=== PATIENT | female | born 1970 | race Caucasian/White ===

== ENCOUNTER 2021-08-09 15:03 | Outpatient (REF) | payer OTHER, SELFPAY ==
[2021-08-16 15:01] LABS: HPV mRNA E6/E7 rflx Not Detected (Not Detected)
== END 2021-08-09 15:04 | disposition home or self-care (01) ==
LOC: HO.LAB 15:03
PROVIDERS: Visit Provider Advanced Practice Midwife
DX: Z01.419 Encounter for gynecological examination (general) (routine) without abnormal findings (principal)
CPT/HCPCS: 87624; 88142

== ENCOUNTER 2021-08-12 10:32 | Outpatient (REF) | payer OTHER, SELFPAY ==
[2021-08-12 12:17] LABS: Hematocrit 31.1 % (37.0-47.0)
[2021-08-12 12:19] LABS: Hemoglobin 8.9 g/dl (12.0-16.0); Mean Corpuscular HGB Conc 28.6 g/dl (31.0-35.0); Mean Corpuscular Hemoglobin 20.3 pg (27.0-33.0); Platelet Count 364 X10*3/uL (160-400); Red Blood Count 4.38 X10*6/uL (4.20-5.50); Red Cell Distribution Width 19.2 % (11.0-16.0); White Blood Count 6.6 X10*3/uL (4.8-10.8)
[2021-08-12 13:01] LABS: Alanine Aminotransferase 25 U/L (0-31); Albumin Level 4.2 g/dL (3.5-5.0); Alkaline Phosphatase 82 U/L (39-117); Anion Gap 9 (12-20); Aspartate Amino Transferase 26 U/L (5-31); Bilirubin Total 0.6 mg/dL (0.0-1.0); Blood Urea Nitrogen 11 mg/dL (9-16); Calcium 9.5 mg/dL (8.4-10.2); Carbon Dioxide 29 mmol/L (22-29); Chloride 104 mmol/L (96-108); Estimated Glomerular Filt Rate > 60; Glucose Random 125 mg/dL (60-115); Potassium 4.3 mmol/L (3.3-5.1); Sodium 138 mmol/L (135-145); Total Protein 7.6 g/dL (6.5-8.0)
[2021-08-12 16:59] LABS: CT PCR NOT DETECTED (Not Detect.); NG PCR NOT DETECTED (Not Detect.)
== END 2021-08-12 10:33 | disposition home or self-care (01) ==
LOC: HO.LAB 10:32
PROVIDERS: Advanced Practice Midwife; PCP Internal Medicine Geriatric Medicine; Referring Provider Internal Medicine Geriatric Medicine; Visit Provider Nurse Practitioner Family
DX: Z01.419 Encounter for gynecological examination (general) (routine) without abnormal findings (principal); R13.10 Dysphagia, unspecified; K21.9 Gastro-esophageal reflux disease without esophagitis; K59.01 Slow transit constipation
CPT/HCPCS: 36415; 80053; 85027; 87491; 87591; 99202

== ENCOUNTER 2021-08-15 07:38 | Outpatient (REF) | payer OTHER, SELFPAY | END 2021-08-15 07:39 | disposition home or self-care (01) | LOC: HO.LNP 07:38 | PROVIDERS: Visit Provider Nurse Practitioner Family | DX: K21.9 Gastro-esophageal reflux disease without esophagitis (principal); Z11.0 Encounter for screening for intestinal infectious diseases | CPT/HCPCS: 87338 ==

== ENCOUNTER 2021-08-18 14:34 | Outpatient (REF) | payer OTHER, SELFPAY ==
--- NOTE | ~2021-08-18 | US_ITS ---
EXAMINATION: MM DIAGNOSTIC DIGITAL BREAST TOMOSYNTHESIS, BILATERAL US DIAGNOSTIC ULTRASOUND BREAST, RIGHT CLINICAL INFORMATION: 51-year-old with 6-month history lateral right breast mastodynia. No palpable mass or discharge. Prior outside mammography from [place] currently unavailable. No known family history breast cancer. The lifetime risk of breast cancer based on the Tyrer-Cuzick Model is 7%. COMPARISON: None. TECHNIQUE: Digital breast tomosynthesis is performed in both the craniocaudal and mediolateral oblique views along with computer-aided detection (CAD). Synthesized 2D images are generated from the tomosynthesis. Ultrasound right breast is targeted to the 7:00 through 11:00 position. Grayscale imaging and color Doppler are performed without and with harmonics. FINDINGS: There are scattered areas of fibroglandular density (ACR BI-RADS breast composition Category b). There is no mass or architectural abnormality. The axilla and skin contours are unremarkable. There is no skin thickening or coarsening of the Jim's ligaments. No abnormal calcifications. Ultrasound demonstrates no cystic or solid mass, architectural abnormality, or focal duct ectasia. No skin thickening or edema tracking in soft tissue planes. Results are discussed with the patient at time of visit, using an deli cook. US/US breast RT limited IMPRESSION: No mammographic evidence of malignancy or inflammatory changes. Unremarkable targeted right breast ultrasound. ASSESSMENT: BI-RADS 1: Negative RECOMMENDATION: 1. Patient's right breast pain should be managed based on the clinical impression. 2. Radiology department staff will attempt to retrieve prior [id number] mammography to allow for comparison in an addendum report. 3. Otherwise, routine annual screening mammography. This patient's information was entered into a reminder system with a target due date for their next mammogram.
--- NOTE | ~2021-08-18 | MM_ITS ---
EXAMINATION: MM DIAGNOSTIC DIGITAL BREAST TOMOSYNTHESIS, BILATERAL US DIAGNOSTIC ULTRASOUND BREAST, RIGHT CLINICAL INFORMATION: 51-year-old with 6-month history lateral right breast mastodynia. No palpable mass or discharge. Prior outside mammography from [place] currently unavailable. No known family history breast cancer. The lifetime risk of breast cancer based on the Tyrer-Cuzick Model is 7%. COMPARISON: None. TECHNIQUE: Digital breast tomosynthesis is performed in both the craniocaudal and mediolateral oblique views along with computer-aided detection (CAD). Synthesized 2D images are generated from the tomosynthesis. Ultrasound right breast is targeted to the 7:00 through 11:00 position. Grayscale imaging and color Doppler are performed without and with harmonics. FINDINGS: There are scattered areas of fibroglandular density (ACR BI-RADS breast composition Category b). There is no mass or architectural abnormality. The axilla and skin contours are unremarkable. There is no skin thickening or coarsening of the Jim's ligaments. No abnormal calcifications. Ultrasound demonstrates no cystic or solid mass, architectural abnormality, or focal duct ectasia. No skin thickening or edema tracking in soft tissue planes. Results are discussed with the patient at time of visit, using an hand packager. MM/MM tomosynthesis diagnostic BI IMPRESSION: No mammographic evidence of malignancy or inflammatory changes. Unremarkable targeted right breast ultrasound. ASSESSMENT: BI-RADS 1: Negative RECOMMENDATION: 1. Patient's right breast pain should be managed based on the clinical impression. 2. Radiology department staff will attempt to retrieve prior [id number] mammography to allow for comparison in an addendum report. 3. Otherwise, routine annual screening mammography. This patient's information was entered into a reminder system with a target due date for their next mammogram.
== END 2021-08-18 14:35 | disposition home or self-care (01) ==
LOC: HO.MAMMO 14:34
PROVIDERS: Visit Provider Advanced Practice Midwife
DX: N64.4 Mastodynia (principal)
CPT/HCPCS: 76642; 77062; 77066

== ENCOUNTER 2021-09-06 09:55 | Outpatient (REF) | payer OTHER, SELFPAY ==
[2021-09-06 13:41] LABS: MANUAL DIFF FLAG NO
[2021-09-06 13:51] LABS: Basophils Percent Auto 0.7 % (0-2); Eosinophils Absolute Auto 0.1 X10*3/uL (0.0-0.4); Eosinophils Percent Auto 1.6 % (0-4); Hematocrit 30.4 % (37.0-47.0); Hemoglobin 8.5 g/dl (12.0-16.0); Imm Gran Abs Auto 0.03 X10*3/uL (0.00-0.03); Imm Gran Pct Auto 0.5 % (0.0-0.4); Lymphocytes Absolute Auto 1.8 X10*3/uL (1.2-4.9); Lymphocytes Percent Auto 31.8 % (20-40); Mean Corpuscular Hemoglobin 19.9 pg (27.0-33.0); Mean Corpuscular Volume 71.2 fL (80.0-98.0); Mean Platelet Volume 11.9 fL (9.4-12.3); Monocytes Absolute Auto 0.6 X10*3/uL (0.1-1.2); Monocytes Percent Auto 11.3 % (2-11); Neutrophils Percent Auto 54.1 % (45-73); Platelet Count 302 X10*3/uL (160-400); Red Blood Count 4.27 X10*6/uL (4.20-5.50); Red Cell Distribution Width 17.9 % (11.0-16.0); White Blood Count 5.6 X10*3/uL (4.8-10.8)
[2021-09-06 14:22] LABS: Iron 17 mcg/dL (30-160); Percent Iron Saturation 4 % (15-50); Total Iron Binding Capacity 415 mcg/dL (228-428); Unsaturated Iron Binding 398 ug/dL
[2021-09-06 15:04] LABS: Folate 18.4 ng/mL (> or = 4.0); Vitamin B12 556 pg/mL (200-900)
[2021-09-06 15:37] LABS: Ferritin 5 ng/mL (10-250)
== END 2021-09-06 09:56 | disposition home or self-care (01) ==
LOC: HO.10HDL 09:55
PROVIDERS: Visit Provider Internal Medicine
DX: D50.9 Iron deficiency anemia, unspecified (principal)
CPT/HCPCS: 36415; 82607; 82728; 82746; 83540; 85025

== ENCOUNTER 2021-09-19 10:58 | Day surgery (SDC) | payer OTHER, SELFPAY ==
[2021-09-19 11:11] VITALS: BMI 35.2
[2021-09-19 11:34] VITALS: BP 140/89; PULSE 105; RESP 16; TEMP 36.7; O2SAT 96
[2021-09-19] MEDS: Lactated Ringers 1,000 ML 50 ML IVCONT (11:43)
--- NOTE | 2021-09-19 13:11 | P.CONAN_ITS ---
COUNT INCLUDES THE [facility] Active Problems Active Problems: All Active Problems (Updated 08/23/21 @ 15:08 by Caro fermin CNM) Pain of right breast (Acute) Well woman exam with routine gynecological exam (Acute) Cervical cancer screening (Acute) Past Medical History Functional capacity: independent ambulation Patient : No Family History Family history of problems with anesthesia: No Surgical History Surgical History Tubal ligation status History of Problems with Anesthesia: Yes Social History Social History Alcohol intake: never Patient Tobacco Use Status: Never used Tobacco Use of substances other than those prescribed or required for medical reasons: No Are you DNR?: No Advance Directives: No Advance Directives Information Provided: Yes Recently lost weight without trying: No Nutrition Risks: No Nutritional Risk Gender identity: Female Meds Allergies Allergy/AdvReac Type Severity Reaction Status Date / Time No Known Allergies Allergy Verified 08/12/21 10:49 Active Medications: Current Medications Sodium Biphosphate/Sodium Phosphate (Sodium Phosphate,Mingo-Dibasic 133 Ml Enema) 133 ml ID ONCE PRN PRN Reason: Poor Colonoscopy Prep Results Home Medications Medication Instructions Recorded Confirmed Last Taken Type acetaminophen 325 mg tablet 325 mg PO QID PRN 08/09/21 08/09/21 Unknown History (Tylenol) esomeprazole magnesium 20 mg 20 mg PO DAILY 08/12/21 Unknown History capsule,delayed release omeprazole 40 mg capsule,delayed 1 cap PO DAILY 09/19/21 09/19/21 09/19/21 History release Exam Exam Date and Time: September 19, 2021 1311 Height,Weight and Vital Signs: Height 5 ft 5 in Weight 96.162 kg Last Vital Signs Temp 98.1 F 09/19/21 11:34 Pulse 105 H 09/19/21 11:34 Resp 16 09/19/21 11:34 BP 140/89 H 09/19/21 11:34 Pulse Ox 96 09/19/21 11:34 Airway Mallampati Class: IV TM Dist: >3cm Neck ROM: Full Heart: RRR Lungs: CTA Assessment and Plan Final Anesthetic Review Family History of Problems with Anesthesia: No History of Problems with Anesthesia: Yes NPO: Yes ASA Class: III Final Preanesthetic Review: No Changes in Pt Med Stat, Meds/Allgs Chart Reviewed, Consent Obtained/Reviewed and Anes Risks/Benef Reviewed Patient Risk: Low Procedure Risk: Low Anesthetic Plan Anesthetic Plan: MAC: Disposition: Standard PACU
[2021-09-19 14:13] VITALS: BP 114/75; PULSE 92; RESP 16; TEMP 36.8; O2SAT 93
--- NOTE | 2021-09-19 14:21 | P.BOP_ITS ---
Brief Operative Note Date of Service: 09/19/21 Pre-op diagnosis: Microcytic anemia, Family history of colon cancer, Dysphagia, GERD Post-op diagnosis: other (Distal and nonobstructing Esophageal stricture, R/O celiac disease, Colon polyp) Procedure: EGD with biopsies and Balloon Dilation, Colonoscopy to the cecum with bx/removal of polyp Surgeon: Jose Avitia Anesthesia: MAC Was an Contract Coordinator used for this Procedure?: No Estimated blood loss (mL): 2.0 Pathology: other (A. Descending duodenum B. Cecal polyp) Condition: stable Disposition: PACU
[2021-09-19 14:28] VITALS: BP 128/89; PULSE 85; RESP 16; O2SAT 97
[2021-09-19 14:40] VITALS: BP 139/96; PULSE 90; RESP 16; TEMP 36.3; O2SAT 97
--- NOTE | 2021-09-19 20:36 | OP_ITS ---
SURGEON: Jose Avitia MD INDICATIONS: The patient presents for evaluation of iron deficiency anemia, gastroesophageal reflux, dysphagia, and family history of colon cancer. Full consent has been obtained from her for this, including risks of bleeding and perforation. PREOPERATIVE DIAGNOSIS: POSTOPERATIVE DIAGNOSIS: PROCEDURE PERFORMED: Esophagogastroduodenoscopy with biopsies, and balloon dilation of distal esophageal stricture, and colonoscopy to the cecum with biopsy and removal of polyp. ESTIMATED BLOOD LOSS: COMPLICATIONS: ANESTHESIA: Monitored anesthesia care. ASSISTANTS: SPECIMENS: PREOPERATIVE DIAGNOSES: Gastroesophageal reflux, dysphagia, iron deficiency anemia, family history of colon cancer. POSTOPERATIVE DIAGNOSES: Gastroesophageal reflux, dysphagia, iron deficiency anemia, family history of colon cancer, nonobstructing distal esophageal ring, hiatal hernia, rule out celiac disease, colon polyp, internal hemorrhoids. DESCRIPTION OF PROCEDURE: The patient was placed in the left lateral decubitus position. The Olympus video gastroscope was passed in the posterior oropharynx and upper esophagus under direct vision. The scope was passed slowly into the distal esophagus. The gastroesophageal junction appeared at 36 cm. At this level, was what appeared to be a fibrotic nonobstructing esophageal stricture right at the EG junction at 36 cm. The scope easily passed this and entered a hiatal hernia. The scope was advanced to pylorus and the duodenum was cannulated to the descending portion. The duodenum including the bulb appeared normal without mass or ulceration. Biopsies were obtained from the second and third portions of duodenum. The scope was withdrawn back into the stomach. The gastric antrum and body appeared normal with good peristalsis. Scope was retroflexed visualizing the proximal stomach carefully which appeared normal, without any sign of mass or ulceration. The scope was straightened out and withdrawn back into the esophagus. I did use a [employer] incremental balloon to dilate the gastroesophageal junction from 18 mm to 19 mm to 20 mm at the recommended pressure for between 30 and 60 seconds each. Post dilation, there did appear to be some disruption of the stricture and some heme noted. The scope was withdrawn through the remainder of the esophagus which appeared normal. The scope was withdrawn from the patient. She was turned around for colonoscopy. The digital rectal exam revealed no abnormalities. The Olympus video pediatric colonoscope was entered into the rectum and advanced easily to the cecum. Once in the cecum, I did identify cecal pouch with appendiceal orifice and a normal-appearing ileocecal valve. In the cecum, was a flat approximately 3 mm polyp, which was biopsied and completely removed with cold biopsy forceps. The remainder of the cecum and ileocecal valve appeared normal. There was transillumination of light deep in the right lower quadrant. The scope was slowly withdrawn assessing all mucosal surfaces carefully. Preparation was excellent. I did not visualize any other polyps, colitis, nor angiodysplasia. In the rectum, scope was retroflexed visualizing internal hemorrhoids, but no other pathology. The rectal mucosa appeared normal. The scope was straightened out and withdrawn from the patient. She tolerated the procedure well and was returned to recovery area in stable condition. IMPRESSION: 1. Nonobstructing distal esophageal stricture, status post balloon dilation. 2. Hiatal hernia. 3. Rule out celiac disease. 4. Colon polyp. 5. Internal hemorrhoids. PLAN: The results of biopsies will be checked. I would recommend a repeat colonoscopy in 5 years for further evaluation given her family history of colon cancer in her father in his 60s. She was advised not to use any aspirin nor NSAIDs for 1 week. She has been using omeprazole 40 mg daily and has found that to be working much better for her reflux symptoms and will continue that. 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 She apparently has been unable to tolerate oral iron and might need some IV iron infusions. She will follow up with her primary care physician in that regard. Her most recent lab work on September 06 showed a hemoglobin of 8.5, MCV 71, ferritin of 5, iron of 17, and iron saturation of 4%. She will follow up with her primary care physician in this regard as to whether or not she might need iron infusions. Of note, her B12 and folate levels were normal. MD REGIS Vazquez/LYRIC / [id number]
== END 2021-09-19 15:28 | disposition home or self-care (01) ==
PROVIDERS: PCP Internal Medicine Geriatric Medicine; Visit Provider Internal Medicine
PROC: (CPT 45380; principal; 2021-09-19 12:20)
PROC: 0DJD8ZZ Inspection of Lower Intestinal Tract, Via Natural or Artificial Opening Endoscopic (ICD-10-PCS; CPT 45378; 2021-09-19 12:20)
DX: D50.9 Iron deficiency anemia, unspecified (principal); Z80.0 Family history of malignant neoplasm of digestive organs; K63.5 Polyp of colon; K64.8 Other hemorrhoids; K22.2 Esophageal obstruction; R13.10 Dysphagia, unspecified; K21.9 Gastro-esophageal reflux disease without esophagitis; K44.9 Diaphragmatic hernia without obstruction or gangrene; Z79.899 Other long term (current) drug therapy
CPT/HCPCS: 45380; 43249; 43239; 88305; C1726

== ENCOUNTER → 2021-10-05 13:53 | Outpatient (BNV) | payer OTHER, SELFPAY | PROVIDERS: PCP Internal Medicine Geriatric Medicine; Visit Provider Internal Medicine | DX: D50.9 Iron deficiency anemia, unspecified (principal) | CPT/HCPCS: 99203; 99212; 99213; 99214 ==

== ENCOUNTER 2021-10-11 08:03 | Outpatient (REF) | payer OTHER, SELFPAY | END 2021-10-11 08:04 | disposition home or self-care (01) | LOC: HO.MDS 08:03 | PROVIDERS: PCP Internal Medicine Geriatric Medicine; Visit Provider Internal Medicine | DX: D50.9 Iron deficiency anemia, unspecified (principal) | CPT/HCPCS: 96365; 96366; J1200; J1750; Q0163 ==

== ENCOUNTER 2022-05-08 16:03 | Outpatient (REF) | payer OTHER, SELFPAY ==
--- NOTE | ~2022-05-08 | MR_ITS ---
EXAMINATION: MR SHOULDER WITHOUT CONTRAST, RIGHT CLINICAL INFORMATION: Pain, fall. Occupational risk for overuse/repetitive stress. COMPARISON: None TECHNIQUE: MRI of the shoulder without contrast was performed on a high-field scanner. FINDINGS: ROTATOR CUFF: Intact. No muscle atrophy or fatty infiltration. BICEPS: Normal. CORACOACROMIAL ARCH: The undersurface of the acromion is curved with no subacromial spur. The acromioclavicular joint is normal. LABRUM/CAPSULE: Normal. GLENOHUMERAL JOINT/MARROW: Normal. BURSA: Normal. MR/MR shoulder RT wo con IMPRESSION: Normal MRI of the right shoulder.
== END 2022-05-08 16:04 | disposition home or self-care (01) ==
LOC: HO.MRI 16:03
PROVIDERS: Visit Provider Emergency Medicine
DX: M25.511 Pain in right shoulder (principal)
CPT/HCPCS: 73221

== ENCOUNTER 2022-07-12 13:30 | Outpatient (REF) | payer OTHER, SELFPAY | END 2022-07-12 13:31 | disposition home or self-care (01) | LOC: HO.MDS 13:30 | PROVIDERS: Visit Provider Internal Medicine | DX: D50.9 Iron deficiency anemia, unspecified (principal) | CPT/HCPCS: 96365; J1756 ==

== ENCOUNTER 2022-07-13 11:46 | Outpatient (REF) | payer OTHER, SELFPAY ==
--- NOTE | 2022-07-13 08:45 | EMG_ITS ---
Right median and ulnar motor and sensory studies were performed. Right radial sensory study was performed and needle examination was performed. This study did not reveal any evidence of median or ulnar neuropathy or radiculopathy. MD CHNE David/LYRIC / [id number]
== END 2022-07-13 11:47 | disposition home or self-care (01) ==
LOC: HO.NEURO 11:46
PROVIDERS: Visit Provider Internal Medicine Geriatric Medicine
DX: M54.12 Radiculopathy, cervical region (principal); M79.601 Pain in right arm; R20.2 Paresthesia of skin
CPT/HCPCS: 95886; 95909

== ENCOUNTER 2022-07-19 14:20 | Outpatient (REF) | payer OTHER, SELFPAY | END 2022-07-19 14:21 | disposition home or self-care (01) | LOC: HO.MDS 14:20 | PROVIDERS: Visit Provider Internal Medicine | DX: D50.9 Iron deficiency anemia, unspecified (principal) | CPT/HCPCS: 96365; J1756 ==

== ENCOUNTER 2022-07-26 14:07 | Outpatient (REF) | payer OTHER, SELFPAY | END 2022-07-26 14:08 | disposition home or self-care (01) | LOC: HO.MDS 14:07 | PROVIDERS: Visit Provider Internal Medicine | DX: D50.9 Iron deficiency anemia, unspecified (principal) | CPT/HCPCS: 96365; J1756 ==

== ENCOUNTER 2022-08-02 13:50 | Outpatient (REF) | payer OTHER, SELFPAY | END 2022-08-02 13:51 | disposition home or self-care (01) | LOC: HO.MDS 13:50 | PROVIDERS: Visit Provider Internal Medicine | DX: D50.9 Iron deficiency anemia, unspecified (principal) | CPT/HCPCS: 96365; J1756 ==

== ENCOUNTER 2022-08-14 07:06 | Outpatient (REF) | payer OTHER, SELFPAY | END 2022-08-14 07:07 | disposition home or self-care (01) | LOC: HO.MDS 07:06 | PROVIDERS: Visit Provider Internal Medicine | DX: D50.9 Iron deficiency anemia, unspecified (principal) | CPT/HCPCS: 96365; J1756 ==

== ENCOUNTER 2022-08-17 10:54 | Outpatient (REF) | payer OTHER, SELFPAY ==
[2022-08-18 02:10] LABS: CT PCR NOT DETECTED (Not Detect.); NG PCR NOT DETECTED (Not Detect.)
[2022-08-18 10:08] LABS: BV Int Neg Control Negative (Negative); BV Int Pos Control Positive (Positive)
== END 2022-08-17 10:55 | disposition home or self-care (01) ==
LOC: HO.LNP 10:54
PROVIDERS: Visit Provider Advanced Practice Midwife
DX: I10 Essential (primary) hypertension (principal)
CPT/HCPCS: 87480; 87491; 87510; 87591; 87660

== ENCOUNTER 2022-09-20 15:31 | Outpatient (REF) | payer OTHER, SELFPAY | END 2022-09-20 15:32 | disposition home or self-care (01) | LOC: HO.US 15:31 | PROVIDERS: Visit Provider Advanced Practice Midwife | DX: N92.4 Excessive bleeding in the premenopausal period (principal); D50.9 Iron deficiency anemia, unspecified | CPT/HCPCS: 76830; 76856 ==

== ENCOUNTER → 2022-10-04 14:23 | Outpatient (BNVA) | payer OTHER, SELFPAY | PROVIDERS: PCP Internal Medicine Geriatric Medicine; Visit Provider Advanced Practice Midwife | DX: N92.4 Excessive bleeding in the premenopausal period (principal); D50.9 Iron deficiency anemia, unspecified | CPT/HCPCS: 99212 ==

== ENCOUNTER 2022-11-06 11:27 | Outpatient (REF) | payer OTHER, SELFPAY | END 2022-11-06 11:28 | disposition home or self-care (01) | LOC: HO.MDS 11:27 | PROVIDERS: Visit Provider Internal Medicine | DX: D50.9 Iron deficiency anemia, unspecified (principal) | CPT/HCPCS: J1756 ==

== ENCOUNTER 2022-11-06 12:42 | Outpatient (REF) | payer OTHER, SELFPAY ==
--- NOTE | ~2022-11-06 | US_ITS ---
EXAMINATION: US RETROPERITONEAL LIMITED (RENAL ONLY) CLINICAL INFORMATION: Rule out kidney stones. COMPARISON: None TECHNIQUE: Real-time imaging of the kidneys. FINDINGS: RIGHT KIDNEY: 12.3 x 4.9 x 6.2 cm (SAG x AP x TRV). The kidney is normal in size, contour, and echogenicity. Renal cortical thickness is normal. No calculi or focal parenchymal lesions. No hydronephrosis. LEFT KIDNEY: 11.0 x 5.3 x 5.4 cm (SAG x AP x TRV). The kidney is normal in size, contour, and echogenicity. Renal cortical thickness is normal. No calculi or focal parenchymal lesions. No hydronephrosis. US/US renal BI IMPRESSION: No renal calculi are seen.
== END 2022-11-06 12:43 | disposition home or self-care (01) ==
LOC: HO.US 12:42
PROVIDERS: Visit Provider Internal Medicine
DX: R10.9 Unspecified abdominal pain (principal); R31.29 Other microscopic hematuria; M54.41 Lumbago with sciatica, right side; M54.42 Lumbago with sciatica, left side
CPT/HCPCS: 76775; 96365

== ENCOUNTER 2022-11-13 14:27 | Outpatient (REF) | payer OTHER, SELFPAY | END 2022-11-13 14:28 | disposition home or self-care (01) | LOC: HO.MDS 14:27 | PROVIDERS: Visit Provider Internal Medicine | DX: D50.9 Iron deficiency anemia, unspecified (principal) | CPT/HCPCS: 96365; J1756 ==

== ENCOUNTER 2022-11-21 14:29 | Outpatient (REF) | payer OTHER, SELFPAY | END 2022-11-21 14:30 | disposition home or self-care (01) | LOC: HO.MDS 14:29 | PROVIDERS: Visit Provider Internal Medicine | DX: D50.9 Iron deficiency anemia, unspecified (principal) | CPT/HCPCS: 96365; J1756 ==

== ENCOUNTER 2022-11-27 15:00 | Outpatient (REF) | payer OTHER, SELFPAY | END 2022-11-27 15:01 | disposition home or self-care (01) | LOC: HO.MDS 15:00 | PROVIDERS: Visit Provider Internal Medicine | DX: D50.9 Iron deficiency anemia, unspecified (principal) | CPT/HCPCS: 96365 ==

== ENCOUNTER 2022-11-27 15:22 | Emergency (ER) | payer OTHER, SELFPAY ==
--- NOTE | ~2022-11-27 | XR_ITS ---
EXAMINATION: XR KNEE, RIGHT CLINICAL INFORMATION: Pain and swelling. COMPARISON: None TECHNIQUE: Four views of the right knee. FINDINGS: There is mild suprapatellar joint effusion. No visible fracture, dislocation or loose body seen. The joint spaces are maintained normal. XR/XR knee RT 4V IMPRESSION: Minimal suprapatellar joint effusion likely nonspecific. Otherwise rest of the right knee is unremarkable.
[2022-11-27 15:52] VITALS: BP 175/91; PULSE 83; RESP 18; TEMP 36.9; O2SAT 98; BMI 36.0
--- NOTE | 2022-11-27 15:54 | ED_ITS ---
HPI - Extremity Injury (Lower) General Chief Complaint: Extremity Problem <ALAN Mauro Last Filed: 11/27/22 15:55> Stated Complaint: right knee swollen,pain <ALAN Mauro - Last Filed: 11/27/22 15:55> Time Seen by Provider: 11/27/22 18:22 <ALAN Mauro - Last Filed: 11/27/22 15:55> Source: patient <ALAN Escobar - Last Filed: 11/27/22 18:38> Mode of arrival: ambulatory <ALAN Escobar Last Filed: 11/27/22 18:38> Limitations: no limitations <ALAN Escobar Last Filed: 11/27/22 18:38> History of Present Illness HPI Narrative: This is a 52-year-old female history of obesity, hypertension presents with right-sided knee pain x1 day, patient tells me this pain was atraumatic in nature, started randomly when she was standing. Reports her right knee appears swollen when compared to her left. No direct trauma to the area. This is never happened to her before. Patient denies fevers, chills, chest pain, shortness of breath, numbness, tingling, headache, vision changes, dizziness, changes in urination, changes in bowel habits, rash. <ALAN Escobar Last Filed: 11/27/22 18:38> Related Data Home Medications: Home Medications Medication Instructions Recorded Confirmed acetaminophen 325 mg tablet 325 mg PO QID PRN Pain 08/09/21 10/18/22 (Tylenol) omeprazole 40 mg capsule,delayed 1 cap PO DAILY 09/19/21 10/18/22 release blood pressure test kit-large 07/03/22 10/18/22 Previous Rx's Medication Instructions Recorded docusate sodium 100 mg capsule 100 mg PO BEDTIME #30 caps 08/12/21 sennosides 8.6 mg tablet (Natural 8.6 mg PO BEDTIME constipation #30 08/12/21 Senna Laxative) tabs ketorolac 10 mg tablet 10 mg PO TID PRN pain 5 days #15 11/27/22 tabs <ALAN Mauro Last Filed: 11/27/22 15:55> Allergies/Adverse Reactions: Allergies Allergy/AdvReac Type Severity Reaction Status Date / Time No Known Allergies Allergy Verified 10/04/22 14:30 <ALAN Mauro - Last Filed: 11/27/22 15:55> Review of Systems Review of Systems: Constitutional : No Weight loss, No Fever, No Chills, No Fatigue, No Malaise ENT/Mouth : No sore throat, No Rhinorrhea Eyes: No Eye Pain, No Swelling, No Redness Cardiovascular : No Chest Pain, No SOB, No Dyspnea on Exertion, No Orthopnea, No Edema, No Palpitations Respiratory : No Cough, No Sputum, No Wheezing Gastrointestinal : No Nausea, No Vomiting, No Diarrhea, No Constipation, No abdominal Pain, No Hematochezia, No Melena Genitourinary : No Dysuria, No Urinary Frequency, No Hematuria, Musculoskeletal : + joint pain, No Myalgias, + Joint Swelling Skin : No Skin Lesions, No rash Neuro : No Weakness, No Numbness, No Dizziness, No Headache Psych : No Anxiety/Panic, No Depression All other systems reviewed and are negative <ALAN Escobar - Last Filed: 11/27/22 18:38> Yes all other systems are reviewed and are negative <ALAN Escobar - Last Filed: 11/27/22 18:38> [facility] Past Medical History Attestation statement: The following information was validated with the patient. <ALAN Escobar - Last Filed: 11/27/22 18:38> Source: old records reviewed and nursing notes reviewed <ALAN Escobar - Last Filed: 11/27/22 18:38> Medical History: Medical History COVID-19 Hypertension <ALAN Mauro - Last Filed: 11/27/22 15:55> Surgical History: Surgical History Tubal ligation status <ALAN Mauro - Last Filed: 11/27/22 15:55> Family History Family History: Family History Father Mother Multiple myeloma Father Colon cancer <ALAN Mauro - Last Filed: 11/27/22 15:55> Social History Social History: Social History Household Members: Spouse Housing: House Alcohol intake: never Patient Tobacco Use Status: Never used Tobacco Advance Directives: No Advance Directives Information Provided: Yes Gender identity: Female <ALAN Mauro - Last Filed: 11/27/22 15:55> Physical Exam Vital Signs: Vital Signs: Last Vital Signs Temp 98.4 F 11/27/22 15:52 Pulse 83 11/27/22 15:52 Resp 18 11/27/22 15:52 BP 175/91 H 11/27/22 15:52 Pulse Ox 98 11/27/22 15:52 O2 Del Method 11/27/22 15:52 BMI result Body Mass Index 36.0 <ALAN Mauro - Last Filed: 11/27/22 15:55> Vital Signs: Last Vital Signs Temp 98.4 F 11/27/22 15:52 Pulse 83 11/27/22 15:52 Resp 18 11/27/22 15:52 BP 175/91 H 11/27/22 15:52 Pulse Ox 98 11/27/22 15:52 O2 Del Method 11/27/22 15:52 BMI result Body Mass Index 36.0 vss <ALAN Escobar - Last Filed: 11/27/22 18:38> Appearance: Alert.? Oriented X3.? No acute distress.? Head: Normocephalic, atraumatic, no step-offs or deformities Eyes: Pupils equal, round and reactive to light.? CVS: Normal heart rate and rhythm.? Pulses normal.? Respiratory: No respiratory distress.? Breath sounds normal.? Abdomen: Soft and nontender.? Skin: Skin warm and dry.? Normal skin color.? Normal skin turgor.? Extremities: No lower extremity edema.? No calf ttp. 5/5 strength to bilateral upper and lower extremities + slight swelling overlying the right knee, no overlying skin changes. Normal left knee. Bilateral knees with full range of motion pain-free. 2+ popliteal pulses, 2+ dorsalis pedis, anterior tibialis and posterior tibialis pulses equal bilateral. Ambulatory with steady gait normal coordination. Normal sensation to lower extremities. No distracting injuries. Neuro: Oriented X 3.? No motor deficit.? No sensory deficit. CN 2-12 intact <ALAN Escobar - Last Filed: 11/27/22 18:38> Course Course Course Narrative: RME - 52 yo [place]an speaking female with hx obesity, HTN presents to the ER for evaluation of acute onset of right knee pain that started today while standing. Reports new swelling. No specific injury. Ambulatory into triage. XRs pending. <ALAN Mauro - Last Filed: 11/27/22 15:55> Reevaluation(s) Reevaluation #1: X-ray with a minimal suprapatellar joint effusion likely nonspecific. I do not suspect septic joint or osteomyelitis. Will give patient an Amaury wrap. Will give her Toradol for pain and discharged home on same. Will also do a short course of steroids. Will have her follow-up with the orthopedic team. Educated patient on diagnosis and treatment plan, answered all question, patient verbalizes understanding. At this time patient will be discharged home, advised to return with new or worsening symptoms. Educated on worrisome signs and sym ptoms and when to return. At this time I feel comfortable discharge home. <ALAN Escobar - Last Filed: 11/27/22 18:38> Time: 18:27 <ALAN Escobar - Last Filed: 11/27/22 18:38> Medical Decision Making Medical Decision Making [facility] Narrative: 1826 52-year-old female presents with atraumatic right-sided knee pain, started today. Physical exam significant for slight swelling overlying the right knee, no overlying skin changes. Normal left knee. Bilateral knees with full range of motion pain-free. 2+ popliteal pulses, 2+ dorsalis pedis, anterior tibialis and posterior tibialis pulses equal bilateral. Ambulatory with steady gait normal coordination. Normal sensation to lower extremities. No distracting injuries. Concerns for possible small right knee effusion likely secondary to degenerative arthritis/inflammatory arthritis. Unlikely septic joint, threatened limb. No signs of neurovascular compromise. Plan at this time is x-ray, was ordered from triage. <ALAN Escobar - Last Filed: 11/27/22 18:38> Differential Diagnosis Differential Diagnoses: The differential diagnosis associated with the presentation includes <ALAN Escobar - Last Filed: 11/27/22 18:38> Concerns for possible small right knee effusion likely secondary to degenerative arthritis/inflammatory arthritis. Unlikely septic joint, threatened limb. No signs of neurovascular compromise. <ALAN Escobar - Last Filed: 11/27/22 18:38> Admission/Observation Consideration of admission/observation: Escalation of care including admission/observation considered <ALAN Escobar - Last Filed: 11/27/22 18:38> Lab Data MDM Lab Attestation statement: I reviewed the patient's lab results. <ALAN Escobar - Last Filed: 11/27/22 18:38> Independent Interpretation I performed an independent interpretation of an: Plain X-Ray (Minimal suprapatellar joint effusion likely nonspecific. Otherwise rest of the right knee is unremarkable. ) <ALAN Escobar - Last Filed: 11/27/22 18:38> Radiology Impression Discussion of test interpretation with radiology: I have reviewed the radiologist's reading. <ALAN Escobar - Last Filed: 11/27/22 18:38> Core Measures AMI core measures followed: Yes <ALAN Escobar - Last Filed: 11/27/22 18:38> Measure exclusions: not indicated <ALAN Escobar - Last Filed: 11/27/22 18:38> Critical Care Time Critical Care Time Critical Care Time: No <ALAN Escobar - Last Filed: 11/27/22 18:38> Discharge Plan Discharge Clinical Impression: Effusion of right knee <ALAN Mauro Last Filed: 11/27/22 15:55> Patient Disposition: Home, Self-Care <ALAN Mauro - Last Filed: 11/27/22 15:55> Instructions: Swollen Knee Joint (ED), Swollen Joint (ED) <ALAN Mauro Last Filed: 11/27/22 15:55> Additional Instructions: Take your medications as prescribed. If you were prescribed antibiotics today, it is important that you take your medication to their entirety, do not skip any doses, do not finish them early. Follow-up with your primary care provider this week. Return to the emergency department with new or worsening symptoms. Such as fevers, chills, chest pain, shortness of breath, nausea, vomiting, dizziness, headache, vision changes, lethargy In case of emergency call 911 Toradol has been sent to your pharmacy, you tolerated this well in the department. Please take this as prescribed do not take this with ibuprofen, or other NSAIDs, do not mix this with alcohol. Side effects of this medication including increased risk for bleeding and possible kidney injury. <ALAN Mauro - Last Filed: 11/27/22 15:55> Prescriptions: New ketorolac 10 mg tablet 10 mg PO TID PRN (Reason: pain) 5 Days Qty: 15 0RF Rx Instructions: Tolerated IM in the department No Action omeprazole 40 mg capsule,delayed release(DR/EC) 1 cap PO DAILY (DME) blood pressure test kit-large Kit MISCELLANEOUS DAILY docusate sodium 100 mg capsule 100 mg PO BEDTIME Qty: 30 3RF sennosides [Natural Senna Laxative] 8.6 mg tablet 8.6 mg PO BEDTIME Qty: 30 3RF acetaminophen [Tylenol] 325 mg tablet 325 mg PO QID PRN (Reason: Pain) <ALAN Mauro - Last Filed: 11/27/22 15:55> Referrals: [facility] [Provider Group] - 1 week Name,MD Rajesh [Primary Care Provider] - 2 days <ALAN Mauro - Last Filed: 11/27/22 15:55> Stand Alone Forms: Work/School Release <ALAN Mauro - Last Filed: 11/27/22 15:55>
[2022-11-27] MEDS: Ketorolac Tromethamine 15 MG/ML VIAL 30 MG IM (18:56)
== END 2022-11-27 19:01 | disposition home or self-care (01) ==
PROVIDERS: Emergency Provider Student in an Organized Health Care Education/Training Program; PCP Internal Medicine Geriatric Medicine
DX: M25.461 Effusion, right knee (principal); M25.561 Pain in right knee; I10 Essential (primary) hypertension; E66.9 Obesity, unspecified; Z68.36 Body mass index [BMI] 36.0-36.9, adult; Z79.899 Other long term (current) drug therapy
CPT/HCPCS: 73564; 96372; 99283; 99284; J1885

== ENCOUNTER 2022-12-04 13:34 | Outpatient (REF) | payer OTHER, SELFPAY | END 2022-12-04 13:35 | disposition home or self-care (01) | LOC: HO.MDS 13:34 | PROVIDERS: Visit Provider Internal Medicine | DX: D50.9 Iron deficiency anemia, unspecified (principal) | CPT/HCPCS: 96365; J1756 ==

== ENCOUNTER 2022-12-25 14:01 | Outpatient (REF) | payer OTHER, SELFPAY ==
--- NOTE | ~2022-12-25 | XR_ITS ---
EXAMINATION: XR KNEE, RIGHT CLINICAL INFORMATION: Pain. COMPARISON: Radiographs dated 11/27/2022. TECHNIQUE: AP and axial views of the right knee are submitted. FINDINGS: Bony alignment and mineralization are normal. The lateral, medial and patellofemoral joint space compartments are well-maintained. There is mild peripheral osteophyte formation of the medial and patellofemoral compartments. No fracture or dislocation is seen. There is no foreign body. XR/XR knee RT 1V IMPRESSION: 1. There is mild osteoarthritic change of the medial and patellofemoral compartments of the right knee. 2. No fracture or dislocation is seen.
--- NOTE | ~2022-12-25 | XR_ITS ---
EXAMINATION: XR KNEE, RIGHT CLINICAL INFORMATION: Pain. COMPARISON: Radiographs dated 11/27/2022. TECHNIQUE: AP and axial views of the right knee are submitted. FINDINGS: Bony alignment and mineralization are normal. The lateral, medial and patellofemoral joint space compartments are well-maintained. There is mild peripheral osteophyte formation of the medial and patellofemoral compartments. No fracture or dislocation is seen. There is no foreign body. XR/XR knee RT 1V IMPRESSION: 1. There is mild osteoarthritic change of the medial and patellofemoral compartments of the right knee. 2. No fracture or dislocation is seen.
== END 2022-12-25 14:02 | disposition home or self-care (01) ==
LOC: HO.HOSX 14:01
PROVIDERS: Visit Provider Physician Assistant
DX: M17.11 Unilateral primary osteoarthritis, right knee (principal); R60.9 Edema, unspecified
CPT/HCPCS: 73560; 99212

== ENCOUNTER 2023-01-22 09:14 | Outpatient (REF) | payer OTHER, SELFPAY ==
--- NOTE | ~2023-01-22 | XR_ITS ---
EXAMINATION: XR SHOULDER, RIGHT CLINICAL INFORMATION: Right shoulder pain COMPARISON: None available. TECHNIQUE: AP external rotation, Grashey, scapular Y, and axillary views of the right shoulder. FINDINGS: The bones and soft tissues are normal. No fracture. Glenohumeral and acromioclavicular alignment is anatomic with normal joint space. No abnormal soft tissue calcifications. XR/XR shoulder RT min 2V IMPRESSION: Normal right shoulder.
== END 2023-01-22 09:15 | disposition home or self-care (01) ==
LOC: HO.HOSX 09:14
PROVIDERS: Visit Provider Physician Assistant
DX: M75.101 Unspecified rotator cuff tear or rupture of right shoulder, not specified as traumatic (principal)
CPT/HCPCS: 20610; 73030; 99202; J1040

== ENCOUNTER 2023-02-06 07:30 | Emergency (ER) | payer OTHER, SELFPAY ==
--- NOTE | ~2023-02-06 | XR_ITS ---
Examination: Right shoulder and chest. CLINICAL INDICATION: Right shoulder pain. Reading to right chest. COMPARISON: Right shoulder 01/22/2023 TECHNIQUE: Right shoulder 3 views. Chest one view. FINDINGS: Right shoulder: There is minimal loss of right glenohumeral joint space. It is better visualized on today's exam. The AC joint space is preserved. No visible acute fracture, dislocation or subluxation seen. No bony erosive changes. The soft tissues are normal. CHEST: The lungs are well-expanded and clear. The heart size and progress clarities normal. No gross bony abnormality seen. XR/XR shoulder RT 1V IMPRESSION: Mild degenerative changes right humeral joint. Otherwise unremarkable right shoulder. Unremarkable chest exam...
--- NOTE | ~2023-02-06 | XR_ITS ---
Examination: Right shoulder and chest. CLINICAL INDICATION: Right shoulder pain. Reading to right chest. COMPARISON: Right shoulder 01/22/2023 TECHNIQUE: Right shoulder 3 views. Chest one view. FINDINGS: Right shoulder: There is minimal loss of right glenohumeral joint space. It is better visualized on today's exam. The AC joint space is preserved. No visible acute fracture, dislocation or subluxation seen. No bony erosive changes. The soft tissues are normal. CHEST: The lungs are well-expanded and clear. The heart size and progress clarities normal. No gross bony abnormality seen. XR/XR chest 1V IMPRESSION: Mild degenerative changes right humeral joint. Otherwise unremarkable right shoulder. Unremarkable chest exam...
--- NOTE | 2023-02-06 07:34 | ECG_ITS ---
Test Reason : pain radiating to L chest Blood Pressure : / mmHG Vent. Rate : 067 BPM Atrial Rate : 067 BPM P-R Int : 148 ms QRS Dur : 074 ms QT Int : 394 ms P-R-T Axes : 030 002 025 degrees QTc Int : 416 ms Normal sinus rhythm Normal ECG No previous ECGs available Referred By: Generic ED Physician Electronically Signed By:PHILL WU
[2023-02-06 07:46] VITALS: BP 179/99; PULSE 66; RESP 17; TEMP 36.1; O2SAT 98; BMI 35.9
--- NOTE | 2023-02-06 08:02 | ED_ITS ---
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 Patient states that over the last 24 she has had worsening right shoulder pain that radiates into her neck and down into her hands. Patient states that she has had issues with this shoulder before and has seen orthopedics but has not fixed it. 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 Patient denies any dizziness, light headedness, abdominal pain, nausea, vomiting, fever, chills, blurry vision, double vision, loss of vision, chest pain, difficulty breathing, shortness of breath, back pain, night sweats, pain with urination, increased urinary frequency, increased urinary urgency, blood in her urine or stool, syncope or a near syncopal episode, recent trauma or falls, bowel incontinence, bladder incontinence, bowel retention, bladder retention, or any other complaints at this time. Onset (ago): day(s) Location: right and upper extremity Severity: mild Severity scale (1-10): 2 Quality: aching Relieving factors: none Exacerbating factors: none Associated symptoms: denies other symptoms Treatments prior to arrival: none Related Data Home Medications Medication Instructions Recorded Confirmed blood pressure test kit-large 07/03/22 01/16/23 omeprazole 40 mg capsule,delayed 40 mg PO DAILY 01/22/23 release Previous Rx's Medication Instructions Recorded diclofenac sodium 75 mg 75 mg PO BID PRN pain 30 days #60 12/25/22 tablet,delayed release tabs cyclobenzaprine 5 mg tablet 5 mg PO TID PRN muscle spasm 7 02/06/23 days #21 tabs Allergies Allergy/AdvReac Type Severity Reaction Status Date / Time No Known Allergies Allergy Verified 01/22/23 10:16 Review of Systems Constitutional: Constitutional: Reports no additional constitutional compl aints, Denies chills, Denies fever(s) and Denies night sweats Eyes: Eyes: Reports no additional eye complaints, Denies blurry vision, Denies change in vision, Denies diplopia, Denies eye discharge, Denies loss of vision and Denies eye pain ENT: Denies dizziness Cardiovascular: Cardiovascular: Reports no additional cardiovascular complaints, Denies chest pain, Denies lightheadedness, Denies Loss of Consciousness and Denies dyspnea Respiratory: Respiratory: Reports no additional respiratory complaints and Denies dyspnea Gastrointestinal: Gastrointestinal: Reports no additional gastrointestinal complaints, Denies abdominal pain, Denies melena, Denies hematochezia, Denies change in bowel habits and Denies change in stool character Genitourinary: Genitourinary: Denies hematuria, Denies urinary frequency, Denies dysuria, Denies urinary incontinence, Denies urinary hesitancy and Denies urinary urgency Musculoskeletal: Musculoskeletal: Reports no additional musculoskeletal complaints, Denies numbness and Denies tingling Comments: right shoulder pain Neurologic: Denies dizziness, Denies loss of vision, Denies numbness and Denies tingling Psychiatric: Psychiatric: Reports no additional psychiatric complaints Endocrine: Endocrine: Reports no additional endocrine complaints Hematologic/Lymphatic: Hematologic/Lymphatic: Reports no additional hematologic/lymphatic complaints Allergic/Immunologic: Allergic/Immunologic: Reports no additional allergic/immunologic complaints PMFSH Past Medical History Attestation statement: The following information was validated with the patient. 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 Gender identity: Female Physical Exam ED Vital Signs: Vital Signs - 24 hr 02/06/23 07:46 Temperature 97.0 F Pulse Rate 66 Respiratory Rate 17 Blood Pressure 179/99 H Pulse Oximetry 98 Oxygen Delivery Method Room Air BMI result Body Mass Index 35.9 Const General: cooperative, no acute distress, alert and awake Nutritional Appearance: well nourished Orientation/consciousness: patient oriented x3 Limitations: no limitations HENMT Head: Yes normal to inspection and Yes atraumatic Ears: hearing grossly normal bilaterally and external ears normal General nose exam: Normal external nose present, no nasal discharge noted and no epistaxis Face and sinus: Yes normal facial exam, No abrasion and No laceration Mouth: Normal oral and palatal mucosa present, no drooling and no muffled voice Eyes General: appearance normal, both eyes and all related structures Periorbital: periorbital findings normal Eyelids: Yes eyelids normal Conjunctivae: conjunctivae normal Pupils: Equal, round and reactive pupils present EOM: EOMs intact bilaterally Neck Neck: Yes normal visual inspection, Yes full ROM and Yes no lymphadenopathy Chest Chest palpation & inspection: normal inspection of the chest Resp Effort & Inspection: normal respiratory effort and able to speak in complete sentences GI Inspection: Yes normal to inspection Neuro General: patient oriented x3 and moves all extremities Cranial nerves: Yes Equal, round and reactive pupils present Cognition (Neuro): normal cognition Motor exam (neuro): 5/5 motor strength present throughout Sensory Exam: Normal double simultaneous stimulation for sensation Coordination: [id number] test normal Extrem General: Yes normal to inspection, Yes full ROM and Yes capillary refill normal Psych Appearance: grossly normal Mental Status: mental status grossly normal Affect: normal affect Attitude: cooperative Thought process: Normal thought process present Thought content: Normal thought content present Insight: Good insight present (Psych) Medications Administered Discontinued Medications Generic Name Dose Route Start Last Admin Trade Name Darrianq PRN Reason Stop Dose Admin Cyclobenzaprine HCl 5 mg 02/06/23 08:07 02/06/23 08:36 Cyclobenzaprine Hcl 5 Mg Tablet PO 02/06/23 08:08 5 mg ONCE ONE Administration Ketorolac Tromethamine 15 mg 02/06/23 08:07 02/06/23 08:35 Ketorolac Tromethamine 15 Mg/Ml Vial IM 02/06/23 08:08 15 mg ONCE ONE Administration Methylprednisolone Sodium Succinate 60 mg 02/06/23 08:07 02/06/23 08:38 Methylprednisolone Sod Succ 125 Mg/2 Ml Vial IM 02/06/23 08:08 Not Given ONCE ONE Methylprednisolone Sodium Succinate 60 mg 02/06/23 08:15 02/06/23 08:35 Methylprednisolone Sod Succ 40 Mg/Ml Vial IVPUSH 60 mg ONCE JAVIER Administration Medical Decision Making Medical Decision Making [facility] Narrative: Patient is a 52 year old assigned female at with a history of HTN presenting to the emergency department today with right shoulder pain. Patient's physical exam was unremarkable. Patient's blood work was unremarkable. Patient's right shoulder and chest x-ray showed no acute process. I explained my physical exam findings as well as all test results to the patient. I answered all questions asked by the patient. Patient received IM Toradol, IM Solu-Medrol, and PO Flexeril which she stated helped her symptoms significantly. I stressed the importance of the patient taking her medication as prescribed. I stressed the importance of the patient following up with her primary care provider and an orthopedic provider. I stressed the importance of the patient returning to the emergency department immediately if her symptoms were to worsen or if she were to develop any dizziness, shortness of breath, difficulty breathing, chest pain, blurry vision, loss of vision, nausea, vomiting, abdominal pain, fever, chills, back pain, or any other complaints. Patient verbalized agreement and understanding with this treatment plan and discharge. Differential Diagnosis Differential Diagnoses: The differential diagnosis associated with the presentation includes right shoulder pain, rotator cuff injury Lab Data MDM Lab Attestation statement: I reviewed the patient's lab results. 02/06/23 08:17 02/06/23 08:17 Labs: Lab Results 02/06/23 02/06/23 02/06/23 Range/Units 08:17 08:17 08:17 WBC 5.9 (4.8-10.8) X10*3/uL RBC 5.46 (4.20-5.50) X10*6/uL Hgb 14.9 (12.0-16.0) g/dl Hct 46.9 (37.0-47.0) % MCV 85.9 (80.0-98.0) fL MCH 27.3 (27.0-33.0) pg MCHC 31.8 (31.0-35.0) g/dl RDW 17.3 H (11.0-16.0) % Plt Count 175 (160-400) X10*3/uL MPV 11.2 (9.4-12.3) fL Immature Gran % (Auto) 0.5 H (0.0-0.4) % Neut % (Auto) 50.3 (45-73) % Lymph % (Auto) 38.0 (20-40) % [place] % (Auto) 8.8 (2-11) % Eos % (Auto) 1.9 (0-4) % Baso % (Auto) 0.5 (0-2) % Lymph # (Auto) 2.3 (1.2-4.9) X10*3/uL [place] # (Auto) 0.5 (0.1-1.2) X10*3/uL Eos # (Auto) 0.1 (0.0-0.4) X10*3/uL Baso # (Auto) 0.0 (0.0-0.2) X10*3/uL Abs Immat Gran (auto) 0.03 (0.00-0.03) X10*3/uL Absolute Neuts (auto) 3.0 (2.0-8.3) x10*3/uL Absolute Nucleated RBC 0.000 (0.0-0.012) X10*3/uL Nucleated RBC % (auto) 0.0 (0.0-0.2) /100WBC Sodium 141 (135-145) mmol/L Potassium 4.3 (3.3-5.1) mmol/L Chloride 106 (96-108) mmol/L Carbon Dioxide 30 H (22-29) mmol/L Anion Gap 9 L (12-20) BUN 11 (9-16) mg/dL Creatinine 0.68 (0.5-1.4) mg/dL Estim Creat Clear Calc 113.3 Estimated GFR > 60 Random Glucose 103 (60-115) mg/dL Calcium 9.3 (8.4-10.2) mg/dL Troponin I High Sens < 2.7 (<3.5-17.0) ng/L Independent Interpretation I performed an independent interpretation of an: Plain X-Ray Interpretation: My interpretation is in agreement with the radiologist's impression of these imaging studies. Examination: Right shoulder and chest. CLINICAL INDICATION: Right shoulder pain. Reading to right chest. COMPARISON: Right shoulder 01/22/2023 TECHNIQUE: Right shoulder 3 views. Chest one view. FINDINGS: Right shoulder: There is minimal loss of right glenohumeral joint space. It is better visualized on today's exam. The AC joint space is preserved. No visible acute fracture, dislocation or subluxation seen. No bony erosive changes. The soft tissues are normal. CHEST: The lungs are well-expanded and clear. The heart size and progress clarities normal. No gross bony abnormality seen. XR/XR shoulder RT 1V IMPRESSION: Mild degenerative changes right humeral joint. Otherwise unremarkable right shoulder. ? Unremarkable chest exam... Dictated By: Eduard Martin MD Signed By: Electronically signed by Eduard Martin MD 02/06/23 0853 Discharge Plan Discharge Clinical Impression: Acute shoulder pain Patient Disposition: Home, Self-Care Instructions: Shoulder Pain (ED) Additional Instructions: Follow up with your primary care and an orthopedic provider. Return to the emergency department immediately if your symptoms worsen or if you develop any dizziness, shortness of breath, difficulty breathing, chest pain, blurry vision, loss of vision, nausea, vomiting, abdominal pain, fever, chills, back pain, or any other complaints. Sam un seguimiento con espinoza atenci?n primaria y un proveedor ortop?dico. Regrese al departamento de emergencias de inmediato si jaron s?ntomas empeoran o si presenta mareos, falta de aire, dificultad para respirar, dolor de pecho, visi?n borrosa, p?rdida de la visi?n, n?useas, v?mitos, dolor abdominal, fiebre, escalofr?os, dolor de espalda o cualquier otras quejas. Prescriptions: New cyclobenzaprine 5 mg tablet 5 mg PO TID PRN (Reason: muscle spasm) 7 Days Qty: 21 0RF No Action (DME) blood pressure test kit-large Kit MISCELLANEOUS DAILY diclofenac sodium 75 mg tablet,delayed release (DR/EC) 75 mg PO BID PRN (Reason: pain) 30 Days Qty: 60 0RF omeprazole 40 mg capsule,delayed release(DR/EC) 40 mg PO DAILY Referrals: [facility] – [place] [facility] [Provider Group] (Call to establish and follow up with an orthopedic provider. Llame para establecer y hacer un seguimiento con un proveedor ortop?dico.) Name,MD Rajesh [Primary Care Provider] - Stand Alone Forms: Work/School Release Interventions: ED Discharge Assessment Last Done: 02/06/23 10:45 Discharge Date/Time: 02/06/23 10:45 Print Language: Beninese
[2023-02-06 08:22] LABS: MANUAL DIFF FLAG NO
[2023-02-06 08:24] LABS: Basophils Percent Auto 0.5 % (0-2); Eosinophils Absolute Auto 0.1 X10*3/uL (0.0-0.4); Eosinophils Percent Auto 1.9 % (0-4); Hematocrit 46.9 % (37.0-47.0); Hemoglobin 14.9 g/dl (12.0-16.0); Imm Gran Abs Auto 0.03 X10*3/uL (0.00-0.03); Imm Gran Pct Auto 0.5 % (0.0-0.4); Lymphocytes Absolute Auto 2.3 X10*3/uL (1.2-4.9); Mean Corpuscular HGB Conc 31.8 g/dl (31.0-35.0); Mean Corpuscular Hemoglobin 27.3 pg (27.0-33.0); Mean Corpuscular Volume 85.9 fL (80.0-98.0); Mean Platelet Volume 11.2 fL (9.4-12.3); Monocytes Absolute Auto 0.5 X10*3/uL (0.1-1.2); Monocytes Percent Auto 8.8 % (2-11); Neutrophils Percent Auto 50.3 % (45-73); Platelet Count 175 X10*3/uL (160-400); Red Blood Count 5.46 X10*6/uL (4.20-5.50); Red Cell Distribution Width 17.3 % (11.0-16.0); White Blood Count 5.9 X10*3/uL (4.8-10.8)
[2023-02-06] MEDS: methylPREDNISolone Sod Succ 40 MG/ML VIAL 60 MG IVPUSH (08:35)
[2023-02-06] MEDS: Ketorolac Tromethamine 15 MG/ML VIAL IM (08:35)
[2023-02-06] MEDS: Cyclobenzaprine HCl 5 MG TABLET PO (08:36)
[2023-02-06 08:46] LABS: Troponin-I High Sensitivity < 2.7 ng/L (<3.5-17.0)
[2023-02-06 11:14] LABS: Anion Gap 9 (12-20); Blood Urea Nitrogen 11 mg/dL (9-16); Calcium 9.3 mg/dL (8.4-10.2); Carbon Dioxide 30 mmol/L (22-29); Chloride 106 mmol/L (96-108); Creatinine Clr Calc Pharmacy 113.3; Estimated Glomerular Filt Rate > 60; Glucose Random 103 mg/dL (60-115); Potassium 4.3 mmol/L (3.3-5.1); Sodium 141 mmol/L (135-145)
== END 2023-02-06 10:45 | disposition home or self-care (01) ==
PROVIDERS: Emergency Provider Emergency Medicine; PCP Internal Medicine Geriatric Medicine
DX: M25.511 Pain in right shoulder (principal); I10 Essential (primary) hypertension
CPT/HCPCS: 36415; 71045; 73020; 80048; 84484; 85025; 93005; 96372; 99283; 99284; J1885; J2920

== ENCOUNTER 2023-02-15 07:45 | Outpatient (REF) | payer OTHER, SELFPAY | END 2023-02-15 07:46 | disposition home or self-care (01) | LOC: HO.HOSX 07:45 | PROVIDERS: PCP Internal Medicine Geriatric Medicine; Visit Provider Physician Assistant | DX: M75.101 Unspecified rotator cuff tear or rupture of right shoulder, not specified as traumatic (principal) | CPT/HCPCS: 99212 ==

== ENCOUNTER 2023-03-06 14:56 | Outpatient (REF) | payer OTHER, SELFPAY ==
--- NOTE | ~2023-03-06 | XR_ITS ---
EXAMINATION: XR CERVICAL SPINE CLINICAL INFORMATION: Cervical spondylosis without myelopathy. COMPARISON: None. TECHNIQUE: Frontal, odontoid, bilateral oblique, lateral and swimmer's views are obtained. FINDINGS: Vertebral body heights and alignment are normal. The disc spaces are well-maintained. No acute fracture or spondylolisthesis is seen. There is mild anterior spondylosis at C6-C7. The posterior elements are intact. The bilateral neural foramina appear patent. There is no prevertebral soft tissue swelling. The dens and C7-T1 interface are normal. XR/XR cervical spine min 6V IMPRESSION: 1. No acute fracture or spondylolisthesis is seen. 2. The cervical disc spaces are well-maintained. 3. There is mild anterior spondylosis at C6-C7. 4. The bilateral neural foramina appear patent.
== END 2023-03-06 14:57 | disposition home or self-care (01) ==
LOC: HO.XRAY 14:56
PROVIDERS: PCP Internal Medicine Geriatric Medicine; Visit Provider Nurse Practitioner Family
DX: M47.812 Spondylosis without myelopathy or radiculopathy, cervical region (principal); M62.838 Other muscle spasm; M75.101 Unspecified rotator cuff tear or rupture of right shoulder, not specified as traumatic
CPT/HCPCS: 72052; 99202

== ENCOUNTER → 2023-03-07 09:07 | Outpatient (BNVA) | payer OTHER, SELFPAY | PROVIDERS: PCP Internal Medicine Geriatric Medicine; Visit Provider Advanced Practice Midwife | DX: N64.4 Mastodynia (principal); M62.838 Other muscle spasm; M75.101 Unspecified rotator cuff tear or rupture of right shoulder, not specified as traumatic | CPT/HCPCS: 99212 ==

== ENCOUNTER 2023-03-21 13:34 | Outpatient (REF) | payer OTHER, SELFPAY ==
--- NOTE | ~2023-03-21 | MM_ITS ---
EXAMINATION: MM DIAGNOSTIC DIGITAL BREAST TOMOSYNTHESIS, BILATERAL US DIAGNOSTIC ULTRASOUND BREAST, RIGHT CLINICAL INFORMATION: Right breast pain upper outer quadrant for approximately 2 weeks. The lifetime risk of breast cancer based on the Tyrer-Cuzick Model is 6%. COMPARISON: Mammography: 08/18/2021, outside mammography 10/18/2017 ([facility], [place], [place]). TECHNIQUE: Digital breast tomosynthesis is performed in both the craniocaudal and mediolateral oblique views along with computer-aided detection (CAD). Synthesized 2D images are generated from the tomosynthesis. Additional right MLO view is provided. Ultrasound right breast is targeted to the areas of clinical concern using grayscale imaging and color Doppler without and with harmonics. Patient is able to point to the area at time of imaging. FINDINGS: There are scattered areas of fibroglandular density (ACR BI-RADS breast composition Category b). There are no significant masses, abnormal calcifications, or other abnormalities. Parenchymal pattern is similar to prior studies. There is no developing density or architectural abnormality. No skin thickening or coarsening of the Jim's ligaments. The axilla and skin contours are unremarkable. No significant changes. Ultrasound right breast demonstrates no cystic or solid mass, architectural abnormality, or focal duct ectasia. Chest wall soft tissues are unremarkable. No skin thickening or edema tracking in soft tissue planes. Results are discussed with the patient at time of visit. MM/MM tomosynthesis diagnostic BI IMPRESSION: -No mammographic evidence of malignancy or inflammatory changes. -Unremarkable right breast ultrasound. ASSESSMENT: BI-RADS 1: Negative RECOMMENDATION: 1. Patient should be managed based on the clinical impression. 2. Otherwise, routine annual screening mammography. This patient's information was entered into a reminder system with a target due date for their next mammogram.
== END 2023-03-21 13:35 | disposition home or self-care (01) ==
LOC: HO.MAMMO 13:34
PROVIDERS: PCP Internal Medicine Geriatric Medicine; Visit Provider Advanced Practice Midwife
DX: M75.101 Unspecified rotator cuff tear or rupture of right shoulder, not specified as traumatic (principal); M62.838 Other muscle spasm; N64.4 Mastodynia
CPT/HCPCS: 76642; 77062; 77066

== ENCOUNTER 2023-07-20 07:06 | Outpatient (REF) | payer OTHER, SELFPAY ==
[2023-07-20 07:47] LABS: Estimated Average Glucose 111 mg/dL; Hemoglobin A1c % 5.5 % (<6.0)
[2023-07-20 08:12] LABS: Alanine Aminotransferase 21 U/L (0-31); Alkaline Phosphatase 94 U/L (39-117); Anion Gap 14 (12-20); Aspartate Amino Transferase 19 U/L (5-31); Bilirubin Direct 0.2 mg/dL (0.0-0.5); Bilirubin Total 0.6 mg/dL (0.0-1.0); Blood Urea Nitrogen 12 mg/dL (9-16); Calcium 9.7 mg/dL (8.4-10.2); Carbon Dioxide 26 mmol/L (22-29); Chloride 103 mmol/L (96-108); Estimated Glomerular Filt Rate > 60; Glucose Random 107 mg/dL (60-115); Potassium 4.2 mmol/L (3.3-5.1); Sodium 139 mmol/L (135-145); Total Protein 7.6 g/dL (6.5-8.0)
[2023-07-20 08:22] LABS: TSH reflex Free T4 1.48 uIU/mL (0.32-4.0)
== END 2023-07-20 07:07 | disposition home or self-care (01) ==
LOC: HO.LAB 07:06
PROVIDERS: PCP Internal Medicine Geriatric Medicine; Visit Provider Internal Medicine Geriatric Medicine
DX: I10 Essential (primary) hypertension (principal); R63.5 Abnormal weight gain
CPT/HCPCS: 36415; 80048; 80076; 83036; 84443

== ENCOUNTER 2023-09-10 12:45 | Outpatient (REF) | payer OTHER, SELFPAY ==
[2023-09-10 14:15] LABS: Anion Gap 13 (12-20); Blood Urea Nitrogen 14 mg/dL (9-16); Calcium 9.8 mg/dL (8.4-10.2); Carbon Dioxide 27 mmol/L (22-29); Chloride 102 mmol/L (96-108); Estimated Glomerular Filt Rate > 60; Glucose Random 100 mg/dL (60-115); Potassium 4.2 mmol/L (3.3-5.1); Sodium 138 mmol/L (135-145)
== END 2023-09-10 12:46 | disposition home or self-care (01) ==
LOC: HO.HHCL 12:45
PROVIDERS: Referring Provider Internal Medicine; Visit Provider Internal Medicine Geriatric Medicine
DX: I10 Essential (primary) hypertension (principal); K21.00 Gastro-esophageal reflux disease with esophagitis, without bleeding
CPT/HCPCS: 36415; 80048; 87338

== ENCOUNTER 2023-10-26 07:04 | Outpatient (REF) | payer OTHER, SELFPAY ==
[2023-10-26 07:14] LABS: MANUAL DIFF FLAG NO
[2023-10-26 07:24] LABS: Basophils Percent Auto 0.6 % (0-2); Eosinophils Absolute Auto 0.1 X10*3/uL (0.0-0.4); Eosinophils Percent Auto 1.7 % (0-4); Imm Gran Abs Auto 0.02 X10*3/uL (0.00-0.03); Imm Gran Pct Auto 0.3 % (0.0-0.4); Lymphocytes Absolute Auto 2.6 X10*3/uL (1.2-4.9); Lymphocytes Percent Auto 36.3 % (20-40); Mean Corpuscular HGB Conc 30.8 g/dl (31.0-35.0); Mean Corpuscular Volume 81.3 fL (80.0-98.0); Mean Platelet Volume 11.4 fL (9.4-12.3); Monocytes Absolute Auto 0.7 X10*3/uL (0.1-1.2); Monocytes Percent Auto 10.3 % (2-11); Neutrophils Absolute Auto 3.6 x10*3/uL (2.0-8.3); Neutrophils Percent Auto 50.8 % (45-73); Platelet Count 230 X10*3/uL (160-400); Red Cell Distribution Width 14.8 % (11.0-16.0)
[2023-10-26 07:47] LABS: Alanine Aminotransferase 25 U/L (0-31); Albumin Level 3.9 g/dL (3.5-5.0); Alkaline Phosphatase 88 U/L (39-117); Anion Gap 14 (12-20); Aspartate Amino Transferase 21 U/L (5-31); Bilirubin Total 0.4 mg/dL (0.0-1.0); Blood Urea Nitrogen 18 mg/dL (9-16); Calcium 9.5 mg/dL (8.4-10.2); Carbon Dioxide 29 mmol/L (22-29); Chloride 104 mmol/L (96-108); Estimated Glomerular Filt Rate > 60; Glucose Random 111 mg/dL (60-115); Potassium 4.2 mmol/L (3.3-5.1); Sodium 143 mmol/L (135-145); Total Protein 7.7 g/dL (6.5-8.0)
== END 2023-10-26 07:05 | disposition home or self-care (01) ==
LOC: HO.LAB 07:04
PROVIDERS: PCP Internal Medicine Geriatric Medicine; Visit Provider Internal Medicine Geriatric Medicine
DX: K21.9 Gastro-esophageal reflux disease without esophagitis (principal); R13.10 Dysphagia, unspecified
CPT/HCPCS: 36415; 80053; 85025

== ENCOUNTER 2023-12-25 14:34 | Outpatient (REF) | payer OTHER, SELFPAY ==
[2023-12-26 05:37] LABS: CT PCR NOT DETECTED (Not Detect.); NG PCR NOT DETECTED (Not Detect.)
[2023-12-26 10:19] LABS: BV Int Neg Control Negative (Negative); BV Int Pos Control Positive (Positive)
== END 2023-12-25 14:35 | disposition home or self-care (01) ==
LOC: HO.LNP 14:34
PROVIDERS: PCP Internal Medicine Geriatric Medicine; Visit Provider Advanced Practice Midwife
DX: Z01.419 Encounter for gynecological examination (general) (routine) without abnormal findings (principal); N89.8 Other specified noninflammatory disorders of vagina; I10 Essential (primary) hypertension; Z79.899 Other long term (current) drug therapy
CPT/HCPCS: 0353U; 87480; 87510; 87660; 99396

== ENCOUNTER 2023-12-25 14:34 | Outpatient (AMB) | payer OTHER, SELFPAY ==
[2023-12-25 14:35] VITALS: BP 120/80; BMI 36.9
--- NOTE | 2023-12-25 14:35 | MHC.OFFVIS ---
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 High School Social Studies Tutor Language: Yoruba Information Interpreted: non-clinical & clinical Air Brush Operator: Air Brush Operator Present (Sera) Allergies No Known Allergies Allergy (Verified 12/25/23 14:36) Medication List - Last Reconciled 12/25/23 by Caro Smith CNM blood pressure test kit-large diclofenac sodium 75 mg PO BID PRN 30 days hydrochlorothiazide 12.5 mg PO DAILY losartan 50 mg PO BID omeprazole 40 mg PO DAILY tizanidine 4 mg PO Q8H PRN Is last menstrual period known: Yes Last menstrual period: 12/04/23 Post menopausal: No HPI 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 The only thing that she can not do is lose weight she is trying to eat well. She knows that she has not getting enough exercise her job and a [employer] line is very sedentary even though she has to work fast to keep up with the rhythm the job and her coworkers on the [employer] line. She described her movements from the right side to the middle to the left either sitting or standing all day long. She is sexually active but her has some issues so it is not as much though she has having no issues. When she does get home from work she is very tired. She is up-to-date on her mammograms. 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 Gender identity: Female Female Reproductive History Menstrual Age of Menarche: 16 Duration of menses: 3-5 days Date of last menstrual period: 12/04/23 control method: other (tubal ligation) Total pregnancies: 5 Full term: 4 Number of Living Children: 4 Ab spontaneous: 1 Date of last pap smear: 08/11/21 (negative) History of abnormal pap smear: No Date of Mammogram: 03/21/23 Physical Exam Vital Signs: Last Vital Signs BP 120/80 12/25/23 14:35 BMI result Body Mass Index 36.9 Const General: healthy appearing, comfortable, no acute distress, well developed and alert Nutritional Appearance: average body habitus Orientation/consciousness: patient oriented x3 Limitations: no limitations HEENT Head: Yes normocephalic Neck Neck: Yes normal visual inspection Chest Chest palpation & inspection: normal inspection of the chest Breast/axilla inspection: normal inspection of the breasts and normal inspection of the axillae Breast/axilla palpation: normal palpation of the breasts and normal palpation of the axillae Resp Effort & Inspection: normal respiratory effort GI Inspection: Yes normal to inspection, No Abdominal wall edema and No distended Palpation (GI): Soft to palpation and nontender Other: Vagina pink and moist normal-appearing discharge. Testing done as patient had had some vaginal itching a week ago but we will await the results before offering a treatment as nothing appears evident. Cervix multiparous pink smooth very good tone with Kegel. General: Yes bladder normal to palpation External Female Exam: normal external appearance and normal appearance of the urethra Speculum Exam - Vagina: normal appearance of the vagina, normal palpation and normal vaginal discharge Speculum Exam - Cervix: normal appearance of the cervix, normal palpation and nontender Bimanual exam- vagina & uterus: normal bimanual exam, normal palpation, uterine size normal, bladder normal to palpation, consistency normal, normal palpation, uterine mobility normal, uterine shape normal, No Cervical tenderness present, non-tender and no cervical motion tenderness Bimanual Exam- Adnexa, other: normal adnexae, no masses, normal and No adnexal tenderness Neuro General: patient oriented x3 Assessment & Plan Assessment & Plan (1) Hypertension: Comment: pt says resolved.//// --08/17/22- apparently still an issue and being followed - mo'b..../12/25/2023 better controlled now on 2 meds Code(s): I10 - Essential (primary) hypertension (2) Well woman exam with routine gynecological exam: Code(s): Z01.419 - Encounter for gynecological examination (general) (routine) without abnormal findings (3) Cervical cancer screening: Comment: 08/09/21- pap neg, neg hpv. Code(s): Z12.4 - Encounter for screening for malignant neoplasm of cervix Plan -----Discussed in this visit the following: healthy balanced diet, regular and consistent exercise, getting recommended health screens, doing the best she can for her particular health concerns, kegel exercises, pap smear screening and followup recommendations, mammography screening and SBE, normal changes in cycles in her life stage--- . Free discussion about the challenges of working a somewhat sedentary but fast paced job and using the same few muscles over and over and over again. When she finishes she is just too tired for any other opportunity for exercise. Discussed the very realistic challenges of weight gain and how this contributes to decreased energy and the work life contributes as well suggested small ways to implement short walks that might be able to increase with time. She is up-to-date on her mammograms she has not due for Pap smear this year she had no particular worries about STDs but because of the vaginal itch we did cultures we will await the results because there was nothing evident for me to treat it did not appear like yeast or BV to the eye. She says all of her blood work done with her primary was completely normal and she does not have elevated blood sugars either. I asked her if the itching she had last week felt like yeast but she did not know if it was maybe a change in soap or something else we will await the testing there maybe nothing to treat. Orders: Orders Bacterial Vaginosis Panel Today N89.8 - Other specified noninflammatory disorders of vagina CT NG by PCR Today N89.8 - Other specified noninflammatory disorders of vagina Coding Level of Care Code Est Pt Prev Care 40-64y(68214) Diagnoses Hypertension I10 Well woman exam with routine gynecological exam Z01.419 Cervical cancer screening Z12.4
== END 2023-12-25 15:17 | disposition home or self-care (01) ==
PROVIDERS: PCP Internal Medicine Geriatric Medicine; Visit Provider Advanced Practice Midwife
DX: Z01.419 Encounter for gynecological examination (general) (routine) without abnormal findings (principal); I10 Essential (primary) hypertension
CPT/HCPCS: 99396

== ENCOUNTER 2024-01-29 15:32 | Outpatient (AMB) | payer OTHER, SELFPAY ==
--- NOTE | 2024-01-29 15:35 | A.OFFVIS_ITS ---
Vital Signs 01/29/24 15:40 Height 5 ft 5 in Weight 222 lb 10.67 oz BMI 37.0 BP 114/59 L Blood Pressure Location Lt brachial Position Sitting Pulse 81 Intake Visit Reasons: gerd, dysphagia, N/V Intake Note: Veronica presents in the office as a follow up for nausea and vomiting. CC: She states that she is here today because she is having some symptoms. Pains in the chest, acid reflux with lots of gas. 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 I will send her for barium swallow to close her re-evaluate. Patient can continue on her PPI daily. Patient was instructed to avoid dietary triggers and change her diet. Screen for colon cancer We will hold off on doing colorectal screening now. Patient will be sent for blood work and more testing. We will do barium swallow, and send her for upper endoscopy. Patient currently is also constipated and will need to move her bowels better. GERD (gastroesophageal reflux disease) Continue PPI. Patient was instructed to avoid dietary triggers. Patient reports that sometimes she will eat food that is greasy or spicy. Patient was also reporting that occasionally she will have late night snacking. Discussed with her that she need to avoid eating 2-3 hours before bedtime. Constipation Long time history of constipation. I will start her on docusate sodium and Senokot. Patient will call me in 2 weeks if this will not going to be effective. Will order CBC, CMP. She is agreeable to this plan I will see her in 6 weeks to re-evaluate after her barium swallow. Patient was instructed to call us sooner if her symptoms will get worse or if she experience any additional concerning symptoms. Plan Orders Orders Comprehensive Met. Panel 08/12/21 Z12.11 Complete Blood Count no Diff 08/12/21 Z12.11 H pylori Ag Stool 08/15/21 K21.9 FL barium swallow 08/12/21 R13.10 Medications New docusate sodium 100 mg PO BEDTIME 30 caps 3RF K59.00 sennosides (Natural Senna Laxative) 8.6 mg PO BEDTIME 30 tabs 3RF constipation K59.00 COLONOSCOPY 09/19/[address] AVITIA IMPRESSION: 1. Nonobstructing distal esophageal stricture, status post balloon dilation. 2. Hiatal hernia. 3. Rule out celiac disease. 4. Colon polyp. 5. Internal hemorrhoids. PLAN: The results of biopsies will be checked. I would recommend a repeat colonoscopy in 5 years for further evaluation given her family history of colon cancer in her father in his 60s. She was advised not to use any aspirin nor NSAIDs for 1 week. She has been using omeprazole 40 mg daily and has found that to be working much better for her reflux symptoms and will continue that. 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 She apparently has been unable to tolerate oral iron and might need some IV iron infusions. She will follow up with her primary care physician in that regard. Her most recent lab work on September 06 showed a hemoglobin of 8.5, MCV 71, ferritin of 5, iron of 17, and iron saturation of 4%. She will follow up with her primary care physician in this regard as to whether or not she might need iron infusions. Of note, her B12 and folate levels were normal. PATHOLOGY RESULTS: Diagnosis A. Duodenum, descending, biopsy: Duodenal mucosa with mildly increased intraepithelial lymphocytes and preserved villous architecture. See comment. B. Cecum, polypectomy: Colonic mucosa with prominent lymphoid aggregate. COMMENT: The findings in the duodenum are non-specific. The differential diagnosis is broad and includes infection (e.g. viral or H. pylori), medication/ drugs (e.g. NSAIDs), gluten sensitivity/ celiac disease, bacterial overgrowth, tropical sprue, immunodeficiency syndromes (e.g. IgA deficiency, CVID), autoimmune enteropathy, Crohns and collagen vascular disease, among others. Please correlate with clinical and other laboratory findings. TODAY'S VISIT Patient is here today for new symptoms of postprandial abdominal pain, bloating, severe acid reflux, constipation. Patient originally seen in the office in 2020 by me and was sent for colonoscopy, however colonoscopy was book with Dr. Avitia. Patient was found to have benign polyp no source of bleeding was found, patient was referred to hematology and was given iron infusion. Source of bleeding was found to be from perimenopausal menstrual excessive blood loss. Currently patient is taking omeprazole, however she feels like it has not really helping. Patient reports severe reflux. Feeling burning up in her chest all the way to her throat. Patient reports nausea and vomiting. Patient reports that this is happening with anything that she eats. 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 Gender identity: Female Female Reproductive History Menstrual Age of Menarche: 16 Review of Systems Const Denies weight gain and Denies weight loss ENT Reports no additional complaints, Denies dysphagia and Denies odynophagia Card Reports no additional complaints Resp Reports no additional complaints GI Reports abdominal pain (Epigastric), Denies belching, Denies melena, Reports bloating, Reports constipation, Denies dysphagia, Denies excessive flatus, Reports dyspepsia, Reports heartburn, Denies diarrhea, Denies loose stools, Reports nausea, Denies odynophagia and Denies vomiting Reports no additional complaints Musc Reports no additional complaints Neuro Reports no additional complaints Psych Reports no additional complaints Endo Reports no additional complaints Physical Exam Vital Signs: Last Vital Signs Pulse 81 01/29/24 15:40 BP 114/59 L 01/29/24 15:40 BMI result Body Mass Index 37.0 Const General: healthy appearing and no acute distress Nutritional Appearance: obese Orientation/consciousness: patient oriented x3 Resp Effort & Inspection: normal respiratory effort, able to speak in complete sentences, no tracheal deviation and symmetric chest movement Auscultation: clear to auscultation bilaterally Cardio Rate: regular rate GI Inspection: Yes normal to inspection, No distended and Yes obesity Palpation (GI): Soft to palpation, not firm, nontender and No hepatosplenomegaly present Auscultation: normal bowel sounds General: Yes no CVA tenderness Back/Spine/Pelvis Back: no CVA tenderness Skin General skin exam: elasticity normal, turgor normal and dry skin Neuro General: patient oriented x3 Psych Appearance: grossly normal Mental Status: mental status grossly normal Assessment & Plan Assessment & Plan (1) GERD (gastroesophageal reflux disease): Code(s): K21.9 - Gastro-esophageal reflux disease without esophagitis Qualifiers: Esophagitis presence: esophagitis presence not specified Qualified Code (s): K21.9 - Gastro-esophageal reflux disease without esophagitis (2) Constipation: Code(s): K59.00 - Constipation, unspecified Qualifiers: Constipation type: chronic idiopathic constipation Qualified Code(s): K59.04 - Chronic idiopathic constipation (3) Postprandial abdominal bloating: Code(s): R14.0 - Abdominal distension (gaseous) (4) Epigastric pain: Code(s): R10.13 - Epigastric pain Plan Patient will start taking Colace. Increase fluid intake and activity to promote better bowel motility. Will start patient on famotidine at bedtime. Pantoprazole in the morning half an hour before breakfast. Discussed with patient the importance of avoiding dietary triggers and late night snacking. Staying upright for minimum 3 hours after meals discussed with patient. I will see patient in 5-6 weeks, sooner on as needed basis. Patient is agreeable to this plan and verbalizes understanding of instructions. She was given the opportunity to ask questions and all questions answered. Thank you for allowing me to participate in her care Medications: New bisacodyl (Dulcolax (bisacodyl)) 10 mg (2 x 5 mg) PO BEDTIME 60 tabs 4RF famotidine 20 mg PO BID 30 tabs 3RF bisacodyl (Dulcolax (bisacodyl)) 10 mg (2 x 5 mg) PO BEDTIME 60 tabs 4RF pantoprazole take one tablet half an hour before breakfast 40 mg PO DAILY 30 tabs 2RF K21.9 - Gastro-esophageal reflux disease without esophagitis pantoprazole take one tablet half an hour before breakfast 40 mg PO DAILY 30 tabs 2RF K21.9 - Gastro-esophageal reflux disease without esophagitis famotidine 20 mg PO DAILY 30 tabs 3RF Coding Level of Care Code Est Pt Level 4 (94569) Diagnoses Gastroesophageal reflux disease, unspecified whether esophagitis present K21.9 Esophagitis presence: esophagitis presence not specified Chronic idiopathic constipation K59.04 Constipation type: chronic idiopathic constipation Postprandial abdominal bloating R14.0 Epigastric pain R10.13 Time Spent (min) 40 Comment 25 minutes spent with patient and additional 15 minutes spent reviewing her records
[2024-01-29 15:40] VITALS: BP 114/59; PULSE 81; BMI 37.0
== END 2024-01-29 16:23 | disposition home or self-care (01) ==
PROVIDERS: PCP Internal Medicine Geriatric Medicine; Visit Provider Nurse Practitioner Family
DX: K21.9 Gastro-esophageal reflux disease without esophagitis (principal); K59.04 Chronic idiopathic constipation; R14.0 Abdominal distension (gaseous); R10.13 Epigastric pain
CPT/HCPCS: 99214

== ENCOUNTER → 2024-01-29 15:32 | Outpatient (BNVA) | payer OTHER, SELFPAY | PROVIDERS: PCP Internal Medicine Geriatric Medicine; Visit Provider Nurse Practitioner Family | DX: K21.9 Gastro-esophageal reflux disease without esophagitis (principal); K59.04 Chronic idiopathic constipation; R14.0 Abdominal distension (gaseous); R10.13 Epigastric pain | CPT/HCPCS: 99212 ==

== ENCOUNTER 2024-03-07 15:58 | Outpatient (AMB) | payer OTHER, SELFPAY ==
--- NOTE | 2024-03-07 15:59 | MHC.OFFVIS ---
Vital Signs 03/07/24 16:10 Height 5 ft 5 in Weight 212 lb 15.465 oz BMI 35.4 BP 166/86 H Blood Pressure Location Lt brachial Position Sitting Pulse 72 Pulse Source Pulse Oximeter Pulse Oximetry (%) 100 Oxygen Delivery Method Room Air Intake Visit Reasons: 5 weeks follow up Intake Note: Veronica presents in office today for a scheduled 5 week FUV. CC: Pt reports that she feels that her condition has improved since her last visit. Pt reports that she is currently taking a new regimen instead of Unicity (Juice Supplement). Pt has stopped taking the dulcolax and only takes the pantoprazole and famotidine as needed. Pt stopped the dulcolax as they had been having abdominal pain while taking them. Pt states that they are feeling much better and that they feel like a whole different person. Trust Vault Custodian Required: Yes Trust Vault Custodian Name: Luis [id number] Allergies No Known Allergies Allergy (Verified 03/07/24 16:14) HPI HPI 5 weeks follow up: Details: LAST VISIT: GERD (gastroesophageal reflux disease) Constipation Postprandial abdominal bloating Epigastric pain Plan Patient will start taking Colace. Increase fluid intake and activity to promote better bowel motility. Will start patient on famotidine at bedtime. Pantoprazole in the morning half an hour before breakfast. Discussed with patient the importance of avoiding dietary triggers and late night snacking. Staying upright for minimum 3 hours after meals discussed with patient. I will see patient in 5-6 weeks, sooner on as needed basis. Patient is agreeable to this plan and verbalizes understanding of instructions. She was given the opportunity to ask questions and all questions answered. ? Thank you for allowing me to participate in her care Medications New bisacodyl (Dulcolax (bisacodyl)) 10 mg (2 x 5 mg) PO BEDTIME 60 tabs 4RF famotidine 20 mg PO BID 30 tabs 3RF bisacodyl (Dulcolax (bisacodyl)) 10 mg (2 x 5 mg) PO BEDTIME 60 tabs 4RF pantoprazole take one tablet half an hour before breakfast 40 mg PO DAILY 30 tabs 2RF K21.9 pantoprazole take one tablet half an hour before breakfast 40 mg PO DAILY 30 tabs 2RF K21.9 famotidine 20 mg PO DAILY 30 tabs 3RF TODAY'S VISIT: Patient is here today for follow-up. Patient reports that she has been doing much better. Patient states that she started taking supplement that she drinks twice a day. Unicity that patient takes it in the morning that helps her fast till about 13:00. Patient reports that she is taking Unicity balance twice a day with lunch and dinner which helps her not to eat as much. Patient reports that after drinking that she feels very full and she only eats small portions. Patient reports to have more energy and is walking twice a day. Patient reports that her also started this. Patient states that she lost weight since she started, however she is more happy your that she is actually lost some inches in her weight. Patient is no longer bloated. She is able to move her bowels without any issues. She is not using anything to help her go to the bathroom. Patient is also not using pantoprazole or famotidine as her symptoms of acid reflux her suppressed. Patient does not have cravings and is eating healthier. 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 Gender identity: Female Female Reproductive History Menstrual Age of Menarche: 16 Review of Systems Const Denies weight gain and Denies weight loss ENT Reports no additional complaints, Denies dysphagia and Denies odynophagia Card Reports no additional complaints Resp Reports no additional complaints GI Denies abdominal pain, Denies belching, Denies melena, Denies bloating, Denies change in bowel habits, Denies dysphagia, Denies excessive flatus, Denies dyspepsia, Denies heartburn, Denies diarrhea, Denies loose stools, Denies nausea, Denies odynophagia and Denies vomiting Musc Reports no additional complaints Neuro Reports no additional complaints Psych Reports no additional complaints Endo Reports no additional complaints Physical Exam Vital Signs: Last Vital Signs Pulse 72 03/07/24 16:10 BP 166/86 H 03/07/24 16:10 Pulse Ox 100 03/07/24 16:10 Oxygen Delivery Method Room Air 03/07/24 16:10 BMI result Body Mass Index 35.4 Const General: healthy appearing and no acute distress Nutritional Appearance: obese Orientation/consciousness: patient oriented x3 Resp Effort & Inspection: normal respiratory effort, able to speak in complete sentences, no tracheal deviation and symmetric chest movement Auscultation: clear to auscultation bilaterally Cardio Rate: regular rate GI Inspection: Yes normal to inspection, No distended and Yes obesity Palpation (GI): Soft to palpation, not firm, nontender and No hepatosplenomegaly present Auscultation: normal bowel sounds General: Yes no CVA tenderness Back/Spine/Pelvis Back: no CVA tenderness Skin General skin exam: elasticity normal, turgor normal and dry skin Neuro General: patient oriented x3 Psych Appearance: grossly normal Mental Status: mental status grossly normal Assessment & Plan Assessment & Plan (1) GERD (gastroesophageal reflux disease): Code(s): K21.9 - Gastro-esophageal reflux disease without esophagitis Qualifiers: Esophagitis presence: esophagitis presence not specified Qualified Code(s): K21.9 - Gastro-esophageal reflux disease without esophagitis (2) Constipation: Code(s): K59.00 - Constipation, unspecified Qualifiers: Constipation type: slow transit constipation Qualified Code(s): K59.01 - Slow transit constipation (3) Postprandial abdominal bloating: Code(s): R14.0 - Abdominal distension (gaseous) (4) Epigastric pain: Code(s): R10.13 - Epigastric pain Plan Continue current regimen. However patient was encouraged to increase fluid intake. Discuss this with her PCP. Avoid dietary triggers and late night snacking. Continue exercise. I will see patient in 6 months, sooner on as needed basis. She is agreeable to this plan and verbalizes understanding of instructions. She was given the opportunity to ask questions and all questions answered. Thank you for allowing me to participate in her care Coding Level of Care Code Est Pt Level 3 (65185) Diagnoses Gastroesophageal reflux disease, unspecified whether esophagitis present K21.9 Esophagitis presence: esophagitis presence not specified Slow transit constipation K59.01 Constipation type: slow transit constipation Postprandial abdominal bloating R14.0 Epigastric pain R10.13 Time Spent (min) 25 Comment 15 minutes spent with patient and additional 10 minutes spent reviewing her records
[2024-03-07 16:10] VITALS: BP 166/86; PULSE 72; O2SAT 100; BMI 35.4
== END 2024-03-07 16:57 | disposition home or self-care (01) ==
PROVIDERS: PCP Internal Medicine Geriatric Medicine; Visit Provider Nurse Practitioner Family
DX: K21.9 Gastro-esophageal reflux disease without esophagitis (principal); K59.01 Slow transit constipation; R14.0 Abdominal distension (gaseous); R10.13 Epigastric pain
CPT/HCPCS: 99213

== ENCOUNTER → 2024-03-07 15:58 | Outpatient (BNVA) | payer OTHER, SELFPAY | PROVIDERS: PCP Internal Medicine Geriatric Medicine; Visit Provider Nurse Practitioner Family | DX: K21.9 Gastro-esophageal reflux disease without esophagitis (principal); K59.01 Slow transit constipation; R10.13 Epigastric pain; R14.0 Abdominal distension (gaseous) | CPT/HCPCS: 99212 ==

== ENCOUNTER 2024-03-11 06:57 | Outpatient (REF) | payer OTHER, SELFPAY ==
[2024-03-11 07:45] LABS: Estimated Average Glucose 117 mg/dL; Hemoglobin A1c % 5.7 % (<6.0)
[2024-03-11 07:56] LABS: Cholesterol 169 mg/dL (<200); HDL Cholesterol 60 mg/dL (>40); LDL Cholesterol Calculated 95 mg/dL (<100); Triglycerides 74 mg/dL (<150)
[2024-03-11 09:55] LABS: Microalbumin Urine < 5.0 mg/L
== END 2024-03-11 06:58 | disposition home or self-care (01) ==
LOC: HO.LAB 06:57
PROVIDERS: Absent Provider Internal Medicine Geriatric Medicine; PCP Internal Medicine Geriatric Medicine; Visit Provider Internal Medicine
DX: I10 Essential (primary) hypertension (principal)
CPT/HCPCS: 36415; 80061; 82043; 82570; 83036

== ENCOUNTER 2024-07-23 07:02 | Outpatient (REF) | payer OTHER, SELFPAY ==
[2024-07-23 08:16] LABS: Anion Gap 11 (12-20); Blood Urea Nitrogen 13 mg/dL (9-16); Calcium 9.4 mg/dL (8.4-10.2); Carbon Dioxide 28 mmol/L (22-29); Chloride 107 mmol/L (96-108); Estimated Glomerular Filt Rate > 60; Glucose Random 107 mg/dL (60-115); Sodium 142 mmol/L (135-145)
== END 2024-07-23 07:03 | disposition home or self-care (01) ==
LOC: HO.LAB 07:02
PROVIDERS: PCP Internal Medicine Geriatric Medicine; Visit Provider Internal Medicine Geriatric Medicine
DX: I10 Essential (primary) hypertension (principal); E66.9 Obesity, unspecified
CPT/HCPCS: 36415; 80048

== ENCOUNTER 2024-09-03 16:01 | Outpatient (AMB) | payer OTHER, SELFPAY ==
[2024-09-03 16:03] VITALS: BP 140/88; PULSE 82; O2SAT 99; BMI 34.0
--- NOTE | 2024-09-03 16:03 | MHC.OFFVIS ---
Vital Signs 09/03/24 16:03 Height 5 ft 5 in Weight 204 lb 9.423 oz BMI 34.0 BP 140/88 H Blood Pressure Location Rt brachial Position Sitting Pulse 82 Pulse Source Pulse Oximeter Pulse Oximetry (%) 99 Oxygen Delivery Method Room Air Intake Visit Reasons: 6 month follow up Intake Note: Veronica presents in office today for a scheduled 6 mos FUV. CC; Any changes or new sx since last visit? Pt has been experiencing more epigastric pain as well as acid reflux. Pt is no longer taking pantoprazole. Pt had stopped taking the medication because she had felt better. Pt has now begun to feel worse again. Any labs or diagnostics since last visit? ?None Teaching Young Required: Yes Teaching Young Services: Teaching Young Present Teaching Young Name: [id number] [place] Information Interpreted: non-clinical & clinical Accompanied by: Self / Same As Patient Allergies No Known Allergies Allergy (Verified 09/03/24 16:03) Medication List - Last Reconciled 09/03/24 by Lindsey Schwartz, [facility] blood pressure test kit-large pantoprazole 20 mg PO DAILY HPI HPI 6 month follow up: Details: LAST VISIT GERD (gastroesophageal reflux disease) Constipation Postprandial abdominal bloating Epigastric pain Plan Continue current regimen. However patient was encouraged to increase fluid intake. Discuss this with her PCP. Avoid dietary triggers and late night snacking. Continue exercise. I will see patient in 6 months, sooner on as needed basis. She is agreeable to this plan and verbalizes understanding of instructions. She was given the opportunity to ask questions and all questions answered. ? TODAY'S VISIT Patient is here today for follow-up. Patient reports that she was doing very well, except she stopped taking pantoprazole and was doing well for while, however lately she has been having increased epigastric pain and acid reflux. Patient continues with her diet and reports that she has been doing quite well. Patient denies any melena, hematochezia, unintentional weight loss or ribbon like stools. Patient denies any dyspepsia, dysphagia or odynophagia. She continues to have good bowel regimen. Takes magnesium at bedtime and reports that she is having no trouble moving her bowels. Patient reports to be feeling quite well denies any other GI concerning symptoms. 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 Gender identity: Female Female Reproductive History Menstrual Age of Menarche: 16 Review of Systems Const Denies weight gain and Denies weight loss ENT Reports no additional complaints, Denies dysphagia and Denies odynophagia Card Reports no additional complaints Resp Reports no additional complaints GI Denies abdominal pain, Denies belching, Denies melena, Denies bloating, Denies change in bowel habits, Denies dysphagia, Denies excessive flatus, Denies dyspepsia, Denies heartburn, Denies diarrhea, Denies loose stools, Denies nausea, Denies odynophagia and Denies vomiting Reports no additional complaints Musc Reports no additional complaints Neuro Reports no additional complaints Psych Reports no additional complaints Endo Reports no additional complaints Physical Exam Vital Signs: Last Vital Signs Pulse 82 09/03/24 16:03 BP 140/88 H 09/03/24 16:03 Pulse Ox 99 09/03/24 16:03 Oxygen Delivery Method Room Air 09/03/24 16:03 BMI result Body Mass Index 34.0 Const General: healthy appearing and no acute distress Nutritional Appearance: obese Orientation/consciousness: patient oriented x3 Resp Effort & Inspection: normal respiratory effort, able to speak in complete sentences, no tracheal deviation and symmetric chest movement Auscultation: clear to auscultation bilaterally Cardio Rate: regular rate GI Inspection: Yes normal to inspection, No distended and Yes obesity Palpation (GI): Soft to palpation, not firm, nontender and No hepatosplenomegaly present Auscultation: normal bowel sounds General: Yes no CVA tenderness Back/Spine/Pelvis Back: no CVA tenderness Skin General skin exam: elasticity normal, turgor normal and dry skin Neuro General: patient oriented x3 Psych Appearance: grossly normal Mental Status: mental status grossly normal Assessment & Plan Assessment & Plan (1) GERD (gastroesophageal reflux disease): Code(s): K21.9 - Gastro-esophageal reflux disease without esophagitis Qualifiers: Esophagitis presence: esophagitis presence not specified Qualified Code(s): K21.9 - Gastro-esophageal reflux disease without esophagitis (2) Constipation: Code(s): K59.00 - Constipation, unspecified Qualifiers: Constipation type: slow transit constipation Qualified Code(s): K59.01 - Slow transit constipation (3) Postprandial abdominal bloating: Code(s): R14.0 - Abdominal distension (gaseous) (4) Epigastric pain: Code(s): R10.13 - Epigastric pain Plan Continue avoiding dietary triggers. Continue taking pantoprazole 20 mg daily. Patient can take magnesium at bedtime to help her move her bowels better. Increase fluid intake and activity to promote better bowel motility. Patient will continue following low FODMAP diet. Follow-up in 6 months, sooner on as needed basis. Patient will be due to go for colonoscopy in August of 2026, sooner on as needed basis. Patient is agreeable to current plan of care and verbalizes understanding of instructions. She was given the opportunity to ask questions and all questions answered. Thank you for allowing me to participate in her care Medications: New pantoprazole 20 mg PO DAILY 30 tabs 3RF magnesium gluconate 27.5 mg PO BEDTIME 30 tabs 0RF Coding Level of Care Code Est Pt Level 3 (00901) Diagnoses Gastroesophageal reflux disease, unspecified whether esophagitis present K21.9 Esophagitis presence: esophagitis presence not specified Slow transit constipation K59.01 Constipation type: slow transit constipation Postprandial abdominal bloating R14.0 Epigastric pain R10.13 Time Spent (min) 25 Comment 15 minutes spent with patient additional 10 spent reviewing her records
== END 2024-09-03 17:00 | disposition home or self-care (01) ==
PROVIDERS: PCP Internal Medicine Geriatric Medicine; Visit Provider Nurse Practitioner Family
DX: K21.9 Gastro-esophageal reflux disease without esophagitis (principal); K59.01 Slow transit constipation; R14.0 Abdominal distension (gaseous); R10.13 Epigastric pain
CPT/HCPCS: 99213

== ENCOUNTER → 2024-09-03 16:01 | Outpatient (BNVA) | payer OTHER, SELFPAY | PROVIDERS: PCP Internal Medicine Geriatric Medicine; Visit Provider Nurse Practitioner Family | DX: K21.9 Gastro-esophageal reflux disease without esophagitis (principal); K59.01 Slow transit constipation; R14.0 Abdominal distension (gaseous); R10.13 Epigastric pain | CPT/HCPCS: 99212 ==

== ENCOUNTER 2024-10-21 11:57 | Outpatient (REF) | payer OTHER, SELFPAY ==
--- NOTE | ~2024-10-21 | XR_ITS ---
EXAMINATION: XR CHEST CLINICAL INFORMATION: Cough x4 days COMPARISON: Cough TECHNIQUE: 2 views of the chest were obtained. FINDINGS: No significant abnormality is noted involving the heart, lungs, mediastinum, bony thorax or soft tissues. XR/XR chest 2V IMPRESSION: Unremarkable chest examination. Electronically signed by: Eduard Martin MD 10/21/2024 01:03 PM [facility]
--- OUTSIDE RECORDS SUMMARY | 2024-10-21 13:41 | XMS_ITS | Encounter Summary ---
Author Organization [employer] Address [address] [place] [address] [address] [place] [address] Care Team Providers Care Writer Editor Name Role Phone Name, Rajesh WESTBROOK Primary Care Provider [phone] Puia Aida PharmD Unavailable [phone] Encounter Details Date Type Department Care Team (Late st Contact Info) Description 06/22/2023 Orders Only [facility] [address] [place] [address] Provider, MD Dinh Social History Tobacco Use Types Packs/Day Years Used Date Smoking Tobacco: Never Passive Smoke Exposure: Never Smokeless Tobacco: Never Alcohol Use Standard Drinks/Week Comments Never 0 (1 standard drink = 0.6 oz pur e alcohol) Depression Answer Date Recorded Patient Health Questionnaire-9 Score 0 02/19/2023 Depression Answer Date Recorded Patient Health Questionnaire-2 Score 0 02/19/2023 Comments Unknown Sex and Gender Information Value Date Recorded Sex Assigned at Female 07/31/2022 10:37 AM EDT Legal Sex Female 10:37 AM EDT Gender Identity Female 07/31/2022 10:37 AM EDT Sexual Orientation Straight 07/31/2022 10 :37 AM EDT documented as of this encounter Plan of Treatment Not on file documented as of this encounter Goals Goal Patient Goal Type Associated Problems Recent Progress Patient-Stated? Author Record your blood pressure periodically, 2-3x per week Blood Pressure No Puia, Aida, PharmD Blood Pressure < 140/90 Blood Pressure 168/96( 025 11:07 AM EST) No Puia, Aida, PharmD documented as of this encounter Procedures Procedure Name Priority Date/Time Associated Diagnosis Comments HM PAP/HPV Routine 08/09/2021 documented in this encounter Results * Hm Pap Smear (08/09/2021) us Historical Provider HEALTH MAINTENANCE Final Result documented in this encounter Visit Diagnoses Not on filedocumented in this encounter Additional Health Concerns Assessment Noted Time PHQ-9 Depression Total Score: 0 02/20/20 23 2:37 PM EDT documented as of this encounter Care Teams Writer Editor Relationship Specialty Start Date End Date Name, MD Rajesh [address] [place] [address] PCP - General Family Medicine 07/04/21 Aida Nguyen PharmD [address] [place] [address] Pharmacist Internal Medicine 05/24/23 documented as of this encounter
--- OUTSIDE RECORDS SUMMARY | 2024-10-21 13:41 | XMS_ITS | Clinical Summary ---
Author Organization [facility] it[facility] Address [address] [place] [address] Care Team Providers Care Cement Breaker Name Role Phone Unavailable Primary Care Provider Unavailabl e Social History Tobacco Use Types Packs/Day Years Used Date Smoking Tobacco: Never Assessed Sex and Gender Information Value Date Recorded Sex Assigned at Not on file Gender Identity Not on file Sexual Orientation Not on file Plan of Treatment Health Maintenance Due Date Last Done Comments Breast Cancer Screening 1971 DTaP,Tdap,and Td Vaccines (1 - Tdap) 1990 Hepatitis B Vaccines (1 of 3 - 19+ 3-dose series) 1990 Cervical Cancer Screening: P ap Smear 1992 Zoster Vaccines (1 of 2) 2021 Colorectal Cancer Screening: Colonoscopy 09/03/2022 Depression Screening 09/03/2022 HIV Screening 09/03/2022 Hepatitis C Screening 09/03/2022 Social Influencers of Health Screening 09/03/2022 COVID-19 Vaccine ( - 2023-2 5 season) 2024 Influenza Vaccine (#1) 2024 HIB Vaccines Aged Out No longer eligi ble based on patient's age to complete this topic HPV Vaccines Aged Out No longer eligi ble based on patient's age to complete this topic Hepatitis A Vaccines Aged Out No long er eligible based on patient's age to complete this topic IPV Vaccines Aged Out No longer eligi ble based on patient's age to complete this topic MMR Vaccines Aged Out No longer eligi ble based on patient's age to complete this topic Meningococcal ACWY Vaccine Aged Out N o longer eligible based on patient's age to complete this topic Pneumococcal Vaccine: Pediat rics (0 to 5 Years) and At-Risk Patients (6 to 64 Years) Aged Out No longer eligible b ased on patient's age to complete this topic RSV Immunization Patients Un alejandro 20 months Aged Out No longer eligible b ased on patient's age to complete this topic Varicella Vaccines Aged Out No longer eligible based on patient's age to complete this topic
--- OUTSIDE RECORDS SUMMARY | 2024-10-21 13:41 | XMS_ITS | Clinical Summary ---
Author Organization [employer] Address [address] [facility] [address] [place] [address] Care Team Providers Care Passenger Service Representative Name Role Phone Name, Rajesh WESTBROOK Primary Care Provider [phone] Aida Nguyen PharmD Unavailable Allergies No known active allergies Medications omeprazole (PriLOSEC) [address] capsule Take 1 capsule by mouth in the morning. Active omeprazole (PriLOSEC) [address] capsuleIndicatio ns:H. pylori infection TAKE 1 CAPS BY MOUTH BEFORE BREAKFAST AND BEFORE EVENING MEAL X14 DAYS. DO NOT CRUSH, CHEW, OR SPLIT 28 capsule 3 Active fluticasone (Flonase) 50 MCG/ACT nasal spray Administer 2 sprays into each nostril Once per day. Shake gently. Before first use, prime pump. After use, clean tip and replace cap. 16 g 2 4 01/21/20 25 Active cetirizine (ZyrTEC) 10 MG tablet Take 1 tablet (10 mg) by mouth Once per day. 30 tablet 11 4 01/21/20 25 Active hydroCHLOROthiaz daphney (HYDRODiuril) 12.5 MG tabletIndication s:Essential hypertension TAKE 1 TABLET BY MOUTH EVERY DAY IN THE MORNING 90 tablet 3 4 Active albuterol 108 (90 Base) MCG/ACT inhalerIndicatio ns:Viral upper respiratory infection Inhale 2 puffs every 6 (six) hours if needed for wheezing. 18 g 11 4 03/28/20 25 Active Spacer/Aero-Hold ing Chambers (AeroChamber MV) inhalerIndicatio ns:Viral upper respiratory infection Use as instructed 1 each 2 4 Active budesonide-formo terol (Symbicort) 160-4.5 MCG/ACT inhalerIndicatio ns:Cough in adult patient INHALE 2 PUFFS IN MORNING & BEDTIME, RINSE MOUTH W/ WATER AFTER TO REDUCE CANDIDASIS,DO NOT SWALLOW. 10.2 each 1 4 Active hydrocortisone (Anusol-HC) 2.5 % rectal cream Insert into the rectum 2 times daily. 28 g 2 4 Active lidocaine (Lidoderm) 5 % patch Apply 1 patch topically Once per day. Remove & discard patch within 12 hours or as directed by MD. 30 patch 2 4 Active azithromycin (Zithromax Z-Favio) 250 MG tablet Take 2 tablets once on day 1, then 1 tablet 1x/day for 4 days. 6 tablet 5 Active acetaminophen (Tylenol Extra Strength) 500 MG tablet Take 1 tablet (500 mg) by mouth every 8 (eight) hours if needed for moderate pain. 90 tablet 11 4 10/15/19 25 Active Problems Problem Noted Date Diagnosed Date Class 2 severe obesity due t o excess calories with serious comorbidity and body mass index (BMI) of 37.0 to 37.9 in adult 03/07/2024 Class 2 obesity 10/12/2023 10/12/2023 H. pylori infection 09/13/2023 Chest pain, atypical 09/10/2023 Assessment & Plan (09/10/2023 12:46 PM EST): Rule out Esophagitis, see as above Use tylenol PRN and f/u with PCP Esophageal stricture 07/17/2023 07/17/2023 Family history of colon cancer 07/17/2023 1 Well woman exam with routine gynecological exam 03/14/2023 Painful arc syndrome of right shoulder 3 Pain of right breast 03/14/2023 Osteoarthritis of right patellofemoral joint Menorrhagia, premenopausal 03/14/2023 Cervical cancer screening 03/14/2023 Acute shoulder pain 02/19/2023 Assessment & Plan (02/19/2023 7:47 PM EDT): chronic R shoulder pain possible secondary to repetitive lateral movement of upper arm with plastic bins-at work Had right shoulder XR 01/2023 w mild degenerative findings and CT shoulder In 2021 was normal. Patient already f orthopedic s/p right shoulder injection w no improvement . Here normal exam except for mild tenderness in anterior aspect of right shoulder pt has initial autoimmune workup done in 03/2022 by PCP w neg RF,neg KAY ,and wnl CRP and ESR and with no clinical symptoms consistent w autoimmune dx. -advised to take tylenol prn x mild pain and NSAIDS -has at home ibuprofen x mod pain prescribed today lidoderm patch -advised to continue care w her orthopedic and to start PT-apt made x 02/27/2023 History of COVID-19 02/16/2023 Gastroesophageal reflux disease 11/29/2022 Assessment & Plan (09/10/2023 12:41 PM EST): Vending Machine Attendant to restart omeprazole Vending Machine Attendant to reschedule appt with GI if symptoms continue Check H. Pylori test Essential hypertension 11/29/2022 Assessment & Plan (09/10/2023 12:43 PM EST): Uncontrolled hydrochlorothiazide recently started Vending Machine Attendant to take losartan 100 MG in the morning and hydrochlorothiazide in the the evening F/u with PCP Counseled re low salt diet/increase moderate physical activity. Check home BP BIW and prn CP/UGALDE/WAN Non smoking patient. Assessment & Plan (02/19/2023 7:51 PM EDT): Uncontrolled HTN -pt states not taking valsartan 40 mg x last 2 months-states that dose causes her dizziness that resolves when stop taking med -EKG today is normal w no concerning symptoms for CAD-she does reports sometimes pain in neck and shoulder can go to back and upper chest -discussed that given her risk factors about cardiology eval to r/o CAD but pt wants to hold x now -stop valsartan -will start losartan instead low dose at 25 mg daily and to monitor her BP at home if despite taking med in next 5 days her BP still is elevated to take 2 tab to make 50 mg daily -advised to bring daily BP readings at her next apt w PCP in 4 weeks to adjust meds as needed ( apt scheduled today) Iron deficiency anemia 11/29/2022 Encounters Date Type Department Care Team Description 10/21/2024 10:40 AM EST Office Visit [facility] [address] [place] [phone] Jose Goddard MD Cough, unspecified type (Primary Dx); Essential hypertension 10/02/2024 Telephone [facility] [address] [place] [phone] Sana Matson MA sera recalls 07/31/2024 3:30 PM EDT Office Visit [facility] [address] [place] [phone] Rajesh Rdz MD Essential hypertension (Primary Dx); NADIA (obstructive sleep apnea); Chronic idiopathic constipation; Hemorrhoids, unspecified hemorrhoid type; Vaccination refused by patient 07/28/2024 Travel from Last 3 Months Immunizations Name Administration Dates Next Due Hep B, adult 01/31/2024(Deferred: Patient Ref used) Pfizer Covid-19 Vaccine 12+ 01/31/2024(D eferred: Patient Refused),07/25/2021 Pfizer Covid-19 Vaccine 5-11 07/31/2021 Tdap 05/24/2023 Social History Tobacco Use Types Packs/Day Years Used Date Smoking Tobacco: Never Passive Smoke Exposure: Never Smokeless Tobacco: Never Tobacco Cessation:Counseling Given: Not Answered Alcohol Use Standard Drinks/Week Comments Never 0 (1 standard drink = 0.6 oz pur e alcohol) Alcohol Answer Date Recorded Frequency of Alcohol Consumption Not on file 05/19/2024 Average Number of Drinks Not on file 024 Frequency of Binge Drinking Not on file 05/01 Score 0 05/19/2024 Depression Answer Date Recorded Patient Health Questionnaire-9 Score 0 05/19/2024 Patient Health Questionnaire-9 Score 0 05/19/2024 Last PHQ-9: Questionnaire Data Not on file 0 05/19/2024 Housing Stability Answer Date Recorded What is your housing situation today? I have honye baum 05/19/[address] you li ve. Do you have problems with any of the following? None of the above 05/19/2024 Food Insecurity Answer Date Recorded Within the past 12 months, y ou worried that your food would run out before you got money to buy more: Never True 05/19/2024 Within the past 12 months,th e food you bought just didn't last and you didn't have enough money to get more: Never True Transportation Answer Date Recorded In the past 12 months, has l ack of transportation kept you from medical appts, meetings, work or from getting things needed for daily living? No 05/19/2024 Utilities Answer Date Recorded In the past 12 months, has t he electric, gas, oil or water company threatened to shut off services in your home? No 05/19/2024 Depression Answer Date Recorded Patient Health Questionnaire-2 Score 0 05/19/2024 Internet Access Answer Date Recorded Internet Access Q1 No 06/02/2024 Internet Access Q2 I do not want or need it 11/2023 Comments Unknown Sex and Gender Information Value Date Recorded Sex Assigned at Female 07/31/2022 10:37 AM EDT Legal Sex Female 10:37 AM EDT Gender Identity Female 07/31/2022 10:37 AM EDT Sexual Orientation Straight 07/31/2022 10 :37 AM EDT Last Filed Vital Signs Vital Sign Reading Time Taken Comments Blood Pressure 168/96 10/21/2024 11:07 AM EST Pulse 78 10/21/2024 11:07 AM EST Temperature 36.8 ??C (98.3 ??F) 10/21/2024 11:[address] Respiratory Rate 19 10/21/2024 11:07 AM EST Oxygen Saturation 97% 10/21/2024 11:07 AM EST Inhaled Oxygen Concentration - - Weight 90.7 kg (200 lb) 10/21/2024 11:07 AM EST Height 165.1 cm (5' 5 ) 10/21/2024 11:07 AM EST Body Mass Index 33.28 10/21/2024 11:07 AM EST Plan of Treatment Health Maintenance Due Date Last Done Comments CT Colonography 1971 FIT DNA/Cologuard 1971 FIT 1971 FOBT 1970 HIV Screening 1971 Sigmoidoscopy 1971 Hepatitis C Screening 1989 Hepatitis B Vaccines (1 of 3 - 19+ 3-dose series) 1990 Zoster Vaccines (1 of 2) 2021 Mammogram 03/21/2024 03/21/2023 COVID-19 Vaccine (3 - 2023- season) 2024 07/31/2021, 07/25/2021, 07/04/2021 Influenza Vaccine (#1) 2024 Diabetes: Hemoglobin A1C 03/11/2025 024, 07/20/2023, 05/05/2021 Alcohol/Substance Use Screening 05/19/2025 05/19/2024 Depression Screening 05/19/2025 05/19/2024, 05/19/20 SDOH Screening 05/19/2025 05/19/2024 Tobacco Screening 10/21/2025 10/21/2024 Cervical Cancer Screening 08/09/2026 HPV/Cotest 08/09/2026 08/09/2021, 11/0 06/2021, 08/09/2021, Additional history exists Pap Smear 08/09/2026 08/09/2021, 11/0 06/2021, 08/09/2021 Colonoscopy 09/20/2026 09/20/2021 Colorectal Cancer Screening 09/20/2026 Lipid Panel 03/11/2029 03/11/2024, 05/05/2021 DTaP/Tdap/Td Vaccines (2 - Td or Tdap) 05/24/2033 05/24/2023 RSV Patients and Patients Aged 60 years or older (1 - 1-dose 75+ series) 2046 HIB Vaccines Aged Out No longer eligi [...] patient's age to complete this topic Meningococcal Vaccine Aged Out No marcos koffi eligible based on patient's age to complete this topic Pneumococcal Vaccine: Pediatrics (0 to 5 Years) and At-Risk Patients (6 to 64 Years) Aged Out No longer eligible based on patient's age to complete this topic RSV under 20 months Aged Out No longe r eligible based on patient's age to complete this topic Rotavirus Vaccines Aged Out No longer eligible based on patient's age to complete this topic Goals Goal Patient Goal Type Associated Problems Recent Progress Patient-Stated? Author Record your blood pressure periodically, 2-3x per week Blood Pressure No Puia, Aida, PharmD Blood Pressure < 140/90 Blood Pressure 168/96( 025 11:07 AM EST) No Puia, Aida, PharmD Procedures Procedure Name Priority Date/Time Associated Diagnosis Comments XR CHEST 2 VIEWS Routine 10/21/2024 11:5 8 AM EST Cough, unspecified type POCT INFLUENZA B (ID NOW RAPID MOLECULAR) Routine 10/21/2024 11:27 AM EST Cough, unspecified type POCT INFLUENZA A (ID NOW RAPID MOLECULAR) Routine 10/21/2024 11:27 AM EST Cough, unspecified type POCT COVID-19 AG CUEVAS ID NOW Routine 10/21/2024 11:26 AM EST Cough, unspecified type BASIC METABOLIC PANEL Routine 07/23/2024 7:09 AM EDT Essential hypertension Obesity (BMI 30-39.9) HEMOGLOBIN A1C Routine 03/11/2024 7:08 AM EDT Class 2 severe obesity due to excess calories with serious comorbidity and body mass index (BMI) of 37.0 to 37.9 in adult ([facility]) LIPID PANEL, STANDARD Routine 03/11/2024 7:08 AM EDT HM MAMMOGRAPHY Routine 03/21/2023 HM COLONOSCOPY Routine 09/20/2021 3:35 PM EST HM PAP/HPV Routine 08/09/2021 HM PAP/HPV Routine 08/09/2021 from Last 3 Months or Most Recently Relevant to Health Maintenance Results * XR Chest 2 Views (10/21/2024 11:58 AM EST) Anatomical Region Laterality Modality Chest Radiographic Sandra ging 10/21/2024 11:5 8 AM EST Narrative 10/21/2024 1:06 PM EST ?[facility] ?[address] ?[place], [place] [address] ?XRay Report ? Signed ? Patient: Veronica Wong ?MR#: ?? [id number] ? : 1970 ?Acct:[id number] ? Age/Sex: 54 / F ?ADM Date: 10/21/24 ? Loc: HO.HHCX ? Attending Dr: Jose Goddard MD ? Ordering Physician: JOSE GODDARD MD ?? Date of Service: 10/21/24 ?? Procedure(s): XR chest 2V ?? Accession Number(s): [id number] ? cc: JOSE GODDARD MD ? EXAMINATION: ?? XR CHEST ? CLINICAL INFORMATION: ?? Cough x4 days ? COMPARISON: ?? Cough ? TECHNIQUE: ?? 2 views of the chest were obtained. ? FINDINGS: ?? No significant abnormality is noted involving the heart, lungs, ?? mediastinum, bony thorax or soft tissues. ? XR/XR chest 2V ?? IMPRESSION: ?? Unremarkable chest examination. ? Electronically signed by: ??Eduard Martin MD ??10/21/2024 01:03 PM EST RP ? Dictated By: ?Eduard Martin MD ? Signed By: ?<Electronically signed by Eduard Martin MD in OV> ?10/21/24 1303 ? DD/ 1158 ? TD/TT: 10/21/24 1230 ? Back Padder: MSM ? Procedure Note Yovana, Image - 10/21/2024 [facility] [address] [place] [address] XRay Report Signed Patient: Veronica WongMR#: [id number] : 1970Acct:[id number] Age/Sex: 54 / FADM Date: 10/21/24 Loc: HO.HHCX Attending Dr: Jose Goddard MD Ordering Physician: JOSE GODDARD MD Date of Service: 10/21/24 Procedure(s): XR chest 2V Accession Number(s): [id number] cc: JOSE GODDARD MD EXAMINATION: XR CHEST CLINICAL INFORMATION: Cough x4 days COMPARISON: Cough TECHNIQUE: 2 views of the chest were obtained. FINDINGS: No significant abnormality is noted involving the heart, lungs, mediastinum, bony thorax or soft tissues. XR/XR chest 2V IMPRESSION: Unremarkable chest examination. Electronically signed by: Eduard Martin MD 10/21/2024 01:03 PM EST RP Dictated By: Eduard Martin MD Signed By: <Electronically signed by Eduard Martin MD in OV> 10/21/24 1303 DD/ 1158 TD/TT: 10/21/24 1230 Back Padder: DARIANA Jose Goddard MD IMG XR PROCEDURES Edited Result - Final * POCT Rapid Influenza B CUEVAS ID NOW (10/21/2024 11:27 AM EST) Influenza B Negative Negative, Indeterminate [facility] QC Media Lot # [id number] [facility] Lot# Expiration Date [facility] Swab 10/21/2024 11:2 7 AM EST Jose Goddard MD POINT OF CARE TEST ENTER/EDIT OR DERABLES Final Result Performing Organization Address City/State/[facility] Co de Phone Number [facility] [address] [place] [phone] * POCT Rapid Influenza A CUEVAS ID NOW (10/21/2024 11:27 AM EST) Influenza A Negative Negative, Indeterminate [facility] QC Media Lot # [id number] [facility] Lot# Expiration Date [facility] Swab 10/21/2024 11:2 7 AM EST us Jose Goddard MD POINT OF CARE TEST ENTER/EDIT OR DERABLES Final Result [facility] [address] [place] [phone] * POCT Rapid Covid-19 CUEVAS ID NOW (10/21/2024 11:26 AM EST) Pathologist [facility] Coronavirus Antigen PCR Negative Negative, Indeterminate, None Detected, Invalid, Specimen unsatisfactory for evaluation, Weakly Positive QC Media Lot # [id number] Lot# Expiration Date [id number] Swab 10/21/2024 11:2 6 AM EST Jose Goddard MD POINT OF CARE TEST ENTER/EDIT OR DERABLES Final Result * (ABNORMAL) Basic Metabolic Panel (07/23/2024 7:09 AM EDT) [facility] Sodium 142 135 - 145 mmol/L [facility] Potassium 4.0 3.3 - 5.1 mmol/L [facility] Chloride 107 96 - 108 mmol/L [facility] Carbon Dioxide 28 22 - 29 mmol/L [facility] Anion Gap 11(L) 12 - 20 [facility] Urea Nitrogen (BUN) 13 9 - 16 mg/dL [facility] Creatinine, Serum 0.63 0.5 - 1.4 mg/dL [facility] Estimated Glomerular Filt Rate >60 [facility] Comment:NOTE: For -Am erican individuals, multiply the result by 1.210.Chronic Kidney Disease: Estimated GFR < 60 mL/min/1.04x7Mzapwo Kidney Disease: Estimated GFR < 15 mL/min/1.73m2 Glucose 107 60 - 115 mg/dL [facility] Calcium 9.4 8.4 - 10.2 mg/dL [facility] Blood Venous blood specimen / Unknown 07/23/2024 7:09 AM EDT 07/23/2024 7:11 AM EDT us Rajesh Rdz MD LAB BLOOD ORDERABLES Final Resul t [facility] [address] [place] [phone] * Hemoglobin A1c (03/11/2024 7:08 AM EDT) Hemoglobin A1c 5.7 <6.0 % [facility] Comment:Hemoglobin A1C Refer ence Range Adults: 4.8 - 6.0 % Non diabetic: < 6.0 % Goal: < 7.0 %Additional Action Suggested: > 8.0 %Note: Hemoglobin A1c results are invalid for patients with abnormal amounts of HbF. Blood transfusions may impact the HbA1c concentration in the patient sample. Estimated Average Glucose 117 mg/dL [facility] Comment:eAG = Estimated ave rage glucose which is %A1C expressed asaverage glucose, using the formula of the D5E-[id number] Glucose study (ADAG), Diabetes Care, Vol.31,#8,May. 2007 Blood Venous blood specimen / Unknown 03/11/2024 7:08 AM EDT 03/11/2024 7:08 AM EDT us Gissel Kelly MD LAB BLOOD ORDERABLES Final Result Performing Organization Address [facility] Co de Phone Number [facility] [address] [place] [phone] * Lipid Panel, Standard (03/11/2024 7:08 AM EDT) Triglycerides 74 <150 mg/dL [facility] Comment:Desirable Triglyceri de: less than 150 mg/dLBorderline High Triglyceride 150-199 mg/dLHigh Triglyceride: 200-499 mg/dLVery High Triglyceride: greater than or equal to 5OO mg/dL Cholesterol 169 <200 mg/dL [facility] Comment:Desirable Cholestero l: less than 200 mg/dLBorderline High Cholesterol: 200-239 mg/dLHigh Cholesterol: greater than 239 mg/dL LDL Cholesterol Calculated 95 <100 mg/dL [facility] Comment:Desirable LDL: less than 100 mg/dLNear Optimal/Above Optimal LDL: 110- 129 mg/dLBorderline High LDL: 130-159 mg/dLHigh LDL: 160-189 mg/dLVery High LDL: greater than or equal to 190 mg/dL HDL Cholesterol 60 >40 mg/dL [facility] Comment:Desirable HDL: great er than 40 mg/dL Note: This HDL assay may give artificially low results in patients with liver disease. 03/11/2024 7:08 AM EDT 03/11/2024 7:08 AM EDT Rajesh Rdz MD LAB BLOOD ORDERABLES Final Resul t [facility] [address] [place] [address] [phone] * Mammography (03/21/2023) Mammogram BI-Rads 1 Anatomical Region Laterality Modality Other [facility] [place] HEALTH MAINTENANCE Final Result * Colonoscopy (09/20/2021 3:35 PM EST) Colonoscopy Normal Normal Narrative Laura Goodwin - 09/20/2021 3:35 PM EST Recommended 5 year follow up Historical Provider HEALTH MAINTENANCE Final Result * Pap Smear (08/09/2021) Only the most recent of2 resultswithin the time period is included. Pap Negative for intraephithelial lesion or malignancy Negative for intraephithelial lesion or malignancy, Other HPV Undetected [facility] [place] HEALTH MAINTENANCE Final Result from Last 3 Months or Most Recently Relevant to Health Maintenance Insurance [facility] [employer] Care Teams Passenger Service Representative Relationship Specialty Start Date End Date Name, MD Rajesh [address] [place] [address] PCP - General Family Medicine 07/04/21 Aida Nguyen, JimenezD [address] [place] [address] Pharmacist Internal Medicine 05/24/23
--- OUTSIDE RECORDS SUMMARY | 2024-10-21 13:41 | XMS_ITS | Encounter Summary ---
Author Organization [employer] Address [address] [place] [address] [address] [place] [address] Care Team Providers Care Sr. Payroll Manager Name Role Phone Name, Rajesh WESTBROOK Primary Care Provider [phone] Aida Nguyen PharmD Unavailable [phone] Encounter Details Date Type Department Care Team (Late st Contact Info) Description 03/12/2023 Abstract [facility] [address] [place], [place] [phone] Name, MD Rajesh [address] [place] [address] Social History Tobacco Use Types Packs/Day Years [...] Orientation Straight 07/31/2022 10 :37 AM EDT COVID-19 Exposure Response Date Recorded In the last 10 days, have yo u been in contact with someone who was confirmed or suspected to have Coronavirus/COVID-19? No / Unsure 03/14/2023 2:00 PM EDT documented as of this encounter Plan of Treatment Not on file documented as of this encounter Procedures Procedure Name Priority Date/Time Associated Diagnosis Comments HM COLONOSCOPY Routine 09/20/2021 3:35 PM EST documented in this encounter Results * Hm Colonoscopy (09/20/2021 3:35 PM EST) Colonoscopy Normal Normal Narrative Laura Goodwin - 09/20/2021 3:35 PM EST Recommended 5 year follow up us Historical Provider MD HEALTH MAINTENANCE Final Result documented in this encounter Visit Diagnoses Not on filedocumented in this encounter Additional Health Concerns Assessment Noted Time PHQ-9 Depression Total Score: 0 02/20/20 23 2:37 PM EDT documented as of this encounter Care Teams Sr. Payroll Manager Relationship Specialty Start Date End Date Name, MD Rajseh [address] [place] [address] PCP - General Family Medicine 07/04/21 Aida Nguyen PharmD [address] [place] [address] Pharmacist Internal Medicine 05/24/23 documented as of this encounter
--- OUTSIDE RECORDS SUMMARY | 2024-10-21 13:41 | XMS_ITS | Encounter Summary ---
Author Organization [employer] Address [address] [facility] 7[address] [place] [address] Care Team Providers Care Business Law Instructor Name Role Phone Name, Rajesh WESTBROOK Primary Care Provider Aida Nguyen PharmD Unavailable [phone] Reason for Visit * Reason Onset Date Comments Nurse Triage 08/30/2023 Encounter Details Date Type Department Care Team ([facility] st Contact Info) Description 08/30/2023 Telephone [facility] MEDICINE [address] [place], [place] [phone] Name, MD Rajesh [address] [place] [address] Nurse Triage Social History Tobacco Use Types Packs/Day Years Used Date Smoking Tobacco: Never Passive Smoke Exposure: Never Smokeless Tobacco: Never Alcohol Use Standard Drinks/Week Comments Never 0 (1 standard drink = 0.6 oz pur e alcohol) Depression Answer Date Recorded Patient Health Questionnaire-9 Score 0 02/19/2023 Housing Stability Answer Date Recorded What is your housing situation today? I have honey baum 07/16/[address] you li ve. Do you have problems with any of the following? None of the above 07/16/2023 Food Insecurity Answer Date Recorded Within the past 12 months, y ou worried that your food would run out before you got money to buy more: Never True 07/16/2023 Within the past 12 months,th e food you bought just didn't last and you didn't have enough money to get more: Never True Transportation Answer Date Recorded In the past 12 months, has l ack of transportation kept you from medical appts, meetings, work or from getting things needed for daily living? No 07/16/2023 Utilities Answer Date Recorded In the past 12 months, has t he electric, gas, oil or water company threatened to shut off services in your home? No 07/16/2023 Depression Answer Date Recorded Patient Health Questionnaire-2 Score 0 02/19/2023 Comments Unknown Sex and Gender Information Value Date Recorded Sex Assigned at Female 07/31/2022 10:37 AM EDT Legal Sex Female 10:37 AM EDT Gender Identity Female 07/31/2022 10:37 AM EDT Sexual Orientation Straight 07/31/2022 10 :37 AM EDT documented as of this encounter Miscellaneous Notes * Telephone Encounter - Topher Acosta RN - 09/03/2023 4:41 PM EST T/C to pt. Through [employer] id - [id number] for below message, Pt. States she is doing O.K but little bit check tightness and her BP readings was high. Her last reading was 161/106. Pt. Advised to come to walk in clinic, walk in clinic hours are reviewed. Pt. Also advised to go to nearest ED in case of any new or worsening symptoms including of any CP, SOB or breathing problem. Pt. Schedule for ED follow up on 09/10/2023. Pt. Verbally agreed and understood. MAURO grupo is in pt.'s chart. * Telephone Encounter - Yue Damon RN - 08/30/2023 12:29 PM EST Call to Veronica Lee, reports having chest pain and pressure since this morning. Per ptconstant. Per pt yesterday had UGALDE, dizziness, diaphoresis. Per pt BP at 10am was 165/107. Per pt does not have BP kit. Per pt had already taken BP meds. Per pt did have some facial numbness yesterday. None at this time. Pt advised of disposition, agrees to [facility] ED now for exam to rule out cardiac involvement. Sent to team for ER status check PRN. Protocol Used: Chest Pain (Adult) Protocol-Based Disposition: Call EMS 911 Now Positive Triage Question: * Chest pain lasting longer than 5 minutes, over 30 years old, and at least one cardiac risk factor(e.g., diabetes mellitus, high blood pressure, high cholesterol, smoker, or strong family history of heart disease) * All higher-acuity triage questions were negative Care Advice Discussed: * Reasons To Call Back - Chest pain increases in frequency, duration or severity - Difficulty breathing or unusual sweating occurs - You become worse * Telephone Encounter - Carina Poon - 08/30/2023 12:19 PM EST Symptom: High Blood Pressure - Caller Reports Outcome: Transfer to a nurse or provider NOW! Reason: Chest pain The caller accepted this outcome Ivorian Speaker documented in this encounter Plan of Treatment Not on file documented as of this encounter Goals Goal Patient Goal Type Associated Problems Recent Progress Patient-Stated? Author Record your blood pressure periodically, 2-3x per week Blood Pressure No Aida Nguyen, PharmD Blood Pressure < 140/90 Blood Pressure 168/96( 025 11:07 AM EST) No Aida Nguyen, PharmD documented as of this encounter Visit Diagnoses Not on filedocumented in this encounter Additional Health Concerns Assessment Noted Time PHQ-9 Depression Total Score: 0 02/20/20 23 2:37 PM EDT documented as of this encounter Care Teams Business Law Instructor Relationship Specialty Start Date End Date Name, MD Rajesh [address] [place] [address] PCP - General Family Medicine 07/04/21 Aida Nguyen PharmD [address] [place] [address] Pharmacist Internal Medicine 05/24/23 documented as of this encounter
--- OUTSIDE RECORDS SUMMARY | 2024-10-21 13:41 | XMS_ITS | Encounter Summary ---
Author Organization [employer] Address [address] [facility] 7[address] [place] [address] Care Team Providers Care Basket Maker Name Role Phone Name, Rajesh WESTBROOK Primary Care Provider [phone] Aida Nguyen PharmD Unavailable Reason for Visit * Reason Onset Date Comments sera recalls 10/02/2024 Encounter Details Date Type Department Care Team ([facility] st Contact Info) Description 10/02/2024 Telephone [facility] MEDICINE [address] [place] [address] Taty Matson [place] srea recalls Social History Tobacco Use Types Packs/Day Years [...] housing situation today? I have honey baum 05/19/[address] you [...] encounter Miscellaneous Notes * Telephone Encounter - Sana Matson [place] - 10/02/2024 4:19 PM EST T/C -SAMUEL unable to reach pt,or lvm for pt to call back so we could schedule _follow up appt. Phone is an non-working number, if pt calls back you could transfer call to [facility] , letter sent . documented in this encounter Plan of Treatment Not on file documented as of this encounter Goals Goal Patient Goal Type Associated Problems Recent Progress Patient-Stated? Author Record your blood pressure periodically, 2-3x per week Blood Pressure No Puia, Aida, PharmD Blood Pressure < 140/90 Blood Pressure 168/96( 025 11:07 AM EST) No Puia, Aida, PharmD documented as of this encounter Visit Diagnoses Not on filedocumented in this encounter Additional Health Concerns Assessment Noted Time PHQ-9 Depression Total Score: 0 05/19/20 24 3:43 PM EDT documented as of this encounter Care Teams Basket Maker Relationship Specialty Start Date End Date Name, MD Rajesh [address] [place] [address] PCP - General Family Medicine 07/04/21 Aida Nguyen PharmD [address] [place] [address] Pharmacist Internal Medicine 05/24/23 documented as of this encounter
--- OUTSIDE RECORDS SUMMARY | 2024-10-21 13:41 | XMS_ITS | Encounter Summary ---
Author Organization [employer] Address [address] [facility] 7[address] [place] [address] Care Team Providers Care Research Home Economist Name Role Phone Name, Rajesh WESTBROOK Primary Care Provider [phone] Aida Nguyen PharmD Unavailable [phone] Encounter Details Date Type Department Care Team (Late st Contact Info) Description 10/21/2024 10:40 AM EST Office Visit [facility] [address] [place] [phone] Jose Goddard MD [address] [place], [place] [phone] Cough, unspecified type (Primary Dx); Essential hypertension Social History Tobacco Use Types Packs/Day Years [...] AM EDT documented as of this encounter Last Filed Vital Signs Vital Sign Reading [...] Mass Index 33.28 10/21/2024 11:07 AM EST documented in this encounter Progress Notes * Jose Goddard MD - 10/21/2024 10:40 AM EST Subjective Patient ID: Veronica Lester is a 54 y.o. female. Benefits Consulting Analyst: Damir. HPI Veronica has 5 day h/o body aches, dry cough, wheezing, SOB. No fever, n/v/d, chest pain. Used albuterol HFA last night only because it makes the cough worse , not using Symbicort. Lives with . LMP=2 weeks ago. 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 Co-workers have been coughing. Never smoked. Patient Active Problem List Diagnosis Gastroesophageal reflux disease Essential hypertension Iron deficiency anemia History of COVID-19 Acute shoulder pain Well woman exam with routine gynecological exam Painful arc syndrome of right shoulder Pain of right breast Osteoarthritis of right patellofemoral joint Menorrhagia, premenopausal Cervical cancer screening Esophageal stricture Family history of colon cancer Chest pain, atypical H. pylori infection Class 2 obesity Class 2 severe obesity due to excess calories with serious comorbidity and body mass index (BMI) of37.0 to 37.9 in adult ([facility]) The following portions of the chart were reviewed this encounter and updated as appropriate: Tobacco Allergies Meds Problems Med Hx Surg Hx Fam Hx Review of Systems Constitutional: Negative for fever. Respiratory: Positive for cough, shortness of breath and wheezing. Cardiovascular: Negative for chest pain. Gastrointestinal: Negative for abdominal pain. Musculoskeletal: Positive for myalgias. Skin: Negative for rash. Neurological: Negative for headaches. Objective Physical Exam Constitutional: Appearance: Normal appearance. HENT: Right Ear: Tympanic membrane, ear canal and external ear normal. Left Ear: Tympanic membrane, ear canal and external ear normal. Nose: Nose normal. Mouth/Throat: Mouth: Mucous membranes are moist. Pharynx: Oropharynx is clear. Eyes: Conjunctiva/sclera: Conjunctivae normal. Pupils: Pupils are equal, round, and reactive to light. Cardiovascular: Rate and Rhythm: Normal rate and regular rhythm. Heart sounds: No murmur heard. Pulmonary: Effort: Pulmonary effort is normal. Breath sounds: Normal breath sounds. Musculoskeletal: General: Normal range of motion. Cervical back: No tenderness. Skin: Findings: No rash. Neurological: Mental Status: She is alert. Gait: Gait is intact. Psychiatric: Mood and Affect: Mood normal. Behavior: Behavior normal. Procedures Assessment/Plan Diagnoses and all orders for this visit: Cough, unspecified type Negative rapid Covid and Influenza tests. Covid PCR and Flu tests pending. Veronica declines using albuterol and declines prednisone due to previous experience of weight gain when using it. Advised to use Symbicort bid. CXR done in [facility] reviewed by me: ? RLL infiltrate. Prescribed Zithromax for possible pneumonia. rtc if not improving. - POCT Rapid Covid-19 CUEVAS ID NOW - POCT Rapid Influenza A CUEVAS ID NOW - POCT Rapid Influenza B CUEVAS ID NOW Essential hypertension States that home BP readings are in normal range. documented in this encounter Plan of Treatment Not on file documented as of this encounter Goals Goal Patient Goal Type Associated Problems Recent Progress Patient-Stated? Author Record your blood pressure periodically, 2-3x per week Blood Pressure No Aida Nguyen, Rubens Blood Pressure < 140/90 Blood Pressure 168/96( 025 11:07 AM EST) No Aida Nguyen PharmD documented as of this encounter Procedures [...] 10/21/2024 11:26 AM EST Cough, unspecified type documented in this encounter Results * XR Chest 2 Views (10/21/2024 11:58 AM EST) Anatomical Region Laterality Modality Chest Radiographic Sandra ging 10/21/2024 11:5 8 AM EST Narrative 10/21/2024 1:06 PM EST ?[facility] ?[address] ?[place] [address] ?XRay Report ? Signed ? Patient: Ori Lester,Veronica ?MR#: ?? [id number] ? : 1970 ?Acct:[id number] ? Age/Sex: 54 / F ?ADM Date: /21/25 ? Loc: HO.HHCX ? Attending Dr: Jose Goddard MD ? Ordering Physician: JOSE GODDARD MD ?? Date of Service: 10/21/24 ?? Procedure(s): XR chest 2V ?? Accession Number(s): [id number] ? cc: JOSE GODDARD MD ? EXAMINATION: [...] DD/ 1158 ? TD/TT: 10/21/24 1230 ? Net Application Support Specialist: MSM ? Procedure Note Zacariasmanuelito, Image - 10/21/[address] [address] XRay Report Signed Patient: Veronica WongMR#: [id number] : 1970Acct:[id number] Age/Sex: 54 / FADM Date: 10/21/24 Loc: HO.HHCX Attending Dr: Jose Goddard MD Ordering Physician: JOSE GODDARD MD Date of Service: 10/21/24 Procedure(s): XR chest 2V Accession Number(s): [id number] cc: JOSE GODDARD MD EXAMINATION: XR CHEST CLINICAL INFORMATION: Cough x4 days COMPARISON: Cough TECHNIQUE: 2 views of the chest were obtained. FINDINGS: No significant abnormality is noted involving the heart, lungs, mediastinum, bony thorax or soft tissues. XR/XR chest 2V IMPRESSION: Unremarkable chest examination. Electronically signed by: Eduard Martin MD 10/21/2024 01:03 PM [facility] Dictated By: Eduard Martin MD Signed By: <Electronically signed by Eduard Martin MD in OV> 10/21/24 1303 DD/ 1158 TD/TT: 10/21/24 1230 Net Application Support Specialist: DARIANA Jose Goddard MD IMG XR PROCEDURES Edited Result - Final * POCT Rapid Influenza B CUEVAS ID NOW (10/21/2024 11:27 AM EST) Influenza B Negative Negative, Indeterminate [facility] QC Media Lot # [id number] [facility] Lot# Expiration Date [facility] Swab 10/21/2024 11:2 7 AM EST Jose Goddard MD POINT OF CARE TEST ENTER/EDIT OR DERABLES Final Result Performing Organization Address [facility] Co de Phone Number [facility] [address] [place] [phone] * POCT Rapid Influenza A CUEVAS ID NOW (10/21/2024 11:27 AM EST) Influenza A Negative Negative, Indeterminate [facility] QC Media Lot # [id number] [facility] Lot# Expiration Date [facility] Swab 10/21/2024 11:2 7 AM EST Jose Goddard MD POINT OF CARE TEST ENTER/EDIT OR DERABLES Final Result Performing Organization Address [facility] [employer] de Phone Number [facility] [address] [place] [phone] * POCT Rapid Covid-19 CUEVAS ID NOW (10/21/2024 11:26 AM EST) Coronavirus Antigen PCR Negative Negative, Indeterminate, None Detected, Invalid, Specimen unsatisfactory for evaluation, Weakly Positive QC Media Lot # [id number] Lot# Expiration Date Swab 10/21/2024 11:2 6 AM EST Jose Goddard MD POINT OF CARE TEST ENTER/EDIT OR DERABLES Final Result documented in this encounter Visit Diagnoses Diagnosis Cough, unspecified type- Primary Essential hypertension Unspecified essential hypertension documented in this encounter Additional Health Concerns Assessment Noted Time PHQ-9 Depression Total Score: 0 05/19/20 24 3:43 PM EDT documented as of this encounter Care Teams Research Home Economist Relationship Specialty Start Date End Date Name, MD Rajesh [address] [place] [address] PCP - General Family Medicine 07/04/21 Aida Nguyen PharmD [address] [place] [address] Pharmacist Internal Medicine 05/24/23 documented as of this encounter
--- OUTSIDE RECORDS SUMMARY | 2024-10-21 13:41 | XMS_ITS | Patient Health Record ---
Author Organization [facility] Address [address] [place] [phone] Care Team Providers Care Grinder Chipper Name Role Phone Name Rajesh WESTBROOK Primary Care Provider Jose Diaz Unavailable [phone] REASON FOR REFERRAL No Information MEDICATIONS Medication SIG (Take, Route, Frequency, Duration) Notes Start Date End Date Status Omeprazole 40 MG TAKE 1 CAPSULE BY [facility] EVERY MORNING for 90 Active Esomeprazole Magnesium Active MiraLax (colon prep) 17 GM/SCOOP 1 238 Gm bottle mixed with Gatorade or Crystal Light Orally begin at 5:00 p.m. the day before the procedure for 1 day 09/08/2021 Active Dulcolax (colon prep) 5 MG take at 3:00 p.m and 7:00p.m. Orally two tablets twice a day for one day for 1 day 09/08/2021 Active IMMUNIZATIONS Vaccine Route Administration Date Status Comme nts Influenza Unknown 09/06/2021 Refused SOCIAL HISTORY Tobacco Use: Social History Observation Description Date Details (start date - stop date) Never Smoker NA - NA Sex Assigned At : Social History Observation Description Sex Assigned At Unknown Tobacco Use/Smoking Question Answer Notes Patient is a nonsmoker Alcohol Screen Question Answer Notes Did you have a drink containing alcohol in the p ast year? No Points 0 Interpretation Negative PROBLEMS Problem Type ICD Code Onset Dates Problem Status W/U Status Risk SNOMED Code Notes Problem Gastroesophageal reflux disease, unspecified whether esophagitis present (K21.9) Active confirmed 235071465 Problem Microcytic anemia (D50.9) Active confirmed 259365306 Problem Family history of colon cancer (Z80.0) Active confirmed 649109334 Problem Iron deficiency anemia (D50.9) Active confirmed Iron deficien cy anemia (25188397) Problem Esophageal stricture (K22.2) Active confirmed Esophageal stricture (02918132) Problem Gastroesophageal reflux disease (K21.9) Active confirmed Gastroesophagea l reflux disease (584561426) PLAN OF TREATMENT Pending Test Test Name Order Date IRON + IBC (FE) 09/06/2021 VITAMIN B12 AND FOLATE 09/06/2021 CBC w DIFF 09/06/2021 Future Test Test Name Order Date UPPER GI ENDOSCOPY [place] DILATION OF ESOPH 09/06/2021 COLONOSCOPY 09/06/2021 Insurance Providers Payer Name Payer Address Payer Phone Subscriber Number Group Number Insured Name Patient Relationship to Insured Coverage Start Date Coverage End Date [facility] [address] [address] [place], [place] [id number] THOMAS LE Self - patient is the insured MEDICAL (GENERAL) HISTORY Medical History History ICD Code Hypertension-being observed-not on meds as of the 09/06/21 OV Sleep apnea--no CPAP Anemia Denies HI,DM,CVA,Lung disease,renal dise ase Surgical History Surgery Date(Month/Year) BTL
--- OUTSIDE RECORDS SUMMARY | 2024-10-21 13:41 | XMS_ITS | Encounter Summary ---
Author Organization [employer] Address [address] [facility] 7t [place] [address] Care Team Providers Care Logistics Intern Name Role Phone Name, Rajesh WESTBROOK Primary Care Provider [phone] Aida Nguyen PharmD Unavailable [phone] Reason for Visit * Reason Onset Date Comments stating 10/12/2022 Encounter Details Date Type Department Care Team ([facility] st Contact Info) Description 10/12/2022 Telephone [facility] MEDICINE [address] [place], [place] [phone] Name, MD Rajesh [address] [place] [address] stating Social History Tobacco Use Types Packs/Day Years Used Date Smoking Tobacco: Never Smokeless Tobacco: Never Comments Unknown Sex and Gender Information Value [...] suspected to have Coronavirus/COVID-19? No / Unsure 10/10/2022 4:03 PM EST documented as of this encounter Miscellaneous Notes * Telephone Encounter - Carlo Trevino - 10/12/2022 9:28 AM EST Tc from [place] with [facility] stating they do not take pt health insurance and cant be seen at practice. documented in this encounter Plan of Treatment Not on file documented as of this encounter Visit Diagnoses Not on filedocumented in this encounter Care Teams Logistics Intern Relationship Specialty Start Date End Date Name, MD Rajesh [address] [place] [address] PCP - General Family Medicine 07/04/21 Aida Nguyen PharmD [address] [place] [address] Pharmacist Internal Medicine 05/24/23 documented as of this encounter
== END 2024-10-21 11:58 | disposition home or self-care (01) ==
LOC: HO.HHCX 11:57
PROVIDERS: Visit Provider Emergency Medicine
DX: R05.9 Cough, unspecified (principal)
CPT/HCPCS: 71046

== ENCOUNTER → 2024-10-21 11:58 | Outpatient (BNV) | payer OTHER, SELFPAY | PROVIDERS: Visit Provider Radiology Diagnostic Radiology | DX: R05.9 Cough, unspecified (principal) | CPT/HCPCS: 71046 ==

== ENCOUNTER 2025-01-02 15:06 | Outpatient (REF) | payer OTHER, SELFPAY ==
--- NOTE | ~2025-01-02 | XR_ITS ---
EXAMINATION: XR ANKLE, RIGHT CLINICAL INFORMATION: swelling medial malleolus COMPARISON: None available. TECHNIQUE: AP, lateral, and mortise views of the right ankle. FINDINGS: No acute cortical disruption or malalignment. No lytic or blastic lesion. No gross joint effusion. No subcutaneous emphysema. XR/XR ankle RT min 3V IMPRESSION: No acute fracture or dislocation. Electronically signed by: Stuart Calvillo MD 01/02/2025 03:43 PM EDT
--- OUTSIDE RECORDS SUMMARY | 2025-01-02 16:29 | XMS_ITS | Encounter Summary ---
Author Organization [employer] Address [address] [facility] 7t [place] [address] Care Team Providers Care Lang Interpreter Name Role Phone Name, Rajesh WESTBROOK Primary Care Provider [phone] Aida Nguyen PharmD Unavailable [phone] Reason for Visit * Reason Onset Date Comments Nurse Triage 08/30/2023 Encounter Details Date Type Department Care Team ([facility] st Contact Info) Description 08/30/2023 Telephone [facility] MEDICINE [address] [place], [place] [phone] Name, MD Rajesh [address] [place] [address] Nurse Triage Social History Tobacco Use Types [...] 4:41 PM EST T/C to pt. Through [employer] id - [id number] for below message, Pt. States she is [...] 08/30/2023 12:29 PM EST Call to Veronica Lester, reports having chest pain and pressure since this morning. Per ptconstant. Per pt yesterday had UGALDE, dizziness, diaphoresis. Per pt BP at 10am was 165/107. Per pt does not have BP kit. Per pt had already taken BP meds. Per pt did have some facial numbness yesterday. None at this time. Pt advised of disposition, agrees to [facility] ED now for exam to rule out [...] Chest pain The caller accepted this outcome Amharic Speaker documented in this encounter Plan of Treatment Upcoming Encounters Date Type Department Care Team (Late st Contact Info) Description 01/29/2025 9:00 AM EDT Office Visit [facility] MED[facility] [address] [place] [address] Name, MD Rajesh [address] [place] [address] documented as of this encounter Goals Goal Patient Goal Type Associated Problems Recent Progress Patient-Stated? Author Record your blood pressure periodically, 2-3x per week Blood Pressure No Puia, Aida, PharmD Blood Pressure < 140/90 Blood Pressure 160/90( 025 2:02 PM EDT) No Puia, Aida, PharmD documented as of this encounter Visit Diagnoses Not on filedocumented in this encounter Additional Health Concerns Assessment Noted Time PHQ-9 Depression Total Score: 0 02/20/20 23 2:37 PM EDT documented as of this encounter Care Teams Lang Interpreter Relationship Specialty Start Date End Date NameRajesh MD [address] [place] [address] PCP - General Family Medicine 07/04/21 Puia, Aida, PharmD [address] [place] [address] Pharmacist Internal Medicine 05/24/23 documented as of this encounter
--- OUTSIDE RECORDS SUMMARY | 2025-01-02 16:29 | XMS_ITS | Encounter Summary ---
Author Organization [employer] Address [address] [facility] [address] [place] [address] Care Team Providers Care Fish And Wildlife Scientific Aid Name Role Phone Name, Rajesh WESTBROOK Primary Care Provider [phone] Aida Nguyen PharmD Unavailable [phone] Reason for Visit * Reason Comments Numbness Leg Pain Encounter Details Date Type Department Care Team (Late st Contact Info) Description 01/02/2025 2:40 PM EDT Office Visit [facility] [address] [place] [address] Acute right ankle pain (Primary Dx); Muscle spasm Social History Tobacco Use Types Packs/Day Years [...] Sign Reading Time Taken Comments Blood Pressure 160/90 01/02/2025 2:02 PM EDT Done manually Pulse 80 01/02/2025 1:56 PM EDT Temperature 36.6 ??C (97.9 ??F) 01/02/2025 1 :56 PM EDT Respiratory Rate 17 01/02/2025 1:56 PM EDT Oxygen Saturation - - Inhaled Oxygen Concentration - - Weight 95 kg (209 lb 6.4 oz) 01/02/2025 1:56 PM EDT Height 165.1 cm (5' 5 ) 01/02/2025 1:56 PM EDT Body Mass Index 34.85 01/02/2025 1:56 PM EDT documented in this encounter Plan of Treatment Upcoming Encounters Date Type Department Care Team (Late st Contact Info) Description 01/29/2025 9:00 AM EDT Office Visit [facility] [address] [place] [address] Name, MD Rajesh [address] [place] [address] Scheduled Orders Name Type Priority Associated Diagnoses Orde r Schedule Comprehensive Metabolic Panel Lab Routine Muscle spasm Expected: 01/02/2025 (Approximate), Expires: 01/02/2026 Creatine Kinase Isoenzymes (CK Isoenzymes) w/ Total CK Lab Routine Muscle spasm Expected: 01/02/2025 (Approximate), Expires: 01/02/2026 Vitamin B12/Folate, Serum Panel Lab Routine Muscle spasm Expected: 01/02/2025, Expires: 01/02/2026 Magnesium Lab Routine Muscle spasm Expected: 01/02/2025, Expires: 01/02/2026 documented as of this encounter Goals Goal Patient Goal Type Associated Problems Recent Progress Patient-Stated? Author Record your blood pressure periodically, 2-3x per week Blood Pressure No PuiaGmAida, PharmD Blood Pressure < 140/90 Blood Pressure 160/90( 025 2:02 PM EDT) No Puia Aida, PharmD documented as of this encounter Procedures Procedure Name Priority Date/Time Associated Diagnosis Comments CBC WITH AUTO DIFFERENTIAL Routine 01/02/2025 3:29 PM EDT Muscle spasm XR ANKLE 3+ VIEWS RIGHT Routine 01/02/2025 3:08 PM EDT Acute right ankle pain documented in this encounter Results * (ABNORMAL) CBC auto differential (01/02/2025 3:29 PM EDT) White Blood Count 7.4 4.8 - 10.8 X10*3/uL [facility] Red Blood Count 4.93 4.20 - 5.50 X10*6/uL [facility] Hemoglobin 10.7(L) 12.0 - 16.0 g/dl [facility] Hematocrit 36.1(L) 37.0 - 47.0 % [facility] Mean Corpuscular Volume 73.2(L) 80.0 - 98.0 fL [facility] Mean Corpuscular Hemoglobin 21.7(L) 27.0 - 33.0 pg [facility] Mean Corpuscular HGB Conc 29.6(L) 31.0 - 35.0 g/dl [facility] Red Cell Distribution Width 19.0(H) 11.0 - 16.0 % [facility] Platelet Count 239 160 - 400 X10*3/uL [facility] Mean Platelet Volume 11.3 9.4 - 12.3 fL [facility] Neutrophils Percent Auto 44.4(L) 45 - 73 % [facility] Imm Gran Pct Auto 0.4 0.0 - 0.4 % [facility] Lymphocytes Percent Auto 40.0 20 - 40 % [facility] Monocytes Percent Auto 11.1(H) 2 - 11 % [facility] Eosinophils Percent Auto 3.3 0 - 4 % [facility] Basophils Percent Auto 0.8 0 - 2 % [facility] NRBC Pct Auto 0.0 0.0 - 0.2 /100WBC [facility] Neutrophils Absolute Auto 3.3 2.0 - 8.3 x10*3/uL [facility] Imm Gran Abs Auto 0.03 0.00 - 0.03 X10*3/uL [facility] Lymphocytes Absolute Auto 3.0 1.2 - 4.9 X10*3/uL [facility] Monocytes Absolute Auto 0.8 0.1 - 1.2 X10*3/uL [facility] Eosinophils Absolute Auto 0.2 0.0 - 0.4 X10*3/uL [facility] Basophils Absolute Auto 0.1 0.0 - 0.2 X10*3/uL [facility] NRBC Abs Auto 0.000 0.0 - 0.012 X10*3/uL [facility] Blood Venous blood specimen / Unknown 01/02/2025 3:29 PM EDT 01/02/2025 4:08 PM EDT us Brittany Pearson MD LAB BLOOD ORDERABLES Final Res ult [facility] [address] [place] [address] [phone] * XR Ankle 3+ Views Right (01/02/2025 3:08 PM EDT) Anatomical Region Laterality Modality Lower Extremities, Ankle Right Radiogr aphic Imaging 01/02/2025 3:08 PM EDT Narrative 01/02/2025 3:46 PM EDT ?[facility] ?[address] ?[place] [address] ?XRay Report ? Signed ? Patient: Ori Lester,Veronica ?MR#: ?? [id number] ? : 1970 ?Acct:[id number] ? Age/Sex: 54 / F ?ADM Date: 01/02/25 ? Loc: HO.HHCX ? Attending Dr: Brittany Pearson MD ? Ordering Physician: Brittany Pearson ?? Date of Service: 01/02/25 ?? Procedure(s): XR ankle RT min 3V ?? Accession Number(s): [id number] ? cc: Brittany Pearson ? EXAMINATION: ?? XR ANKLE, RIGHT ? CLINICAL INFORMATION: ?? swelling medial malleolus ? COMPARISON: ?? None available. ? TECHNIQUE: ?? AP, lateral, and mortise views of the right ankle. ? FINDINGS: ?? No acute cortical disruption or malalignment. No lytic or blastic ?? lesion. No gross joint effusion. No subcutaneous emphysema. ? XR/XR ankle RT min 3V ?? IMPRESSION: ?? No acute fracture or dislocation. ? Electronically signed by: ??Stuart Calvillo MD ??01/02/2025 03:43 PM ?? EDT RP ? Dictated By: ?Stuart Romero MD ? Signed By: ?<Electronically signed by Stuart Gonsalez MD in OV> ? 01/02/25 1543 ? DD/ 1508 ? TD/TT: 01/02/25 1530 ? Computer Forensic Specialist: ? Procedure Note Chery Yen - 01/02/[address] [address] XRay Report Signed Patient: Veronica WongMR#: [id number] : 1970Acct:[id number] Age/Sex: 54 / FADM Date: 01/02/25 Loc: HO.HHCX Attending Dr: Brittany Pearson MD Ordering Physician: Brittany Pearson Date of Service: 01/02/25 Procedure(s): XR ankle RT min 3V Accession Number(s): [id number] cc: Brittany Pearson EXAMINATION: XR ANKLE, RIGHT CLINICAL INFORMATION: swelling medial malleolus COMPARISON: None available. TECHNIQUE: AP, lateral, and mortise views of the right ankle. FINDINGS: No acute cortical disruption or malalignment. No lytic or blastic lesion. No gross joint effusion. No subcutaneous emphysema. XR/XR ankle RT min 3V IMPRESSION: No acute fracture or dislocation. Electronically signed by: Stuart Calvillo MD 01/02/2025 03:43 PM EDT RP Dictated By: Stuart Romero MD Signed By: <Electronically signed by Staurt Gonsalez MDin OV> 01/02/25 1543 DD/ 1508 TD/TT: 01/02/25 1530 Computer Forensic Specialist: Brittany Pearson MD IMG XR PROCEDURES Final Result documented in this encounter Visit Diagnoses Diagnosis Acute right ankle pain- Primary Muscle spasm Spasm of muscle documented in this encounter Additional Health Concerns Assessment Noted Time PHQ-9 Depression Total Score: 0 05/19/20 24 3:43 PM EDT documented as of this encounter Care Teams Fish And Wildlife Scientific Aid Relationship Specialty Start Date End Date Name, MD Rajesh [address] [place] [address] PCP - General Family Medicine 07/04/21 Aida Nguyen PharmD [address] [place] [address] Pharmacist Internal Medicine 05/24/23 documented as of this encounter
--- OUTSIDE RECORDS SUMMARY | 2025-01-02 16:29 | XMS_ITS | Patient Health Record ---
Author Organization [facility] Address [address] [place] [id number] Care Team Providers Care Automotive Design Layout Drafter Name Role Phone Name Rajesh WESTBROOK Primary Care Provider Jose Diaz Unavailable [phone] Reason For Referral No Information Medications Medication SIG (Take, Route, Frequency, Duration) Notes Start Date End Date Status Omeprazole 40 MG TAKE 1 CAPSULE BY [facility] EVERY MORNING for 90 Active Esomeprazole Magnesium Active MiraLax (colon prep) 17 GM/SCOOP 1 238 Gm bottle mixed with Gatorade or Crystal Light Orally begin at 5:00 p.m. the day before the procedure for 1 day 09/08/2021 Active Dulcolax (colon prep) 5 MG take at 3:00 p.m and 7:00p.m. Orally two tablets twice a day for one day for 1 day 09/08/2021 Active Immunizations Vaccine Route Administration Date Status Comme nts Influenza Unknown 09/06/2021 Refused Social History Tobacco Use: Social History Observation Description Date Details (start date - stop date) Never Smoker NA - NA Tobacco Use/Smoking Question Answer Notes Patient is a nonsmoker Alcohol Screen Question Answer Notes Did you have a drink containing alcohol in the p ast year? No Points 0 Interpretation Negative Section Notes: Nonsmoker; no alcohol Problems Problem Type SNOMED Code ICD Code Onset Dates Problem Status W/U Status Risk Notes Problem Gastroesophageal reflux disease (357342745) Gastroesophageal reflux disease (K21.9) Active confirmed Problem Iron deficiency anemia (30670724) Iron deficiency anemia (D50.9) Active confirmed Problem 501294133 Family history o f colon cancer (Z80.0) Active confirmed Problem Esophageal stricture (59732577) Esophageal stricture (K22.2) Active confirmed Problem 084997012 Microcytic anemi a (D50.9) Active confirmed Problem 497249613 Gastroesophageal reflux disease, unspecified whether esophagitis present (K21.9) Active confirmed Plan Of Treatment Pending Test Test Name Order Date IRON + IBC (FE) 09/06/2021 VITAMIN B12 AND FOLATE 09/06/2021 CBC w DIFF 09/06/2021 Future Test Test Name Order Date UPPER GI ENDOSCOPY BALLOOON DILATION OF ESOPH 09/06/2021 COLONOSCOPY 09/06/2021 Insurance Providers Payer Name Payer Address Payer Phone Subscriber Number Group Number Insured Name Patient Relationship to Insured Coverage Start Date Coverage End Date [facility] [address] [address] [place], [place] [id number] THOMAS LE Self - patient is the insured Medical (General) History Medical History History ICD Code Hypertension-being observed-not on meds as of the 09/06/21 OV Sleep apnea--no CPAP Anemia Denies SD,DM,CVA,Lung disease,renal dise ase Surgical History Surgery Date(Month/Year) BTL
--- OUTSIDE RECORDS SUMMARY | 2025-01-02 16:29 | XMS_ITS | Encounter Summary ---
Author Organization [employer] Address [address] [facility] 7t [place] [address] Care Team Providers Care Division Leader Name Role Phone Name, Rajesh WESTBROOK Primary Care Provider [phone] Aida Nguyen PharmD Unavailable [phone] Reason for Visit * Reason Onset Date Comments stating 10/12/2022 Encounter Details Date Type Department Care Team ([facility] st Contact Info) Description 10/12/2022 Telephone [facility] [address] [place], [place] [phone] Name, MD Rajesh [address] [place] [address] stating Social History Tobacco Use Types Packs/Day [...] - 10/12/2022 9:28 AM EST Tc from [place] with [facility] stating they do not take pt health insurance and cant be seen at practice. documented in this encounter Plan of Treatment Upcoming Encounters Date Type Department Care Team (Late st Contact Info) Description 01/29/2025 9:00 AM EDT Office Visit [facility] [address] [place] [address] Name, MD Rajesh [address] [place] [phone] documented as of this encounter Visit Diagnoses Not on filedocumented in this encounter Care Teams Division Leader Relationship Specialty Start Date End Date Name, MD Rajesh [address] [place] [phone] PCP - General Family Medicine 07/04/21 Aida Nguyen PharmD [address] [place] [phone] Pharmacist Internal Medicine 05/24/23 documented as of this encounter
--- OUTSIDE RECORDS SUMMARY | 2025-01-02 16:29 | XMS_ITS | Clinical Summary ---
Author Organization [facility] it Address [address] [place] [address] Care Team Providers Care Park Attendant Name Role Phone Unavailable Primary Care Provider Unavailabl e Social History Tobacco Use Types Packs/Day Years Used Date Smoking Tobacco: Never Assessed Comments Unknown Sex and Gender Information Value Date Recorded Sex Assigned at Not on file Legal Sex Female 11:34 PM EST Gender Identity Not on file Sexual Orientation Not on file Plan of Treatment Health Maintenance Due Date Last Done Comments Breast Cancer Screening 1970 DTaP,Tdap,and Td Vaccines (1 - Tdap) 1990 Hepatitis B Vaccines (1 of 3 - 19+ 3-dose series) 1990 Cervical Cancer Screening: P ap Smear 1992 Pneumococcal Vaccine: 50+ Ye ars (1 of 1 - PCV) 2021 Zoster Vaccines (1 of 2) 2021 Colorectal Cancer Screening: Colonoscopy 09/03/2022 Depression Screening 09/03/2022 HIV Screening 09/03/2022 Hepatitis C Screening 09/03/2022 Social Influencers of Health Screening 09/03/2022 COVID-19 Vaccine ( - 2023-2 5 season) 2024 Influenza Vaccine (Season Ended) 2025 HIB Vaccines Aged Out No longer eligi [...] patient's age to complete this topic Meningococcal B Vacine Aged Out No lo nger eligible based on patient's age to complete [...]
--- OUTSIDE RECORDS SUMMARY | 2025-01-02 16:29 | XMS_ITS | Encounter Summary ---
Author Organization [employer] [facility] Address [address] [place] [address] 7t [place] [address] Care Team Providers Care Home Staging Specialist Name Role Phone Name, Rajesh WESTBROOK Primary Care Provider [phone] Aida Nguyen PharmD Unavailable [phone] Encounter Details Date Type Department Care Team ([facility] Contact Info) Description 06/22/2023 Orders Only [facility] [address] [place] [address] [phone] Provider, MD Dinh Social History Tobacco Use [...] as of this encounter Plan of Treatment Upcoming Encounters Date Type Department Care Team ([facility] Contact Info) Description 01/29/2025 9:00 AM EDT Office Visit [facility] [address] [place] [address] [phone] Name, MD Rajesh [address] [place] [phone] documented as of this encounter Goals Goal Patient Goal Type Associated Problems Recent Progress Patient-Stated? Author Record your blood pressure periodically, 2-3x per week Blood Pressure No Aida Nguyen, PharmD Blood Pressure < 140/90 Blood Pressure 160/90( 025 2:02 PM EDT) No Aida Nguyen PharmD documented as of this encounter Procedures Procedure Name Priority Date/Time Associated Diagnosis Comments HM PAP/HPV Routine 08/09/2021 documented in this encounter Results * Hm Pap Smear (08/09/2021) Historical Provider HEALTH MAINTENANCE Final Result documented in this encounter Visit Diagnoses Not on filedocumented in this encounter Additional Health Concerns Assessment Noted Time PHQ-9 Depression Total Score: 0 02/20/20 23 2:37 PM EDT documented as of this encounter Care Teams Home Staging Specialist Relationship Specialty Start Date End Date Name, MD Rajesh [address] [place] [address] PCP - General Family Medicine 07/04/21 Aida Nguyen PharmD [address] [place] [address] Pharmacist Internal Medicine 05/24/23 documented as of this encounter
--- OUTSIDE RECORDS SUMMARY | 2025-01-02 16:29 | XMS_ITS | Encounter Summary ---
Author Organization [employer] Address [address] [place] [address] [address]t [place] [address] Care Team Providers Care Track Superintendent Name Role Phone Name, Rajesh WESTBROOK Primary Care Provider [phone] Aida Nguyen PharmD Unavailable [phone] Encounter Details Date Type Department Care Team ([facility] Contact Info) Description 03/12/2023 Abstract [facility] [address] [place], [place] [phone] Name, MD Rajesh [address] [place] [address] Social History Tobacco Use Types Packs/Day Years [...] Upcoming Encounters Date Type Department Care Team ([facility] Contact Info) Description 01/29/2025 9:00 AM EDT Office Visit [facility] [address] [facility] [place] [address] Name, MD Rajesh [facility] [place] [address] documented as of this encounter Procedures Procedure Name Priority Date/Time Associated Diagnosis Comments COLONOSCOPY Routine 09/20/2021 3:35 PM EST documented in this encounter Results * Hm Colonoscopy (09/20/2021 3:35 PM EST) Colonoscopy Normal Normal Narrative Laura Goodwin - 09/20/2021 3:35 PM EST Recommended 5 year follow up us Historical Provider HEALTH MAINTENANCE Final Result documented in this encounter Visit Diagnoses Not on filedocumented in this encounter Additional Health Concerns Assessment Noted Time PHQ-9 Depression Total Score: 0 02/20/20 23 2:37 PM EDT documented as of this encounter Care Teams Track Superintendent Relationship Specialty Start Date End Date Name, MD Rajesh [facility] [place] [address] PCP - General Family Medicine 07/04/21 Aida Nguyen PharmD [address] [place] [phone] Pharmacist Internal Medicine 05/24/23 documented as of this encounter
--- OUTSIDE RECORDS SUMMARY | 2025-01-02 16:29 | XMS_ITS | Clinical Summary ---
Author Organization [employer] Address [address] [facility] [address] [place] [address] Care Team Providers Care Vp Product Name Role Phone Name, Rajesh WESTBROOK Primary Care Provider [phone] Aida Nguyen PharmD Unavailable [phone] Allergies No known active allergies Medications omeprazole (PriLOSEC) [address] capsule Take 1 capsule by mouth in the morning. Active omeprazole (PriLOSEC) [address] capsuleIndication s:H. pylori infection TAKE 1 CAPS BY MOUTH [...] 30 tablet 11 4 01/21/20 25 Active hydroCHLOROthiazi de (HYDRODiuril) 12.5 MG tabletIndications :Essential hypertension TAKE 1 TABLET BY MOUTH EVERY DAY IN THE MORNING 90 tablet 3 4 Active albuterol 108 (90 Base) MCG/ACT inhalerIndication s:Viral upper respiratory infection Inhale 2 puffs every 6 (six) hours if needed for wheezing. 18 g 11 4 03/28/20 25 Active Spacer/Aero-Holdi ng Chambers (AeroChamber MV) inhalerIndication s:Viral upper respiratory infection Use as instructed 1 each 2 4 Active budesonide-formot shaggy (Symbicort) 160-4.5 MCG/ACT inhalerIndication s:Cough in adult patient INHALE 2 PUFFS IN [...] for 4 days. 6 tablet 5 Active Bisacodyl EC 5 MG EC tablet take 2 tablets by mouth every day at bedtime 4 Active famotidine (Pepcid) 20 MG tablet Take 1 tablet by mouth Once per day. 4 Active pantoprazole (ProtoNix) 40 MG EC tablet TAKE 1 TABLET BY MOUTH EVERY DAY 1/2 HOUR BEFORE BREAKFAST 4 Active Diclofenac Sodium 1 % gel Apply thin layer by topical route (quantity as directed on package insert) to affected area of pain 3 times daily as needed. 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 Pylori test Essential hypertension 11/29/2022 Assessment & Plan (09/10/2023 12:43 PM EST): Uncontrolled hydrochlorothiazide recently started Heavy Equipment Operating Engineer to take losartan 100 MG in the [...] Encounters Date Type Department Care Team Description 01/02/2025 2:40 PM EDT Office Visit [facility] [address] [place] [id number] Acute right ankle pain (Primary Dx); Muscle spasm 10/21/2024 10:40 AM EST Office Visit [facility] [address] [place], [place] [phone] Jose Hernandez MD Cough, unspecified type (Primary Dx); Essential hypertension from Last 3 Months Immunizations Name Administration Dates Next Due Hep B, adult 01/31/2024(Deferred: Patient Ref used) Pfizer Covid-19 Vaccine 12+ 01/31/2024(D eferred: Patient Refused),07/25/2021,07/04/2021 Pfizer Covid-19 Vaccine 5-11 07/31/2021 Tdap 05/24/2023 [...] 17 01/02/2025 1:56 PM EDT Oxygen Saturation 97% 10/21/2024 11: 07 AM EST Inhaled Oxygen Concentration - - Weight 95 kg (209 lb 6.4 oz) 01/02/2025 1:56 PM EDT Height 165.1 cm (5' 5 ) 01/02/2025 1:56 PM EDT Body Mass Index 34.85 01/02/2025 1:56 PM EDT Plan of Treatment Upcoming Encounters Date Type Department Care Team (Late st Contact Info) Description 01/29/2025 9:00 AM EDT Office Visit [facility] [address] [place] [address] Name, MD [facility] [place] [address] Health Maintenance Due Date Last Done Comments CT Colonography 1971 FIT DNA/Cologuard 1971 FIT 1971 FOBT 1971 HIV Screening 1971 Sigmoidoscopy 1971 Hepatitis C Screening 1989 Hepatitis B Vaccines (1 of 3 - 19+ 3-dose series) 1990 Pneumococcal Vaccine: 50+ Years (1 of 1 - PCV) 2021 Zoster Vaccines (1 of 2) 2021 Mammogram 03/21/2024 03/21/2023 COVID-19 Vaccine (3 - 2023- season) 2024 07/31/2021, 07/25/2021, 07/04/2021 Influenza Vaccine (#1) 2024 Diabetes: Hemoglobin A1C 03/11/2025 024, 07/20/2023, 05/05/2021 Alcohol/Substance Use Screening 05/19/2025 05/19/2024 Depression Screening 05/19/2025 05/19/2024, 05/19/20 24 SDOH Screening 05/19/2025 05/19/2024 Tobacco Screening 01/02/2026 01/02/2025 Cervical Cancer Screening 08/09/2026 HPV/Cotest 08/09/2026 08/09/2021, [...] 2:02 PM EDT) No Puia, Aida, PharmD Procedures Procedure Name Priority Date/Time Associated Diagnosis Comments CBC WITH AUTO DIFFERENTIAL Routine 01/02/2025 3:29 PM EDT Muscle spasm XR ANKLE 3+ VIEWS RIGHT Routine 01/02/2025 3:08 PM EDT Acute right ankle pain XR CHEST 2 VIEWS Routine 10/21/2024 11:5 8 AM EST Cough, unspecified type POCT INFLUENZA B (ID NOW RAPID MOLECULAR) Routine 10/21/2024 11:27 AM EST Cough, unspecified type POCT INFLUENZA A (ID NOW RAPID MOLECULAR) Routine 10/21/2024 11:27 AM EST Cough, unspecified type POCT COVID-19 AG CUEVAS ID NOW Routine 10/21/2024 11:26 AM EST Cough, unspecified type HEMOGLOBIN A1C Routine 03/11/2024 7:08 AM EDT Class 2 severe obesity due to excess calories with serious comorbidity and body mass index (BMI) of 37.0 to 37.9 in adult (CMS/HCC) LIPID PANEL, STANDARD Routine 03/11/2024 7:08 AM EDT MAMMOGRAPHY Routine 03/21/2023 COLONOSCOPY Routine 09/20/2021 3:35 PM EST PAP/HPV Routine 08/09/2021 PAP/HPV Routine 08/09/2021 from Last 3 Months or Most Recently Relevant to Health Maintenance Results * (ABNORMAL) CBC auto differential (01/02/2025 3:29 PM EDT) White Blood Count 7.4 4.8 - 10.8 X10*3/uL [facility] Red Blood Count 4.93 4.20 - 5.50 X10*6/uL [facility] Hemoglobin 10.7(L) 12.0 - 16.0 g/dl [facility] Hematocrit 36.1(L) 37.0 - 47.0 % [facility] Mean Corpuscular Volume 73.2(L) 80.0 - 98.0 fL [facility] Mean Corpuscular Hemoglobin 21.7(L) 27.0 - 33.0 pg [facility] Mean Corpuscular HGB Conc 29.6(L) 31.0 - 35.0 g/dl [facility] Red Cell Distribution Width 19.0(H) 11.0 - 16.0 % [facility] Platelet Count 239 160 - 400 X10*3/uL [facility] Mean Platelet Volume 11.3 9.4 - 12.3 fL [facility] Neutrophils Percent Auto 44.4(L) 45 - 73 % [facility] Imm Gran Pct Auto 0.4 0.0 - 0.4 % [facility] Lymphocytes Percent Auto 40.0 20 - 40 % [facility] Monocytes Percent Auto 11.1(H) 2 - 11 % [facility] Eosinophils Percent Auto 3.3 0 - 4 % [facility] Basophils Percent Auto 0.8 0 - 2 % [facility] NRBC Pct Auto 0.0 0.0 - 0.2 /100WBC [facility] Neutrophils Absolute Auto 3.3 2.0 - 8.3 x10*3/uL [facility] Imm Gran Abs Auto 0.03 0.00 - 0.03 X10*3/uL [facility] Lymphocytes Absolute Auto 3.0 1.2 - 4.9 X10*3/uL [facility] Monocytes Absolute Auto 0.8 0.1 - 1.2 X10*3/uL [facility] Eosinophils Absolute Auto 0.2 0.0 - 0.4 X10*3/uL [facility] Basophils Absolute Auto 0.1 0.0 - 0.2 X10*3/uL [facility] NRBC Abs Auto 0.000 0.0 - 0.012 X10*3/uL [facility] Blood Venous blood specimen / Unknown 01/02/2025 3:29 PM EDT 01/02/2025 4:08 PM EDT us Brittany Pearson MD LAB BLOOD ORDERABLES Final Res ult [facility] [address] [place] [phone] * XR Ankle 3+ Views Right (01/02/2025 3:08 PM EDT) Anatomical Region Laterality Modality Lower Extremities, Ankle Right Radiogr aphic Imaging 01/02/2025 3:08 PM EDT Narrative 01/02/2025 3:46 PM EDT ?[facility] ?[address] ?[place] [address] ?XRay Report ? Signed ? Patient: Ori Lester,Veronica ?MR#: ?? [id number] ? : 1970 ?Acct:[id number] ? Age/Sex: 54 / F ?ADM Date: 04/04/25 ? Loc: HO.HHCX ? Attending Dr: Brittany Pearson MD ? Ordering Physician: Brittany Pearson ?? Date of Service: 01/02/25 ?? Procedure(s): XR ankle RT min 3V ?? Accession Number(s): [id number] ? cc: Brittany Pearson ? EXAMINATION: ?? [...] DD/ 1508 ? TD/TT: 01/02/25 1530 ? Sap Hana Developer: ? Procedure Note Yovana, Image - 01/02/[address] [address] XRay Report Signed Patient: Veronica WongMR#: [id number] : 1970Acct:[id number] Age/Sex: 54 / FADM Date: 01/02/25 Loc: HO.HHCX Attending Dr: Brittany Pearson MD Ordering Physician: Brittany Pearson Date of Service: 01/02/25 Procedure(s): XR ankle RT min 3V Accession Number(s): [id number] cc: Brittany Pearson EXAMINATION: XR ANKLE, RIGHT [...] Stuart Calvillo MD 01/02/2025 03:43 PM EDT Dictated By: Stuart Romero MD Signed By: <Electronically signed by Stuart Gonsalez MDin OV> 01/02/25 1543 DD/ 1508 TD/TT: 01/02/25 1530 Sap Hana Developer: us Brittany Pearson MD IMG XR PROCEDURES Final Result * XR Chest 2 Views (10/21/2024 11:58 AM EST) Anatomical Region Laterality Modality Chest Radiographic Sandra ging 10/21/2024 11:5 8 AM EST Narrative 10/21/2024 1:06 PM EST ?[facility] ?[address] ?[place] [address] ?XRay Report ? Signed ? Patient: Veronica Wong ?MR#: ?? [id number] ? : 1970 ?Acct:[id number] ? Age/Sex: 54 / F ?ADM Date: 10/21/24 ? Loc: HO.HHCX ? Attending Dr: Jose Hernandez MD ? Ordering Physician: JOSE HERNANDEZ MD ?? Date of Service: 10/21/24 ?? Procedure(s): XR chest 2V ?? Accession Number(s): [id number] ? cc: JOSE HERNANDEZ MD ? EXAMINATION: ?? XR CHEST ? [...] 01:03 PM EST RP ? Dictated By: ?Veronica,Eduard S MD ? Signed By: ?<Electronically signed by Eduard S MD Veronica in OV> ?10/21/24 1303 ? DD/ 1158 ? TD/TT: 10/21/24 1230 ? Sap Hana Developer: MSM ? Procedure Note Yovana, Image - 10/21/[address] [place] [address] XRay Report Signed Patient: Veronica WongMR#: [id number] : 1970Acct:[id number] Age/Sex: 54 / FADM Date: 10/21/24 Loc: HO.HHCX Attending Dr: Jose Hernanedz MD Ordering Physician: JOSE HERNANDEZ MD Date of Service: 10/21/24 Procedure(s): XR chest 2V Accession Number(s): [id number] cc: JOSE HERNANDEZ MD EXAMINATION: XR CHEST CLINICAL INFORMATION: Cough x4 days COMPARISON: Cough TECHNIQUE: 2 views of the chest were obtained. FINDINGS: No significant abnormality is noted involving the heart, lungs, mediastinum, bony thorax or soft tissues. XR/XR chest 2V IMPRESSION: Unremarkable chest examination. Electronically signed by: Eduard Martin MD 10/21/2024 01:03 PM EST Dictated By: Eduard Martin MD Signed By: <Electronically signed by Eduard Martin MD in OV> 10/21/24 1303 DD/ 1158 TD/TT: 10/21/24 1230 Sap Hana Developer: MSM Jose Hernandez MD IMG XR PROCEDURES Edited Result - Final * POCT Rapid Influenza B CUEVAS ID NOW (10/21/2024 11:27 AM EST) Influenza B Negative Negative, Indeterminate [facility] QC Media Lot # [id number] [facility] Lot# Expiration Date , [facility] Swab 10/21/2024 11:2 7 AM EST Jose Hernandez MD POINT OF CARE TEST ENTER/EDIT OR DERABLES Final Result [facility] [address] [place] [phone] * POCT Rapid Influenza A CUEVAS ID NOW (10/21/2024 11:27 AM EST) Influenza A Negative Negative, Indeterminate [facility] QC Media Lot # [id number] [facility] Lot# Expiration Date [facility] Swab 10/21/2024 11:2 7 AM EST us Jose Hernandez MD POINT OF CARE TEST ENTER/EDIT OR DERABLES Final Result [facility] [address] [place] [phone] * POCT Rapid Covid-19 CUEVAS ID NOW (10/21/2024 11:26 AM EST) [facility] Coronavirus Antigen PCR Negative Negative, Indeterminate, None Detected, Invalid, Specimen unsatisfactory for evaluation, Weakly Positive QC Media Lot # [id number] Lot# Expiration Date Swab 10/21/2024 11:2 6 AM EST us Jose Hernandez MD POINT OF CARE TEST ENTER/EDIT OR DERABLES Final Result * Hemoglobin A1c (03/11/2024 7:08 AM EDT) [facility] Hemoglobin A1c 5.7 <6.0 % [facility] Comment:Hemoglobin A1C Refer ence Range Adults: 4.8 - 6.0 % Non diabetic: < 6.0 % Goal: < 7.0 %Additional Action Suggested: > 8.0 %Note: Hemoglobin A1c results are invalid for patients with abnormal amounts of HbF. Blood transfusions may impact the HbA1c concentration in the patient sample. Estimated Average Glucose 117 mg/dL [facility] Comment:eAG = Estimated ave rage glucose which is %A1C expressed asaverage glucose, using the formula of the [id number] Glucose study (ADAG), Diabetes Care, Vol.31,#8,May. 2007 Blood Venous blood specimen / Unknown 03/11/2024 7:08 AM EDT 03/11/2024 7:08 AM EDT us Gissel Kelly MD LAB BLOOD ORDERABLES Final Result [facility] [address] [place] [phone] * Lipid Panel, Standard (03/11/2024 7:08 AM EDT) Triglycerides 74 <150 mg/dL [facility] Comment:Desirable Triglyceri de: less than 150 mg/dLBorderline High Triglyceride 150-199 mg/dLHigh Triglyceride: 200-499 mg/dLVery High Triglyceride: greater than or equal to 5OO mg/dL Cholesterol 169 <200 mg/dL [facility] Comment:Desirable Cholestero l: less than 200 mg/dLBorderline High Cholesterol: 200-239 mg/dLHigh Cholesterol: greater than 239 mg/dL LDL Cholesterol Calculated 95 <100 mg/dL [facility] Comment:Desirable LDL: less than 100 mg/dLNear Optimal/Above Optimal LDL: 110- 129 mg/dLBorderline High LDL: 130-159 mg/dLHigh LDL: 160-189 mg/dLVery High LDL: greater than or equal to 190 mg/dL HDL Cholesterol 60 >40 mg/dL [facility] Comment:Desirable HDL: great er than 40 mg/dL Note: This HDL assay may give artificially low results in patients with liver disease. 03/11/2024 7:08 AM EDT 03/11/2024 7:08 AM EDT Rajesh Rdz MD LAB BLOOD ORDERABLES Final Resul t [facility] [address] [place] [phone] * Mammography (03/21/2023) Mammogram BI-Rads 1 Anatomical Region Laterality Modality Other [facility] HEALTH MAINTENANCE Final Result * Colonoscopy (09/20/2021 3:35 PM EST) Colonoscopy Normal Normal Narrative Laura Goodwin - 09/20/2021 3:35 PM EST Recommended 5 year follow up Historical Provider HEALTH MAINTENANCE Final Result * Pap Smear (08/09/2021) Only the most recent of2 resultswithin the time period is included. Pap Negative for intraephithelial lesion or malignancy Negative for intraephithelial lesion or malignancy, Other HPV Undetected [facility] HEALTH MAINTENANCE Final Result from Last 3 Months or Most Recently Relevant to Health Maintenance [place] [facility] Address: [facility] [id number] [place] [id number] Care Teams Vp Product Relationship Specialty Start Date End Date Name, MD Rajesh [address] [place] [address] PCP - General Family Medicine 07/04/21 Aida Nguyen, JimenezD [address] [place], [place] [phone] Pharmacist Internal Medicine 05/24/23
== END 2025-01-02 15:07 | disposition home or self-care (01) ==
LOC: HO.HHCX 15:06
PROVIDERS: Visit Provider General Practice
DX: M25.571 Pain in right ankle and joints of right foot (principal)
CPT/HCPCS: 73610

== ENCOUNTER → 2025-01-02 15:08 | Outpatient (BNV) | payer OTHER, SELFPAY | PROVIDERS: Visit Provider Radiology Diagnostic Radiology | DX: M25.471 Effusion, right ankle (principal) | CPT/HCPCS: 73610 ==

== ENCOUNTER 2025-01-02 15:22 | Outpatient (REF) | payer OTHER, SELFPAY ==
[2025-01-02 16:13] LABS: MANUAL DIFF FLAG NO
[2025-01-02 16:23] LABS: Basophils Absolute Auto 0.1 X10*3/uL (0.0-0.2); Basophils Percent Auto 0.8 % (0-2); Eosinophils Absolute Auto 0.2 X10*3/uL (0.0-0.4); Eosinophils Percent Auto 3.3 % (0-4); Hematocrit 36.1 % (37.0-47.0); Hemoglobin 10.7 g/dl (12.0-16.0); Imm Gran Abs Auto 0.03 X10*3/uL (0.00-0.03); Imm Gran Pct Auto 0.4 % (0.0-0.4); Mean Corpuscular HGB Conc 29.6 g/dl (31.0-35.0); Mean Corpuscular Hemoglobin 21.7 pg (27.0-33.0); Mean Corpuscular Volume 73.2 fL (80.0-98.0); Mean Platelet Volume 11.3 fL (9.4-12.3); Monocytes Absolute Auto 0.8 X10*3/uL (0.1-1.2); Monocytes Percent Auto 11.1 % (2-11); Neutrophils Absolute Auto 3.3 x10*3/uL (2.0-8.3); Neutrophils Percent Auto 44.4 % (45-73); Platelet Count 239 X10*3/uL (160-400); Red Blood Count 4.93 X10*6/uL (4.20-5.50); White Blood Count 7.4 X10*3/uL (4.8-10.8)
[2025-01-02 16:48] LABS: Alanine Aminotransferase 18 U/L (0-31); Albumin Level 4.1 g/dL (3.5-5.0); Alkaline Phosphatase 80 U/L (39-117); Anion Gap 8 (12-20); Aspartate Amino Transferase 21 U/L (5-31); Bilirubin Total 0.4 mg/dL (0.0-1.0); Blood Urea Nitrogen 21 mg/dL (9-16); Calcium 9.2 mg/dL (8.4-10.2); Carbon Dioxide 28 mmol/L (22-29); Chloride 108 mmol/L (96-108); Estimated Glomerular Filt Rate > 60; Glucose Random 80 mg/dL (60-115); Magnesium 2.1 mg/dL (1.6-2.6); Potassium 4.4 mmol/L (3.3-5.1); Sodium 140 mmol/L (135-145); Total Protein 7.5 g/dL (6.5-8.0)
[2025-01-02 17:19] LABS: Folate 11.3 ng/mL (> or = 4.0); Vitamin B12 1153 pg/mL (200-900)
[2025-01-06 23:48] LABS: CK-BB None Detected (None Detected); CK-MB 0 % (<5); CK-MM 100 % (95-100); Creatine Kinase,Total,Serum 82 U/L (21-240)
== END 2025-01-02 15:23 | disposition home or self-care (01) ==
LOC: HO.HHCL 15:22
PROVIDERS: Visit Provider General Practice
DX: M62.838 Other muscle spasm (principal)
CPT/HCPCS: 36415; 80053; 82552; 82607; 82746; 83735; 85025

== ENCOUNTER 2025-04-14 14:30 | Outpatient (RCR) | payer OTHER, SELFPAY ==
[2025-03-02 13:03] VITALS: BP 142/84; PULSE 75; RESP 16; TEMP 36.7; O2SAT 98
[2025-03-09 14:26] VITALS: BP 171/94; PULSE 83; RESP 16; TEMP 36.7; O2SAT 97
[2025-03-16 14:29] VITALS: BP 134/81; PULSE 83; RESP 16; TEMP 36.6; O2SAT 98
[2025-03-23 14:43] VITALS: BP 137/80; PULSE 88; RESP 16; TEMP 36.6; O2SAT 96
[2025-03-30 14:26] VITALS: BP 146/80; PULSE 72; RESP 16; TEMP 36.6; O2SAT 96
[2025-04-14 14:29] VITALS: BP 157/90; PULSE 79; RESP 16; TEMP 36.6; O2SAT 98
== END 2025-04-14 14:53 | disposition home or self-care (01) ==
LOC: HO.INF 14:30
PROVIDERS: Visit Provider Internal Medicine
DX: D50.9 Iron deficiency anemia, unspecified (principal)
CPT/HCPCS: 96365; 96374; J1756

== ENCOUNTER 2025-04-16 09:05 | Outpatient (AMB) | payer OTHER, SELFPAY ==
--- NOTE | 2025-04-16 09:18 | A.OFFVIS_ITS ---
Vital Signs 04/16/25 09:20 Height 5 ft 5 in Weight 200 lb BMI 33.3 BP 132/112 H Intake Visit Reasons: PMB Public Relations Associate Required: Yes Public Relations Associate Language: Linen Worker Services: Public Relations Associate Present (in person) Public Relations Associate Name: Mitzi NERI Information Interpreted: non-clinical & clinical Entry Level Marketing Assistant: Entry Level Marketing Assistant Present (Mitzi NERI) Accompanied by: Self / Same As Patient Allergies No Known Allergies Allergy (Verified 04/16/25 09:22) HPI Comments Details: Presenting complaining of few years' history of irregular menstrual cycles associated with passage of blood clots and pelvic cramping Last co testing in 08/21 with negative Last mammogram was many years ago PFSH Medical History COVID-19 Hypertension Surgical History Hx of colonoscopy History of esophagogastroduodenoscopy (EGD) Tubal ligation status Family History Father Mother Multiple myeloma Father Colon cancer Social History Household Members: Spouse Housing: House Alcohol intake: never Patient Tobacco Use Status: Never used Tobacco Current occupational status: employed 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 Gender identity: Female Female Reproductive History Menstrual Age of Menarche: 16 Review of Systems Const All systems reviewed & are unremarkable except as noted in HPI and below Card Reports as per HPI Resp Reports as per HPI GI Reports as per HPI and Reports no additional complaints Reports as per HPI Physical Exam Vital Signs: Last Vital Signs BP 132/112 H 04/16/25 09:20 BMI result Body Mass Index 33.3 Const General: cooperative, healthy appearing and comfortable Chest Chest palpation & inspection: normal inspection of the chest and normal palpation of entire chest wall Breast/axilla inspection: normal inspection of the breasts and normal inspection of the axillae Breast/axilla palpation: normal palpation of the breasts, normal palpation of the axillae and no axillary lymphadenopathy Resp Effort & Inspection: normal respiratory effort Auscultation: clear to auscultation bilaterally Percussion: percussion normal Cardio Palpation: normal PMI Rate: regular rate Rhythm: regular rhythm Heart sounds: no murmurs and no rubs Peripheral pulses: Peripheral pulses 2+ throughout GI Inspection: Yes normal to inspection Palpation (GI): Soft to palpation, nontender, no guarding, not rigid and No hepatosplenomegaly present Percussion: Yes normal to percussion Auscultation: normal bowel sounds Rectal Exam - Female: deferred General: Yes bladder normal to palpation External Female Exam: No lesion Speculum Exam - Vagina: normal appearance of the vagina, normal palpation, normal vaginal discharge and not erythematous Speculum Exam - Cervix: normal appearance of the cervix and normal palpation Bimanual exam- vagina & uterus: normal bimanual exam, normal palpation, uterine size normal, bladder normal to palpation, consistency normal and normal palpation Bimanual Exam- Adnexa, other: normal adnexae, no masses and no tenderness Assessment & Plan Assessment & Plan (1) Well woman exam with routine gynecological exam: Code(s): Z01.419 - Encounter for gynecological examination (general) (routine) without abnormal findings Category: Medical Plan: Screening mammogram, GC and chlamydia taken CBC, TSH, HCG, FSH/LH and pelvic ultrasound ordered. Discussed with the patient the different causes of abnormal bleeding including thyroid disorders, uterine and ovarian pathology, endometrial hyperplasia, carcinoma and other potential causes. Discussed with the patient the work up including CBC (to r/o anemia), TSH, FSH/LH, pelvic Ultrasound, endometrial biopsy to r/o endometrial pathology. All questions answered and the patient verbalized understanding. Instructed the patient to schedule an appointment for an endometrial biopsy in 2 weeks. Orders: Orders HCG Quantitative Today N93.9 - Abnormal uterine and vaginal bleeding, unspecified Lutenizing Hormone Today N93.9 - Abnormal uterine and vaginal bleeding, unspecified Follicle Stimulating Hormone Today N93.9 - Abnormal uterine and vaginal ble eding, unspecified US pelvic and transvaginal Today N93.9 - Abnormal uterine and vaginal bleeding, unspecified MM screening mammo BI Today Z12.31 - Encounter for screening mammogram for malignant neoplasm of breast TSH reflex Free T4 Today N93.9 - Abnormal uterine and vaginal bleeding, unspecified CT NG by PCR Vag/Cerv Today N93.9 - Abnormal uterine and vaginal bleeding, unspecified Coding Level of Care Code Est Pt Level 3 (29430) Diagnoses Well woman exam with routine gynecological exam Z01.419
[2025-04-16 09:20] VITALS: BP 132/112; BMI 33.3
--- OUTSIDE RECORDS SUMMARY | 2025-04-16 09:27 | XMS_ITS | Clinical Summary ---
Author Organization [facility] it Address [address] [place] [address] Care Team Providers Care Instructor Of Spanish Name Role Phone Unavailable Primary Care Provider [...] 2) 2021 Colorectal Cancer Screening: Colonoscopy 09/03/2022 HIV Screening 09/03/2022 Hepatitis C Screening 09/03/2022 Social Influencers of Health Screening 09/03/2022 COVID-19 Vaccine (1 - 2023-2 5 season) 2024 Depression Screening 10/01/2024 Influenza Vaccine (#1) 2025 HIB Vaccines Aged Out No longer [...] age to complete this topic Meningococcal B Vaccine Aged Out No l onger eligible based on patient's age to complete this topic RSV Immunization Patients Un alejandro 20 months Aged Out No longer eligible b ased on patient's age to complete this topic Varicella Vaccines Aged Out No longer eligible based on patient's age to complete this topic
--- OUTSIDE RECORDS SUMMARY | 2025-04-16 09:27 | XMS_ITS | Encounter Summary ---
Author Organization [employer] Address [address] [place] [address] [address] [place] [address] Care Team Providers Care Mobile Home Park Manager Name Role Phone Name, Rajesh WESTBROOK Primary Care Provider [phone] Aida Nguyen PharmD Unavailable [phone] Encounter Details Date Type Department Care Team ([facility] Contact Info) Description 03/12/2023 Abstract [facility] [address] [place], [place] [phone] Name, MD Rajesh [address] [place] [address] Social History Tobacco Use Types Packs/Day Years [...] Upcoming Encounters Date Type Department Care Team ([facility] Contact Info) Description 04/30/2025 2:30 PM EDT Office Visit [facility] [address] [place] [address] Solo Rojo DDS [address] [place] [address] 05/25/2025 4:00 PM EDT Office Visit [facility] [address] [place] [address] Name, MD Rajesh [address] [place] [address] documented as of this encounter Procedures Procedure Name Priority Date/Time Associated Diagnosis Comments COLONOSCOPY Routine 09/20/2021 3:35 PM EST documented in this encounter Results * Hm Colonoscopy (09/20/2021 3:35 PM EST) Colonoscopy Normal Normal Narrative Laura Goodwin - 09/20/2021 3:35 PM EST Recommended 5 year follow up Historical Provider HEALTH MAINTENANCE Final Result documented in this encounter Visit Diagnoses Not on filedocumented in this encounter Additional Health Concerns Assessment Noted Time PHQ-9 Depression Total Score: 0 02/20/20 23 2:37 PM EDT documented as of this encounter Care Teams Mobile Home Park Manager Relationship Specialty Start Date End Date Name, MD Rajesh [address] [place] [phone] PCP - General Family Medicine 07/04/21 Aida Nguyen, Rubens [address] [place] [address] [phone] Pharmacist Internal Medicine 05/24/23 documented as of this encounter
--- OUTSIDE RECORDS SUMMARY | 2025-04-16 09:27 | XMS_ITS | Patient Health Record ---
Author Organization [facility] Address [address] [place] [address] Care Team Providers Care Beamer Hand Name Role Phone Name Rajesh WESTBROOK Primary Care Provider Jose Diaz Unavailable [phone] Reason For Referral No Information Medications Medication SIG (Take, Route, Frequency, Duration) Notes Start Date End Date Status Omeprazole 40 MG TAKE 1 CAPSULE BY [facility] EVERY MORNING for 90 Active Esomeprazole Magnesium [...] Status Risk Notes Problem Gastroesophageal reflux disease (597924692) Gastroesophageal reflux disease (K21.9) Active confirmed Problem Iron deficiency anemia (56764107) Iron deficiency anemia (D50.9) Active confirmed Problem [id number] Family history o f colon cancer (Z80.0) Active confirmed Problem Esophageal stricture (32632576) Esophageal stricture (K22.2) Active confirmed Problem [id number] Microcytic anemi a (D50.9) Active confirmed Problem 745446435 Gastroesophageal reflux disease, unspecified whether esophagitis present [...] Insured Coverage Start Date Coverage End Date [facility] [address] [address] [place], [place] [id number] THOMAS LE Self - patient is the insured Medical (General) History Medical History History ICD Code Hypertension-being observed-not on meds as of the 09/06/21 OV Sleep apnea--no CPAP Anemia Denies [place],DM,CVA,Lung disease,renal dise ase Surgical History Surgery Date(Month/Year) BTL
== END 2025-04-16 09:40 | disposition home or self-care (01) ==
PROVIDERS: Visit Provider Obstetrics & Gynecology
DX: N95.0 Postmenopausal bleeding (principal)
CPT/HCPCS: 99213

== ENCOUNTER 2025-04-16 09:05 | Outpatient (REF) | payer OTHER, SELFPAY ==
[2025-04-16 15:23] LABS: CT PCR NOT DETECTED (Not Detect.); NG PCR NOT DETECTED (Not Detect.)
[2025-04-17 07:18] LABS: Follicle Stimulating Hormone 39.3 mIU/mL
== END 2025-04-16 09:06 | disposition home or self-care (01) ==
LOC: HO.LAB 09:05
PROVIDERS: PCP Internal Medicine Geriatric Medicine; Visit Provider Obstetrics & Gynecology
DX: Z01.419 Encounter for gynecological examination (general) (routine) without abnormal findings (principal); N93.9 Abnormal uterine and vaginal bleeding, unspecified; Z98.51 Tubal ligation status
CPT/HCPCS: 36415; 83001; 83002; 84443; 84702; 87491; 87591; 99212

== ENCOUNTER 2025-05-22 14:18 | Outpatient (REF) | payer OTHER, SELFPAY ==
--- NOTE | ~2025-05-22 | US_ITS ---
EXAMINATION: US PELVIS CLINICAL INFORMATION: Abnormal uterine bleeding. COMPARISON: 09/20/2022. TECHNIQUE: Ultrasound of the pelvis is performed using both transabdominal and transvaginal transducers along with Doppler. Transvaginal imaging is performed due to inadequate visualization transabdominally. FINDINGS: Uterus: The uterus is anteverted and measures 8.7 x 5.8 x 5.7 cm. The cervix has a normal appearance. The double wall endometrial thickness is 16 mm. The uterus is smooth in contour and has normal myometrial echogenicity. No visible fibroid. Adnexa: The right ovary is visualized. There is normal color flow to the right adnexa. There is no ovarian torsion. There is a small amount of anechoic fluid in the cul-de-sac. There are no adnexal masses. Right ovary measures 2.7 x 1.5 x 1.3 cm. Volume = 2.8 mL. Normal sonographic appearance. Left ovary could not be visualized with certainty. No left adnexal masses. US/US pelvic and transvaginal IMPRESSION: 1. Mild endometrial thickening measuring 16 mm. Correlate with menstrual status. 2. Small amount of fluid in the cul-de-sac, likely physiologic. 3. Normal right ovary. 4. The left ovary cannot be visualized with certainty. Electronically signed by: Matthieu Berg MD 05/22/2025 03:21 PM EDT
--- OUTSIDE RECORDS SUMMARY | 2025-05-22 14:21 | XMS_ITS | Patient Health Record ---
Author Organization [facility] Address [address] [place] [address] Care Team Providers Care Compensation Analyst Name Role Phone Name Rajesh WESTBROOK Primary Care Provider Jose Diaz Unavailable [phone] Reason For Referral No Information Medications Medication SIG (Take, Route, Frequency, Duration) Notes Start Date End Date Status Omeprazole 40 MG TAKE 1 CAPSULE BY [facility] EVERY MORNING for 90 Active Esomeprazole Magnesium [...] Status Risk Notes Problem Gastroesophageal reflux disease (636473028) Gastroesophageal reflux disease (K21.9) Active confirmed Problem Iron deficiency anemia (79575161) Iron deficiency anemia (D50.9) Active confirmed Problem 008769414 Family history o f colon cancer (Z80.0) Active confirmed Problem Esophageal stricture (74076836) Esophageal stricture (K22.2) Active confirmed Problem 633435213 Microcytic anemi a (D50.9) Active confirmed Problem 500842673 Gastroesophageal reflux disease, unspecified whether esophagitis present [...] Insured Coverage Start Date Coverage End Date [facility] [address] [address] [place], [place] [id number] THOMAS LE Self - patient is the insured Medical (General) History Medical History History ICD Code Hypertension-being observed-not on meds as of the 09/06/21 OV Sleep apnea--no CPAP Anemia Denies [place],DM,CVA,Lung disease,renal dise ase Surgical History Surgery Date(Month/Year) BTL
--- OUTSIDE RECORDS SUMMARY | 2025-05-22 14:21 | XMS_ITS | Clinical Summary ---
Author Organization [facility] Address [address] [place] [address] Care Team Providers Care Pipe Fitter Welding Name Role Phone Sarai Sharp MD Primary Care Provider [phone] Allergies No known active allergies Medications cyclobenzaprine (FLEXERIL) 10 MG tablet Take 1 tablet (10 mg total) by mouth 3 (three) times a day. 12 tablet 0 06/15/2015 Active diazePAM (VALIUM) 5 MG tablet Take 1 tablet (5 mg total) by mouth 2 (two) times a day as needed (spasm). 10 tablet 10/09/2016 Active acetaminophen (TYLENOL) 325 mg tablet Take 2 tablets (650 mg total) by mouth every 8 (eight) hours as needed. 42 tablet 03/05/2017 Active lisinopril (PRINIVIL,ZESTR IL) 2.5 MG tablet Take 2.5 mg by mouth once daily. Active omeprazole (PRILOSEC) 10 MG capsule Take 10 mg by mouth daily at 6:30 am. Active Active Problems No known active problems Social History Tobacco Use Types Packs/Day Years Used Date Smoking Tobacco: Never Comments Unknown Sex and Gender Information Value Date Recorded Sex Assigned at Not on file Legal Sex Female 4:21 AM EST Gender Identity Not on file Sexual Orientation Not on file Last Filed Vital Signs Vital Sign Reading Time Taken Comments Blood Pressure 123/83 06/25/2018 2:08 PM EDT Pulse 82 06/25/2018 2:08 PM EDT Temperature 36.3 C (97.4 F) 06/25/2018 2:08 PM EDT Respiratory Rate 16 06/25/2018 2:08 PM EDT Oxygen Saturation 98% 06/25/2018 2:08 PM EDT Inhaled Oxygen Concentration - - Weight - - Height 165.1 cm (5' 5 ) 10/09/2016 11:16 AM EST Body Mass Index - - Plan of Treatment Not on file Care Teams Pipe Fitter Welding Relationship Specialty Start Date End Date Sarai Sharp MD PCP - General Internal Medicine 10/03/16
--- OUTSIDE RECORDS SUMMARY | 2025-05-22 14:21 | XMS_ITS | Encounter Summary ---
Author Organization [employer] Address [address] [facility] 7t [place] [address] Care Team Providers Care Flatware Maker Name Role Phone Name, Rajesh WESTBROOK Primary Care Provider [phone] Aida Nguyen PharmD Unavailable [phone] Encounter Details Date Type Department Care Team (Latest Contact Info) Description 05/18/2025 Travel Social History Tobacco Use Types Packs/Day Years [...] Access Answer Date Recorded Internet Access Q1 Yes 01/16/2025 Internet Access Q2 I do not want or need it 12/30 Comments Unknown Sex and Gender Information Value Date Recorded Sex Assigned at Female 07/31/2022 10:37 AM EDT Legal Sex Female 10:37 AM EDT Gender Identity Female 07/31/2022 10:37 AM EDT Sexual Orientation Straight 07/31/2022 10 :37 AM EDT documented as of this encounter Plan of Treatment Upcoming Encounters Date Type Department Care Team (Late st Contact Info) Description 05/25/2025 4:00 PM EDT Office Visit [facility] [address] [place] [phone] Name, MD Rajesh [address] [place] [address] documented as of this encounter Goals Goal Patient Goal Type Associated Problems Recent Progress Patient-Stated? Author Record your blood pressure periodically, 2-3x per week Blood Pressure No Puia, Aida, PharmD Blood Pressure < 140/90 Blood Pressure 120/88( 025 2:40 PM EDT) No Puia, Aida, PharmD documented as of this encounter Visit Diagnoses Not on filedocumented in this encounter Additional Health Concerns Assessment Noted Time PHQ-9 Depression Total Score: 0 05/19/20 24 3:43 PM EDT documented as of this encounter Care Teams Flatware Maker Relationship Specialty Start Date End Date NameRajesh MD [address] [place] [address] [phone] PCP - General Family Medicine 07/04/21 Puia, Aida, PharmD [address] [place] [address] [phone] Pharmacist Internal Medicine 05/24/23 documented as of this encounter
--- OUTSIDE RECORDS SUMMARY | 2025-05-22 14:21 | XMS_ITS | Clinical Summary ---
Author Organization [facility] it Address [address] [place] [address] Care Team Providers Care Retail Analytics Manager Name Role Phone Unavailable Primary Care Provider [...]
== END 2025-05-22 14:19 | disposition home or self-care (01) ==
LOC: HO.US 14:18
PROVIDERS: PCP Internal Medicine Geriatric Medicine; Visit Provider Obstetrics & Gynecology
DX: N93.9 Abnormal uterine and vaginal bleeding, unspecified (principal)
CPT/HCPCS: 76830; 76856

== ENCOUNTER → 2025-05-22 14:20 | Outpatient (BNV) | payer OTHER, SELFPAY | PROVIDERS: PCP Internal Medicine Geriatric Medicine; Visit Provider Radiology Diagnostic Radiology | DX: N93.9 Abnormal uterine and vaginal bleeding, unspecified (principal) | CPT/HCPCS: 76830; 76856 ==

== ENCOUNTER 2025-06-03 13:23 | Outpatient (REF) | payer OTHER, SELFPAY ==
--- OUTSIDE RECORDS SUMMARY | 2025-06-03 15:39 | XMS_ITS | Encounter Summary ---
Author Organization [employer] Address [address] [facility] 7 [place] [address] Care Team Providers Care Coiler Name Role Phone Name, Rajesh WESTBROOK Primary Care Provider [phone] Aida Nguyen PharmD Unavailable [phone] Reason for Visit * Reason Onset Date Comments Nurse Triage 08/30/2023 Encounter Details Date Type Department Care Team ([facility] st Contact Info) Description 08/30/2023 Telephone [facility] [address] [place], [place] [phone] Name, MD Rajesh [address] [place] [address] Nurse Triage Social History Tobacco Use Types [...] 4:41 PM EST T/C to pt. Through [employer] id - [id number] for below message, Pt. States she is [...] time. Pt advised of disposition, agrees to [facility] now for exam to rule out [...] Chest pain The caller accepted this outcome Burkinan Speaker documented in this encounter Plan of Treatment Upcoming Encounters Date Type Department Care Team (Late st Contact Info) Description 06/08/2025 3:00 PM EDT Telemedicine [facility] [address] [place] [phone] 08/18/2025 4:00 PM EST Office Visit [facility] [address] [place] [phone] NameRajesh MD [address] [place] [address] documented as of this encounter Goals Goal Patient Goal Type Associated Problems Recent Progress Patient-Stated? Author Record your blood pressure periodically, 2-3x per week Blood Pressure No Puia, Aida, PharmD Blood Pressure < 140/90 Blood Pressure 156/86( 025 3:57 PM EDT) No Puia, Aida, PharmD documented as of this encounter Visit Diagnoses Not on filedocumented in this encounter Additional Health Concerns Assessment Noted Time PHQ-9 Depression Total Score: 0 02/20/20 23 2:37 PM EDT documented as of this encounter Care Teams Coiler Relationship Specialty Start Date End Date NameRajesh MD [address] [place] [phone] PCP - General Family Medicine 07/04/21 Aida Nguyen, Rubens [address] [place] [phone] Pharmacist Internal Medicine 05/24/23 documented as of this encounter
--- OUTSIDE RECORDS SUMMARY | 2025-06-03 15:39 | XMS_ITS | Encounter Summary ---
Author Organization [employer] Address [address] [facility] 7t [place] [address] Care Team Providers Care Hydraulic Jack Operator Name Role Phone Name, Rajseh WESTBROOK Primary Care Provider [phone] Aida Nguyen PharmD Unavailable [phone] Encounter Details Date Type Department Care Team (Late st Contact Info) Description 01/06/2025 Orders Only [facility] [address] [place], [place] [phone] Brittany Pearson MD [address] [place], [place] [phone] Social History Tobacco Use Types Packs/Day Years [...] Info) Description 06/08/2025 3:00 PM EDT Telemedicine [facility] [address] [place] [phone] 08/18/2025 4:00 PM EST Office Visit [facility] [address] [place] [phone] Name, MD Rajesh [address] [place] [phone] documented as of this encounter Goals Goal Patient Goal Type Associated Problems Recent Progress Patient-Stated? Author Record your blood pressure periodically, 2-3x per week Blood Pressure No Puia, Aida, PharmD Blood Pressure < 140/90 Blood Pressure 156/86( 025 3:57 PM EDT) No Puia, Aida, PharmD documented as of this encounter Procedures Procedure Name Priority Date/Time Associated Diagnosis Comments TSH W/REFLEX TO FT4 Routine 04/16/2025 1 0:12 AM EDT HCG, TOTAL, QN Routine 04/16/2025 10:12 AM EDT LH Routine 04/16/2025 10:12 AM EDT FSH Routine 04/16/2025 10:12 AM EDT CHLAMYDIA/N. GONORRHOEAE RNA, TMA, UROGENITAL Routine 04/16/2025 9:05 AM EDT documented in this encounter Results * LH (04/16/2025 10:12 AM EDT) Lutenizing Hormone 23.0 mIU/mL [facility] Comment:Reference Range Foll icular Phase 1.9-12.5 Mid-Cycle Peak 8.7-76.3 Luteal Phase 0.5-16.9 Postmenopausal 10.0-54.7THIS TEST WAS PERFORMED AT:[employer] [address] [id number] JAVED MD 04/16/2025 10:1 2 AM EDT 04/16/2025 10:12 AM EDT us Generic External Data Provider LAB BLOOD ORDERAB LES Final Result [facility] [address] [place] [phone] * FSH (04/16/2025 10:12 AM EDT) Follicle Stimulating Hormone 39.3 mIU/mL [facility] Comment:Reference Range Foll icular Phase 2.5-10.2 Mid-cycle Peak 3.1-17.7 Luteal Phase 1.5- 9.1 Postmenopausal 23.0-116.3THIS TEST WAS PERFORMED AT:[employer] [address] [id number] JAVED MD 04/16/2025 10:1 2 AM EDT 04/16/2025 10:12 AM EDT us Generic External Data Provider LAB BLOOD ORDERAB LES Final Result Performing Organization Address [facility]/ZIP Co de Phone Number [facility] [address] [place] [phone] * hCG, Total, Quantitative (04/16/2025 10:12 AM EDT) HCG Quantitative <2 mIU/mL [facility] Comment:Weeks post LMP Appro ximate hCG(Last Menstrual Period) Range (mIU/ml)3 - 4 weeks 9 - 1304 - 5 weeks 75 - 2,6005 - 6 weeks 850 - 20,8006 - 7 weeks 4000 - 100,2007 - 12 weeks 11,500 - 289,67625 - 16 weeks 18,300 - 137,19826 - 29 weeks (2nd trimester) 1,400 - 53,36269 - 41 weeks (3rd trimester) 940 - 60,000The Real B- hCG assay is used for the early detection ofpregnancy; it cannot be used to diagnose any conditionunrelated to . If a B-hCG level is not supportedby the clinical evidence, results should be confirmed by analternative method (qualitative urine hCG, for example). 04/16/2025 10:1 2 AM EDT 04/16/2025 10:12 AM EDT us Generic External Data Provider LAB BLOOD ORDERAB LES Final Result Performing Organization Address [facility] Co de Phone Number [facility] [address] [place] [phone] * TSH with Reflex to Free T4 (04/16/2025 10:12 AM EDT) TSH reflex Free T4 0.84 0.32 - 4.0 uIU/mL [facility] 04/16/2025 10:1 2 AM EDT 04/16/2025 10:12 AM EDT us Generic External Data Provider LAB BLOOD ORDERAB LES Final Result Performing Organization Address City/[facility]/ZIP Co de Phone Number [facility] [address] [place] [phone] * Chlamydia/N. Gonorrhoeae RNA, TMA, Urogenitial (04/16/2025 9:05 AM EDT) CT PCR NOT DETECTED Not Detect. [facility] Comment:A not detected test result does not exclude the possibilityof infection because test results can be affected byimproper specimen collection, concurrent antibiotic therapy,or the number of organisms in the specimen which may bebelow the sensitivity of the test. As with many diagnostictests, results from the Xpert CT/NG assay should beinterpreted in conjunction with other laboratory andclinical data available to the clinician.Xpert CT/NG performance has not been evaluated in patientsless than 14 years of age. The assay should not be used forthe evaluationof suspected sexual abuse or for other medico-legalindications. Additional testing is recommended in anycircumstance when false positive or false negative resultscould lead to adverse medical, social or psychologicalconsequences. NG PCR NOT DETECTED Not Detect. [facility] Comment:A not detected test result does not exclude the possibilityof infection because test results can be affected byimproper specimen collection, concurrent antibiotic therapy,or the number of organisms in the specimen which may bebelow the sensitivity of the test. As with many diagnostictests, results from the Xpert CT/NG assay should beinterpreted in conjunction with other laboratory andclinical data available to the clinician.Xpert CT/NG performance has not been evaluated in patientsless than 14 years of age. The assay should not be used forthe evaluationof suspected sexual abuse or for other medico-legalindications. Additional testing is recommended in anycircumstance when false positive or false negative resultscould lead to adverse medical, social or psychologicalconsequences. 04/16/2025 9:05 AM EDT 04/16/2025 1:12 PM EDT us Generic External Data Provider LAB MICROBIOLOGY - GENERAL ORDERABLES Final Result [facility] [address] [place] [phone] documented in this encounter Visit Diagnoses Not on filedocumented in this encounter Additional Health Concerns Assessment Noted Time PHQ-9 Depression Total Score: 0 05/19/20 24 3:43 PM EDT documented as of this encounter Care Teams Hydraulic Jack Operator Relationship Specialty Start Date End Date Name, MD Rajesh [address] [place] [address] PCP - General Family Medicine 07/04/21 Aida Nguyen, JimenezD [address] [place] [address] Pharmacist Internal Medicine 05/24/23 documented as of this encounter
--- OUTSIDE RECORDS SUMMARY | 2025-06-03 15:39 | XMS_ITS | Encounter Summary ---
Author Organization [employer] Address [address] [facility] 7t [place] [address] Care Team Providers Care Copy Director Name Role Phone Name, Rajesh WESTBROOK Primary Care Provider [phone] Aida Nguyen PharmD Unavailable [phone] Encounter Details Date Type Department Care Team (Latest Contact Info) Description 06/01/2025 Travel Social History Tobacco Use Types Packs/Day [...] Date Recorded Patient Health Questionnaire-9 Score 0 05/25/2025 Patient Health Questionnaire-9 Score 0 05/25/2025 Last PHQ-9: Questionnaire Data Not on file 0 05/25/2025 Housing Stability Answer Date Recorded What is [...] Date Recorded Patient Health Questionnaire-2 Score 0 05/25/2025 Internet Access Answer Date Recorded Internet Access Q1 Yes 05/22/2025 Internet Access Q2 Not on file 05/22/2025 Comments Unknown Sex and Gender Information Value Date Recorded Sex Assigned at Female 07/31/2022 10:37 AM EDT Legal Sex Female 10:37 AM EDT Gender Identity Female 07/31/2022 10:37 AM EDT Sexual Orientation Straight 07/31/2022 10 :37 AM EDT documented as of this encounter Plan of Treatment Upcoming Encounters Date Type Department Care Team ([facility] st Contact Info) Description 06/08/2025 3:00 PM EDT Telemedicine [facility] [address] [place] [phone] 08/18/2025 4:00 PM EST Office Visit [facility] [address] [place] [phone] NameRajesh MD [address] [place] [phone] documented as of this encounter Goals Goal [...] Noted Time PHQ-9 Depression Total Score: 0 05/25/20 25 4:23 PM EDT documented as of this encounter Care Teams Copy Director Relationship Specialty Start Date End Date NameRajesh MD [address] [place] [phone] PCP - General Family Medicine 07/04/21 Puia, Aida, PharmD [address] [place] [phone] Pharmacist Internal Medicine 05/24/23 documented as of this encounter
--- OUTSIDE RECORDS SUMMARY | 2025-06-03 15:39 | XMS_ITS | Clinical Summary ---
Author Organization [employer] Address [address] [place] [address] 7[address] [place] [address] Care Team Providers Care Panel Machine Setter Name Role Phone Name, Rajesh WESTBROOK Primary Care Provider [phone] Aida Nguyen PharmD Unavailable [phone] Allergies No known active allergies Medications omeprazole (PriLOSEC) [address] capsuleIndicatio ns:H. pylori infection TAKE 1 CAPS BY MOUTH BEFORE BREAKFAST AND BEFORE EVENING MEAL X14 DAYS. DO NOT CRUSH, CHEW, OR SPLIT 28 capsule 3 Active cetirizine (ZyrTEC) 10 MG tablet Take 1 tablet (10 mg) by mouth Once per day. 30 tablet 11 4 Active albuterol 108 (90 Base) MCG/ACT inhalerIndicatio ns:Viral upper respiratory infection Inhale 2 puffs every 6 (six) hours if needed for wheezing. 18 g 11 4 Active Spacer/Aero-Hold ing Chambers (AeroChamber MV) inhalerIndicatio [...] times daily. 28 g 2 4 Active Bisacodyl EC 5 MG EC tablet [...] as needed. 50 g 3 5 Active ferrous gluconate (Fergon) 324 (38 Fe) MG tablet Take 1 pill every Sunday, Sunday, and Sunday. Take with a full glass of water or Vit C containing juice, and ideally 1 hour before a meal or 2 hours after a meal 36 tablet 3 5 Active fluticasone (Flonase) 50 MCG/ACT nasal spray INSTILL 2 SPRAYS IN EACH NOSTRIL ONCE DAILY 16 g 2 5 Active omeprazole (PriLOSEC) [address] capsule Take 1 capsule by mouth in the morning. 025 Discontin ued(Thera py completed ) hydroCHLOROthiaz daphney (HYDRODiuril) 12.5 MG tabletIndication s:Essential hypertension TAKE 1 TABLET BY MOUTH EVERY DAY IN THE MORNING 90 tablet 3 4 025 Discontin ued(Thera py completed ) lidocaine (Lidoderm) 5 % patch Apply 1 patch topically Once per day. Remove & discard patch within 12 hours or as directed by MD. 30 patch 2 5 025 Discontin ued(Thera py completed ) Active Problems Problem Noted Date Diagnosed Date Acute right ankle pain 01/04/2025 Muscle spasm 01/04/2025 Assessment & Plan (01/05/2025 4:25 PM EDT): Labs ordered Is iron deficient, start supplmentation Stop B12 supplementation as levels are supratherapeutic Plantar fasciitis of right foot 01/04/2025 Assessment & Plan (01/05/2025 4:25 PM EDT): Ice, stretch, massage Can trial heel cups Class 2 severe obesity due t o excess calories with serious comorbidity and body mass index (BMI) of 37.0 to 37.9 in adult 03/07/2024 Class 2 obesity 10/12/2023 10/12/2023 H. pylori infection 09/13/2023 Esophageal stricture 07/17/2023 07/17/2023 Family history of [...] Assessment & Plan (09/10/2023 12:41 PM EST): Senior Recruitment Consultant to restart omeprazole Senior Recruitment Consultant to reschedule appt with GI if symptoms continue Check H. Pylori test Essential hypertension 11/29/2022 Assessment & Plan (01/05/2025 4:23 PM EDT): Not controled Off hydrochlorothiazide since 03/2024 Review with PCP at 01/29/25 appointment Assessment & Plan (09/10/2023 12:43 PM EST): Uncontrolled hydrochlorothiazide recently started Senior Recruitment Consultant to take losartan 100 MG in the [...] apt scheduled today) Iron deficiency anemia 11/29/2022 Resolved Problems Problem Noted Date Diagnosed Date Resolved Date Chest pain, atypical 09/10/2023 025 Assessment & Plan (09/10/2023 12:46 PM EST): Rule out Esophagitis, see as above Use tylenol PRN and f/u with PCP Encounters Date Type Department Care Team Description 06/01/2025 Travel 05/25/2025 4:00 PM EDT Office Visit [facility] MEDICINE [address] [place] [address] Name, MD Rajesh Essential hypertension (Primary Dx); Iron deficiency anemia, unspecified iron deficiency anemia type 05/25/2025 Travel 05/25/2025 Telephone [facility] MEDICINE [address], [place] [phone] NameRajesh MD CHART PREP 05/22/2025 Orders Only [facility] External Provider, [facility] 05/18/2025 Travel 05/06/2025 Telephone [facility] MEDICINE [address] [place] [address] Ella GarveyGABY 04/30/2025 2:30 PM EDT Office Visit [facility] ADULT DENTAL [address] [place] [address] Solo Rojo DDS 04/29/2025 Travel from Last 3 Months Immunizations Immunization Administration Dates Next Due Hep B, adult [...] Sign Reading Time Taken Comments Blood Pressure 156/86 05/25/2025 3:57 PM EDT Pulse 72 05/25/2025 3:57 PM EDT Temperature 36.3 C (97.4 F) 05/25/2025 3:57 PM EDT Respiratory Rate 14 05/25/2025 3:57 PM EDT Oxygen Saturation 99% 05/25/2025 3:57 PM EDT Inhaled Oxygen Concentration - - Weight 94.9 kg (209 lb 3.2 oz) 05/25/2025 3:57 P M EDT Height 165.1 cm (5' 5 ) 05/25/2025 3:57 PM EDT Body Mass Index 34.81 05/25/2025 3:57 PM EDT Plan of Treatment Upcoming Encounters Date Type Department Care Team (Late st Contact Info) Description 06/08/2025 3:00 PM EDT Telemedicine [facility] MEDICINE [address] [place] [phone] 08/18/2025 4:00 PM EST Office Visit [address] [address] Name, MD Rajesh [address] [place] [address] Health Maintenance Due Date Last Done Comments CT Colonography 1971 Dental Oral Exam 1971 Dental Prophylaxis 1971 Dental X-Ray: Full Mouth 1971 FIT DNA/Cologuard 1971 FIT 1971 FOBT 1971 HIV Screening 1971 Sigmoidoscopy 1971 Hepatitis C Screening 1989 Hepatitis B Vaccines (1 of 3 - 19+ 3-dose series) 1990 Pneumococcal Vaccine: 50+ Years (1 of 1 - PCV) 2021 Zoster Vaccines (1 of 2) 2021 Mammogram 03/21/2024 03/21/2023 COVID-19 Vaccine (3 - season) 2025 07/31/2021, 07/25/2021, 07/04/2021 Influenza Vaccine (#1) 2025 SDOH Screening 01/16/2026 01/16/2025 Dental X-Ray: Bitewings 02/19/2026 02/18/2025, 11/18 Disability Screening 05/18/2026 05/18/2025 Alcohol/Substance Use Screening 05/25/2026 05/25/2025 Depression Screening 05/25/2026 05/25/2025, 05/25/20 Tobacco Screening 05/25/2026 05/25/2025 Cervical Cancer Screening 08/09/2026 HPV/Cotest 08/09/2026 08/09/2021, [...] 3:57 PM EDT) No Puia, Aida, PharmD Procedures Procedure Name Priority Date/Time Associated Diagnosis Comments US PELVIS TRANSVAGINAL Routine 05/22/2025 3:01 PM EDT NO CHARGE VISIT Routine 04/30/2025 2:30 PM EDT LH Routine 04/16/2025 10:12 AM EDT FSH Routine 04/16/2025 10:12 AM EDT HCG, TOTAL, QN Routine 04/16/2025 10:12 AM EDT TSH W/REFLEX TO FT4 Routine 04/16/2025 1 0:12 AM EDT CHLAMYDIA/N. GONORRHOEAE RNA, TMA, UROGENITAL Routine 04/16/2025 9:05 AM EDT BITEWING - SINGLE RADIOGRAPHIC IMAGE Routine 02/18/2025 3:00 PM EDT LIPID PANEL, STANDARD Routine 03/11/2024 7:08 AM EDT HM MAMMOGRAPHY Routine 03/21/2023 HM COLONOSCOPY Routine 09/20/2021 3:35 PM EST HM PAP/HPV Routine 08/09/2021 HM PAP/HPV Routine 08/09/2021 from Last 3 Months or Most Recently Relevant to Health Maintenance Results * US Pelvis Transvaginal (05/22/2025 3:01 PM EDT) Anatomical Region Laterality Modality Pelvis Ultrasound 05/22/2025 3:01 PM EDT Narrative 05/22/2025 3:24 PM EDT [address] [address] Ultrasound Report Signed Patient: Veronica Wong MR#: [id number] : 1970 Acct:[id number] Age/Sex: 55 / F ADM Date: 05/22/25 Loc: HO.US Attending Dr: Wagner Malik MD Ordering Physician: Wagner Malik MD Date of Service: 05/22/25 Procedure(s): US pelvic and transvaginal Accession Number(s): [id number] cc: Kajal,Rajesh WESTBROOK; Wagner Malik MD EXAMINATION: US PELVIS CLINICAL INFORMATION: Abnormal uterine bleeding. COMPARISON: 09/20/2022. TECHNIQUE: Ultrasound of the pelvis is performed using both transabdominal and transvaginal transducers along with Doppler. Transvaginal imaging is performed due to inadequate visualization transabdominally. FINDINGS: Uterus: The uterus is anteverted and measures 8.7 x 5.8 x 5.7 cm. The cervix has a normal appearance. The double wall endometrial thickness is 16 mm. The uterus is smooth in contour and has normal myometrial echogenicity. No visible fibroid. Adnexa: The right ovary is visualized. There is normal color flow to the right adnexa. There is no ovarian torsion. There is a small amount of anechoic fluid in the cul-de-sac. There are no adnexal masses. Right ovary measures 2.7 x 1.5 x 1.3 cm. Volume = 2.8 mL. Normal sonographic appearance. Left ovary could not be visualized with certainty. No left adnexal masses. US/US pelvic and transvaginal IMPRESSION: 1. Mild endometrial thickening measuring 16 mm. Correlate with menstrual status. 2. Small amount of fluid in the cul-de-sac, likely physiologic. 3. Normal right ovary. 4. The left ovary cannot be visualized with certainty. Electronically signed by: Matthieu Berg MD 05/22/2025 03:21 PM EDT Dictated By: Matthieu Berg MD Signed By: <Electronically signed by Matthieu Berg MD in OV> 05/22/25 1521 DD/ 1501 TD/TT: 05/22/25 1508 Meter Repairer Helper: Procedure Note Donotuseinterpreter, Image - 05/22/2025 [place] [address] Ultrasound Report Signed Patient: Veronica WongMR#: [id number] : 1970Acct:[id number] Age/Sex: 55 / FADM Date: 05/22/25 Loc: HO.US Attending Dr: Wagner Malik MD Ordering Physician: Wagner Malik MD Date of Service: 05/22/25 Procedure(s): US pelvic and transvaginal Accession Number(s): [id number] cc: Name,Rajesh WESTBROOK; Wagner Malik MD EXAMINATION: US PELVIS CLINICAL INFORMATION: Abnormal uterine bleeding. COMPARISON: 09/20/2022. TECHNIQUE: Ultrasound of the pelvis is performed using both transabdominal and transvaginal transducers along with Doppler. Transvaginal imaging is performed due to inadequate visualization transabdominally. FINDINGS: Uterus: The uterus is anteverted and measures 8.7 x 5.8 x 5.7 cm. The cervix has a normal appearance. The double wall endometrial thickness is 16 mm. The uterus is smooth in contour and has normal myometrial echogenicity. No visible fibroid. Adnexa: The right ovary is visualized. There is normal color flow to the right adnexa. There is no ovarian torsion. There is a small amount of anechoic fluid in the cul-de-sac. There are no adnexal masses. Right ovary measures 2.7 x 1.5 x 1.3 cm. Volume = 2.8 mL. Normal sonographic appearance. Left ovary could not be visualized with certainty. No left adnexal masses. US/US pelvic and transvaginal IMPRESSION: 1. Mild endometrial thickening measuring 16 mm. Correlate with menstrual status. 2. Small amount of fluid in the cul-de-sac, likely physiologic. 3. Normal right ovary. 4. The left ovary cannot be visualized with certainty. Electronically signed by: Matthieu Berg MD 05/22/2025 03:21 PM EDT Dictated By: Matthieu Berg MD Signed By: <Electronically signed by Matthieu Berg MD in OV> 05/22/25 1521 DD/ 1501 TD/TT: 05/22/25 1508 Meter Repairer Helper: us [facility] External Provider IMG US PROCEDURES Final Result * TSH with Reflex to Free T4 (04/16/2025 10:12 AM EDT) TSH reflex Free T4 0.84 0.32 - 4.0 uIU/mL [facility] 04/16/2025 10:1 2 AM EDT 04/16/2025 10:12 AM EDT us Generic External Data Provider LAB BLOOD ORDERAB LES Final Result Performing Organization Address City/State/[facility] Co de Phone Number [facility] [address] [place] [phone] * hCG, Total, Quantitative (04/16/2025 10:12 AM EDT) HCG Quantitative <2 mIU/mL [facility] Comment:Weeks post LMP Appro ximate hCG(Last Menstrual Period) Range (mIU/ml)3 - 4 weeks 9 - 1304 - 5 weeks 75 - 2,6005 - 6 weeks 850 - 20,8006 - 7 weeks 4000 - 100,2007 - 12 weeks 11,500 - 289,87791 - 16 weeks 18,300 - 137,94369 - 29 weeks (2nd trimester) 1,400 - 53,63935 - 41 weeks (3rd trimester) 940 - [...] ORDERAB LES Final Result Performing Organization Address City/[facility]/ZIP Co de Phone Number [facility] [address] [place] [phone] * LH (04/16/2025 10:12 AM EDT) Lutenizing Hormone 23.0 mIU/mL [facility] Comment:Reference Range Foll icular Phase 1.9-12.5 Mid-Cycle Peak 8.7-76.3 Luteal Phase 0.5-16.9 Postmenopausal 10.0-54.7THIS TEST WAS PERFORMED AT:[facility] [place] [phone] JAVED MD 04/16/2025 10:1 2 AM EDT 04/16/2025 10:12 AM EDT us Generic External Data Provider LAB BLOOD ORDERAB LES Final Result Performing Organization Address [facility] Co de Phone Number [facility] [address] [place] [phone] * FSH (04/16/2025 10:12 AM EDT) Follicle Stimulating Hormone 39.3 mIU/mL [facility] Comment:Reference Range Foll icular Phase 2.5-10.2 Mid-cycle Peak 3.1-17.7 Luteal Phase 1.5- 9.1 Postmenopausal 23.0-116.3THIS TEST WAS PERFORMED AT:[facility] [place] [id number] JAVED MD 04/16/2025 10:1 2 AM EDT 04/16/2025 10:12 AM EDT us Generic External Data Provider LAB BLOOD ORDERAB LES Final Result Performing Organization Address City/[facility]/ZIP Co de Phone Number [facility] [address] [place] [phone] * Chlamydia/N. Gonorrhoeae RNA, TMA, Urogenitial (04/16/2025 9:05 AM EDT) CT PCR NOT DETECTED Not Detect. [facility] Comment:A not detected test result does [...] psychologicalconsequences. NG PCR NOT DETECTED Not Detect. [facility] Comment:A not detected test result does [...] LAB MICROBIOLOGY - GENERAL ORDERABLES Final Result [facility] [address] [place] [phone] * Lipid Panel, Standard (03/11/2024 7:08 AM EDT) Triglycerides 74 <150 mg/dL [facility] Comment:Desirable Triglyceri de: less than 150 mg/dLBorderline High Triglyceride 150-199 mg/dLHigh Triglyceride: 200-499 mg/dLVery High Triglyceride: greater than or equal to 5OO mg/dL Cholesterol 169 <200 mg/dL [facility] Comment:Desirable Cholestero l: less than 200 mg/dLBorderline High Cholesterol: 200-239 mg/dLHigh Cholesterol: greater than 239 mg/dL LDL Cholesterol Calculated 95 <100 mg/dL [facility] Comment:Desirable LDL: less than 100 mg/dLNear Optimal/Above Optimal LDL: 110- 129 mg/dLBorderline High LDL: 130-159 mg/dLHigh LDL: 160-189 mg/dLVery High LDL: greater than or equal to 190 mg/dL HDL Cholesterol 60 >40 mg/dL [facility] Comment:Desirable HDL: great er than 40 mg/dL Note: This HDL assay may give artificially low results in patients with liver disease. 03/11/2024 7:08 AM EDT 03/11/2024 7:08 AM EDT Rajesh Rdz MD LAB BLOOD ORDERABLES Final Resul t [facility] [address] [place] [phone] * Mammography (03/21/2023) Mammogram BI-Rads 1 Anatomical Region Laterality Modality Other Caro Weston HEALTH MAINTENANCE Final Result * Colonoscopy (09/20/2021 3:35 PM EST) Colonoscopy Normal Normal Narrative Laura Goodwin - 09/20/2021 3:35 PM EST Recommended 5 year follow up Historical Provider HEALTH MAINTENANCE Final Result * Pap Smear (08/09/2021) Only the most recent of2 resultswithin the time period is included. Pap Negative for intraephithelial lesion or malignancy Negative for intraephithelial lesion or malignancy, Other HPV Undetected [facility] Luis HEALTH MAINTENANCE Final Result from Last 3 Months or Most Recently Relevant to Health Maintenance Insurance [facility] HE[facility] DENTAL - HSN PARTIAL (MEDICAID) Care Teams Panel Machine Setter Relationship Specialty Start Date End Date Name, MD Rajesh [address] [place] [address] PCP - General Family Medicine 07/04/21 Aida Nguyen PharmD [address] [place] [address] Pharmacist Internal Medicine 05/24/23
--- OUTSIDE RECORDS SUMMARY | 2025-06-03 15:39 | XMS_ITS | Patient Health Record ---
Author Organization [facility] Address [address] [place] [phone] Care Team Providers Care Night Nurse Name Role Phone Name Rajesh WESTBROOK Primary Care Provider Jose Diaz Unavailable [phone] Reason For Referral No Information Medications Medication SIG (Take, Route, Frequency, Duration) Notes Start Date End Date Status Omeprazole 40 MG TAKE 1 CAPSULE BY [facility] EVERY MORNING for 90 Active Esomeprazole [...] Status Risk Notes Problem Gastroesophageal reflux disease (977143928) Gastroesophageal reflux disease (K21.9) Active confirmed Problem Iron deficiency anemia (25927494) Iron deficiency anemia (D50.9) Active confirmed Problem [id number] Family history o f colon cancer (Z80.0) Active confirmed Problem Esophageal stricture (70178600) Esophageal stricture (K22.2) Active confirmed Problem [id number] Microcytic anemi a (D50.9) Active confirmed Problem [id number] Gastroesophageal reflux disease, unspecified whether esophagitis present [...] Coverage End Date [facility] [address] [address] [place], [place] [id number] THOMAS LE Self - patient is the insured Medical (General) History Medical History History ICD Code Hypertension-being observed-not on meds as of the 09/06/21 OV Sleep apnea--no CPAP Anemia Denies LA,DM,CVA,Lung disease,renal dise ase Surgical History Surgery Date(Month/Year) BTL
--- OUTSIDE RECORDS SUMMARY | 2025-06-03 15:39 | XMS_ITS | Encounter Summary ---
Author Organization [employer] Address [address] [place] [address] 7 [place] [address] Care Team Providers Care Interactive Digital Media Specialist Name Role Phone Name, Rajesh WESTBROOK Primary Care Provider Aida Nguyen PharmD Unavailable [phone] Encounter Details Date Type Department Care Team (Late Contact Info) Description 06/22/2023 Orders Only [address] [address] Provider, MD Dinh Social History Tobacco Use [...] Info) Description 06/08/2025 3:00 PM EDT Telemedicine [address] [phone] 08/18/2025 4:00 PM EST Office Visit [address] [address] Name, MD Rajesh [address] [place] [address] documented as of this encounter Goals Goal Patient Goal Type Associated Problems Recent Progress Patient-Stated? Author Record your blood pressure periodically, 2-3x per week Blood Pressure No Aida Nguyen, PharmD Blood Pressure < 140/90 Blood Pressure 156/86( 025 3:57 PM EDT) No PuAida oliveira, PharmD documented as of this encounter Procedures [...] documented as of this encounter Care Teams Interactive Digital Media Specialist Relationship Specialty Start Date End Date Name, MD Rajesh [address] [place] [address] PCP - General Family Medicine 07/04/21 Aida Nguyen, PharmD [address] [place] [address] Pharmacist Internal Medicine 05/24/23 documented as of this encounter
--- OUTSIDE RECORDS SUMMARY | 2025-06-03 15:39 | XMS_ITS | Clinical Summary ---
Author Organization [facility] ity Address [address] [place] [address] Care Team Providers Care Mine Safety Director Name Role Phone Unavailable Primary Care Provider [...] 2021 Zoster Vaccines (1 of 2) 2021 Depression Screening 10/01/2024 COVID-19 Vaccine ( - 2023-2 5 season) 2025 Influenza Vaccine (#1) 2025 HIB Vaccines Aged [...]
--- OUTSIDE RECORDS SUMMARY | 2025-06-03 15:39 | XMS_ITS | Encounter Summary ---
Author Organization [employer] Address [address] [place] [address] [address] [place] [address] Care Team Providers Care Manager Investment Banking Name Role Phone Name, Rajesh WESTBROOK Primary Care Provider [phone] Aida Nguyen PharmD Unavailable Encounter Details Date Type Department Care Team ([facility] Contact Info) Description 03/12/2023 [facility] MEDICINE [address] [place], [place] [phone] Name, MD Rajesh [address] [place] [address] Social History Tobacco Use Types Packs/Day Years [...] Upcoming Encounters Date Type Department Care Team ([facility] Contact Info) Description 06/08/2025 3:00 PM EDT Telemedicine [facility] [place] [address] 08/18/2025 4:00 PM EST Office Visit [facility] [place] [address] Name, [place] [address] documented as of this encounter Procedures Procedure Name Priority Date/Time Associated Diagnosis Comments COLONOSCOPY Routine 09/20/2021 3:35 PM EST documented in this encounter Results * Colonoscopy (09/20/2021 3:35 PM EST) Colonoscopy Normal Normal Narrative Laura Goodwin - 09/20/2021 3:35 PM EST Recommended 5 year follow up Historical Provider HEALTH MAINTENANCE Final Result documented in this encounter Visit Diagnoses Not on filedocumented in this encounter Additional Health Concerns Assessment Noted Time PHQ-9 Depression Total Score: 0 02/20/20 23 2:37 PM EDT documented as of this encounter Care Teams Manager Investment Banking Relationship Specialty Start Date End Date Name, [place] [address] PCP - General Family Medicine 07/04/21 Aida Nguyen PharmD [facility] [place] [address] Pharmacist Internal Medicine 05/24/23 documented as of this encounter
--- OUTSIDE RECORDS SUMMARY | 2025-06-03 15:39 | XMS_ITS | Encounter Summary ---
Author Organization [employer] Address [address] [place] [address] [address] [place] [address] Care Team Providers Care Mechanical And Auto Body Car Checker Name Role Phone Name, Rajesh WESTBROOK Primary Care Provider [phone] Aida Nguyen PharmD Unavailable [phone] Reason for Visit * Reason Onset Date Comments stating 10/12/2022 Encounter Details Date Type Department Care Team ([facility] st Contact Info) Description 10/12/2022 Telephone [facility] MEDICINE [address] [place], [place] [phone] Name, MD Rajesh [address] [place] [address] stating Social History Tobacco Use Types Packs/Day [...] - 10/12/2022 9:28 AM EST Tc from [place] with [facility] stating they do not take pt health insurance and cant be seen at practice. documented in this encounter Plan of Treatment Upcoming Encounters Date Type Department Care Team (Late st Contact Info) Description 06/08/2025 3:00 PM EDT Telemedicine [address] [address] 08/18/2025 4:00 PM EST Office Visit [address] [address] Name, MD Rajehs [address] [place] [address] documented as of this encounter Visit Diagnoses Not on filedocumented in this encounter Care Teams Mechanical And Auto Body Car Checker Relationship Specialty Start Date End Date Name, MD Rajesh [address] [place] [address] PCP - General Family Medicine 07/04/21 Aida Nguyen, [place] [address] [place] [phone] Pharmacist Internal Medicine 05/24/23 documented as of this encounter
== END 2025-06-03 13:24 | disposition home or self-care (01) ==
LOC: HO.MAMMO 13:23
PROVIDERS: PCP General Practice; Visit Provider Obstetrics & Gynecology
DX: Z12.31 Encounter for screening mammogram for malignant neoplasm of breast (principal)
CPT/HCPCS: 77063; 77067

== ENCOUNTER → 2025-06-03 13:30 | Outpatient (BNV) | payer OTHER, SELFPAY | PROVIDERS: PCP General Practice; Visit Provider Internal Medicine | DX: Z12.31 Encounter for screening mammogram for malignant neoplasm of breast (principal) | CPT/HCPCS: 77063; 77067 ==

== ENCOUNTER 2025-06-09 07:25 | Outpatient (REF) | payer OTHER, SELFPAY | END 2025-06-09 07:26 | disposition home or self-care (01) | LOC: HO.LNP 07:25 | PROVIDERS: PCP General Practice; Visit Provider Obstetrics & Gynecology | DX: N93.9 Abnormal uterine and vaginal bleeding, unspecified (principal) | CPT/HCPCS: 58100; 88305 ==

== ENCOUNTER 2025-06-09 07:25 | Outpatient (AMB) | payer OTHER, SELFPAY ==
--- OUTSIDE RECORDS SUMMARY | 2025-06-08 15:00 | XMS_ITS | Encounter Summary ---
Author Organization [employer] Address [address] [place] [address] 7[address] [place] [address] Care Team Providers Care Mold Filler Name Role Phone Name, Rajesh WESTBROOK Primary Care Provider [phone] Aida Nguyen PharmD Unavailable [phone] Reason for Visit * Reason Comments Blood Pressure Check Encounter Details Date Type Department Care Team ([facility] st Contact Info) Description 06/08/2025 3:00 PM EDT Telemedicine [facility] MEDICINE [address] [place] [address] Ella Garvey, GABY Essential hypertension Social History Tobacco Use Types [...] AM EDT documented as of this encounter Progress Notes * Ella Garvey RN - 06/08/2025 3:00 PM EDT SUBJECTIVE: Tc to pt via S ID: [id number] to do BP check telephone visit. At last OV BP noted 156/86 and recommendations made on that day per PCP were Repeat blood pressure is not much better today. The patient assures me she has normal readings at home. She has a blood pressure monitor at home. I asked her to start documenting the blood pressure readings daily. Follow-up televisit with the nurses in 2 weeks for BP recheck. Further recommendation based on the results. . Pt denies any signs of chest pain, shortness of breath, headaches, dizziness, blurry vision, smoking and alcohol intake. Pt reports they have been checking their BP daily. Pt reports do not exercise daily but did go on a 30 minute walk last week. Pt reports they're more focused on trying to follow a healthy diet which consist of zero carb's and sugar. Pt sates their diet consist of boiled eggs, baked chicken, slice if bread, green juice, strawberries cherries and blueberries. Pt reports they cook their food with avocado oil and for dinner they'll have chicken or park fat ( occasionally) with rice. Current Medications[1] Patient Active Problem List Diagnosis Date Noted Acute right ankle pain 01/04/2025 Muscle spasm 01/04/2025 Plantar fasciitis of right foot 01/04/2025 Class 2 severe obesity due to excess calories with serious comorbidity and body mass index (BMI) of37.0 to 37.9 in adult ([facility]) 03/07/2024 Class 2 obesity 10/12/2023 H. pylori infection 09/13/2023 Esophageal stricture 07/17/2023 Family history of colon cancer 07/17/2023 Well woman exam with routine gynecological exam 03/14/2023 Painful arc syndrome of right shoulder 03/14/2023 Pain of right breast 03/14/2023 Osteoarthritis of right patellofemoral joint 03/14/2023 Menorrhagia, premenopausal 03/14/2023 Cervical cancer screening 03/14/2023 Acute shoulder pain 02/19/2023 History of COVID-19 02/16/2023 Gastroesophageal reflux disease 11/29/2022 Essential hypertension 11/29/2022 Iron deficiency anemia 11/29/2022 Tobacco Use History[2] Social History Substance and Sexual Activity Alcohol Use Never Social History Substance and Sexual Activity Drug Use Never BP Readings from Last 4 Encounters: 05/25/25 (!) 156/86 04/30/25 120/88 01/29/25 (!) 153/99 01/02/25 (!) 160/90 Pulse Readings from Last 4 Encounters: 05/25/25 72 01/29/25 77 01/02/25 80 10/21/24 78 OBJECTIVE: Pt rx BP monitor at home and reports compliance to current BP management regimen. Pt reports BP readings ranges between dates of 05/25-06/08. 139/92 HR: 75, 124/89 HR: 69, 126/92 HR: 71, 133/78 HR: 78, 127/89 HR: 68, 133/89 HR: 74, 127/86 HR: 66, 124/81 HR: 81, 115/79 HR: 88, 122/88 HR: 75, 126/96 HR:72, 133/82 HR:82, 130/88 HR: 75, 131/90 HR: 70, 124/93 HR: 77, 130/88 HR: 84, 125/90 HR: 78, 125/75HR: 75, 128/92 HR:73, 131/90 HR; 72, 132/90 HR: 71, 132/92 HR: 73, 135/98 HR: 78 ASSESSMENT: Achieve goal blood pressure of <140/90 or <130/80 PLAN: Pt advised to continue taking medications as directed and reinforcement of lifestyle modifications including low sodium diet and exercise were reviewed. Pt advised to continue to check their BP dailyand document their readings. Discussed signs/sx of htn, when to notify our office or go to the ED to be evaluated. Pt verbalized understanding and message sent to PCP for review Future Appointments Date Time Provider Department Center 08/18/2025 4:00 PM Rajesh Rdz MD MEDICINE [facility] [1] Current Outpatient Medications Medication Sig Dispense Refill albuterol 108 (90 Base) MCG/ACT inhaler Inhale 2 puffs every 6 (six) hours if needed for wheezing. 18 g 11 Bisacodyl EC 5 MG EC tablet take 2 tablets by mouth every day at bedtime budesonide-formoterol (Symbicort) 160-4.5 MCG/ACT inhaler INHALE 2 PUFFS IN MORNING & BEDTIME, RINSE MOUTH W/ WATER AFTER TO REDUCE CANDIDASIS,DO NOT SWALLOW. 10.2 each 1 cetirizine (ZyrTEC) 10 MG tablet Take 1 tablet (10 mg) by mouth Once per day. 30 tablet 11 Diclofenac Sodium 1 % gel Apply thin layer by topical route (quantity as directed on package insert) to affected area of pain 3 times daily as needed. 50 g 3 famotidine (Pepcid) 20 MG tablet Take 1 tablet by mouth Once per day. ferrous gluconate (Fergon) 324 (38 Fe) MG tablet Take 1 pill every Sunday, Sunday, and Sunday. Take with a full glass of water or Vit C containing juice, and ideally 1 hour before a mealor 2 hours after a meal 36 tablet 3 fluticasone (Flonase) 50 MCG/ACT nasal spray INSTILL 2 SPRAYS IN EACH NOSTRIL ONCE DAILY 16 g 2 hydrocortisone (Anusol-HC) 2.5 % rectal cream Insert into the rectum 2 times daily. 28 g 2 omeprazole (PriLOSEC) [address] capsule TAKE 1 CAPS BY MOUTH BEFORE BREAKFAST AND BEFORE EVENING MEAL X14 DAYS. DO NOT CRUSH, CHEW, OR SPLIT 28 capsule 0 pantoprazole (ProtoNix) 40 MG EC tablet TAKE 1 TABLET BY MOUTH EVERY DAY 1/2 HOUR BEFORE BREAKFAST Spacer/Aero-Holding Chambers (AeroChamber MV) inhaler Use as instructed 1 each 2 No current facility-administered medications for this visit. [2] Social History Tobacco Use Smoking Status Never Passive exposure: Never Smokeless Tobacco Never documented in this encounter Plan of Treatment Upcoming Encounters Date Type Department Care Team (Late st Contact Info) Description 08/18/2025 4:00 PM EST Office Visit [facility] MEDICINE [address] [place] [address] Name, MD Rajesh [address] [place] [address] documented as of this encounter Goals Goal Patient Goal Type Associated Problems Recent Progress Patient-Stated? Author Record your blood pressure periodically, 2-3x per week Blood Pressure No Aida Nguyen, PharmD Blood Pressure < 140/90 Blood Pressure 156/86( 025 3:57 PM EDT) No Aida Nguyen, PharmD documented as of this encounter Visit Diagnoses Diagnosis Essential hypertension Unspecified essential hypertension documented in this encounter Additional Health Concerns Assessment Noted Time PHQ-9 Depression Total Score: 0 05/25/20 25 4:23 PM EDT documented as of this encounter Care Teams Mold Filler Relationship Specialty Start Date End Date NameRajesh MD [address] [place] [address] PCP - General Family Medicine 07/04/21 Aida Nguyen, PharmD [address] [place] [address] Pharmacist Internal Medicine 05/24/23 documented as of this encounter
--- OUTSIDE RECORDS SUMMARY | 2025-06-09 07:26 | XMS_ITS | Encounter Summary ---
Author Organization [employer] Address [address] [place] [address] 7[address] [place] [address] Care Team Providers Care Fish Drier Name Role Phone Name, Rajesh WESTBROOK Primary Care Provider [phone] Aida Nguyen PharmD Unavailable [phone] Encounter Details Date Type Department Care Team ([facility] Contact Info) Description 03/12/2023 Abstract [facility] MEDICINE [address] [place], [place] [phone] Name, MD Rajesh [address] [place] [address] Social History Tobacco Use Types Packs/Day Years [...] Upcoming Encounters Date Type Department Care Team ([facility] Contact Info) Description 08/18/2025 4:00 PM EST Office Visit [facility]INE [address] [facility] [place] [address] Name, [place] [address] documented as of this encounter Procedures Procedure [...] as of this encounter Care Teams Fish Drier Relationship Specialty Start Date End Date Name, MD Rajesh [facility]y [facility] [place] [address] PCP - General Family Medicine 07/04/21 Aida Nguyen PharmD [address] [place] [address] Pharmacist Internal Medicine 05/24/23 documented as of this encounter
--- OUTSIDE RECORDS SUMMARY | 2025-06-09 07:26 | XMS_ITS | Encounter Summary ---
Author Organization [employer] Address [address] [facility] 7t [place] [address] Care Team Providers Care Plater Supervisor Name Role Phone Name, Rajesh WESTBROOK Primary Care Provider [phone] Aida Nguyen PharmD Unavailable [phone] Encounter Details Date Type Department Care Team (Late st Contact Info) Description 01/06/2025 Orders Only [facility] MEDICINE [address] [place], [place] [phone] Brittany Pearson MD [address] [place], [place] [phone] Social History Tobacco Use Types Packs/Day Years [...] Description 08/18/2025 4:00 PM EST Office Visit [facility] MEDICINE [address] [place] [address] Name, MD Rajesh [address] [place] [address] documented as of this encounter Goals Goal [...] 10:12 AM EDT) Lutenizing Hormone 23.0 mIU/mL [facility] Comment:Reference Range Foll icular Phase 1.9-12.5 Mid-Cycle Peak 8.7-76.3 Luteal Phase 0.5-16.9 Postmenopausal 10.0-54.7THIS TEST WAS PERFORMED AT:[facility] [place] [id number] JAVED MD 04/16/2025 10:1 2 AM EDT 04/16/2025 10:12 AM EDT Generic External Data Provider LAB BLOOD ORDERAB LES Final Result Performing Organization Address [facility] Co de Phone Number [facility] [address] [place] [phone] * FSH (04/16/2025 10:12 AM EDT) Follicle Stimulating Hormone 39.3 mIU/mL [facility] Comment:Reference Range Foll icular Phase 2.5-10.2 Mid-cycle Peak 3.1-17.7 Luteal Phase 1.5- 9.1 Postmenopausal 23.0-116.3THIS TEST WAS PERFORMED AT:[employer] [address] [id number] JAVED MD 04/16/2025 10:1 2 AM EDT 04/16/2025 10:12 AM EDT us Generic External Data Provider LAB BLOOD ORDERAB LES Final Result Performing Organization Address City/[facility]/ZIP Co de Phone Number [facility] [address] [place] [address] [phone] * hCG, Total, Quantitative (04/16/2025 10:12 AM EDT) HCG Quantitative <2 mIU/mL [facility] Comment:Weeks post LMP Appro ximate hCG(Last Menstrual Period) Range (mIU/ml)3 - 4 weeks 9 - 1304 - 5 weeks 75 - 2,6005 - 6 weeks 850 - 20,8006 - 7 weeks 4000 - 100,2007 - 12 weeks 11,500 - 289,87114 - 16 weeks 18,300 - 137,30272 - 29 weeks (2nd trimester) 1,400 - 53,90962 - 41 weeks (3rd trimester) 940 - [...] ORDERAB LES Final Result Performing Organization Address City/[facility]/ZIP Co de Phone Number [facility] [address] [place] [phone] * TSH with Reflex to Free T4 (04/16/2025 10:12 AM EDT) TSH reflex Free T4 0.84 0.32 - 4.0 uIU/mL [facility] 04/16/2025 10:1 2 AM EDT 04/16/2025 10:12 AM EDT us Generic External Data Provider LAB BLOOD ORDERAB LES Final Result Performing Organization Address City/[facility]/ZIP Co de Phone Number [facility] [address] [place] [address] [phone] * Chlamydia/N. Gonorrhoeae RNA, TMA, Urogenitial (04/16/2025 9:05 AM EDT) CT PCR NOT DETECTED Not Detect. [facility] Comment:A not detected test result does [...] psychologicalconsequences. NG PCR NOT DETECTED Not Detect. [facility] Comment:A not detected test result does [...] LAB MICROBIOLOGY - GENERAL ORDERABLES Final Result [facility] [address] [place] [address] [phone] documented in this encounter Visit Diagnoses Not on filedocumented in this encounter Additional Health Concerns Assessment Noted Time PHQ-9 Depression Total Score: 0 05/19/20 24 3:43 PM EDT documented as of this encounter Care Teams Plater Supervisor Relationship Specialty Start Date End Date Name, MD Rajesh [address] [place] [address] PCP - General Family Medicine 07/04/21 Aida Nguyen PharmD [address] [place] [address] Pharmacist Internal Medicine 05/24/23 documented as of this encounter
--- OUTSIDE RECORDS SUMMARY | 2025-06-09 07:26 | XMS_ITS | Encounter Summary ---
Author Organization [employer] [facility] Address [address] [place] [address] 7t [place] [address] Care Team Providers Care Turkey Roll Maker Name Role Phone Name, Rajesh WESTBROOK Primary Care Provider [phone] Aida Nguyen PharmD Unavailable [phone] Encounter Details Date Type Department Care Team (Late Contact Info) Description 06/22/[address] [facility] MEDICINE [address] [place] [address] Provider, MD Dinh Social History Tobacco Use [...] Encounters Date Type Department Care Team (Late Contact Info) Description 08/18/2025 4:00 PM EST Office Visit [facility] MEDICINE [address] [place] [phone] Name, MD Rajesh [address] [place] [address] documented as of this encounter Goals Goal Patient Goal Type Associated Problems Recent Progress Patient-Stated? Author Record your blood pressure periodically, 2-3x per week Blood Pressure No Aida Nguyen PharmD Blood Pressure < 140/90 Blood Pressure 156/86( 025 3:57 PM EDT) No Aida Nguyen PharmD documented [...] documented as of this encounter Care Teams Turkey Roll Maker Relationship Specialty Start Date End Date Name, MD Rajesh [address] [place] [address] PCP - General Family Medicine 07/04/21 Aida Nguyen PharmD [address] [place] [address] Pharmacist Internal Medicine 05/24/23 documented as of this encounter
--- OUTSIDE RECORDS SUMMARY | 2025-06-09 07:26 | XMS_ITS | Encounter Summary ---
Author Organization [employer] Address [address] [facility] 7t [place] [address] Care Team Providers Care Human Services Instructor Name Role Phone Name, Rajesh WESTBROOK Primary Care Provider [phone] Aida Nguyen PharmD Unavailable Encounter Details Date Type Department Care Team (Latest Contact Info) Description 06/08/2025 Travel Social History Tobacco Use Types Packs/Day [...] Description 08/18/2025 4:00 PM EST Office Visit [facility] MEDICINE [address] [place] [address] Name, MD Rajesh [address] [place] [address] documented as of this encounter Goals Goal [...] documented as of this encounter Care Teams Human Services Instructor Relationship Specialty Start Date End Date NameRajesh MD [address] [place] [address] PCP - General Family Medicine 07/04/21 Puia, Aida, PharmD [address] [place] [address] Pharmacist Internal Medicine 05/24/23 documented as of this encounter
--- OUTSIDE RECORDS SUMMARY | 2025-06-09 07:26 | XMS_ITS | Encounter Summary ---
Author Organization [employer] Address [address] [facility] 7 [place] [address] Care Team Providers Care Gill Box Tender Name Role Phone Name, Rajesh WESTBROOK Primary Care Provider [phone] Aida Nguyen PharmD Unavailable [phone] Reason for Visit * Reason Onset Date Comments Nurse Triage 08/30/2023 Encounter Details Date Type Department Care Team ([facility] st Contact Info) Description 08/30/2023 Telephone [facility] MEDICINE [address] [place], [place] [phone] Name, MD Rajesh [address] [place] [address] Nurse Triage Social History Tobacco Use Types [...] 4:41 PM EST T/C to pt. Through amBX id - [id number] for below message, Pt. States she is [...] time. Pt advised of disposition, agrees [place] [facility] now for exam to rule out [...] Chest pain The caller accepted this outcome Bhutanese Speaker documented in this encounter Plan of Treatment Upcoming Encounters Date Type Department Care Team (Late st Contact Info) Description 08/18/2025 4:00 PM EST Office Visit [facility] MEDICINE [address] [place] [address] Name, MD Rajesh [address] [place] [address] documented as of this encounter Goals Goal [...] documented as of this encounter Care Teams Gill Box Tender Relationship Specialty Start Date End Date Name, MD Rajesh [address] [place] [address] PCP - General Family Medicine 07/04/21 Puia, Aida, PharmD [address] [place] [address] Pharmacist Internal Medicine 05/24/23 documented as of this encounter
--- OUTSIDE RECORDS SUMMARY | 2025-06-09 07:26 | XMS_ITS | Clinical Summary ---
Author Organization [facility] Address [address] [place] [address] Care Team Providers Care Top Tile Decorator Name Role Phone Unavailable Primary Care Provider [...]
--- OUTSIDE RECORDS SUMMARY | 2025-06-09 07:26 | XMS_ITS | Patient Health Record ---
Author Organization [facility] Address [address] [place] [phone] Care Team Providers Care Membership Solicitor Name Role Phone Name Rajesh WESTBROOK Primary Care Provider Jose Diaz Unavailable [phone] Reason For Referral No Information Medications Medication SIG (Take, Route, Frequency, Duration) Notes Start Date End Date Status Omeprazole 40 MG TAKE 1 CAPSULE BY [facility] EVERY MORNING for 90 Active Esomeprazole [...] Status Risk Notes Problem Gastroesophageal reflux disease (288808913) Gastroesophageal reflux disease (K21.9) Active confirmed Problem Iron deficiency anemia (47546350) Iron deficiency anemia (D50.9) Active confirmed Problem [id number] Family history o f colon cancer (Z80.0) Active confirmed Problem Esophageal stricture (64490905) Esophageal stricture (K22.2) Active confirmed Problem 647014931 Microcytic anemi a (D50.9) Active confirmed Problem 408479122 Gastroesophageal reflux disease, unspecified whether esophagitis present [...] Insured Coverage Start Date Coverage End Date [facility] [address] [address] [place], [place] [id number] THOMAS LE Self - patient is the insured Medical (General) History Medical History History ICD Code Hypertension-being observed-not on meds as of the 09/06/21 OV Sleep apnea--no CPAP Anemia Denies OK,DM,CVA,Lung disease,renal dise ase Surgical History Surgery Date(Month/Year) BTL
--- OUTSIDE RECORDS SUMMARY | 2025-06-09 07:26 | XMS_ITS | Clinical Summary ---
Author Organization [employer] Address [address] [place] [address] 7[address] [place] [address] Care Team Providers Care Treasury Representative Name Role Phone Name, Rajesh WESTBROOK Primary Care Provider [phone] Aida Nguyen PharmD Unavailable [phone] Allergies No known active allergies Medications [...] Assessment & Plan (09/10/2023 12:41 PM EST): Atv Mechanic to restart omeprazole Atv Mechanic to reschedule appt with GI if symptoms continue Check H. Pylori test Essential hypertension 11/29/2022 Assessment & Plan (01/05/2025 4:23 PM EDT): Not controled Off hydrochlorothiazide since 03/2024 Review with PCP at 01/29/25 appointment Assessment & Plan (09/10/2023 12:43 PM EST): Uncontrolled hydrochlorothiazide recently started Atv Mechanic to take losartan 100 MG in the [...] Encounters Date Type Department Care Team Description 06/08/2025 3:00 PM EDT Telemedicine [facility] [address] [place] [id number] Ella Garvey, GABY Essential hypertension 06/08/2025 Travel 06/01/2025 Travel 05/25/2025 4:00 PM EDT Office Visit [facility] [address] [place] [phone] NameRajesh MD Essential hypertension (Primary Dx); Iron deficiency anemia, unspecified iron deficiency anemia type 05/25/2025 Travel 05/25/2025 Telephone [facility] [address] [place] [phone] Name, MD Rajesh CHART PREP 05/22/2025 Orders Only [facility] External Provider, [facility] 05/18/2025 Travel 05/06/2025 Telephone [facility] [address] [place] [address] Ella Garvey RN 04/30/2025 2:30 PM EDT Office Visit [facility] [address] [place] [address] Solo Rojo DDS 04/29/2025 Travel from Last [...] Description 08/18/2025 4:00 PM EST Office Visit [facility] [address] [place] [phone] Name, MD Rajesh [address] [place] [address] Health Maintenance Due Date Last Done Comments [...] 2021 Zoster Vaccines (1 of 2) 2021 COVID-19 Vaccine (3 - 2024- season) 2025 07/31/2021, 07/25/2021, 07/04/2021 Influenza Vaccine (#1) 2025 SDOH Screening 01/16/2026 01/16/2025 Dental X-Ray: Bitewings 02/19/2026 02/18/2025, 11/18 Disability Screening 05/18/2026 05/18/2025 Alcohol/Substance Use Screening 05/25/2026 05/25/2025 Depression Screening 05/25/2026 05/25/2025, 05/25/20 Tobacco Screening 05/25/2026 05/25/2025 Mammogram 06/03/2026 06/03/2025, 03/21/2023 Cervical Cancer Screening 08/09/2026 HPV/Cotest 08/09/2026 08/09/2021, [...] Procedure Name Priority Date/Time Associated Diagnosis Comments BI MAMMOGRAM SCREENING TOMOSYNTHESIS BILATERAL Routine 06/03/2025 1:45 PM EDT US PELVIS TRANSVAGINAL Routine 3:01 PM EDT NO CHARGE VISIT Routine [...] STANDARD Routine 03/11/2024 7:08 AM EDT HM COLONOSCOPY Routine 09/20/2021 3:35 PM EST HM PAP/HPV Routine 08/09/2021 HM PAP/HPV Routine 08/09/2021 from Last 3 Months or Most Recently Relevant to Health Maintenance Results * BI Mammogram Screening Tomosynthesis Bilateral (06/03/2025 1:45 PM EDT) Anatomical Region Laterality Modality Breast Bilateral Mammography 06/03/2025 1:45 PM EDT Narrative 06/05/2025 2:28 PM EDT [facility] [address] [place], [place] [address] Mammography Report Signed Patient: Veronica Wong MR#: [id number] : 1970 Acct:[id number] Age/Sex: 55 / F ADM Date: 06/03/25 Loc: HO.MAMMO Attending Dr: Wagner Malik MD Ordering Physician: Wagner Malik MD Results: 0Incompl ete: Needs Additional Imaging Evaluation Date of Service: 06/03/25 Follow Up: Additional Imagi ng Procedure(s): MM tomosynthesis screening BI Accession Number(s): [id number] cc: Brittany Pearson; Wagner Malik MD EXAMINATION: MM SCREENING DIGITAL BREAST TOMOSYNTHESIS, BILATERAL CLINICAL INFORMATION: Screening. Asymptomatic. COMPARISON: Mammography: Comparison is made with available priors TECHNIQUE: Digital breast mammography with tomosynthesis is performed in both the craniocaudal and mediolateral oblique views along with computer-aided detection (CAD). FINDINGS: There are scattered areas of fibroglandular density (ACR BI-RADS breast composition Category b). Left: Asymmetry superior breast posterior depth on MLO view. No suspicious calcifications or other abnormal findings. Right: There are no significant masses, abnormal calcifications, or other abnormalities. MM/MM tomosynthesis screening BI IMPRESSION: Additional imaging is recommended ASSESSMENT: BI-RADS BI-RADS 0 - Incomplete: Needs additional Imaging. RECOMMENDATION: 1. Additional views of the left breast. 2. Targeted ultrasound if warranted after review of the additional views. 3. Radiology department staff will contact the patient for additional imaging. Additional Imaging required This examination should not preclude the clinical evaluation of a suspicious palpable abnormality. This patient's information was entered into a reminder system with a target due date for their next mammogram. Electronically signed by: Carmella Correa DO 06/05/2025 02:25 PM EDT Dictated By: Carmella Correa DO Signed By: <Electronically signed by Carmella Correa DO in OV> 06/05/25 1425 DD/ 1345 TD/TT: 06/03/25 1410 Truck Washer: Procedure Note Donotnaheedinterpreter, Image - [facility]/05/[facility] [address] [place] [address] Mammography Report Signed Patient: Veronica WongMR#: [id number] : 1970Acct:[id number] Age/Sex: 55 / FADM Date: 06/03/25 Loc: HO.MAMMO Attending Dr: Wagner Malik MD Ordering Physician: Wagner Malik MDResults: 0Incompl ete: Needs Additional Imaging Evaluation Date of Service: 06/03/25Follow Up: Additional Imagi ng Procedure(s): MM tomosynthesis screening BI Accession Number(s): [id number] cc: Brittany Pearson; Wagner Malik MD EXAMINATION: MM SCREENING DIGITAL BREAST TOMOSYNTHESIS, BILATERAL CLINICAL INFORMATION: Screening. Asymptomatic. COMPARISON: Mammography: Comparison is made with available priors TECHNIQUE: Digital breast mammography with tomosynthesis is performed in both the craniocaudal and mediolateral oblique views along with computer-aided detection (CAD). FINDINGS: There are scattered areas of fibroglandular density (ACR BI-RADS breast composition Category b). Left: Asymmetry superior breast posterior depth on MLO view. No suspicious calcifications or other abnormal findings. Right: There are no significant masses, abnormal calcifications, or other abnormalities. MM/MM tomosynthesis screening BI IMPRESSION: Additional imaging is recommended ASSESSMENT: BI-RADS BI-RADS 0 - Incomplete: Needs additional Imaging. RECOMMENDATION: 1. Additional views of the left breast. 2. Targeted ultrasound if warranted after review of the additional views. 3. Radiology department staff will contact the patient for additional imaging. Additional Imaging required This examination should not preclude the clinical evaluation of a suspicious palpable abnormality. This patient's information was entered into a reminder system with a target due date for their next mammogram. Electronically signed by: Carmella Correa DO 06/05/2025 02:25 PM EDT RP Dictated By: Carmella Correa DO Signed By: <Electronically signed by Carmella Correa DO in OV> 06/05/25 1425 DD/ 1345 TD/TT: 06/03/25 1410 Truck Washer: [facility] External Provider IMG BI PROCEDURES Final Result * US Pelvis Transvaginal (05/22/2025 3:01 PM EDT) Anatomical Region Laterality Modality Pelvis Ultrasound 05/22/2025 3:01 PM EDT Narrative 05/22/2025 3:24 PM EDT [address] [address] Ultrasound Report Signed Patient: Veronica Wong MR#: [id number] : 1970 Acct:[id number] Age/Sex: 55 / F ADM Date: 05/22/25 Loc: HO.US Attending Dr: Wagner Malik MD Ordering Physician: Wagner Malik MD Date of Service: 05/22/25 Procedure(s): US pelvic and transvaginal Accession Number(s): [id number] cc: Rajesh Rdz MD; Wagner Malik MD EXAMINATION: US PELVIS CLINICAL [...] 05/22/25 1521 DD/ 1501 TD/TT: 05/22/25 1508 Truck Washer: Procedure Note Donotuseinterpreter, Image - 05/22/2025 [place] [address] Ultrasound Report Signed Patient: Veronica Wong#: [id number] : 1970Acct:[id number] Age/Sex: 55 / FADM Date: 05/22/25 Loc: HO.US Attending Dr: Wagner Malik MD Ordering Physician: Wagner Malik MD Date of Service: 05/22/25 Procedure(s): US pelvic and transvaginal Accession Number(s): [id number] cc: Rajesh Rdz MD; Wagner Malik MD EXAMINATION: US PELVIS CLINICAL [...] 05/22/25 1521 DD/ 1501 TD/TT: 05/22/25 1508 Truck Washer: [facility] External Provider IMG US PROCEDURES Final Result * TSH with Reflex to Free T4 (04/16/2025 10:12 AM EDT) TSH reflex Free T4 0.84 0.32 - 4.0 uIU/mL [facility] 04/16/2025 10:1 2 AM EDT 04/16/2025 10:12 AM EDT Generic External Data Provider LAB BLOOD ORDERAB LES Final Result [facility] [address] [place], [place] [phone] * hCG, Total, Quantitative (04/16/2025 10:12 AM EDT) HCG Quantitative <2 mIU/mL [facility] Comment:Weeks post LMP Appro ximate hCG(Last Menstrual Period) Range (mIU/ml)3 - 4 weeks 9 - 1304 - 5 weeks 75 - 2,6005 - 6 weeks 850 - 20,8006 - 7 weeks 4000 - 100,2007 - 12 weeks 11,500 - 289,54833 - 16 weeks 18,300 - 137,81324 - 29 weeks (2nd trimester) 1,400 - 53,26954 - 41 weeks (3rd trimester) 940 - [...] ORDERAB LES Final Result Performing Organization Address [facility] Co de Phone Number [facility] [address] [place] [phone] * LH (04/16/2025 10:12 AM EDT) Lutenizing Hormone 23.0 mIU/mL [facility] Comment:Reference Range Fol licular Phase 1.9-12.5 Mid-Cycle Peak 8.7-76.3 Luteal Phase 0.5-16.9 Postmenopausal 10.0-54.7THIS TEST WAS PERFORMED AT:[employer] [address] [employer] [place] [phone] JAVED MD 04/16/2025 10:1 2 AM EDT 04/16/2025 10:12 AM EDT Generic External Data Provider LAB BLOOD ORDERAB LES Final Result Performing Organization Address [facility]/ZIP Co de Phone Number [facility] [address] [place] [phone] * FSH (04/16/2025 10:12 AM EDT) Follicle Stimulating Hormone 39.3 mIU/mL [facility] Comment:Reference Range Foll icular Phase 2.5-10.2 Mid-cycle Peak 3.1-17.7 Luteal Phase 1.5- 9.1 Postmenopausal 23.0-116.3THIS TEST WAS PERFORMED AT:[employer] [address] [employer] [place] [phone] JAVED MD 04/16/2025 10:1 2 AM EDT 04/16/2025 10:12 AM EDT us Generic External Data Provider LAB BLOOD ORDERAB LES Final Result [facility] [address] [place] [phone] [phone] * Chlamydia/N. Gonorrhoeae RNA, TMA, Urogenitial (04/16/2025 9:05 AM EDT) CT PCR NOT DETECTED Not Detect. [facility] Comment:A not detected test result [...] psychologicalconsequences. NG PCR NOT DETECTED Not Detect. [facility] Comment:A not detected test result [...] LAB MICROBIOLOGY - GENERAL ORDERABLES Final Result Performing Organization Address [facility] Co de Phone Number [facility] [address] [place] [phone] * Lipid Panel, Standard (03/11/2024 7:08 AM EDT) Triglycerides 74 <150 mg/dL [facility] Comment:Desirable Triglyceri de: less than 150 mg/dLBorderline High Triglyceride 150-199 mg/dLHigh Triglyceride: 200-499 mg/dLVery High Triglyceride: greater than or equal to 5OO mg/dL Cholesterol 169 <200 mg/dL [facility] Comment:Desirable Cholestero l: less than 200 mg/dLBorderline High Cholesterol: 200-239 mg/dLHigh Cholesterol: greater than 239 mg/dL LDL Cholesterol Calculated 95 <100 mg/dL [facility] Comment:Desirable LDL: less than 100 mg/dLNear Optimal/Above Optimal LDL: 110- 129 mg/dLBorderline High LDL: 130-159 mg/dLHigh LDL: 160-189 mg/dLVery High LDL: greater than or equal to 190 mg/dL HDL Cholesterol 60 >40 mg/dL [facility] Comment:Desirable HDL: great er than 40 mg/dL Note: This HDL assay may give artificially low results in patients with liver disease. 03/11/2024 7:08 AM EDT 03/11/2024 7:08 AM EDT us Rajesh Rdz MD LAB BLOOD ORDERABLES Final Resul t Performing Organization Address [facility] Co de Phone Number [facility] [address] [place] [phone] * Colonoscopy (09/20/2021 3:35 PM EST) Colonoscopy Normal Normal Narrative Laura Goodwin - 09/20/2021 3:35 PM EST Recommended 5 year follow up Historical Provider MD HEALTH MAINTENANCE Final Result * Pap Smear (08/09/2021) Only the most recent of2 resultswithin the time period is included. Pap Negative for intraephithelial lesion or malignancy Negative for intraephithelial lesion or malignancy, Other HPV Undetected Caro Hocking HEALTH MAINTENANCE Final Result from Last 3 Months or Most Recently Relevant to Health Maintenance Insurance [address] [address] [email or web address] [employer] [facility] Address: [facility] [address] [place] [address] DENTAL - HSN PARTIAL (MEDICAID) Care Teams Treasury Representative Relationship Specialty Start Date End Date Name, MD Rajesh [address] [place] [address] PCP - General Family Medicine 07/04/21 Aida Nguyen PharmD [address] [place] [address] Pharmacist Internal Medicine 05/24/23
--- OUTSIDE RECORDS SUMMARY | 2025-06-09 07:26 | XMS_ITS | Encounter Summary ---
Author Organization [employer] Address [address] [place] [address] [address] [place] [address] Care Team Providers Care State Auditor Name Role Phone Name, Rajesh WESTBROOK Primary Care Provider [phone] Aida Nguyen PharmD Unavailable [phone] Reason for Visit * Reason Onset Date Comments stating 10/12/2022 Encounter Details Date Type Department Care Team ([facility] st Contact Info) Description 10/12/[address] [facility] [address] [place], [place] [phone] Name, MD Rajesh [address] [place] [address] stating Social History Tobacco Use Types Packs/Day [...] - 10/12/2022 9:28 AM EST Tc from [facility] [place] [facility] with [facility] stating they do not take pt health insurance and cant be seen at practice. documented in this encounter Plan of Treatment Upcoming Encounters Date Type Department Care Team (Late st Contact Info) Description 08/18/2025 4:00 PM EST Office Visit [facility] [address] [place] [address] Name, MD Rajesh [address] [place] [phone] documented as of this encounter Visit Diagnoses Not on filedocumented in this encounter Care Teams State Auditor Relationship Specialty Start Date End Date Name, MD Rajesh [address] [place] [phone] PCP - General Family Medicine 07/04/21 Aida Nguyen PharmD [address] [place] [phone] Pharmacist Internal Medicine 05/24/23 documented as of this encounter
--- NOTE | 2025-06-09 07:30 | A.OFFVIS_ITS ---
Vital Signs 06/09/25 07:34 Height 5 ft 5 in Weight 200 lb BMI 33.3 BP 124/92 H Intake Visit Reasons: US follow up/EMB Mat Linker Required: Yes Mat Linker Language: Waste Elimination Services: Mat Linker Present (in person) Mat Linker Name: Mitzi NERI Information Interpreted: non-clinical & clinical Retail Cashier Associate: Retail Cashier Associate Present (Mitzi NERI) Accompanied by: Spouse Allergies No Known Allergies Allergy (Verified 06/09/25 07:42) Post menopausal: Yes HPI Comments Details: Presenting for EMB [facility] Medical History COVID-19 Hypertension Surgical History Hx of colonoscopy History of esophagogastroduodenoscopy (EGD) Tubal ligation status Family History Father Mother Multiple myeloma Father Colon cancer Social History Household Members: Spouse Housing: House Alcohol intake: never Patient Tobacco Use Status: Never used Tobacco Current occupational status: employed 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 Gender identity: Female Female Reproductive History Menstrual Age of Menarche: 16 Review of Systems Const All systems reviewed & are unremarkable except as noted in HPI and below Reports as per HPI and Reports no additional complaints GI Reports no additional complaints Reports no additional complaints Physical Exam Vital Signs: Last Vital Signs BP 124/92 H 06/09/25 07:34 BMI result Body Mass Index 33.3 Office Procedures Endometrial Biopsy Details: The patient was counseled regarding the indication and benefits of endometrial sampling to rule out endometrial pathology including not limited to endometrial hyperplasia or endometrial cancer and others; The alternatives (Either do nothing vs. hysteroscopy D&C) & the risks were discussed with the patient including but not limited: pain, uterine perforation, bleeding, infection, possible injury to bladder, bowel, ureter, possible need for blood transfusion with all its possible risks. The patient verbalized understanding all questions answered and signed consent. Urine test done in the office was negative The patient was placed into the dorsal lithotomy position; a speculum was inserted in the vagina. Using aseptic technique for the procedure, the cervix was cleansed with Betadine. The anterior lip of the cervix was grasped with a single tooth tenaculum. The uterus was sounded to 7 cm with a 4 mm Pipelle was used. Tissues samples were obtained and placed in formalin, in a patient labeled container and sent to the pathology department. At the end of the procedure, there was minimal bleeding noted The patient tolerated the procedure well and was discharged in good condition with the following instructions: Nothing in the vagina until the bleeding stops. No sex until the bleeding stops, to call if any of the following occurs: fever (>100.4), flu-like symptoms, abdominal pain, heavy bleeding, four smelling vaginal discharge. The patient was instructed to schedule a Follow up appointment in 2 weeks to discuss pathology results of the biopsy and treatment options. This note was generated with a voice recognition program. Some errors may have been overlooked during the review of this note. Sometimes these errors may affect the content or meaning of a given sentence. 47835-[id number] Biopsy Assessment & Plan Assessment & Plan (1) Abnormal uterine bleeding (AUB): Code(s): N93.9 - Abnormal uterine and vaginal bleeding, unspecified Category: Medical Plan: EMB done, see procedure note Orders: Orders AMB Endometrial Biopsy Today N93.9 - Abnormal uterine and vaginal bleeding, unspecified Coding Level of Care Code Procedure Only Diagnoses Abnormal uterine bleeding (AUB) N93.9 CPT Codes Endometrial Biopsy - CPT: 30608-Reoaefbbnyt Biopsy ([id number])
[2025-06-09 07:34] VITALS: BP 124/92; BMI 33.3
== END 2025-06-09 07:42 | disposition home or self-care (01) ==
LOC: HO.HWS 07:25
PROVIDERS: PCP General Practice; Visit Provider Obstetrics & Gynecology
DX: N93.9 Abnormal uterine and vaginal bleeding, unspecified (principal)
CPT/HCPCS: 58100

== ENCOUNTER 2025-06-18 09:25 | Outpatient (AMB) | payer OTHER, SELFPAY ==
--- NOTE | 2025-06-18 09:39 | A.OFFVIS_ITS ---
Vital Signs 06/18/25 09:45 Height 5 ft 5 in Weight 200 lb BMI 33.3 BP 148/90 H Intake Visit Reasons: Pre op It Consulting Manager Required: Yes It Consulting Manager Language: Obstetrics Gynecology Md Services: It Consulting Manager Present (in person) It Consulting Manager Name: Mitzi NERI Information Interpreted: non-clinical & clinical Bond Runner: Bond Runner Present (Mitzi NERI) Accompanied by: Self / Same As Patient Allergies No Known Allergies Allergy (Verified 06/18/25 09:46) Is last menstrual period known: Yes Last menstrual period: 06/03/25 Post menopausal: No Patient : No Do you need a note to return to daycare/school/sports/work: Yes (for surgery on sunday) HPI Comments Details: The patient is presenting after endometrial biopsy. The patient has no complaints, no vaginal bleeding, no feverishness chills or abdominal pain. 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 Gender identity: Female Female Reproductive History Menstrual Age of Menarche: 16 Date of last menstrual period: 06/03/25 Total pregnancies: 2 Full term: 2 History of abnormal pap smear: No History of abnormal mammogram: No Review of Systems Card Reports as per HPI and Reports no additional complaints Resp Reports as per HPI and Reports no additional complaints GI Reports as per HPI and Reports no additional complaints Reports as per HPI Physical Exam Vital Signs: Last Vital Signs BP 148/90 H 06/18/25 09:45 BMI result Body Mass Index 33.3 Const General: cooperative, healthy appearing and comfortable Resp Effort & Inspection: normal respiratory effort Auscultation: clear to auscultation bilaterally Percussion: percussion normal Cardio Palpation: normal PMI Rate: regular rate Rhythm: regular rhythm Heart sounds: no murmurs and no rubs Peripheral pulses: Peripheral pulses 2+ throughout GI Inspection: Yes normal to inspection Palpation (GI): Soft to palpation, nontender, no guarding, not rigid and No hepatosplenomegaly present Percussion: Yes normal to percussion Auscultation: normal bowel sounds Rectal Exam - Female: deferred Assessment & Plan Assessment & Plan (1) Abnormal uterine bleeding (AUB): Comment: Fragments of Endometrial polyp on EMB pathology Code(s): N93.9 - Abnormal uterine and vaginal bleeding, unspecified Category: Medical Plan: Discussed with the patient the results of endometrial pathology showing fragments of endometrial polyp, recommended hysteroscopy D&C possible polypectomy/myomectomy. Discussed with the patient the procedure , all benefits and risks including but not limited to inability to complete the procedure , insufficient endometrial tissue for a complete evaluation of the endometrial cavity , bleeding, infection, possible need for blood transfusion with all its risk ( HIV,syphilis, Hepatitis, anaphylaxis shock, others..), injury to bladder, rectum, possible need for laparoscopy/laparotomy or hysterectomy. The patient verbalized understanding and signed the consent. Instructions given the patient to stay NPO after midnight the day prior to the procedure and to take only the specific medication (s) discussed the morning of the surgical procedure and to schedule a 2 week postoperative appointment Coding Level of Care Code Est Pt Level 3 (54918) Diagnoses Abnormal uterine bleeding (AUB) N93.9
[2025-06-18 09:45] VITALS: BP 148/90; BMI 33.3
--- OUTSIDE RECORDS SUMMARY | 2025-06-18 11:01 | XMS_ITS | Clinical Summary ---
Author Organization [facility] Address [address] [place] [address] Care Team Providers Care Product Development Assistant Name Role Phone Sarai Sharp MD Primary Care Provider [phone] Allergies No known active allergies Medications cyclobenzaprine [...] of Treatment Not on file Care Teams Product Development Assistant Relationship Specialty Start Date End Date Sarai Sharp MD PCP - General Internal Medicine 10/03/16
--- OUTSIDE RECORDS SUMMARY | 2025-06-18 11:01 | XMS_ITS | Encounter Summary ---
Author Organization [employer] Address [address] [facility] 7 [place] [address] Care Team Providers Care Chief Optometry Service Name Role Phone Name, Rajesh WESTBROOK Primary Care Provider [phone] Aida Nguyen PharmD Unavailable [phone] Reason for Visit * Reason Onset Date Comments Nurse Triage 08/30/2023 Encounter Details Date Type Department Care Team ([facility] st Contact Info) Description 08/30/2023 Telephone [facility] [address] [place], [place] [phone] Name, MD Rajesh [address] [place] [address] Nurse Triage Social History Tobacco Use Types [...] 4:41 PM EST T/C to pt. Through [employer] id - [id number] for below message, Pt. States she is [...] time. Pt advised of disposition, agrees to [facility] ED now for exam to rule out [...] Chest pain The caller accepted this outcome Barbadian Speaker documented in this encounter Plan of Treatment Upcoming Encounters Date Type Department Care Team (Late st Contact Info) Description 08/18/2025 4:00 PM EST Office Visit [facility] [address] [place] [address] Name, MD Rajesh [address] [place] [address] documented as of this encounter Goals Goal [...] documented as of this encounter Care Teams Chief Optometry Service Relationship Specialty Start Date End Date Name, MD Rajesh [address] [place] [phone] PCP - General Family Medicine 07/04/21 Puia, Aida, PharmD [address] [place] [address] Pharmacist Internal Medicine 05/24/23 documented as of this encounter
--- OUTSIDE RECORDS SUMMARY | 2025-06-18 11:01 | XMS_ITS | Encounter Summary ---
Author Organization [employer] Address [address] [facility] 7t [place] [address] Care Team Providers Care Enterprise Business Architect Name Role Phone Name, Rajesh WESTBROOK Primary Care Provider [phone] Aida Nguyen PharmD Unavailable [phone] Encounter Details Date Type Department Care Team (Late st Contact Info) Description 01/06/2025 Orders Only [facility] [address] [place], [place] [phone] Brittany Pearson MD [address] [place], [place] [phone] Social History Tobacco Use Types Packs/Day Years [...] 08/18/2025 4:00 PM EST Office Visit [facility] [address] [place] [address] Name, MD Rajesh [address] [place] [address] documented as of this encounter Goals Goal [...] 10:12 AM EDT) Lutenizing Hormone 23.0 mIU/mL [facility] Comment:Reference Range Foll icular Phase 1.9-12.5 Mid-Cycle Peak 8.7-76.3 Luteal Phase 0.5-16.9 Postmenopausal 10.0-54.7THIS TEST WAS PERFORMED AT:[facility] [place] [id number] JAVED MD 04/16/2025 10:1 2 AM EDT 04/16/2025 10:12 AM EDT Generic External Data Provider LAB BLOOD ORDERAB LES Final Result Performing Organization Address [facility] Co de Phone Number [facility] [address] [place] [phone] * FSH (04/16/2025 10:12 AM EDT) Follicle Stimulating Hormone 39.3 mIU/mL [facility] Comment:Reference Range Foll icular Phase 2.5-10.2 Mid-cycle Peak 3.1-17.7 Luteal Phase 1.5- 9.1 Postmenopausal 23.0-116.3THIS TEST WAS PERFORMED AT:[facility] [address] [phone] JAVED MD 04/16/2025 10:1 2 AM EDT 04/16/2025 10:12 AM EDT us Generic External Data Provider LAB BLOOD ORDERAB LES Final Result Performing Organization Address City/[facility]/ZIP Co de Phone Number [facility] [address] [place] [address] [phone] * hCG, Total, Quantitative (04/16/2025 10:12 AM EDT) HCG Quantitative <2 mIU/mL [facility] Comment:Weeks post LMP Appro ximate hCG(Last Menstrual Period) Range (mIU/ml)3 - 4 weeks 9 - 1304 - 5 weeks 75 - 2,6005 - 6 weeks 850 - 20,8006 - 7 weeks 4000 - 100,2007 - 12 weeks 11,500 - 289,46993 - 16 weeks 18,300 - 137,18187 - 29 weeks (2nd trimester) 1,400 - 53,96904 - 41 weeks (3rd trimester) 940 - [...] ORDERAB LES Final Result Performing Organization Address City/[facility]/ZIP Co de Phone Number [facility] [address] [place] [phone] * TSH with Reflex to Free T4 (04/16/2025 10:12 AM EDT) TSH reflex Free T4 0.84 0.32 - 4.0 uIU/mL [facility] 04/16/2025 10:1 2 AM EDT 04/16/2025 10:12 AM EDT us Generic External Data Provider LAB BLOOD ORDERAB LES Final Result Performing Organization Address City/[facility]/ZIP Co de Phone Number [facility] [address] [place] [address] [phone] * Chlamydia/N. Gonorrhoeae RNA, TMA, Urogenitial (04/16/2025 9:05 AM EDT) CT PCR NOT DETECTED Not Detect. [facility] Comment:A not detected test result [...] psychologicalconsequences. NG PCR NOT DETECTED Not Detect. [facility] Comment:A not detected test result [...] LAB MICROBIOLOGY - GENERAL ORDERABLES Final Result [facility] [address] [place] [address] [phone] documented in this encounter Visit Diagnoses Not on filedocumented in this encounter Additional Health Concerns Assessment Noted Time PHQ-9 Depression Total Score: 0 05/19/20 24 3:43 PM EDT documented as of this encounter Care Teams Enterprise Business Architect Relationship Specialty Start Date End Date Name, MD Rajesh [address] [place] [address] PCP - General Family Medicine 07/04/21 Aida Nguyen PharmD [address] [place] [address] Pharmacist Internal Medicine 05/24/23 documented as of this encounter
--- OUTSIDE RECORDS SUMMARY | 2025-06-18 11:01 | XMS_ITS | Patient Health Record ---
Author Organization [facility] Address [address] [place] [phone] Care Team Providers Care Accelerator Operator Name Role Phone Name Rajesh WESTBROOK Primary Care Provider Jose Diaz Unavailable [phone] Reason For Referral No Information Medications Medication SIG (Take, Route, Frequency, Duration) Notes Start Date End Date Status Omeprazole 40 MG TAKE 1 CAPSULE BY [facility] EVERY MORNING for 90 Active [...] Status Risk Notes Problem Gastroesophageal reflux disease (416660852) Gastroesophageal reflux disease (K21.9) Active confirmed Problem Iron deficiency anemia (15992017) Iron deficiency anemia (D50.9) Active confirmed Problem [id number] Family history o f colon cancer (Z80.0) Active confirmed Problem Esophageal stricture (24552036) Esophageal stricture (K22.2) Active confirmed Problem [id number] Microcytic anemi a (D50.9) Active confirmed Problem [id number] Gastroesophageal reflux disease, unspecified whether esophagitis present [...] Insured Coverage Start Date Coverage End Date [facility] [address] [address] [place], [place] [id number] THOMAS LE Self - patient is the insured Medical (General) History Medical History History ICD Code Hypertension-being observed-not on meds as of the 09/06/21 OV Sleep apnea--no CPAP Anemia Denies [place],DM,CVA,Lung disease,renal dise ase Surgical History Surgery Date(Month/Year) BTL
--- OUTSIDE RECORDS SUMMARY | 2025-06-18 11:01 | XMS_ITS | Encounter Summary ---
Author Organization [employer] Address [address] [place] [address] 7t [place] [address] Care Team Providers Care Metal Grader Name Role Phone Name, Rajesh WESTBROOK Primary Care Provider [phone] Aida Nguyen PharmD Unavailable [phone] Encounter Details Date Type Department Care Team ([facility] Contact Info) Description 03/12/2023 Abstract [facility] MED[facility]INE [address] [place], [place] [phone] Name, MD Rajesh [address] [place] [address] Social History Tobacco Use Types Packs/Day Years [...] Upcoming Encounters Date Type Department Care Team ([facility] Contact Info) Description 08/18/2025 4:00 PM EST Office Visit [facility] [address] [place] [address] Name, [place] [address] documented as of this encounter Procedures Procedure [...] documented as of this encounter Care Teams Metal Grader Relationship Specialty Start Date End Date Name, MD Rajesh [address] [facility] [place] [address] PCP - General Family Medicine 07/04/21 Aida Nguyen PharmD [address] [place] [address] Pharmacist Internal Medicine 05/24/23 documented as of this encounter
--- OUTSIDE RECORDS SUMMARY | 2025-06-18 11:01 | XMS_ITS | Clinical Summary ---
Author Organization [employer] Address [address] [place] [address] 7t [place] [address] Care Team Providers Care Bulk Mail Technician Name Role Phone Name, Rajesh WESTBROOK Primary Care Provider [phone] Aida Nguyen PharmD Unavailable [phone] Allergies No known active allergies Medications [...] Assessment & Plan (09/10/2023 12:41 PM EST): Outsole Splicer to restart omeprazole Outsole Splicer to reschedule appt with GI if symptoms continue Check H. Pylori test Essential hypertension 11/29/2022 Assessment & Plan (01/05/2025 4:23 PM EDT): Not controled Off hydrochlorothiazide since 03/2024 Review with PCP at 01/29/25 appointment Assessment & Plan (09/10/2023 12:43 PM EST): Uncontrolled hydrochlorothiazide recently started Outsole Splicer to take losartan 100 MG in the [...] Encounters Date Type Department Care Team Description 06/09/2025 Orders Only GENERIC EXTERNAL DATA DEPARTMENT Provider, Generic External Data 06/08/2025 3:00 PM EDT Telemedicine [facility] [address] [place] [address] Ella Garvey RN Essential hypertension 06/08/2025 Travel 06/01/2025 Travel 05/25/2025 4:00 PM EDT Office Visit [facility] [address] [place] [address] Rajesh Rdz MD Essential hypertension (Primary Dx); Iron deficiency anemia, unspecified iron deficiency anemia type 05/25/2025 Travel 05/25/2025 Telephone [facility] [address] [place] [address] Rajesh Rdz MD CHART PREP 05/22/2025 Orders Only [facility] External Provider, [facility] 05/18/2025 Travel 05/06/2025 Telephone [facility] [address] [place] [address] Ella Garvey RN 04/30/2025 2:30 PM EDT Office Visit [facility] ADULT DENTAL [address] [place] [address] Solo Rojo DDS 04/29/2025 Travel from Last [...] Description 08/18/2025 4:00 PM EST Office Visit [facility] [address] [place] [address] Name, MD Rajesh [address] [place] [address] Health Maintenance Due Date Last Done Comments [...] of 2) 2021 COVID-19 Vaccine (3 - season) 2025 07/31/2021, 07/25/2021, 07/04/2021 Influenza Vaccine (#1) 2025 SDOH Screening 01/16/2026 01/16/2025 Dental X-Ray: Bitewings 02/19/2026 02/18/2025, 11/18 Disability Screening 05/18/2026 05/18/2025 Alcohol/Substance Use Screening 05/25/2026 05/25/2025 Depression Screening 05/25/2026 05/25/2025, 05/25/20 Tobacco Screening 05/25/2026 05/25/2025 Mammogram 06/03/2026 06/03/2025, 03/21/2023 Cervical Cancer Screening 08/09/2026 HPV/Cotest 08/09/2026 08/09/2021, 110 06/2021, 08/09/2021, Additional history exists Pap Smear [...] Procedure Name Priority Date/Time Associated Diagnosis Comments HEMATOXYLIN AND EOSIN STAIN Routine 06/09/2025 7:42 AM EDT BI MAMMOGRAM SCREENING TOMOSYNTHESIS BILATERAL Routine 06/03/2025 [...] 3:35 PM EST HM PAP/HPV Routine 08/09/2021 PAP/HPV Routine 08/09/2021 from Last 3 Months or Most Recently Relevant to Health Maintenance Results * Hematoxylin and Eosin Stain (06/09/2025 7:42 AM EDT) 06/09/2025 7:42 AM EDT 06/10/2025 6:58 AM EDT [facility] - 06/11/2025 2:32 PM EDT ----- ------- Name: Vreonica Wong Age/Sex: 55/F : 1970 Unit#: [id number] Attend Dr: Wagner Malik MD Re06/09/25 Status: DEP REF Location: [facility] Disch: ----- ------- SPEC : [id number] RECD: 06/10/25 STATUS: HENRI MOREJON NUM: [id number] TYE: 06/09/[address] [facility] [address]: Wagner Malik MD ENTERED: 06/10/25 SP TYPE: Surgical OTHR DR: Brittany Pearson ORDERED: HE Stain/2, Gross Micro L4 Diagnosis Endometrium, biopsy: Superficial fragments of inactive endometrium and blood; small fragment with features of endometrial polyp; no atypia identified. Clinical History AUB Microscopic Description Microscopic sections reviewed. Material Received EMB Gross Description Received in formalin labeled EMB are multiple irregular and tubular cast fragments of congested and hemorrhagic red-maroon tissue, mucus and blood aggregating 1.8 x 1.5 x 0.45 cm, submitted in toto in a cassette labeled A. CEDS IHC S/NG Disclaimer NOTE: Unless otherwise stated, all tissue is formalin-fixed and paraffin-embedded. Some or all of the immunohistochemical tests reported herein may have been developed and their performance characteristics determined by [facility]. They have not been cleared or approved by the U.S. Food and Drug Administration (FDA). However, the FDA has determined that such clearance or approval is not necessary. This laboratory is certified under the Clinical Laboratory Improvement Amendments of 1988 (CLIA) as qualified to perform high complexity clinical laboratory testing. Copies To: Brittany Pearson [address] [place] [id number] CONTINUED ON NEXT PAGE ----- ------- Name: Veronica Wong Age/Sex: 55/F : 1970 Unit#: [id number] Attend Dr: Wagner Malik MD Re06/09/25 Status: [facility] REF Location: [facility] Disch: ----- ------- SPEC : [id number] RECD: 06/10/25 STATUS: HENRI MOREJON NUM: [id number] TYE: 06/09/[address] [facility] [address]: Wagner Malik MD ENTERED: 06/10/25 SP TYPE: Surgical OTHR DR: Brittany Pearson ORDERED: HE Stain/2, Gross Micro L4 Copies To: (Continued) Wagner Malik MD [facility] [address] [place] [address] ----- ------- Signed (signature on file) Chano Tinoco MD 06/11/25 1432 ----- ------- END OF REPORT us Generic External Data Provider LAB BLOOD ORDERAB LES Final Result [facility] [address] [place] [address] [phone] * BI Mammogram Screening Tomosynthesis Bilateral (06/03/2025 1:45 PM EDT) Anatomical Region Laterality Modality Breast Bilateral Mammography 06/03/2025 1:45 PM EDT Narrative 06/05/2025 2:28 PM EDT [address] [place], [place] [phone] Mammography Report Signed Patient: Veronica Wong MR#: [id number] : 1970 Acct:[id number] Age/Sex: 55 / F ADM Date: 06/03/25 Loc: HO.MAMMO Attending Dr: Wagner Mailk MD Ordering Physician: Wagner Malik MD Results: 0Incompl ete: Needs Additional Imaging Evaluation Date of Service: 06/03/25 Follow Up: Additional Imagi ng Procedure(s): MM tomosynthesis screening BI Accession Number(s): [id number] cc: Brittany Pearson; Wagner Malik MD EXAMINATION: [...] 06/05/25 1425 DD/ 1345 TD/TT: 06/03/25 1410 Manager Of International: Procedure Note Donotuseinterpreter, Image - 06/05/2025 [facility] [address] [place] [address] Mammography Report Signed Patient: Veronica Wong#: [id number] : 1970Acct:[id number] Age/Sex: 55 / FADM Date: 06/03/25 Loc: HO.MAMMO Attending Dr: Wagner Malik MD Ordering Physician: Wagner Malik MDResults: 0Incompl ete: Needs Additional Imaging Evaluation Date of Service: 06/03/25Follow Up: Additional Imagi ng Procedure(s): MM tomosynthesis screening BI Accession Number(s): [id number] cc: Brittany Pearson; Wagner Malik MD EXAMINATION: [...] 06/05/25 1425 DD/ 1345 TD/TT: 06/03/25 1410 Manager Of International: [facility] External Provider IMG BI PROCEDURES Final Result * US Pelvis Transvaginal (05/22/2025 3:01 PM EDT) Anatomical Region Laterality Modality Pelvis Ultrasound 05/22/2025 3:01 PM EDT Narrative 05/22/2025 3:24 PM EDT [address] [address] Ultrasound Report Signed Patient: Veronica Wong MR#: [id number] : 1970 Acct:[id number] Age/Sex: 55 / F ADM Date: 05/22/25 Loc: HO.US Attending Dr: Wagner Malik MD Ordering Physician: Wagner Malik MD Date of Service: 05/22/25 Procedure(s): US pelvic and transvaginal Accession Number(s): [id number] cc: Rajesh Rdz MD; Wagner Malik MD [...] 05/22/25 1521 DD/ 1501 TD/TT: 05/22/25 1508 Manager Of International: Procedure Note Donotuseinterpreter, Image - 05/22/2025 [place] [address] Ultrasound Report Signed Patient: Veronica WongMR#: [id number] : 1970Acct:[id number] Age/Sex: 55 / FADM Date: 05/22/25 Loc: HO.US Attending Dr: Wagner Malik MD Ordering Physician: Wagner Malik MD Date of Service: 05/22/25 Procedure(s): US pelvic and transvaginal Accession Number(s): [id number] cc: Name,Rajesh WESTBROOK; Wagner Malik MD EXAMINATION: [...] 05/22/25 1521 DD/ 1501 TD/TT: 05/22/25 1508 Manager Of International: us [facility] External Provider IMG US PROCEDURES Final Result * TSH with Reflex to Free T4 (04/16/2025 10:12 AM EDT) TSH reflex Free T4 0.84 0.32 - 4.0 uIU/mL [facility] 04/16/2025 10:1 2 AM EDT 04/16/2025 10:12 AM EDT us Generic External Data Provider LAB BLOOD ORDERAB LES Final Result Performing Organization Address City/State/[facility] Co de Phone Number [facility] [address] [place] [phone] * hCG, Total, Quantitative (04/16/2025 10:12 AM EDT) HCG Quantitative <2 mIU/mL [facility] Comment:Weeks post LMP Appro ximate hCG(Last Menstrual Period) Range (mIU/ml)3 - 4 weeks 9 - 1304 - 5 weeks 75 - 2,6005 - 6 weeks 850 - 20,8006 - 7 weeks 4000 - 100,2007 - 12 weeks 11,500 - 289,46630 - 16 weeks 18,300 - 137,67582 - 29 weeks (2nd trimester) 1,400 - 53,71141 - 41 weeks (3rd trimester) 940 - [...] Final Result Performing Organization Address [facility]/ZIP Co de Phone Number [facility] [address] [place] [phone] * LH (04/16/2025 10:12 AM EDT) Lutenizing Hormone 23.0 mIU/mL [facility] Comment:Reference Range Foll icular Phase 1.9-12.5 Mid-Cycle Peak 8.7-76.3 Luteal Phase 0.5-16.9 Postmenopausal 10.0-54.7THIS TEST WAS PERFORMED AT:[employer] [place] [id number] JAVED MD 04/16/2025 10:1 2 AM EDT 04/16/2025 10:12 AM EDT us Generic External Data Provider LAB BLOOD ORDERAB LES Final Result Performing Organization Address [facility] Co de Phone Number [facility] [address] [place] [phone] * FSH (04/16/2025 10:12 AM EDT) Follicle Stimulating Hormone 39.3 mIU/mL [facility] Comment:Reference Range Foll icular Phase 2.5-10.2 Mid-cycle Peak 3.1-17.7 Luteal Phase 1.5- 9.1 Postmenopausal 23.0-116.3THIS TEST WAS PERFORMED AT:[employer] [address] [phone] JAVED MD 04/16/2025 10:1 2 AM EDT 04/16/2025 10:12 AM EDT us Generic External Data Provider LAB BLOOD ORDERAB LES Final Result Performing Organization Address City/[facility]/ZIP Co de Phone Number [facility] [address] [place] [phone] * Chlamydia/N. Gonorrhoeae RNA, TMA, Urogenitial (04/16/2025 9:05 AM EDT) CT PCR NOT DETECTED Not Detect. [facility] Comment:A not detected test result [...] psychologicalconsequences. NG PCR NOT DETECTED Not Detect. [facility] Comment:A not detected test result [...] LAB MICROBIOLOGY - GENERAL ORDERABLES Final Result [facility] [address] [place] [phone] * Lipid Panel, Standard (03/11/2024 7:08 AM EDT) Triglycerides 74 <150 mg/dL [facility] Comment:Desirable Triglyceri de: less than 150 mg/dLBorderline High Triglyceride 150-199 mg/dLHigh Triglyceride: 200-499 mg/dLVery High Triglyceride: greater than or equal to 5OO mg/dL Cholesterol 169 <200 mg/dL [facility] Comment:Desirable Cholestero l: less than 200 mg/dLBorderline High Cholesterol: 200-239 mg/dLHigh Cholesterol: greater than 239 mg/dL LDL Cholesterol Calculated 95 <100 mg/dL [facility] Comment:Desirable LDL: less than 100 mg/dLNear Optimal/Above Optimal LDL: 110- 129 mg/dLBorderline High LDL: 130-159 mg/dLHigh LDL: 160-189 mg/dLVery High LDL: greater than or equal to 190 mg/dL HDL Cholesterol 60 >40 mg/dL [facility] Comment:Desirable HDL: great er than 40 mg/dL Note: This HDL assay may give artificially low results in patients with liver disease. 03/11/2024 7:08 AM EDT 03/11/2024 7:08 AM EDT Rajesh Rdz MD LAB BLOOD ORDERABLES Final Resul t [facility] [address] [place] [address] [phone] * Colonoscopy (09/20/2021 3:35 PM EST) Colonoscopy Normal Normal Narrative Laura Goodwin - 09/20/2021 3:35 PM EST Recommended 5 year follow up Historical Provider HEALTH MAINTENANCE Final Result * Pap Smear (08/09/2021) Only the most recent of2 resultswithin the time period is included. Pap Negative for intraephithelial lesion or malignancy Negative for intraephithelial lesion or malignancy, Other HPV Undetected us Caro Smith HEALTH MAINTENANCE Final Result from Last 3 Months or Most Recently Relevant to Health Maintenance Insurance [facility] - [place] PARTIAL (MEDICAID) Care Teams Bulk Mail Technician Relationship Specialty Start Date End Date Name, MD Rajesh [address] [place] [address] PCP - General Family Medicine 07/04/21 Aida Nguyen, JimenezD [address] [place] [address] [place] [phone] Pharmacist Internal Medicine 05/24/23
--- OUTSIDE RECORDS SUMMARY | 2025-06-18 11:01 | XMS_ITS | Encounter Summary ---
Author Organization [facility] Address [address] [place] [address] 7 [place] [address] Care Team Providers Care Shuttler Name Role Phone Name, Rajesh WESTBROOK Primary Care Provider [phone] Aida Nguyen PharmD Unavailable [phone] Encounter Details Date Type Department Care Team (Late Contact Info) Description 06/22/2023 Orders Only [facility] MEDICINE [address] [place] [phone] Provider, MD Dinh Social History Tobacco [...] Description 08/18/2025 4:00 PM EST Office Visit [facility] MED[facility]INE [address] [place] [address] [phone] Name, MD Rajesh [address] [place] [address] documented as of this encounter Goals Goal [...] documented as of this encounter Care Teams Shuttler Relationship Specialty Start Date End Date Name, MD Rajesh [address] [place] [address] PCP - General Family Medicine 07/04/21 Aida Nguyen PharmD [address] [place] [address] Pharmacist Internal Medicine 05/24/23 documented as of this encounter
--- OUTSIDE RECORDS SUMMARY | 2025-06-18 11:02 | XMS_ITS | Clinical Summary ---
Author Organization [facility] ity Address [address] [place] [address] Care Team Providers Care Kiln Operator Helper Name Role Phone Unavailable Primary Care Provider [...] 2) 2021 Depression Screening 10/01/2024 COVID-19 Vaccine (1 - 2023-2 5 season) 2025 Influenza Vaccine (#1) 2025 RSV Immunization Adult Patie nts (1 - 1-dose 75+ series) 2046 HIB [...]
--- OUTSIDE RECORDS SUMMARY | 2025-06-18 11:02 | XMS_ITS | Encounter Summary ---
Author Organization [id number] Address [address] [place] [address] [address] [place] [address] Care Team Providers Care Surveyor Helper Name Role Phone Name, Rajesh WESTBROOK Primary Care Provider [phone] Aida Nguyen PharmD Unavailable Reason for Visit * Reason Onset Date Comments stating 10/12/2022 Encounter Details Date Type Department Care Team ([facility] st Contact Info) Description 10/12/2022 Telephone [facility] MEDICINE [address] [place], [place] [phone] Name, MD Rajesh [address] [place] [address] stating Social History Tobacco Use Types Packs/Day [...] - 10/12/2022 9:28 AM EST Tc from [place] with [facility] stating they do not take pt health insurance and cant be seen at practice. documented in this encounter Plan of Treatment Upcoming Encounters Date Type Department Care Team (Late st Contact Info) Description 08/18/2025 4:00 PM EST Office Visit [facility] MEDICINE [address] [place] [address] Name, MD Rajesh [address] [place] [phone] documented as of this encounter Visit Diagnoses Not on filedocumented in this encounter Care Teams Surveyor Helper Relationship Specialty Start Date End Date Name, MD Rajesh [address] [place] [id number] PCP - General Family Medicine 07/04/21 Aida Nguyen PharmD [address] [place] [phone] Pharmacist Internal Medicine 05/24/23 documented as of this encounter
== END 2025-06-18 10:21 | disposition home or self-care (01) ==
PROVIDERS: PCP General Practice; Visit Provider Obstetrics & Gynecology
DX: N93.9 Abnormal uterine and vaginal bleeding, unspecified (principal)
CPT/HCPCS: 99213

== ENCOUNTER → 2025-06-18 09:25 | Outpatient (BNVA) | payer OTHER, SELFPAY | PROVIDERS: PCP General Practice; Visit Provider Obstetrics & Gynecology | DX: Z01.818 Encounter for other preprocedural examination (principal); N93.9 Abnormal uterine and vaginal bleeding, unspecified | CPT/HCPCS: 99212 ==

== ENCOUNTER 2025-07-02 10:38 | Emergency (ER) | payer OTHER, SELFPAY ==
--- NOTE | 2025-07-02 | ECG_ITS ---
Test Reason : chest pain Blood Pressure : */* mmHG Vent. Rate : 69 BPM Atrial Rate : 69 BPM P-R Int : 144 ms QRS Dur : 70 ms QT Int : 396 ms P-R-T Axes : 24 0 15 degrees QTcB Int : 424 ms Normal sinus rhythm Normal ECG When compared with ECG of 06-Feb-2023 07:39, No significant change was found Referred By: Generic ED Physician Electronically Signed By: PHILL WU
--- NOTE | ~2025-07-02 | CT_ITS ---
EXAMINATION: CT Angio Chest Aorta CLINICAL INFORMATION: Chest pain radiating to the back, severe hypertension COMPARISON: X-ray from October 21, 2024 TECHNIQUE: Multiple axial images were obtained through the chest after the administration of 70 mL of Omnipaque 350 intravenous contrast. Extensive vascular post-processing including two-dimensional and three-dimensional reformatted images were created and reviewed on an independent workstation. This CT examination was performed using dose optimization techniques as appropriate, variously including the following: *Automated exposure control *Adjustment of mA and/or kV according to patient size (this includes techniques or standardized protocols for targeted exams where dose is matched to indication/reason for exam; i.e. extremities or head) *Use of iterative reconstruction technique FINDINGS: QUALITY OF STUDY/CONTRAST BOLUS: Good but with motion artifact at the origin of the great vessels. PULMONARY ARTERIES: No central pulmonary emboli. THORACIC AORTA: There is no visible intimal flap or aneurysm. Atherosclerotic calcifications are identified. Incidental note is made of a bovine arch. LUNGS AND PLEURA: Lungs are clear. There is no pleural effusion or pleural thickening. MEDIASTINUM: There is a 14 mm hypodensity in the left lobe of thyroid gland and a 4 mm hypodensity in the right lobe. Mediastinum is unremarkable. CORONARY ARTERY CALCIFICATION: None CHEST WALL/AXILLA: No axillary or internal mammary lymphadenopathy. UPPER ABDOMEN: Unremarkable BONES: No acute fracture or deformity. CT/CT angio chest aorta IMPRESSION: No thoracic aortic aneurysm or dissection. There are 2 hypodensities in the thyroid gland. Follow-up nonemergent thyroid ultrasound. Fleischner guidelines were followed. Electronically signed by: Jarett Bowser MD 07/02/2025 01:38 PM EDT
[2025-07-02 10:51] VITALS: BP 124/80; BP 149/89; PULSE 80; PULSE 90; RESP 12; TEMP 36.6; O2SAT 95; O2SAT 97; BMI 34.1
[2025-07-02 11:21] VITALS: BP 117/52; PULSE 87; RESP 16; O2SAT 100
[2025-07-02 11:24] LABS: MANUAL DIFF FLAG NO
[2025-07-02 11:31] LABS: Hematocrit 43.5 % (37.0-47.0); Hemoglobin 14.7 g/dl (12.0-16.0); Imm Gran Abs Auto 0.01 X10*3/uL (0.00-0.03); Imm Gran Pct Auto 0.2 % (0.0-0.4); Lymphocytes Absolute Auto 2.3 X10*3/uL (1.2-4.9); Mean Corpuscular HGB Conc 33.8 g/dl (31.0-35.0); Mean Corpuscular Hemoglobin 28.3 pg (27.0-33.0); Mean Corpuscular Volume 83.7 fL (80.0-98.0); NRBC Abs Auto 0.000 X10*3/uL (0.0-0.012); NRBC Pct Auto 0.0 /100WBC (0.0-0.2); Platelet Count 182 X10*3/uL (160-400); Red Blood Count 5.20 X10*6/uL (4.20-5.50); White Blood Count 6.2 X10*3/uL (4.8-10.8)
[2025-07-02 11:38] LABS: Alanine Aminotransferase 22 U/L (0-31); Albumin Level 4.2 g/dL (3.5-5.0); Alkaline Phosphatase 81 U/L (39-117); Anion Gap 10 (12-20); Aspartate Amino Transferase 28 U/L (5-31); Blood Urea Nitrogen 19 mg/dL (9-16); Calcium 9.3 mg/dL (8.4-10.2); Carbon Dioxide 27 mmol/L (22-29); Chloride 107 mmol/L (96-108); Creatinine Clr Calc Pharmacy 127.2; Estimated Glomerular Filt Rate > 60; Magnesium 1.9 mg/dL (1.6-2.6); Potassium 4.1 mmol/L (3.3-5.1); Sodium 140 mmol/L (135-145); Total Protein 7.6 g/dL (6.5-8.0)
[2025-07-02 11:47] LABS: Troponin-I High Sensitivity < 2.7 ng/L (<3.5-17.0)
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
--- OUTSIDE RECORDS SUMMARY | 2025-07-02 13:10 | XMS_ITS | Patient Health Record ---
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 Name Role Phone Name Rajesh WESTBROOK Primary Care Provider Jose Diaz Unavailable [phone] Reason For Referral No Information Medications Medication SIG (Take, Route, Frequency, Duration) Notes Start Date End Date Status Omeprazole 40 MG TAKE 1 CAPSULE BY [facility] EVERY MORNING for 90 Active Esomeprazole [...] Status Risk Notes Problem Gastroesophageal reflux disease (539657387) Gastroesophageal reflux disease (K21.9) Active confirmed Problem Iron deficiency anemia (23029445) Iron deficiency anemia (D50.9) Active confirmed Problem [id number] Family history o f colon cancer (Z80.0) Active confirmed Problem Esophageal stricture (99246400) Esophageal stricture (K22.2) Active confirmed Problem [id number] Microcytic anemi a (D50.9) Active confirmed Problem [id number] Gastroesophageal reflux disease, unspecified whether esophagitis present [...] Insured Coverage Start Date Coverage End Date [facility] [address] [address] [place], [place] [id number] THOMAS LE Self - patient is the insured Medical (General) History Medical History History ICD Code Hypertension-being observed-not on meds as of the 09/06/21 OV Sleep apnea--no CPAP Anemia Denies NM,DM,CVA,Lung disease,renal dise ase Surgical History Surgery Date(Month/Year) BTL
--- OUTSIDE RECORDS SUMMARY | 2025-07-02 13:10 | XMS_ITS | Clinical Summary ---
Author Organization [employer] Address [address] [place] [address] 7t [place] [address] Care Team Providers Care Skin Installer Name Role Phone Name, Rajesh WESTBROOK Primary Care Provider [phone] Aida Nguyen PharmD Unavailable [phone] Allergies No known active allergies Medications [...] ONCE DAILY 16 g 2 5 Active Active Problems Problem Noted Date [...] Assessment & Plan (09/10/2023 12:41 PM EST): Cigar Packer And Shader to restart omeprazole Cigar Packer And Shader to reschedule appt with GI if symptoms continue Check H. Pylori test Essential hypertension 11/29/2022 Assessment & Plan (01/05/2025 4:23 PM EDT): Not controled Off hydrochlorothiazide since 03/2024 Review with PCP at 01/29/25 appointment Assessment & Plan (09/10/2023 12:43 PM EST): Uncontrolled hydrochlorothiazide recently started Cigar Packer And Shader to take losartan 100 MG in the [...] Encounters Date Type Department Care Team Description 06/23/2025 Telephone [facility] MEDICINE [address] [place] [address] Ella Garvey RN 06/09/2025 Orders Only GENERIC EXTERNAL DATA DEPARTMENT Provider, Generic External Data 06/08/2025 3:00 PM EDT Telemedicine [facility] MEDICINE [address] [place] [address] Ella Garvey RN Essential hypertension 06/08/2025 Travel 06/01/2025 Travel 05/25/2025 4:00 PM EDT Office Visit [facility] MEDICINE [address] [place] [address] Rajesh Rdz MD Essential hypertension (Primary Dx); Iron deficiency anemia, unspecified iron deficiency anemia type 05/25/2025 Travel 05/25/2025 Telephone [facility] [address] [place] [address] Rajesh Rdz MD CHART PREP 05/22/2025 Orders Only [facility] External Provider, [facility] 05/18/2025 Travel 05/06/2025 Telephone [facility] [address] Ella Garvey, GABY 04/30/2025 2:30 PM EDT Office Visit [facility] ADULT DENTAL [address] [place] [address] Solo Rojo DDS 04/29/2025 Travel from Last [...] your housing situation today? I have honey sarika 05/19/[address] you li [...] Care Team (Late st Contact Info) Description 07/29/2025 9:00 AM EDT Office Visit [facility] ADULT DENTAL [address] [place] [address] Solo Rojo DDS [address] [place] [address] 08/18/2025 4:00 PM EST Office Visit [facility] MEDICINE [address] [place] [address] Name, MD Rajesh [address] [place] [address] Health Maintenance Due Date Last Done Comments [...] 7:42 AM EDT 06/10/2025 6:58 AM EDT [facility] - 06/11/2025 2:32 PM EDT ----- ------- Name: Veronica Wong Age/Sex: 55/F : 1970 Unit#: [id number] Attend Dr: Wagner Malik MD Re06/09/25 Status: DEP REF Location: HO.P Disch: ----- ------- SPEC : [id number] RECD: 06/10/25 STATUS: HENRI MOREJON NUM: [id number] TYE: 06/09/[address] [facility] [address]: Wagner Malik MD ENTERED: 06/10/25 [...] developed and their performance characteristics determined by [facility]. They have not been cleared or approved by the U.S. Food and Drug Administration (FDA). However, the FDA has determined that such clearance or approval is not necessary. This laboratory is certified under the Clinical Laboratory Improvement Amendments of 1988 (CLIA) as qualified to perform high complexity clinical laboratory testing. Copies To: Brittany Pearson [address] [place] [id number] CONTINUED ON NEXT PAGE ----- ------- Name: Veronica Wong Age/Sex: 55/F : 1970 Unit#: [id number] Attend Dr: Wagner Malik MD Re06/09/25 Status: [facility]P [facility]: ----- ------- SPEC : [id number] RECD: 06/10/25 STATUS: HENRI MOREJON NUM: [id number] TYE: 06/09/[address] [facility] [address]: Wagner Malik MD ENTERED: 06/10/25 SP TYPE: Surgical OTHR DR: Brittany Pearson ORDERED: HE Stain/2, Gross Micro L4 Copies To: (Continued) Wagner Malik MD [facility] [address] [place] [address] ----- ------- Signed (signature on file) Chano Tinoco MD 06/11/25 1432 ----- ------- END OF REPORT us Generic External Data Provider LAB BLOOD ORDERAB LES Final Result Performing Organization Address City/State/[facility] Co de Phone Number [facility] [address] [place] [phone] * BI Mammogram Screening Tomosynthesis Bilateral (06/03/2025 1:45 PM EDT) Anatomical Region Laterality Modality Breast Bilateral Mammography 06/03/2025 1:45 PM EDT Narrative 06/05/2025 2:28 PM EDT [address] [place] [address] Mammography Report Signed Patient: Veronica Wong MR#: [id number] : 1970 Acct:[id number] Age/Sex: 55 / F ADM Date: 06/03/25 Loc: MAMMO Attending Dr: Wagner Malik MD Ordering Physician: Wagner Malik MD Results: 0Incompl ete: Needs Additional Imaging Evaluation Date of Service: 06/03/25 Follow Up: Additional Imagi ng Procedure(s): MM tomosynthesis screening BI Accession Number(s): [id number] cc: Brittany Pearson; Wagner Malki MD EXAMINATION: MM SCREENING DIGITAL BREAST TOMOSYNTHESIS, [...] 06/05/25 1425 DD/ 1345 TD/TT: 06/03/25 1410 Legal Activity Adjudicator: Procedure Note Donotuseinterpreter, Image - 06/05/2025 [facility] [address] [place], [place] [address] Mammography Report Signed Patient: Veronica WongMR#: [id number] : 1970Acct:[id number] Age/Sex: 55 / FADM Date: 06/03/25 Loc: HO.MAMMO Attending Dr: Wagner Malik MD Ordering Physician: Wagner Malik MDResults: 0Incompl ete: Needs Additional Imaging Evaluation Date of Service: 06/03/25Follow Up: Additional Imagi ng Procedure(s): MM tomosynthesis screening BI Accession Number(s): [id number] cc: Brittany Pearson; Wagner Malik MD EXAMINATION: [...] 06/05/25 1425 DD/ 1345 TD/TT: 06/03/25 1410 Legal Activity Adjudicator: [facility] External Provider IMG BI PROCEDURES Final Result * US Pelvis Transvaginal (05/22/2025 3:01 PM EDT) Anatomical Region Laterality Modality Pelvis Ultrasound 05/22/2025 3:01 PM EDT Narrative 05/22/2025 3:24 PM EDT [address] [address] Ultrasound Report Signed Patient: Veronica Wong MR#: [id number] : 1970 Acct:[id number] Age/Sex: 55 / F ADM Date: 05/22/25 Loc: .US Attending Dr: Wagner Malik MD Ordering Physician: Wagner Malik MD Date of Service: 05/22/25 Procedure(s): US pelvic and transvaginal Accession Number(s): [id number] cc: Name,Rajesh WESTBROOK; Wagner Malik MD EXAMINATION: [...] 05/22/25 1521 DD/ 1501 TD/TT: 05/22/25 1508 Legal Activity Adjudicator: Procedure Note Donotuseinterpreter, Image - 05/22/[address] [address] Ultrasound Report Signed Patient: Veronica WongMR#: [id number] : 1970Acct:[id number] Age/Sex: 55 / FADM Date: 05/22/25 Loc: HO.US Attending Dr: Wagner Malik MD Ordering Physician: Wagner Malik MD Date of Service: 05/22/25 Procedure(s): US pelvic and transvaginal Accession Number(s): [id number] cc: Kajal,Rajesh WESTBROOK; Wagner Malik MD EXAMINATION: [...] 05/22/25 1521 DD/ 1501 TD/TT: 05/22/25 1508 Legal Activity Adjudicator: [facility] External Provider IMG US PROCEDURES Final Result * TSH with Reflex to Free T4 (04/16/2025 10:12 AM EDT) TSH reflex Free T4 0.84 0.32 - 4.0 uIU/mL [facility] 04/16/2025 10:1 2 AM EDT 04/16/2025 10:12 AM EDT Generic External Data Provider LAB BLOOD ORDERAB LES Final Result [facility] [address] [place] [phone] * hCG, Total, Quantitative (04/16/2025 10:12 AM EDT) HCG Quantitative <2 mIU/mL [facility] Comment:Weeks post LMP Appr oximate hCG(Last Menstrual Period) Range (mIU/ml)3 - 4 weeks 9 - 1304 - 5 weeks 75 - 2,6005 - 6 weeks 850 - 20,8006 - 7 weeks 4000 - 100,2007 - 12 weeks 11,500 - 289,39774 - 16 weeks 18,300 - 137,01084 - 29 weeks (2nd trimester) 1,400 - 53,87068 - 41 weeks (3rd trimester) 940 - [...] ORDERAB LES Final Result Performing Organization Address [facility] Co de Phone Number [facility] [address] [place] [phone] * LH (04/16/2025 10:12 AM EDT) Lutenizing Hormone 23.0 mIU/mL [facility] Comment:Reference Range Foll icular Phase 1.9-12.5 Mid-Cycle Peak 8.7-76.3 Luteal Phase 0.5-16.9 Postmenopausal 10.0-54.7THIS TEST WAS PERFORMED AT:[facility] [address] [phone] JAVED MD 04/16/2025 10:1 2 AM EDT 04/16/2025 10:12 AM EDT us Generic External Data Provider LAB BLOOD ORDERAB LES Final Result Performing Organization Address [facility] de Phone Number [facility] [address] [place] [phone] * FSH (04/16/2025 10:12 AM EDT) Follicle Stimulating Hormone 39.3 mIU/mL [facility] Comment:Reference Range Foll icular Phase 2.5-10.2 Mid-cycle Peak 3.1-17.7 Luteal Phase 1.5- 9.1 Postmenopausal 23.0-116.3THIS TEST WAS PERFORMED AT:[facility] [address] [id number] JAVED MD 04/16/2025 10:1 2 AM EDT 04/16/2025 10:12 AM EDT us Generic External Data Provider LAB BLOOD ORDERAB LES Final Result Performing Organization Address [facility] Co de Phone Number [facility] [address] [place] [phone] * Chlamydia/N. Gonorrhoeae RNA, TMA, Urogenitial (04/16/2025 9:05 AM EDT) Pathologist [facility] CT PCR NOT DETECTED Not Detect. [facility] Comment:A not detected test result [...] psychologicalconsequences. NG PCR NOT DETECTED Not Detect. [facility] Comment:A not detected test result [...] LAB MICROBIOLOGY - GENERAL ORDERABLES Final Result [facility] [address] [place] [address] [phone] * Lipid Panel, Standard (03/11/2024 7:08 AM EDT) Pathologist [facility] Triglycerides 74 <150 mg/dL [facility] Comment:Desirable Triglyceri de: less than 150 mg/dLBorderline High Triglyceride 150-199 mg/dLHigh Triglyceride: 200-499 mg/dLVery High Triglyceride: greater than or equal to 5OO mg/dL Cholesterol 169 <200 mg/dL [facility] Comment:Desirable Cholestero l: less than 200 mg/dLBorderline High Cholesterol: 200-239 mg/dLHigh Cholesterol: greater than 239 mg/dL LDL Cholesterol Calculated 95 <100 mg/dL [facility] Comment:Desirable LDL: less than 100 mg/dLNear Optimal/Above Optimal LDL: 110- 129 mg/dLBorderline High LDL: 130-159 mg/dLHigh LDL: 160-189 mg/dLVery High LDL: greater than or equal to 190 mg/dL HDL Cholesterol 60 >40 mg/dL [facility] Comment:Desirable HDL: great er than 40 mg/dL Note: This HDL assay may give artificially low results in patients with liver disease. 03/11/2024 7:08 AM EDT 03/11/2024 7:08 AM EDT Rajesh Rdz MD LAB BLOOD ORDERABLES Final Resul t [facility] [address] [place] [phone] * Colonoscopy (09/20/2021 3:35 PM EST) Colonoscopy Normal Normal Narrative Laura Goodwin - 09/20/2021 3:35 PM EST Recommended 5 year follow up Historical Provider HEALTH MAINTENANCE Final Result * Pap Smear (08/09/2021) Only the most recent of2 resultswithin the time period is included. Pap Negative for intraephithelial lesion or malignancy Negative for intraephithelial lesion or malignancy, Other HPV Undetected Caro Latimer HEALTH MAINTENANCE Final Result from Last 3 Months or Most Recently Relevant to Health Maintenance Insurance [facility]AN DENTAL - HSN PARTIAL (MEDICAID) Care Teams Skin Installer Relationship Specialty Start Date End Date Name, MD Rajesh [address] [place] [address] PCP - General Family Medicine 07/04/21 Puia, Rubens Parra [address] [place] [address] Pharmacist Internal Medicine 05/24/23
--- OUTSIDE RECORDS SUMMARY | 2025-07-02 13:10 | XMS_ITS | Encounter Summary ---
Author Organization [employer] Address [address] [facility] 7 [place] [address] Care Team Providers Care Alum Plant Supervisor Name Role Phone Name, Rajesh WESTBROOK Primary Care Provider [phone] Aida Nguyen PharmD Unavailable [phone] Reason for Visit * Reason Onset Date Comments Nurse Triage 08/30/2023 Encounter Details Date Type Department Care Team ([facility] st Contact Info) Description 08/30/2023 Telephone [facility] MEDICINE [address] [place], [place] [phone] Name, MD Rajesh [address] [place] [address] Nurse Triage Social History Tobacco Use Types [...] 4:41 PM EST T/C to pt. Through [employer] id - [id number] for below message, Pt. States she is [...] time. Pt advised of disposition, agrees to [facility] ED now for exam to rule out [...] Chest pain The caller accepted this outcome Tajik Speaker documented in this encounter Plan of Treatment Upcoming Encounters Date Type Department Care Team (Late st Contact Info) Description 07/29/2025 9:00 AM EDT Office Visit [facility] ADULT DENTAL [address] [place] [address] Solo Rojo DDS [address] [place] [address] 08/18/2025 4:00 PM EST Office Visit [facility] MEDICINE [address] [place] [address] Name, MD Rajesh [address] [place] [address] documented as of this encounter Goals Goal [...] documented as of this encounter Care Teams Alum Plant Supervisor Relationship Specialty Start Date End Date Name, MD Rajesh [address] [place] [address] PCP - General Family Medicine 07/04/21 Aida Nguyen, Rubens [address] [place] [address] Pharmacist Internal Medicine 05/24/23 documented as of this encounter
--- OUTSIDE RECORDS SUMMARY | 2025-07-02 13:10 | XMS_ITS | Clinical Summary ---
Author Organization [facility] Address [address] [place] [address] Care Team Providers Care Color Paste Mixer Name Role Phone Unavailable Primary Care Provider [...]
--- OUTSIDE RECORDS SUMMARY | 2025-07-02 13:10 | XMS_ITS | Encounter Summary ---
Author Organization [employer] Address [address] [place] [address] 7 [place] [address] Care Team Providers Care Salesperson Automobiles Name Role Phone Name, Rajesh WESTBROOK Primary Care Provider [phone] Aida Nguyen PharmD Unavailable [phone] Encounter Details Date Type Department Care Team (Late st Contact Info) Description 06/22/2023 Orders Only [facility] MEDICINE [address] [place] [address] [phone] Provider, MD Dinh Social History Tobacco Use [...] Office Visit [facility] ADULT DENTAL [address] [place] [address] Solo Rojo DDS [address] [place] [address] 08/18/2025 4:00 PM EST Office Visit [facility] MEDICINE [address] [place] [phone] Name, MD Rajesh [address] [place] [address] documented as of this encounter Goals Goal [...] 08/09/2021 documented in this encounter Results * Pap Smear (08/09/2021) Historical Provider HEALTH MAINTENANCE Final Result documented in this encounter Visit Diagnoses Not on filedocumented in this encounter Additional Health Concerns Assessment Noted Time PHQ-9 Depression Total Score: 0 02/20/20 23 2:37 PM EDT documented as of this encounter Care Teams Salesperson Automobiles Relationship Specialty Start Date End Date Name, MD Rajesh [address] [place] [address] PCP - General Family Medicine 07/04/21 Aida Nguyen, PharmD [address] [place] [phone] Pharmacist Internal Medicine 05/24/23 documented as of this encounter
--- OUTSIDE RECORDS SUMMARY | 2025-07-02 13:10 | XMS_ITS | Encounter Summary ---
Author Organization [employer] Address [address] [place] [address] 7t [place] [address] Care Team Providers Care Photography Editor Name Role Phone Name, Rajesh WESTBROOK Primary Care Provider [phone] Aida Nguyen PharmD Unavailable [phone] Encounter Details Date Type Department Care Team ([facility] Contact Info) Description 03/12/2023 Abstract [facility] MEDICINE [address] [place], [place] [phone] Name, MD Rajesh [address] [place] [address] Social History Tobacco Use Types Packs/Day Years [...] Upcoming Encounters Date Type Department Care Team ([facility] Contact Info) Description 07/29/2025 9:00 AM EDT Office Visit [facility] ADULT DENTAL [address] [place] [address] Solo Rojo, LISA [address] [place] [address] 08/18/2025 4:00 PM EST Office Visit [facility] MEDICINE [address] [place] [address] Name, MD Rajesh [address] [place] [address] documented as of this encounter Procedures Procedure [...] documented as of this encounter Care Teams Photography Editor Relationship Specialty Start Date End Date Name, MD Rajesh [address] [place] [address] [phone] PCP - General Family Medicine 07/04/21 Aida Nguyen, Rubens [address] [place] [address] [phone] Pharmacist Internal Medicine 05/24/23 documented as of this encounter
--- OUTSIDE RECORDS SUMMARY | 2025-07-02 13:10 | XMS_ITS | Encounter Summary ---
Author Organization [employer] Address [address] [facility] 7t [place] [address] Care Team Providers Care Collar Tailor Name Role Phone Name, Rajesh WESTBROOK Primary Care Provider [phone] Aida Nguyen PharmD Unavailable [phone] Encounter Details Date Type Department Care Team (Late st Contact Info) Description 01/06/2025 Orders Only [facility] MEDICINE [address] [place], [place] [phone] Brittany Pearson MD [address] [place], [place] [phone] Social History Tobacco Use Types Packs/Day Years [...] Description 07/29/2025 9:00 AM EDT Office Visit [facility] ADULT DENTAL [address] [place] [address] Solo Rojo DDS [address] [place] [address] 08/18/2025 4:00 PM EST Office Visit [facility] MEDICINE [address] [place] [address] Name, MD Rajesh [address] [place] [address] documented as of this encounter Goals Goal [...] 10:12 AM EDT) Lutenizing Hormone 23.0 mIU/mL [facility] Comment:Reference Range Foll icular Phase 1.9-12.5 Mid-Cycle Peak 8.7-76.3 Luteal Phase 0.5-16.9 Postmenopausal 10.0-54.7THIS TEST WAS PERFORMED AT:[facility] [place] [id number] JAVED MD 04/16/2025 10:1 2 AM EDT 04/16/2025 10:12 AM EDT us Generic External Data Provider LAB BLOOD ORDERAB LES Final Result [facility] [address] [place] [phone] * FSH (04/16/2025 10:12 AM EDT) Follicle Stimulating Hormone 39.3 mIU/mL [facility] Comment:Reference Range Foll icular Phase 2.5-10.2 Mid-cycle Peak 3.1-17.7 Luteal Phase 1.5- 9.1 Postmenopausal 23.0-116.3THIS TEST WAS PERFORMED AT:[facility] [place] [id number] JAVED MD 04/16/2025 10:1 2 AM EDT 04/16/2025 10:12 AM EDT Generic External Data Provider LAB BLOOD ORDERAB LES Final Result Performing Organization Address [facility] Co de Phone Number [facility] [address] [place] [address] [phone] * hCG, Total, Quantitative (04/16/2025 10:12 AM EDT) HCG Quantitative <2 mIU/mL [facility] Comment:Weeks post LMP Appro ximate hCG(Last Menstrual Period) Range (mIU/ml)3 - 4 weeks 9 - 1304 - 5 weeks 75 - 2,6005 - 6 weeks 850 - 20,8006 - 7 weeks 4000 - 100,2007 - 12 weeks 11,500 - 289,40532 - 16 weeks 18,300 - 137,07764 - 29 weeks (2nd trimester) 1,400 - 53,82594 - 41 weeks (3rd trimester) 940 - [...] ORDERAB LES Final Result Performing Organization Address City/[facility]/ZIP Co de Phone Number [facility] [address] [place] [address] [phone] * TSH with Reflex to Free T4 (04/16/2025 10:12 AM EDT) TSH reflex Free T4 0.84 0.32 - 4.0 uIU/mL [facility] 04/16/2025 10:1 2 AM EDT 04/16/2025 10:12 AM EDT Generic External Data Provider LAB BLOOD ORDERAB LES Final Result [facility] [address] [place] [address] [phone] * Chlamydia/N. Gonorrhoeae RNA, TMA, Urogenitial (04/16/2025 9:05 AM EDT) CT PCR NOT DETECTED Not Detect. [facility] Comment:A not detected test result [...] psychologicalconsequences. NG PCR NOT DETECTED Not Detect. [facility] Comment:A not detected test result [...] LAB MICROBIOLOGY - GENERAL ORDERABLES Final Result [facility] [address] [place] [address] [phone] documented in this encounter Visit Diagnoses Not on filedocumented in this encounter Additional Health Concerns Assessment Noted Time PHQ-9 Depression Total Score: 0 05/19/20 24 3:43 PM EDT documented as of this encounter Care Teams Collar Tailor Relationship Specialty Start Date End Date Name, MD Rajesh [address] [place] [address] PCP - General Family Medicine 07/04/21 Aida Nguyen PharmD [address] [place] [address] Pharmacist Internal Medicine 05/24/23 documented as of this encounter
--- OUTSIDE RECORDS SUMMARY | 2025-07-02 13:10 | XMS_ITS | Encounter Summary ---
Author Organization [employer] Address [address] [place] [address] 7t [place] [address] Care Team Providers Care Insolvency Consultant Name Role Phone Name, Rajesh WESTBROOK Primary Care Provider [phone] Aida Nguyen PharmD Unavailable [phone] Reason for Visit * Reason Onset Date Comments stating 10/12/2022 Encounter Details Date Type Department Care Team ([facility] st Contact Info) Description 10/12/2022 Telephone [facility] MEDICINE [address] [place], [place] [phone] Name, MD Rajesh [address] [place] [address] stating Social History Tobacco Use Types Packs/Day [...] - 10/12/2022 9:28 AM EST Tc from [facility] with [facility] stating they do not take pt health insurance and cant be seen at practice. documented in this encounter Plan of Treatment Upcoming Encounters Date Type Department Care Team (Late st Contact Info) Description 07/29/2025 9:00 AM EDT Office Visit [facility] ADULT DENTAL [address] [place] [address] Solo Rojo DDS [address] [place] [address] 08/18/2025 4:00 PM EST Office Visit [facility] MEDICINE [address] [place] [address] Name, MD Rajesh [address] [place] [address] documented as of this encounter Visit Diagnoses Not on filedocumented in this encounter Care Teams Insolvency Consultant Relationship Specialty Start Date End Date Name, MD Rajesh [address] [place] [address] PCP - General Family Medicine 07/04/21 Aida Nguyen PharmD [address] [place] [address] [phone] Pharmacist Internal Medicine 05/24/23 documented as of this encounter
--- OUTSIDE RECORDS SUMMARY | 2025-07-02 13:10 | XMS_ITS | Clinical Summary ---
Author Organization [facility] Address [address] [place] [address] Care Team Providers Care Lead Shop Operator Name Role Phone Sarai Sharp MD Primary Care Provider [phone] Allergies No known active allergies Medications cyclobenzaprine [...] of Treatment Not on file Care Teams Lead Shop Operator Relationship Specialty Start Date End Date Sarai Sharp MD PCP - General Internal Medicine 10/03/16
[2025-07-02] MEDS: iohexoL 350 MG/ML 100 ML INFUS..BTL 70 ML IV (13:22)
[2025-07-02 13:57] VITALS: BP 126/79; PULSE 71; RESP 17; TEMP 36.7; O2SAT 95
--- NOTE | 2025-07-02 13:58 | ECG_ITS ---
Test Reason : REPEAT Blood Pressure : */* mmHG Vent. Rate : 66 BPM Atrial Rate : 66 BPM P-R Int : 146 ms QRS Dur : 78 ms QT Int : 412 ms P-R-T Axes : 45 9 27 degrees QTcB Int : 431 ms Normal sinus rhythm Normal ECG When compared with ECG of 02-Jul-2025 11:03, No significant change was found Referred By: Sebastian Arzola Electronically Signed By: PHILL WU
[2025-07-02 14:33] LABS: Troponin-I High Sensitivity < 2.7 ng/L (<3.5-17.0)
[2025-07-02 15:24] VITALS: BP 130/78; PULSE 64; RESP 1; TEMP 36.9; O2SAT 98
== END 2025-07-02 15:25 | disposition home or self-care (01) ==
PROVIDERS: Emergency Provider Emergency Medicine; PCP Internal Medicine Geriatric Medicine
DX: R07.89 Other chest pain (principal); D64.9 Anemia, unspecified; Z79.899 Other long term (current) drug therapy
CPT/HCPCS: 36415; 71275; 80053; 83735; 84484; 85025; 93005; 99284; 99285; Q9967

== ENCOUNTER → 2025-07-02 11:03 | Outpatient (BNV) | payer OTHER, SELFPAY | PROVIDERS: Emergency Provider Emergency Medicine; PCP Internal Medicine Geriatric Medicine; Visit Provider Internal Medicine | DX: Z13.6 Encounter for screening for cardiovascular disorders (principal) | CPT/HCPCS: 93010 ==

== ENCOUNTER → 2025-07-02 11:41 | Outpatient (BNV) | payer OTHER, SELFPAY | PROVIDERS: Emergency Provider Emergency Medicine; PCP Internal Medicine Geriatric Medicine; Visit Provider Radiology Diagnostic Radiology | DX: R07.89 Other chest pain (principal); I10 Essential (primary) hypertension; E07.9 Disorder of thyroid, unspecified | CPT/HCPCS: 71275 ==

== ENCOUNTER 2025-07-03 07:41 | Day surgery (SDC) | payer OTHER, SELFPAY ==
[2025-07-01 10:19] VITALS: BMI 33.3
--- NOTE | 2025-07-01 13:50 | HO.ANESPROP2 ---
Documented by User: Naty Noel NP 07/01/25 13:50 HPI - Anesthesia Eval Consult details Narrative: 55 yr old female for D&C Hysteroscopy,possible myomectomy,possible polypectomy PMFSH Active Problems Active Problems: All Active Problems Abnormal uterine bleeding (AUB) (Acute) Dysphagia (Acute) Muscle spasms of neck (Acute) Painful arc syndrome of right shoulder (Acute) Osteoarthritis of right patellofemoral joint (Acute) Menorrhagia, premenopausal (Acute) Iron (Fe) deficiency anemia (Chronic) Cervical cancer screening (Acute) Well woman exam with routine gynecological exam (Acute) Pain of right breast (Acute) Hypertension (Acute) Past Medical History Medical History COVID-19 Hypertension Family History Family History Father Mother Multiple myeloma Father Colon cancer Family history of problems with anesthesia: No Surgical History Surgical History Hx of colonoscopy (08/2021) History of esophagogastroduodenoscopy (EGD) (08/2021) Tubal ligation status History of Problems with Anesthesia: Yes Social History Social History Household Members: Spouse Housing: House Alcohol intake: never Patient Tobacco Use Status: Never used Tobacco Have you been hit, kicked, punched, or otherwise hurt by someone within the past year? 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 Gender identity: Female Meds Allergies Allergy/AdvReac Type Severity Reaction Status Date / Time No Known Allergies Allergy Verified 07/02/25 10:59 Home Medications ?Medication ?Instructions ?Recorded ?Confirmed ?Last Taken ?Type losartan 25 mg tablet 25 mg PO DAILY 07/03/25 07/03/25 07/03/25 History Exam Height,Weight and Vital Signs: Height 5 ft 5 in Weight 90.718 kg Assessment and Plan Final Anesthetic Review Family History of Problems with Anesthesia: No History of Problems with Anesthesia: Yes Documented by User: Chase Atkinson MD 07/03/25 08:18 PMFSH Past Medical History Medical History COVID-19 Hypertension Family History Family History Father Mother Multiple myeloma Father Colon cancer Surgical History Surgical History Hx of colonoscopy (08/2021) History of esophagogastroduodenoscopy (EGD) (08/2021) Tubal ligation status Social History Social History Household Members: Spouse Housing: House Alcohol intake: never Patient Tobacco Use Status: Never used Tobacco Have you been hit, kicked, punched, or otherwise hurt by someone within the past year? 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 Gender identity: Female Meds Allergies Allergy/AdvReac Type Severity Reaction Status Date / Time No Known Allergies Allergy Verified 07/02/25 10:59 Home Medications ?Medication ?Instructions ?Recorded ?Confirmed ?Last Taken ?Type losartan 25 mg tablet 25 mg PO DAILY 07/03/25 07/03/25 07/03/25 History Exam Exam Date and Time: 07/03/25 Narrative Narrative: hitesh and reflux Airway Mallampati Class: III TM Dist: >3cm Neck ROM: Full Assessment and Plan Assessment Anesthesia Assessment: Anesthesia Plan Discussed and Chart Reviewed Final Anesthetic Review NPO: Yes ASA Class: II Final Preanesthetic Review: No Changes in Pt Med Stat, Meds/Allgs Chart Reviewed, Consent Obtained/Reviewed and Anes Risks/Benef Reviewed Patient Risk: Low Procedure Risk: Low Anesthetic Plan Anesthetic Plan: GA Disposition: Standard PACU and Extended PACU
[2025-07-03 08:03] VITALS: BP 151/95; PULSE 83; RESP 19; TEMP 36.4; O2SAT 96; BMI 34.2
[2025-07-03] MEDS: Lactated Ringers 1,000 ML 100 ML IVCONT (08:06)
--- NOTE | 2025-07-03 08:06 | MHC.SHP ---
Pre-Procedural Eval Section A - 24 Hr Update-Section A only Date of Service: 07/03/25 The patient is an INPATIENT: No Changes since office visit: No Cold of Flu in the past 2 weeks, No New Medical Problems, No Changes in Medication and No Patient answered all questions The patient has been examined within 24 hours of the surgical procedure. The History & Physical has been completed within 30 days and I have reviewed it.: Yes Section B - Complete if H&P > 30 days Chief Complaint: Abnormal uterine and vaginal bleeding, unspecified Allergies: Allergies Allergy/AdvReac Type Severity Reaction Status Date / Time No Known Allergies Allergy Verified 07/02/25 10:59 Plan Diagnosis/Plan: Unchanged I have reviewed the history and physical and performed a pertinent physical examination on my patient. No changes have occurred unless specified. Time Spent With Patient Time: Total time managing care of this patient today ____ minutes.
[2025-07-03 09:54] VITALS: BP 139/91; PULSE 67; RESP 10; TEMP 36.2; O2SAT 93
[2025-07-03 09:59] VITALS: BP 140/88; PULSE 68; RESP 10; O2SAT 95
[2025-07-03 10:00] VITALS: BP 122/86; PULSE 60; RESP 10; O2SAT 97
--- NOTE | 2025-07-03 10:03 | P.BOP_ITS ---
Brief Operative Note Date of Service: 07/03/25 Pre-op diagnosis: AUB, endometrial polyp by EMB pathology Post-op diagnosis: same (Endometrial polyp) Procedure: Hysteroscopy D&C, Polypectomy Surgeon: Wagner Malik MD Anesthesia: GLMA Was an [employer] used for this Procedure?: No Estimated blood loss (mL): 0 Pathology: other (Endometrial Scrapping. Polyp) Condition: stable Disposition: PACU
--- NOTE | 2025-07-03 10:03 | W.PM.OPN ---
Operative Note Operative Note Date of Service: 07/03/25 Narrative: Preop Diagnosis: AUB, Endometrial polyp by EMB pathology Operation: Diagnostic Hysteroscopy, Dilataion & Curettage and polypectomy Post Op Diagnosis: Endometrial Polyp QBL: Minimal Anesthesia: GLMA Surgeon: Wagner Malik MD Corrugated Box Machine Operator: None Complication: None Pathology: Endometrial Scrapings, Endometrial polyp Procedure: The patient was put in the dorsal lithotomy position, scrubbed, and draped in the usual manner. A sterile speculum was inserted in the patient's vagina. The anterior lip of the cervix was grasped with a single tooth tenaculum. The cervix was dilated up to 5 mm, then the scope was inserted in the patient's uterus. Inspection revealed endometrial polyp. The Myosure Reach device was used; it was introduced through the operative channel and polypectomy done with no complications. The scope was then taken out from the uterine cavity, sharp curettings was carried on with minimal to moderate amount of tissues retrieved. At the end of the procedure, all instruments were taken out of the patient uterine and vaginal cavity. The single tooth tenaculum was removed and homeostasis was assured using pressure,. The patient tolerated the procedure well and was transferred to the PACU in a stable condition.
[2025-07-03 10:05] VITALS: BP 130/86; PULSE 74; RESP 15; O2SAT 95
[2025-07-03 10:10] VITALS: BP 136/94; PULSE 67; RESP 14; TEMP 36.1; O2SAT 95
== END 2025-07-03 10:47 | disposition home or self-care (01) ==
PROVIDERS: PCP General Practice; Visit Provider Obstetrics & Gynecology
PROC: 0UDB8ZZ Extraction of Endometrium, Via Natural or Artificial Opening Endoscopic (ICD-10-PCS; CPT 58558; principal; 2025-07-03 09:50)
DX: N93.9 Abnormal uterine and vaginal bleeding, unspecified (principal); N84.0 Polyp of corpus uteri; I10 Essential (primary) hypertension; Z79.899 Other long term (current) drug therapy; Z98.51 Tubal ligation status
CPT/HCPCS: 58558; 88305; J0131; J1100; J1885; J2003; J2405; J2704; J3010

== ENCOUNTER → 2025-07-03 07:41 | Outpatient (BNV) | payer OTHER, SELFPAY | PROVIDERS: PCP General Practice; Visit Provider Obstetrics & Gynecology | DX: N93.9 Abnormal uterine and vaginal bleeding, unspecified (principal) | CPT/HCPCS: 58558 ==

== ENCOUNTER 2025-07-28 15:56 | Outpatient (AMB) | payer OTHER, SELFPAY ==
--- OUTSIDE RECORDS SUMMARY | 2025-07-23 15:30 | XMS_ITS | Encounter Summary ---
Author Organization [employer] Address [address] [place] [address] [address] [place] [address] Care Team Providers Care Intravenous Therapy Nurse Name Role Phone Name, Rajesh WESTBROOK Primary Care Provider [phone] Aida Nguyen PharmD Unavailable [phone] Reason for Visit * Reason Comments Blood Pressure Check Encounter Details Date Type Department Care Team ([facility] st Contact Info) Description 07/23/2025 3:30 PM EDT Telemedicine [facility] [address] [place] [address] Ella Garvey, GABY Essential hypertension Social History [...] Progress Notes * Ella Garvey RN - 07/23/2025 3:30 PM EDT SUBJECTIVE: Tc to pt via S ID: [id number] to do telephone blood pressure check visit. At last OV BP noted 162/92 and recommendations made on that day per PCP were Recommendations at last visit were I recommended the patient to avoid salty foods. Avoid sweets andsoda. Avoid processed foods. Eat more fresh fruits and vegetables Walk daily. Deep breathing exercises when she is stressed. We discussed the benefit of a Mediterranean diet. Start lisinopril/HCTZ daily. Check blood pressure at home daily. Follow-up televisit with the nurses next week for BP recheck. Recheck BMP next week. Today, pt does not complain of any blurred vision, shortness of breath, chest pain, dizziness, or headaches, smoking or drinking alcohol, Ptreports tehir diet consit of ahomemade juice made with vegetables, eggs, chicken and red meat. Pt reports they avoid eating salty greasy foods, rice bread and drinks with high amounts of sugar. Pt denies exercising but reports they took their blood pressure medication today. Pt reports since starting the medication sometimes experiencing chills and wants to know if that's normal side effect. BP Readings from Last 4 Encounters: 07/13/25 (!) 162/92 05/25/25 (!) 156/86 04/30/25 120/88 01/29/25 (!) 153/99 Pulse Readings from Last 4 Encounters: 07/13/25 81 05/25/25 72 01/29/25 77 01/02/25 80 OBJECTIVE: Pt prescription lisinopril-hydroCHLOROthiazide 10-12.5 MG tablet (Take 1 tablet by mouth Once per day). Pt BP readings range from 07/14-07/23/25 114/82 HR: 72, 117/89 HR: 80, 121/80 HR: 71, 115/86 HR: 83, 122/83 HR: 75, 130/88 HR: 73, 134/90 HR: 76, 117/84 HR: 86, 131/79 HR: 73, 121/81 HR: 83, 123/87 HR: 75, 108/79 HR: 72, 131/88 HR: 75, 137/95 HR: 66, 128/88 HR: 75, 124/84 Hr: 75, 122/92 HR: 67 ASSESSMENT: Achieve goal blood pressure of <140/90 or <130/80 PLAN: Pt advised to continue taking medications as directed and reinforcement of lifestyle modifications including low sodium diet and exercise were reviewed. Pt advised a message we'll be sent to their PCP to review the readings and we'll call them back to let them know of any changes to their plan of care Veronica Lester agreeable to plan discussed at today's visit. Message sent to PCP for review. Future Appointments Date Time Provider Department Center 07/29/2025 9:00 AM Solo Rojo DDS ADLT DENT [facility] 08/18/2025 4:00 PM Rajesh Rdz MD MEDICINE [facility] Ella Garvey, RN documented in this encounter Plan of Treatment Upcoming Encounters Date Type Department Care Team (Late st Contact Info) Description 07/29/2025 9:00 AM EDT Office Visit [facility] [address] [place] [address] Solo Rojo DDS [address] [place] [address] 08/18/2025 4:00 PM EST Office Visit [facility] [address] [place] [address] NameRajesh MD [address] [place] [address] documented as of this encounter Goals Goal Patient Goal Type Associated Problems Recent Progress Patient-Stated? Author Record your blood pressure periodically, 2-3x per week Blood Pressure No Aida Nguyen, PharmD Blood Pressure < 140/90 Blood Pressure 162/92( 025 3:59 PM EDT) No Aida Nguyen PharmD documented as of this encounter Visit Diagnoses Diagnosis Essential hypertension Unspecified essential hypertension documented in this encounter Additional Health Concerns Assessment Noted Time PHQ-9 Depression Total Score: 0 05/25/20 25 4:23 PM EDT documented as of this encounter Care Teams Intravenous Therapy Nurse Relationship Specialty Start Date End Date NameRajesh MD [address] [place] [id number] PCP - General Family Medicine 07/04/21 Aida Nguyen PharmD [address] [place] [phone] Pharmacist Internal Medicine 05/24/23 documented as of this encounter
--- NOTE | 2025-07-28 15:57 | A.OFFVIS_ITS ---
Vital Signs 07/28/25 16:01 Height 5 ft 5 in Weight 200 lb BMI 33.3 BP 124/70 Intake Visit Reasons: post op Career Development Director Required: Yes Career Development Director Language: [employer]: Career Development Director Present Allergies No Known Allergies Allergy (Verified 07/28/25 16:09) HPI Comments Details: The patient is presenting post hysteroscopy D&C no complaints minimal vaginal bleeding no feverishness chills or abdominal pain. The pathology showed the following: A. Endometrium, curettage: - Superficial fragments of inactive endometrium; no atypia or hyperplasia identified. - Small foci of benign atrophic squamous epithelium. B. Endometrium, polypectomy: - Fragments with features of endometrial polyp; background weakly proliferative endometrium; no atypia identified. - Prominent foci of benign smooth muscle; no atypia identified. 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 Gender identity: Female Female Reproductive History Menstrual Age of Menarche: 16 Review of Systems Const All systems reviewed & are unremarkable except as noted in HPI and below Reports as per HPI and Reports no additional complaints GI Reports no additional complaints Reports no additional complaints Assessment & Plan Assessment & Plan (1) Abnormal uterine bleeding (AUB): Comment: Endometrial polyp status post polypectomy Weakly proliferative endometrium Elevated FSH/LH Code(s): N93.9 - Abnormal uterine and vaginal bleeding, unspecified Category: Medical Plan: Discussed with the patient the intraoperative finding and the results of the pathology. Discussed with the patient the results of the pathology of the endometrial scrapings showing proliferative endometrium. Discussed with the patient the sensitivity, specificity, positive and negative predictive value, of endometrial biopsy in detecting endometrial pathology including but not limited to endometrial hyperplasia, cancer and other pathology; in addition discussed the patient the pathology of the endometrium in post menopause is associated with an increase in the risk of endometrial hyperplasia and malignancy in patient with preferred of endometrial pathology in menopause. Recommended to the patient progesterone treatment , levo norgestrel IUD for p.o. progestins in addition to repeat endometrial biopsy every 3 months for a year. All pros and cons, risks and benefits of each were discussed with the patient Since mammogram is BI-RADS 0 will wait for the results of the mammogram to be negative then we will proceed with the patient is choice of progesterone treatment. Instructions given the patient is schedule additional mammographic views and a a follow-up appointment within 2 weeks Coding Level of Care Code Est Pt Level 3 (04944) Diagnoses Abnormal uterine bleeding (AUB) N93.9
[2025-07-28 16:01] VITALS: BP 124/70; BMI 33.3
--- OUTSIDE RECORDS SUMMARY | 2025-07-28 20:05 | XMS_ITS | Encounter Summary ---
Author Organization [employer] Address [address] [facility] [address] [place] [address] Care Team Providers Care Telecommunications Field Engineer Name Role Phone Name, Rajesh WESTBROOK Primary Care Provider [phone] Aida Nguyen PharmD Unavailable [phone] Reason for Visit * Reason Onset Date Comments Nurse Triage 08/30/2023 Encounter Details Date Type Department Care Team ([facility] st Contact Info) Description 08/30/2023 Telephone [facility] [address] [place], [place] [id number] Name, MD Rajesh [address] [place] [address] Nurse Triage Social History Tobacco Use Types [...] 4:41 PM EST T/C to pt. Through [employer] id - [id number] for below message, Pt. States she is [...] time. Pt advised of disposition, [place] [facility] [place] exam to rule out [...] Chest pain The caller accepted this outcome Frisian Speaker documented in this encounter Plan of Treatment Upcoming Encounters Date Type Department Care Team (Late st Contact Info) Description 07/29/2025 9:00 AM EDT Office Visit [facility] [address] [place] [address] Solo Rojo DDS [address] [place] [address] 08/18/2025 4:00 PM EST Office Visit [facility] [address] [place] [address] Name, MD Rajesh [address] [place] [address] documented as of this encounter Goals Goal Patient Goal Type Associated Problems Recent Progress Patient-Stated? Author Record your blood pressure periodically, 2-3x per week Blood Pressure No Puia, Aida, PharmD Blood Pressure < 140/90 Blood Pressure 162/92( 025 3:59 PM EDT) No Puia, Aida, PharmD documented as of this encounter Visit Diagnoses Not on filedocumented in this encounter Additional Health Concerns Assessment Noted Time PHQ-9 Depression Total Score: 0 02/20/20 23 2:37 PM EDT documented as of this encounter Care Teams Telecommunications Field Engineer Relationship Specialty Start Date End Date Name, MD Rajesh [address] [place] [address] PCP - General Family Medicine 07/04/21 Aida Nguyen, [place] [address] [place] [address] Pharmacist Internal Medicine 05/24/23 documented as of this encounter
--- OUTSIDE RECORDS SUMMARY | 2025-07-28 20:05 | XMS_ITS | Clinical Summary ---
Author Organization [employer] Address [address] [place] [address] 7[address] [place] [address] Care Team Providers Care Endoscopy Tech Name Role Phone Name, Rajesh WESTBROOK Primary Care Provider [phone] Aida Nguyen PharmD Unavailable [phone] Allergies No known active allergies Medications omeprazole (PriLOSEC) [address] capsuleIndication s:H. [...] for wheezing. 18 g 11 4 Active Spacer/Aero-Holdi ng Chambers (AeroChamber MV) inhalerIndication [...] ONCE DAILY 16 g 2 5 Active lisinopril-hydroC HLOROthiazide 10-12.5 MG tabletIndications :Essential hypertension Take 1 tablet by mouth Once per day. 30 tablet 11 5 07/13/20 26 Active Active Problems Problem Noted Date Diagnosed [...] Assessment & Plan (09/10/2023 12:41 PM EST): Lapel Stitcher to restart omeprazole Lapel Stitcher to reschedule appt with GI if symptoms continue Check H. Pylori test Essential hypertension 11/29/2022 Assessment & Plan (01/05/2025 4:23 PM EDT): Not controled Off hydrochlorothiazide since 03/2024 Review with PCP at 01/29/25 appointment Assessment & Plan (09/10/2023 12:43 PM EST): Uncontrolled hydrochlorothiazide recently started Lapel Stitcher to take losartan 100 MG in the [...] Encounters Date Type Department Care Team Description 07/28/2025 Travel 07/23/2025 3:30 PM EDT Telemedicine [facility] Kr[facility] [address] Ella Garvey RN Essential hypertension 07/23/2025 Travel 07/21/2025 Travel 07/13/2025 3:45 PM EDT Office Visit [facility] [place] [address] Rajesh Rdz MD Essential hypertension (Primary Dx); Vaccination refused by patient 07/13/2025 Travel 07/08/2025 Travel 07/06/2025 Telephone [facility] Krissy [facility] [address] Rajesh Rdz MD ER Follow-up 07/06/2025 Telephone [facility] Krissy [facility] [address] Rajesh Rdz MD ER Follow-up 07/03/2025 Orders Only GENERIC EXTERNAL DATA DEPARTMENT Provider, Generic External Data 07/02/2025 Orders Only GENERIC EXTERNAL DATA DEPARTMENT Provider, Generic External Data 06/23/2025 Telephone [facility] Krissy [facility] [address] Ella Garvey RN 06/09/2025 Orders Only GENERIC EXTERNAL DATA DEPARTMENT Provider, Generic External Data 06/08/2025 3:00 PM EDT Telemedicine [facility] [address] [place] [address] Ella Garvey RN Essential hypertension 06/08/2025 Travel 06/01/2025 Travel 05/25/2025 4:00 PM EDT Office Visit [facility] [address] [place] [address] Rajesh Rdz MD Essential hypertension (Primary Dx); Iron deficiency anemia, unspecified iron deficiency anemia type 05/25/2025 Travel 05/25/2025 Telephone [facility] [address] [place] [address] Rajesh Rdz MD CHART PREP 05/22/2025 Orders Only [facility] External Provider, [facility] 05/18/2025 Travel 05/06/2025 Telephone [facility] [address] [place] [address] Ella Garvey RN 04/30/2025 2:30 PM EDT Office Visit [facility] ADULT DENTAL [address] [place] [address] Solo Rojo DDS 04/29/2025 Travel from Last [...] Sign Reading Time Taken Comments Blood Pressure 162/92 07/13/2025 3:59 PM EDT Pulse 81 07/13/2025 3:59 PM EDT Temperature 36.6 C (97.9 F) 07/13/2025 3:59 PM EDT Respiratory Rate 14 07/13/2025 3:59 PM EDT Oxygen Saturation 98% 07/13/2025 3:59 PM EDT Inhaled Oxygen Concentration - - Weight 95.6 kg (210 lb 12.8 oz) 07/13/2025 3:59 PM EDT Height 165.1 cm (5' 5 ) 07/13/2025 3:59 PM EDT Body Mass Index 35.08 07/13/2025 3:59 PM EDT Plan of Treatment Upcoming Encounters Date Type Department Care Team (Late st Contact Info) Description 07/29/2025 9:00 AM EDT Office Visit [facility] ADULT DENTAL [address] [place] [address] Solo Rojo DDS [address] [place] [address] 08/18/2025 4:00 PM EST Office Visit [facility] [address] [place], [place] [phone] Name, MD Rajesh [address] [place], [place] [phone] Health Maintenance Due Date Last Done Comments [...] 05/25/2026 05/25/2025 Depression Screening 05/25/2026 05/25/2025, 05/25/20 Mammogram 06/03/2026 06/03/2025, 03/21/2023 Tobacco Screening 07/13/2026 07/13/2025 Cervical Cancer Screening 08/09/2026 HPV/Cotest 08/09/2026 08/09/2021, 110 06/2021, 08/09/2021, Additional history exists Pap Smear 08/09/2026 08/09/2021, 0 06/2021, 08/09/2021 Colonoscopy 09/20/2026 09/20/2021 Colorectal Cancer [...] 3:59 PM EDT) No Puia, Aida, PharmD Procedures Procedure Name Priority Date/Time Associated Diagnosis Comments HEMATOXYLIN AND EOSIN STAIN Routine 07/03/2025 9:56 AM EDT HIGH SENSITIVITY TROPONIN I Routine 07/02/2025 2:06 PM EDT CTA CHEST W AND WO CONTRAST Routine 07/02/2025 1:00 PM EDT HEMATOXYLIN AND EOSIN STAIN Routine 06/09/2025 7:42 AM EDT BI MAMMOGRAM SCREENING TOMOSYNTHESIS BILATERAL Routine 06/03/2025 1:45 PM EDT US PELVIS TRANSVAGINAL Routine 3:01 PM EDT NO CHARGE VISIT Routine 04/30/2025 2:30 PM EDT BITEWING - SINGLE RADIOGRAPHIC IMAGE Routine 02/18/2025 3:00 PM EDT LIPID PANEL, STANDARD Routine 03/11/2024 7:08 AM EDT HM COLONOSCOPY Routine 09/20/2021 3:35 PM EST HM PAP/HPV Routine 08/09/2021 HM PAP/HPV Routine 08/09/2021 from Last 3 Months or Most Recently Relevant to Health Maintenance Results * Hematoxylin and Eosin Stain (07/03/2025 9:56 AM EDT) Only the most recent of2 resultswithin the time period is included. 07/03/2025 9:56 AM EDT 07/03/2025 10:31 AM EDT [facility] - 07/06/2025 2:57 PM EDT ----- ------- Name: Ori LesterVeronica Age/Sex: 55/F : 1970 Unit#: [id number] Attend Dr: Wagner Malik MD Re07/03/25 Status: [facility] Location: [facility] Disch: ----- ------- SPEC : [id number] RECD: 07/03/25 STATUS: HENRI MOREJON NUM: [id number] TYE: 07/03/25 [facility] DR: Wagner Malik MD ENTERED: 07/03/25 SP TYPE: Surgical OTHR DR: Brittany Pearson ORDERED: HE Stain/4, Gross Micro L4/2 Diagnosis A. Endometrium, curettage: - Superficial fragments of inactive endometrium; no atypia or hyperplasia identified. - Small foci of benign atrophic squamous epithelium. B. Endometrium, polypectomy: - Fragments with features of endometrial polyp; background weakly proliferative endometrium; no atypia identified. - Prominent foci of benign smooth muscle; no atypia identified. Comment: The foci of smooth muscle in part B raise the possibility of leiomyoma(ta) Clinical History Uterine polyp, abnormal bleeding Microscopic Description Microscopic sections reviewed. Material Received A. EM B. Endometrial polyp Gross Description Received in 2 parts. A. Received in formalin, on Telfa, labeled EMC are fragments of pink-white soft tissue mixed with mucus and clotted blood forming in aggregate measuring 1.4 x 0.8 x 0.2 cm which is wrapped in lens paper and entirely submitted for microscopic examination, multiple pieces in cassette A. B. Received in formalin, in a cloth filtration device, labeled endometrial polyp are fragments of rubbery, simmons-white and red-pink tissue forming an aggregate measuring 2.5 x 1.6 by 0.3 cm in greatest dimension which is wrapped in lens paper and entirely submitted for microscopic examination, multiple pieces in cassette B. ([facility]) CONTINUED ON NEXT PAGE ----- ------- Name: Veronica Wong Age/Sex: 55/F : 1970 Unit#: [id number] Attend Dr: Wagner Malik MD Re07/03/25 Status: [facility] Location: [facility] Disch: ----- ------- SPEC : [id number] RECD: 07/03/25 STATUS: HENRI MOREJON NUM: [id number] TYE: 07/03/25 [facility] DR: Wagner Malik MD ENTERED: 07/03/25 SP TYPE: Surgical OTHR DR: Brittany Pearson ORDERED: HE Stain/4, Gross Micro L4/2 IHC S/NG Disclaimer NOTE: Unless otherwise stated, all tissue is formalin-fixed and paraffin-embedded. Some or all of the immunohistochemical tests reported herein may have been developed and their performance characteristics determined by [facility]. They have not been cleared or approved by the U.S. Food and Drug Administration (FDA). However, the FDA has determined that such clearance or approval is not necessary. This laboratory is certified under the Clinical Laboratory Improvement Amendments of 1988 (CLIA) as qualified to perform high complexity clinical laboratory testing. Copies To: Brittany Pearson [address] [address] Wagner Malik MD [facility] [address] [place] [address] Drive [address] [place], [place] [phone] ----- ------- Signed (signature on file) Chano Tinoco MD 07/06/25 1457 ----- ------- END OF REPORT Generic External Data Provider LAB BLOOD ORDERAB LES Final Result Performing Organization Address [facility] de Phone Number [facility] [address] [place] [phone] * High Sensitivity Troponin I (07/02/2025 2:06 PM EDT) [facility] TROPONIN I HIGH SENSITIVITY <2.7 <3.5 - 17.0 ng/L [facility] Comment:The Real high sens itivity Troponin-I results should beused in conjunction with other diagnostic information suchas ECG, clinical observations and information, and patientsymptoms to aid in the diagnosis of [place]. 07/02/2025 2:06 PM EDT 07/02/2025 2:10 PM EDT Generic External Data Provider LAB BLOOD ORDERAB LES Final Result Performing Organization Address [facility] de Phone Number [facility] [address] [place] [phone] * CTA Chest w/ and w/o Contrast (07/02/2025 1:00 PM EDT) Anatomical Region Laterality Modality Body, Chest Computed Tomogra phy 07/02/2025 1:00 PM EDT Narrative 07/02/2025 1:41 PM EDT [address] [address] [address] Scan Report Signed Patient: Veronica Wong MR#: [id number] : 1970 Acct:[id number] Age/Sex: 55 / F ADM Date: 07/02/25 Loc: HO.ED Attending Dr: Ordering Physician: Sebastian Arzola MD Date of Service: 07/02/25 Procedure(s): CT angio chest aorta Accession Number(s): [id number] cc: Sebastian Arzola MD; Name,Rajesh Report Number: [id number]: Total DLP = 467.00 mGy-cm Reason for Exam: central chest pain to back severe HTN. EXAMINATION: CT Angio Chest Aorta CLINICAL INFORMATION: Chest pain radiating to the back, severe hypertension COMPARISON: X-ray from October 21, 2024 TECHNIQUE: Multiple axial images were obtained through the chest after the administration of 70 mL of Omnipaque 350 intravenous contrast. Extensive vascular post-processing including two-dimensional and three-dimensional reformatted images were created and reviewed on an independent workstation. This CT examination was performed using dose optimization techniques as appropriate, variously including the following: *Automated exposure control *Adjustment of mA and/or kV according to patient size (this includes techniques or standardized protocols for targeted exams where dose is matched to indication/reason for exam; i.e. extremities or head) *Use of iterative reconstruction technique FINDINGS: QUALITY OF STUDY/CONTRAST BOLUS: Good but with motion artifact at the origin of the great vessels. PULMONARY ARTERIES: No central pulmonary emboli. THORACIC AORTA: There is no visible intimal flap or aneurysm. Atherosclerotic calcifications are identified. Incidental note is made of a bovine arch. LUNGS AND PLEURA: Lungs are clear. There is no pleural effusion or pleural thickening. MEDIASTINUM: There is a 14 mm hypodensity in the left lobe of thyroid gland and a 4 mm hypodensity in the right lobe. Mediastinum is unremarkable. CORONARY ARTERY CALCIFICATION: None CHEST WALL/AXILLA: No axillary or internal mammary lymphadenopathy. UPPER ABDOMEN: Unremarkable BONES: No acute fracture or deformity. CT/CT angio chest aorta IMPRESSION: No thoracic aortic aneurysm or dissection. There are 2 hypodensities in the thyroid gland. Follow-up nonemergent thyroid ultrasound. Fleischner guidelines were followed. Electronically signed by: Jarett Bowser MD 07/02/2025 01:38 PM EDT Dictated By: Jarett Bowser MD Signed By: <Electronically signed by Jarett Bowser MD in OV> 07/02/25 1338 DD/ 1300 TD/TT: 07/02/25 1319 Soil Expert: Procedure Note Donotuseinterpreter, Image - 07/02/[address] [address] [address] Scan Report Signed Patient: Veronica WongMR#: [id number] : 1970Acct:[id number] Age/Sex: 55 / FADM Date: 07/02/25 Loc: .ED Attending Dr: Ordering Physician: Sebastian Arzola MD Date of Service: 07/02/25 Procedure(s): CT angio chest aorta Accession Number(s): [id number] cc: Sebastian Arzola MD; Name,Rajesh WESTBROOK Report Number: [id number]: Total DLP = 467.00 mGy-cm Reason for Exam: central chest pain to back severe HTN. EXAMINATION: CT Angio Chest Aorta CLINICAL INFORMATION: Chest pain radiating to the back, severe hypertension COMPARISON: X-ray from October 21, 2024 TECHNIQUE: Multiple axial images were obtained through the chest after the administration of 70 mL of Omnipaque 350 intravenous contrast. Extensive vascular post-processing including two-dimensional and three-dimensional reformatted images were created and reviewed on an independent workstation. This CT examination was performed using dose optimization techniques as appropriate, variously including the following: *Automated exposure control *Adjustment of mA and/or kV according to patient size (this includes techniques or standardized protocols for targeted exams where dose is matched to indication/reason for exam; i.e. extremities or head) *Use of iterative reconstruction technique FINDINGS: QUALITY OF STUDY/CONTRAST BOLUS: Good but with motion artifact at the origin of the great vessels. PULMONARY ARTERIES: No central pulmonary emboli. THORACIC AORTA: There is no visible intimal flap or aneurysm. Atherosclerotic calcifications are identified. Incidental note is made of a bovine arch. LUNGS AND PLEURA: Lungs are clear. There is no pleural effusion or pleural thickening. MEDIASTINUM: There is a 14 mm hypodensity in the left lobe of thyroid gland and a 4 mm hypodensity in the right lobe. Mediastinum is unremarkable. CORONARY ARTERY CALCIFICATION: None CHEST WALL/AXILLA: No axillary or internal mammary lymphadenopathy. UPPER ABDOMEN: Unremarkable BONES: No acute fracture or deformity. CT/CT angio chest aorta IMPRESSION: No thoracic aortic aneurysm or dissection. There are 2 hypodensities in the thyroid gland. Follow-up nonemergent thyroid ultrasound. Fleischner guidelines were followed. Electronically signed by: Jarett Bowser MD 07/02/2025 01:38 PM EDT Dictated By: Jartet Bowser MD Signed By: <Electronically signed by Jarett Bowser MD in OV> 07/02/25 1338 DD/ 1300 TD/TT: 07/02/25 1319 Soil Expert: [facility] External Provider IMG CT PROCEDURES Edited Result - Final * BI Mammogram Screening Tomosynthesis Bilateral (06/03/2025 1:45 PM EDT) Anatomical Region Laterality Modality Breast Bilateral Mammography 06/03/2025 1:45 PM EDT Narrative 06/05/2025 2:28 PM EDT [address] [place] [address] Mammography Report Signed Patient: Veronica Wong MR#: [id number] : 1970 Acct:[id number] Age/Sex: 55 / F ADM Date: 06/03/25 Loc: HO.MAMMO Attending Dr: Wagner Malik MD Ordering Physician: Wagner Malik MD Results: 0Incompl ete: Needs Additional Imaging Evaluation Date of Service: 06/03/25 Follow Up: Additional Imagi ng Procedure(s): MM tomosynthesis screening BI Accession Number(s): [id number] cc: Brittany Pearson; Wagner Malik MD EXAMINATION: [...] 06/05/25 1425 DD/ 1345 TD/TT: 06/03/25 1410 Soil Expert: Procedure Note Donotuseinterpreter, Image - 06/05/2025 [facility] [address] [place] [address] Mammography Report Signed Patient: Vernoica Wong#: [id number] : 1970Acct:[id number] Age/Sex: 55 / FADM Date: 06/03/25 Loc: MAMMO Attending Dr: Wagner Malik MD Ordering Physician: Wagner Malikesults: 0Incompl ete: Needs Additional Imaging Evaluation Date of Service: 06/03/25Follow Up: Additional Imagi ng Procedure(s): MM tomosynthesis screening BI Accession Number(s): [id number] cc: Brittany Pearson; Wagner Malik MD EXAMINATION: [...] 06/05/25 1425 DD/ 1345 TD/TT: 06/03/25 1410 Soil Expert: us [facility] External Provider IMG BI PROCEDURES Final Result * US Pelvis Transvaginal (05/22/2025 3:01 PM EDT) Anatomical Region Laterality Modality Pelvis Ultrasound 05/22/2025 3:01 PM EDT Narrative 05/22/2025 3:24 PM EDT [address] [address] Ultrasound Report Signed Patient: Veronica Wong MR#: [id number] : 1970 Acct:[id number] Age/Sex: 55 / F ADM Date: 05/22/25 Loc: HO.US Attending Dr: Wagner Malik MD Ordering Physician: Wagner Malik MD Date of Service: 05/22/25 Procedure(s): US pelvic and transvaginal Accession Number(s): [id number] cc: Kajal,Rajesh WESTBROOK; Wagner Malik MD EXAMINATION: [...] 05/22/25 1521 DD/ 1501 TD/TT: 05/22/25 1508 Soil Expert: Procedure Note Donotuseinterpreter, Image - 05/22/[address] [address] Ultrasound Report Signed Patient: Veronica Wong#: [id number] : 1970Acct:[id number] Age/Sex: 55 / FADM Date: 05/22/25 Loc: HO.US Attending Dr: Wagner Malik MD Ordering Physician: Wagner Malik MD Date of Service: 05/22/25 Procedure(s): US pelvic and transvaginal Accession Number(s): [id number] cc: Name,Rajesh WESTBROOK; Wagner Malik MD EXAMINATION: [...] 05/22/25 1521 DD/ 1501 TD/TT: 05/22/25 1508 Soil Expert: [facility] External Provider IMG US PROCEDURES Final Result * Lipid Panel, Standard (03/11/2024 7:08 AM EDT) Triglycerides 74 <150 mg/dL [facility] Comment:Desirable Triglyceri de: less than 150 mg/dLBorderline High Triglyceride 150-199 mg/dLHigh Triglyceride: 200-499 mg/dLVery High Triglyceride: greater than or equal to 5OO mg/dL Cholesterol 169 <200 mg/dL [facility] Comment:Desirable Cholestero l: less than 200 mg/dLBorderline High Cholesterol: 200-239 mg/dLHigh Cholesterol: greater than 239 mg/dL LDL Cholesterol Calculated 95 <100 mg/dL [facility] Comment:Desirable LDL: less than 100 mg/dLNear Optimal/Above Optimal LDL: 110- 129 mg/dLBorderline High LDL: 130-159 mg/dLHigh LDL: 160-189 mg/dLVery High LDL: greater than or equal to 190 mg/dL HDL Cholesterol 60 >40 mg/dL [facility] Comment:Desirable HDL: great er than 40 mg/dL Note: This HDL assay may give artificially low results in patients with liver disease. 03/11/2024 7:08 AM EDT 03/11/2024 7:08 AM EDT Rajesh Rdz MD LAB BLOOD ORDERABLES Final Resul t [facility] [address] [place] [phone] * Colonoscopy (09/20/2021 3:35 PM EST) Colonoscopy Normal Normal Narrative Laura Goodwin - 09/20/2021 3:35 PM EST Recommended 5 year follow up Historical Provider HEALTH MAINTENANCE Final Result * Pap Smear (08/09/2021) Only the most recent of2 resultswithin the time period is included. Pap Negative for intraephithelial lesion or malignancy Negative for intraephithelial lesion or malignancy, Other HPV Undetected Caro Smith HEALTH MAINTENANCE Final Result from Last 3 Months or Most Recently Relevant to Health Maintenance Insurance [facility] DENTAL - [place] PARTIAL (MEDICAID) Care Teams Endoscopy Tech Relationship Specialty Start Date End Date Name, MD Rajesh [address] [place] [phone] PCP - General Family Medicine 07/04/21 Aida Nguyen, JimenezD [address] [place] [phone] Pharmacist Internal Medicine 05/24/23
--- OUTSIDE RECORDS SUMMARY | 2025-07-28 20:05 | XMS_ITS | Encounter Summary ---
Author Organization [employer] Address [address] [place] [address] 7t [place] [address] Care Team Providers Care Telemarketing Supervisor Name Role Phone Name, Rajesh WESTBROOK Primary Care Provider [phone] Aida Nguyen PharmD Unavailable [phone] Reason for Visit * Reason Onset Date Comments stating 10/12/2022 Encounter Details Date Type Department Care Team ([facility] st Contact Info) Description 10/12/2022 Telephone [facility] [address] [place], [place] [phone] Name, MD Rajesh [address] [place] [address] stating Social History Tobacco Use Types Packs/Day [...] - 10/12/2022 9:28 AM EST Tc from [facility] with [facility] stating they do not take pt health insurance and cant be seen at practice. documented in this encounter Plan of Treatment Upcoming Encounters Date Type Department Care Team (Late st Contact Info) Description 07/29/2025 9:00 AM EDT Office Visit [facility] ADULT DENTAL [address] [place] [address] Solo Rojo DDS [address] [place] [address] 08/18/2025 4:00 PM EST Office Visit [facility] [address] [place] [address] Name, MD Rajesh [address] [place] [address] documented as of this encounter Visit Diagnoses Not on filedocumented in this encounter Care Teams Telemarketing Supervisor Relationship Specialty Start Date End Date Name, MD Rajesh [address] [place] [phone] PCP - General Family Medicine 07/04/21 Aida Nguyen PharmD [address] [place] [address] [phone] Pharmacist Internal Medicine 05/24/23 documented as of this encounter
--- OUTSIDE RECORDS SUMMARY | 2025-07-28 20:05 | XMS_ITS | Encounter Summary ---
Author Organization [employer] Address [address] [facility] 7t [place] [address] Care Team Providers Care Vendor Management Consultant Name Role Phone Name, Rajesh WESTBROOK Primary Care Provider [phone] Aida Nguyen PharmD Unavailable [phone] Encounter Details Date Type Department Care Team (Latest Contact Info) Description 07/28/2025 Travel Social History Tobacco Use Types Packs/Day [...] Description 07/29/2025 9:00 AM EDT Office Visit [facility] ADULT DENTAL [address] [place] [phone] Solo Rojo DDS [address] [place] [address] 08/18/2025 4:00 PM EST Office Visit [facility] MED[facility] [address] [place] [phone] Rajesh Rdz MD [address] [place] [phone] documented as of this encounter Goals Goal [...] documented as of this encounter Care Teams Vendor Management Consultant Relationship Specialty Start Date End Date NameRajesh MD [address] [place] [phone] PCP - General Family Medicine 07/04/21 Aida Nguyen, JimenezD [address] [place] [phone] Pharmacist Internal Medicine 05/24/23 documented as of this encounter
--- OUTSIDE RECORDS SUMMARY | 2025-07-28 20:05 | XMS_ITS | Patient Health Record ---
Author Organization [facility] Address [address] [place] [address] Care Team Providers Care Project Manager Process Development Name Role Phone Name Rajesh WESTBROOK Primary Care Provider Jose Diaz Unavailable [phone] Reason For Referral No Information Medications Medication SIG (Take, Route, Frequency, Duration) Notes Start Date End Date Status Omeprazole 40 MG TAKE 1 CAPSULE BY [facility] EVERY MORNING; Duration: 90 Active Esomeprazole Magnesium Active MiraLax (colon prep) 17 GM/SCOOP 1 238 Gm bottle mixed with Gatorade or Crystal Light Orally begin at 5:00 p.m. the day before the procedure; Duration: 1 day 09/08/2021 Active Dulcolax (colon prep) 5 MG take at 3:00 p.m and 7:00p.m. Orally two tablets twice a day for one day; Duration: 1 day 09/08/2021 Active Immunizations Vaccine Route [...] Status Risk Notes Problem Gastroesophageal reflux disease (493931364) Gastroesophageal reflux disease (K21.9) Active confirmed Problem Iron deficiency anemia (89352613) Iron deficiency anemia (D50.9) Active confirmed Problem Family History of Cancer of Colon (Situation) (715325966) Family history of colon cancer (Z80.0) Active confirmed Problem Esophageal stricture (02512729) Esophageal stricture (K22.2) Active confirmed Problem Microcytic anemia (110272986) Microcytic anemia (D50.9) Active confirmed Problem Gastroesophageal reflux disease (075446601) Gastroesophageal reflux disease, unspecified whether esophagitis present [...] Insured Coverage Start Date Coverage End Date [facility] [address] [address] [place], [place] [id number] THOMAS LE Self - patient is the insured Medical (General) History Medical History History ICD Code Hypertension-being observed-not on meds as of the 09/06/21 OV Sleep apnea--no CPAP Anemia Denies [place],DM,CVA,Lung disease,renal dise ase Surgical History Surgery Date(Month/Year) BTL
--- OUTSIDE RECORDS SUMMARY | 2025-07-28 20:05 | XMS_ITS | Clinical Summary ---
Author Organization [facility] Address [address] [place] [address] Care Team Providers Care System Software Developer Name Role Phone Unavailable Primary Care Provider [...]
--- OUTSIDE RECORDS SUMMARY | 2025-07-28 20:05 | XMS_ITS | Encounter Summary ---
Author Organization [employer] Address [address] [facility] 7t [place] [address] Care Team Providers Care Ammunition Storekeeper Name Role Phone Name, Rajesh WESTBROOK Primary Care Provider [phone] Aida Nguyen PharmD Unavailable [phone] Encounter Details Date Type Department Care Team (Latest Contact Info) Description 07/23/2025 Travel Social History Tobacco Use Types Packs/Day [...] Description 07/29/2025 9:00 AM EDT Office Visit [facility] ADULT DENTAL [address] [place] [address] Solo Rojo DDS [address] [place] [address] 08/18/2025 4:00 PM EST Office Visit [facility] MEDICINE [address] [place] [address] Rajesh Rdz MD [address] [place] [address] documented as of this encounter Goals Goal [...] documented as of this encounter Care Teams Ammunition Storekeeper Relationship Specialty Start Date End Date NameRajesh MD [address] [place] [address] PCP - General Family Medicine 07/04/21 Aida Nguyen, JimenezD [address] [place] [address] Pharmacist Internal Medicine 05/24/23 documented as of this encounter
--- OUTSIDE RECORDS SUMMARY | 2025-07-28 20:05 | XMS_ITS | Encounter Summary ---
Author Organization [employer] Address [address] [facility] 7t [place] [address] Care Team Providers Care Oil Distributor Name Role Phone Name, Rajesh WESTBROOK Primary Care Provider [phone] Aida Nguyen PharmD Unavailable [phone] Encounter Details Date Type Department Care Team (Late st Contact Info) Description 01/06/2025 Orders Only [facility] MEDICINE [address] [place], [place] [phone] Brittany Pearson MD [address] [place], [place] [phone] Social History Tobacco Use Types Packs/Day Years [...] Description 07/29/2025 9:00 AM EDT Office Visit [facility] ADULT DENTAL [address] [place] [address] Solo Rojo DDS [address] [place] [address] 08/18/2025 4:00 PM EST Office Visit [facility] MEDICINE [address] [place] [address] Name, MD Rajesh [address] [place] [address] documented as of this encounter Goals Goal [...] 10:12 AM EDT) Lutenizing Hormone 23.0 mIU/mL [facility] Comment:Reference Range Foll icular Phase 1.9-12.5 Mid-Cycle Peak 8.7-76.3 Luteal Phase 0.5-16.9 Postmenopausal 10.0-54.7THIS TEST WAS PERFORMED AT:[employer] [place] [id number] JAVED MD 04/16/2025 10:1 2 AM EDT 04/16/2025 10:12 AM EDT us Generic External Data Provider LAB BLOOD ORDERAB LES Final Result [facility] [address] [place] [phone] * FSH (04/16/2025 10:12 AM EDT) Follicle Stimulating Hormone 39.3 mIU/mL [facility] Comment:Reference Range Foll icular Phase 2.5-10.2 Mid-cycle Peak 3.1-17.7 Luteal Phase 1.5- 9.1 Postmenopausal 23.0-116.3THIS TEST WAS PERFORMED AT:[employer] [place] [phone] JAVED MD 04/16/2025 10:1 2 AM EDT 04/16/2025 10:12 AM EDT Generic External Data Provider LAB BLOOD ORDERAB LES Final Result Performing Organization Address [facility] Co de Phone Number [facility] [address] [place] [address] [phone] * hCG, Total, Quantitative (04/16/2025 10:12 AM EDT) HCG Quantitative <2 mIU/mL [facility] Comment:Weeks post LMP Appro ximate hCG(Last Menstrual Period) Range (mIU/ml)3 - 4 weeks 9 - 1304 - 5 weeks 75 - 2,6005 - 6 weeks 850 - 20,8006 - 7 weeks 4000 - 100,2007 - 12 weeks 11,500 - 289,76479 - 16 weeks 18,300 - 137,03674 - 29 weeks (2nd trimester) 1,400 - 53,82869 - 41 weeks (3rd trimester) 940 - [...] ORDERAB LES Final Result Performing Organization Address City/[facility]/ZIP Co de Phone Number [facility] [address] [place] [address] [phone] * TSH with Reflex to Free T4 (04/16/2025 10:12 AM EDT) TSH reflex Free T4 0.84 0.32 - 4.0 uIU/mL [facility] 04/16/2025 10:1 2 AM EDT 04/16/2025 10:12 AM EDT Generic External Data Provider LAB BLOOD ORDERAB LES Final Result [facility] [address] [place] [address] [phone] * Chlamydia/N. Gonorrhoeae RNA, TMA, Urogenitial (04/16/2025 9:05 AM EDT) CT PCR NOT DETECTED Not Detect. [facility] Comment:A not detected test [...] psychologicalconsequences. NG PCR NOT DETECTED Not Detect. [facility] Comment:A not detected test [...] LAB MICROBIOLOGY - GENERAL ORDERABLES Final Result [facility] [address] [place] [address] [phone] documented in this encounter Visit Diagnoses Not on filedocumented in this encounter Additional Health Concerns Assessment Noted Time PHQ-9 Depression Total Score: 0 05/19/20 24 3:43 PM EDT documented as of this encounter Care Teams Oil Distributor Relationship Specialty Start Date End Date Name, MD Rajesh [address] [place] [address] PCP - General Family Medicine 07/04/21 Aida Nguyen PharmD [address] [place] [address] Pharmacist Internal Medicine 05/24/23 documented as of this encounter
--- OUTSIDE RECORDS SUMMARY | 2025-07-28 20:05 | XMS_ITS | Encounter Summary ---
Author Organization [employer] Address [address] [place] [address] 7 [place] [address] Care Team Providers Care Quill Machine Tender Name Role Phone Name, Rajesh WESTBROOK Primary Care Provider [phone] Aida Nguyen PharmD Unavailable [phone] Encounter Details Date Type Department Care Team (Late st Contact Info) Description 06/22/2023 Orders Only [facility] MEDICINE [address] [place] [address] [phone] Provider, MD Dinh Social History Tobacco Use [...] Description 07/29/2025 9:00 AM EDT Office Visit [facility] ADULT DENTAL [address] [place] [address] Solo Rojo DDS [address] [place] [address] 08/18/2025 4:00 PM EST Office Visit [facility] MEDICINE [address] [place] [address] Name, MD Rajesh [address] [place] [address] documented as of this encounter Goals Goal [...] documented as of this encounter Care Teams Quill Machine Tender Relationship Specialty Start Date End Date Name, MD Rajesh [address] [place] [address] PCP - General Family Medicine 07/04/21 Aida Nguyen, PharmD [address] [place] [address] Pharmacist Internal Medicine 05/24/23 documented as of this encounter
--- OUTSIDE RECORDS SUMMARY | 2025-07-28 20:05 | XMS_ITS | Encounter Summary ---
Author Organization [employer] Address [address] [place] [address] 7t [place] [address] Care Team Providers Care Printing Estimator Name Role Phone Name, Rajesh WESTBROOK Primary Care Provider [phone] Aida Nguyen PharmD Unavailable [phone] Encounter Details Date Type Department Care Team ([facility] Contact Info) Description 03/12/2023 Abstract [facility] [address] [place], [place] [phone] Name, MD Rajesh [address] [place] [address] Social History Tobacco Use Types Packs/Day Years [...] Upcoming Encounters Date Type Department Care Team ([facility] Contact Info) Description 07/29/2025 9:00 AM EDT Office Visit [facility] [address] [place] [address] Solo Rojo, LISA [address] [place] [address] 08/18/2025 4:00 PM EST Office Visit [facility] [address] [place] [address] Name, MD Rajesh [address] [place] [address] documented as of this encounter Procedures Procedure [...] documented as of this encounter Care Teams Printing Estimator Relationship Specialty Start Date End Date Name, MD Rajesh [address] [place] [address] [phone] PCP - General Family Medicine 07/04/21 Aida Nguyen, Rubens [address] [place] [address] [phone] Pharmacist Internal Medicine 05/24/23 documented as of this encounter
== END 2025-07-28 16:19 | disposition home or self-care (01) ==
LOC: HO.HWS 15:56
PROVIDERS: PCP General Practice; Visit Provider Obstetrics & Gynecology
DX: N93.9 Abnormal uterine and vaginal bleeding, unspecified (principal)
CPT/HCPCS: 99213

== ENCOUNTER → 2025-07-28 15:56 | Outpatient (BNVA) | payer OTHER, SELFPAY | PROVIDERS: PCP General Practice; Visit Provider Obstetrics & Gynecology | DX: Z71.2 Person consulting for explanation of examination or test findings (principal); N93.9 Abnormal uterine and vaginal bleeding, unspecified | CPT/HCPCS: 99212 ==

== ENCOUNTER 2025-08-11 08:23 | Outpatient (REF) | payer OTHER, SELFPAY ==
--- OUTSIDE RECORDS SUMMARY | 2025-08-11 08:30 | XMS_ITS | Patient Health Record ---
Author Organization [facility] Address [address] [place] [address] Care Team Providers Care Pen Tender Name Role Phone Name Rajesh WESTBROOK Primary Care Provider Jose Diaz Unavailable [phone] Reason For Referral No Information Medications Medication SIG (Take, Route, Frequency, Duration) Notes Start Date End Date Status Omeprazole 40 MG TAKE 1 CAPSULE BY [facility] EVERY MORNING; Duration: 90 Active Esomeprazole Magnesium [...] Status Risk Notes Problem Gastroesophageal reflux disease (747744494) Gastroesophageal reflux disease (K21.9) Active confirmed Problem Iron deficiency anemia (34560125) Iron deficiency anemia (D50.9) Active confirmed Problem Family History of Cancer of Colon (Situation) (389804574) Family history of colon cancer (Z80.0) Active confirmed Problem Esophageal stricture (24393952) Esophageal stricture (K22.2) Active confirmed Problem Microcytic anemia (293549705) Microcytic anemia (D50.9) Active confirmed Problem Gastroesophageal reflux disease (424059438) Gastroesophageal reflux disease, unspecified whether esophagitis present [...] Date [facility] [address] [address] [place], [place] [phone] [id number] THOMAS LE Self - patient is the insured Medical (General) History Medical History History ICD Code Hypertension-being observed-not on meds as of the 09/06/21 OV Sleep apnea--no CPAP Anemia Denies [place],DM,CVA,Lung disease,renal dise ase Surgical History Surgery Date(Month/Year) BTL
--- OUTSIDE RECORDS SUMMARY | 2025-08-11 08:31 | XMS_ITS | Encounter Summary ---
Author Organization [employer] Address [address] [facility] 7 [place] [address] Care Team Providers Care Malt House Loader Name Role Phone Name, Rajesh WESTBROOK Primary Care Provider [phone] Aida Nguyen PharmD Unavailable [phone] Reason for Visit * Reason Onset Date Comments Nurse Triage 08/30/2023 Encounter Details Date Type Department Care Team ([facility] st Contact Info) Description 08/30/2023 Telephone [facility] MEDICINE [address] [place], [place] [phone] Name, MD Rajesh [address] [place] [address] Nurse Triage Social History Tobacco Use Types [...] 4:41 PM EST T/C to pt. Through [employer] id - [id number] for below message, Pt. States she is [...] time. Pt advised of disposition, agrees to [facility] now for exam to rule out [...] Chest pain The caller accepted this outcome Angolan Speaker documented in this encounter Plan of Treatment Upcoming Encounters Date Type Department Care Team (Late st Contact Info) Description 08/18/2025 4:00 PM EST Office Visit [facility] MEDICINE [address] [place] [address] Name, MD Rajesh [address] [place] [address] documented as of this encounter Goals Goal [...] documented as of this encounter Care Teams Malt House Loader Relationship Specialty Start Date End Date Name, MD Rajesh [address] [place] [address] PCP - General Family Medicine 07/04/21 Puia, Aida, PharmD [address] [place] [address] Pharmacist Internal Medicine 05/24/23 documented as of this encounter
--- OUTSIDE RECORDS SUMMARY | 2025-08-11 08:31 | XMS_ITS | Encounter Summary ---
Author Organization [employer] [facility] Address [address] [place] [address] 7t [place] [address] Care Team Providers Care Blood Splatter Analyst Name Role Phone Name, Rajesh WESTBROOK Primary Care Provider [phone] Aida Nguyen PharmD Unavailable [phone] Reason for Visit * Reason Onset Date Comments stating 10/12/2022 Encounter Details Date Type Department Care Team ([facility] st Contact Info) Description 10/12/2022 Telephone [facility] MEDICINE [address] [place], [place] [phone] Name, MD Rajesh [address] [place] [address] stating Social History Tobacco Use Types Packs/Day [...] - 10/12/2022 9:28 AM EST Tc from [place] with [facility] stating they do not take pt health insurance and cant be seen at practice. documented in this encounter Plan of Treatment Upcoming Encounters Date Type Department Care Team (Late st Contact Info) Description 08/18/2025 4:00 PM EST Office Visit [facility] MEDICINE [address] [place] [address] Name, MD Rajesh [address] [place] [address] documented as of this encounter Visit Diagnoses Not on filedocumented in this encounter Care Teams Blood Splatter Analyst Relationship Specialty Start Date End Date Name, MD Rajesh [address] [place] [address] PCP - General Family Medicine 07/04/21 Aida Nguyen PharmD [address] [place] [address] Pharmacist Internal Medicine 05/24/23 documented as of this encounter
--- OUTSIDE RECORDS SUMMARY | 2025-08-11 08:31 | XMS_ITS | Encounter Summary ---
Author Organization [employer] Address [address] [facility] 7t [place] [address] Care Team Providers Care Third Cook Name Role Phone Name, Rajesh WESTBROOK Primary Care Provider [phone] Aida Nguyen PharmD Unavailable [phone] Encounter Details Date Type Department Care Team (Late st Contact Info) Description 01/06/2025 Orders Only [facility] MED[facility] [address] [place], [place] [phone] Brittany Pearson MD [address] [place], [place] [phone] Social History Tobacco Use Types Packs/Day Years [...] 4:00 PM EST Office Visit [facility] MEDICINE [address] [place] [address] Name, MD Rajesh [address] [place] [address] documented as of this encounter Goals Goal [...] 10:12 AM EDT) Lutenizing Hormone 23.0 mIU/mL [facility] Comment:Reference Range Foll icular Phase 1.9-12.5 Mid-Cycle Peak 8.7-76.3 Luteal Phase 0.5-16.9 Postmenopausal 10.0-54.7THIS TEST WAS PERFORMED AT:[employer] [place] [id number] JAVED MD 04/16/2025 10:1 2 AM EDT 04/16/2025 10:12 AM EDT Generic External Data Provider LAB BLOOD ORDERAB LES Final Result Performing Organization Address [facility] Co de Phone Number [facility] [address] [place] [phone] * FSH (04/16/2025 10:12 AM EDT) Follicle Stimulating Hormone 39.3 mIU/mL [facility] Comment:Reference Range Foll icular Phase 2.5-10.2 Mid-cycle Peak 3.1-17.7 Luteal Phase 1.5- 9.1 Postmenopausal 23.0-116.3THIS TEST WAS PERFORMED AT:[employer] [address] [id number] JAVED MD 04/16/2025 10:1 2 AM EDT 04/16/2025 10:12 AM EDT us Generic External Data Provider LAB BLOOD ORDERAB LES Final Result Performing Organization Address City/[facility]/ZIP Co de Phone Number [facility] [address] [place] [address] [phone] * hCG, Total, Quantitative (04/16/2025 10:12 AM EDT) HCG Quantitative <2 mIU/mL [facility] Comment:Weeks post LMP Appro ximate hCG(Last Menstrual Period) Range (mIU/ml)3 - 4 weeks 9 - 1304 - 5 weeks 75 - 2,6005 - 6 weeks 850 - 20,8006 - 7 weeks 4000 - 100,2007 - 12 weeks 11,500 - 289,33167 - 16 weeks 18,300 - 137,68776 - 29 weeks (2nd trimester) 1,400 - 53,12273 - 41 weeks (3rd trimester) 940 - [...] ORDERAB LES Final Result Performing Organization Address City/[facility]/ZIP Co de Phone Number [facility] [address] [place] [phone] * TSH with Reflex to Free T4 (04/16/2025 10:12 AM EDT) TSH reflex Free T4 0.84 0.32 - 4.0 uIU/mL [facility] 04/16/2025 10:1 2 AM EDT 04/16/2025 10:12 AM EDT us Generic External Data Provider LAB BLOOD ORDERAB LES Final Result Performing Organization Address City/[facility]/ZIP Co de Phone Number [facility] [address] [place] [address] [phone] * Chlamydia/N. Gonorrhoeae RNA, TMA, Urogenitial (04/16/2025 9:05 AM EDT) CT PCR NOT DETECTED Not Detect. [facility] Comment:A not detected test result does [...] psychologicalconsequences. NG PCR NOT DETECTED Not Detect. [facility] Comment:A not detected test result does [...] LAB MICROBIOLOGY - GENERAL ORDERABLES Final Result [facility] [address] [place] [address] [phone] documented in this encounter Visit Diagnoses Not on filedocumented in this encounter Additional Health Concerns Assessment Noted Time PHQ-9 Depression Total Score: 0 05/19/20 24 3:43 PM EDT documented as of this encounter Care Teams Third Cook Relationship Specialty Start Date End Date Name, MD Rajesh [address] [place] [address] PCP - General Family Medicine 07/04/21 Aida Nguyen PharmD [address] [place] [address] Pharmacist Internal Medicine 05/24/23 documented as of this encounter
--- OUTSIDE RECORDS SUMMARY | 2025-08-11 08:31 | XMS_ITS | Encounter Summary ---
Author Organization [employer] Address [address] [place] [address] 7t [place] [address] Care Team Providers Care Pigment Supplier Name Role Phone Name, Rajesh WESTBROOK Primary Care Provider [phone] Aida Nguyen PharmD Unavailable [phone] Encounter Details Date Type Department Care Team ([facility] Contact Info) Description 03/12/2023 Abstract [facility] MEDICINE [address] [place], [place] [phone] Name, MD Rajesh [address] [place] [address] Social History Tobacco Use Types Packs/Day Years [...] Upcoming Encounters Date Type Department Care Team ([facility] Contact Info) Description 08/18/2025 4:00 PM EST Office Visit [facility] [address] [facility] [place] [address] Name, [place] [address] documented as of this encounter Procedures Procedure [...] documented as of this encounter Care Teams Pigment Supplier Relationship Specialty Start Date End Date Name, MD Rajesh [facility] [place] [address] PCP - General Family Medicine 07/04/21 Aida Nguyen PharmD [address] [place] [address] Pharmacist Internal Medicine 05/24/23 documented as of this encounter
--- OUTSIDE RECORDS SUMMARY | 2025-08-11 08:31 | XMS_ITS | Clinical Summary ---
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 Pylori test Essential hypertension 11/29/2022 Assessment & Plan (01/05/2025 4:23 PM EDT): Not controled Off hydrochlorothiazide since 03/2024 Review with PCP at 01/29/25 appointment Assessment & Plan (09/10/2023 12:43 PM EST): Uncontrolled hydrochlorothiazide recently started Boat Crew Deck Hand to take losartan 100 MG in the [...] 07/28/2025 Travel 07/23/2025 3:30 PM EDT Telemedicine [facility] [place] [address] Ella Garvey RN Essential hypertension 07/23/2025 Travel 07/21/2025 Travel 07/13/2025 3:45 PM EDT Office Visit [facility] [place] [address] Rajesh Rdz MD Essential hypertension (Primary Dx); Vaccination refused by patient 07/13/2025 Travel 07/08/2025 Travel 07/06/2025 Telephone [facility] [place] [address] Rajesh Rdz MD ER Follow-up 07/06/2025 Telephone [facility] [place] [address] Rajesh Rdz MD ER Follow-up 07/03/2025 Orders Only GENERIC EXTERNAL DATA DEPARTMENT Provider, Generic External Data 07/02/2025 Orders Only GENERIC EXTERNAL DATA DEPARTMENT Provider, Generic External Data 06/23/2025 Telephone [facility] [place] [address] Ella Garvey RN 06/09/2025 Orders Only GENERIC EXTERNAL DATA DEPARTMENT Provider, Generic External Data 06/08/2025 3:00 PM EDT Telemedicine [facility] [address] [place] [address] Ella Garvey RN Essential hypertension 06/08/2025 Travel 06/01/2025 Travel 05/25/2025 4:00 PM EDT Office Visit [facility] [address] [place] [address] NameRajesh MD Essential hypertension (Primary Dx); Iron deficiency anemia, unspecified iron deficiency anemia type 05/25/2025 Travel 05/25/2025 Telephone [facility] [address] [place] [address] Name, MD Rajesh CHART PREP 05/22/2025 Orders Only [facility] External Provider, [facility] 05/18/2025 Travel from Last 3 Months Immunizations Immunization [...] Description 08/18/2025 4:00 PM EST Office Visit [facility] [address] [place] [address] Name, MD Rajesh [address] [place] [address] Health Maintenance Due Date Last Done Comments [...] 05/25/2026 05/25/2025 Depression Screening 05/25/2026 05/25/2025, 05/25/20 25 Mammogram 06/03/2026 06/03/2025, 03/21/2023 Tobacco Screening 07/13/2026 [...] US PELVIS TRANSVAGINAL Routine 3:01 PM EDT BITEWING - SINGLE RADIOGRAPHIC IMAGE [...] 9:56 AM EDT 07/03/2025 10:31 AM EDT [facility] - 07/06/2025 2:57 PM EDT ----- ------- Name: Ori Donald NabeelVeronica Age/Sex: 55/F : 1970 Unit#: [id number] Attend Dr: Wagner Malik MD Re07/03/25 Status: [facility] Location: [facility] Disch: ----- ------- SPEC : [id number] RECD: 07/03/25 STATUS: HENRI MOREJON NUM: [id number] TYE: 07/03/[address]: Wagner Malik MD ENTERED: 07/03/25 SP [...] microscopic examination, multiple pieces in cassette B. ([facility]) CONTINUED ON NEXT PAGE ----- ------- Name: Veronica Wong Age/Sex: 55/F : 1970 Unit#: [id number] Attend Dr: Wagner Malik MD Re07/03/25 Status: [facility] Location: [facility] Disch: ----- ------- SPEC : [id number] RECD: 07/03/25 STATUS: HENRI MOREJON NUM: [id number] TYE: 07/03/25 [facility] DR: Wagner Malik MD ENTERED: 07/03/25 SP TYPE: Surgical OTHR DR: Brittany Pearson ORDERED: HE Stain/4, Gross Micro L4/2 IHC S/NG Disclaimer NOTE: Unless otherwise stated, all tissue is formalin-fixed and paraffin-embedded. Some or all of the immunohistochemical tests reported herein may have been developed and their performance characteristics determined by [facility]. They have not been cleared or approved by the U.S. Food and Drug Administration (FDA). However, the FDA has determined that such clearance or approval is not necessary. This laboratory is certified under the Clinical Laboratory Improvement Amendments of 1988 (CLIA) as qualified to perform high complexity clinical laboratory testing. Copies To: Brittany Pearson [address] [address] Wagner Malik MD [facility] [address] [place] [address] [address] [place] [phone] ----- ------- Signed (signature on file) Chano Tinoco MD 07/06/25 1457 ----- ------- END OF REPORT us Generic External Data Provider LAB BLOOD ORDERAB LES Final Result Performing Organization Address City/State/[facility] de Phone Number [facility] [address] [place] [phone] * High Sensitivity Troponin I (07/02/2025 2:06 PM EDT) TROPONIN I HIGH SENSITIVITY <2.7 <3.5 - 17.0 ng/L [facility] Comment:The Real high sens itivity Troponin-I results should beused in conjunction with other diagnostic information suchas ECG, clinical observations and information, and patientsymptoms to aid in the diagnosis of [place]. 07/02/2025 2:06 PM EDT 07/02/2025 2:10 PM EDT us Generic External Data Provider LAB BLOOD ORDERAB LES Final Result Performing Organization Address [facility] de Phone Number [facility] [address] [place] [phone] * CTA Chest w/ and w/o Contrast (07/02/2025 1:00 PM EDT) Anatomical Region Laterality Modality Body, Chest Computed Tomogra phy 07/02/2025 1:00 PM EDT Narrative 07/02/2025 1:41 PM EDT [address] [address] [address] Scan Report Signed Patient: Veronica Wong MR#: [id number] : 1970 Acct:[id number] Age/Sex: 55 / F ADM Date: 07/02/25 Loc: .ED Attending Dr: Ordering Physician: Sebastian Arzola MD Date of Service: 07/02/25 Procedure(s): CT angio chest aorta Accession Number(s): [id number] cc: Sebastian Arzola MD; Name,Rajesh WESTBROOK Report Number: [id number]: Total DLP = 467.00 mGy-cm Reason for [...] 07/02/25 1338 DD/ 1300 TD/TT: 07/02/25 1319 Prospect Manager: Procedure Note Donotuseinterpreter, Image - 07/02/[address] [address] [address] Scan Report Signed Patient: Veronica Wong#: [id number] : 1970Acct:[id number] Age/Sex: 55 / FADM Date: 07/02/25 Loc: HO.ED Attending Dr: Ordering Physician: Sebastian Arzola MD Date of Service: 07/02/25 Procedure(s): CT angio chest aorta Accession Number(s): [id number] cc: Sebastian Arzola MD; Name,Rajesh Report Number: [id number]: Total DLP = 467.00 mGy-cm Reason for [...] 07/02/25 1338 DD/ 1300 TD/TT: 07/02/25 1319 Prospect Manager: [facility] External Provider IMG CT PROCEDURES Edited Result - Final * BI Mammogram Screening Tomosynthesis Bilateral (06/03/2025 1:45 PM EDT) Anatomical Region Laterality Modality Breast Bilateral Mammography 06/03/2025 1:45 PM EDT Narrative 06/05/2025 2:28 PM EDT [address] [place] [address] Mammography Report Signed Patient: Veronica Wong MR#: [id number] : 1970 Acct:[id number] Age/Sex: 55 / F ADM Date: 06/03/25 Loc: HO.MAMMO Attending Dr: Wagner Malik MD Ordering Physician: Wagner Malik MD Results: 0Incompl ete: Needs Additional Imaging Evaluation Date of Service: 06/03/25 Follow Up: Additional Imagi ng Procedure(s): MM tomosynthesis screening BI Accession Number(s): [id number] cc: Brittany Pearson; Wagner Malik MD EXAMINATION: [...] 06/05/25 1425 DD/ 1345 TD/TT: 06/03/25 1410 Prospect Manager: Procedure Note Donotuseinterpreter, Image - 06/05/2025 [facility] [address] [place] [address] Mammography Report Signed Patient: Veronica WongMR#: [id number] : 1970Acct:[id number] Age/Sex: 55 / FADM Date: 06/03/25 Loc: HO.MAMMO Attending Dr: Wagner Malik MD Ordering Physician: Wagner Malik MDResults: 0Incompl ete: Needs Additional Imaging Evaluation Date of Service: 06/03/25Follow Up: Additional Imagi ng Procedure(s): MM tomosynthesis screening BI Accession Number(s): [id number] cc: Brittany Pearson; Wagner Malik MD EXAMINATION: [...] 06/05/25 1425 DD/ 1345 TD/TT: 06/03/25 1410 Prospect Manager: [facility] External Provider IMG BI PROCEDURES Final Result * US Pelvis Transvaginal (05/22/2025 3:01 PM EDT) Anatomical Region Laterality Modality Pelvis Ultrasound 05/22/2025 3:01 PM EDT Narrative 05/22/2025 3:24 PM EDT [place] [address] Ultrasound Report Signed Patient: Veronica Wong MR#: [id number] : 1970 Acct:[id number] Age/Sex: 55 / F ADM Date: 05/22/25 Loc: .US Attending Dr: Wagner Malik MD Ordering Physician: Wagner Malik MD Date of Service: 05/22/25 Procedure(s): US pelvic and transvaginal Accession Number(s): [id number] cc: Rajesh Rdz MD; Wagner Malik MD [...] visualized with certainty. Electronically signed by: Matthieu eBrg MD 05/22/2025 03:21 PM EDT Dictated By: Matthieu Berg MD Signed By: <Electronically signed by Matthieu Berg MD in OV> 05/22/25 1521 DD/ 1501 TD/TT: 05/22/25 1508 Prospect Manager: Procedure Note Donotuseinterpreter, Image - 05/22/2025 [place] [address] Ultrasound Report Signed Patient: Veronica Wong#: [id number] : 1970Acct:[id number] Age/Sex: 55 / FADM Date: 05/22/25 Loc: HO.US Attending Dr: Wagner Malik MD Ordering Physician: Wagner Malik MD Date of Service: 05/22/25 Procedure(s): US pelvic and transvaginal Accession Number(s): [id number] cc: Rajesh Rdz MD; Wagner Malik MD [...] 05/22/25 1521 DD/ 1501 TD/TT: 05/22/25 1508 Prospect Manager: us [facility] External Provider IMG US PROCEDURES Final Result * Lipid Panel, Standard (03/11/2024 7:08 AM EDT) Triglycerides 74 <150 mg/dL [facility] Comment:Desirable Triglyceri de: less than 150 mg/dLBorderline High Triglyceride 150-199 mg/dLHigh Triglyceride: 200-499 mg/dLVery High Triglyceride: greater than or equal to 5OO mg/dL Cholesterol 169 <200 mg/dL [facility] Comment:Desirable Cholestero l: less than 200 mg/dLBorderline High Cholesterol: 200-239 mg/dLHigh Cholesterol: greater than 239 mg/dL LDL Cholesterol Calculated 95 <100 mg/dL [facility] Comment:Desirable LDL: less than 100 mg/dLNear Optimal/Above Optimal LDL: 110- 129 mg/dLBorderline High LDL: 130-159 mg/dLHigh LDL: 160-189 mg/dLVery High LDL: greater than or equal to 190 mg/dL HDL Cholesterol 60 >40 mg/dL [facility] Comment:Desirable HDL: great er than 40 mg/dL Note: This HDL assay may give artificially low results in patients with liver disease. 03/11/2024 7:08 AM EDT 03/11/2024 7:08 AM EDT Rajesh Name LAB BLOOD ORDERABLES Final Resul t [facility] [address] [place] [phone] * Colonoscopy (09/20/2021 3:35 PM EST) Colonoscopy Normal Normal Narrative Laura Goodwin - 09/20/2021 3:35 PM EST Recommended 5 year follow up Historical Provider HEALTH MAINTENANCE Final Result * Pap Smear (08/09/2021) Only the most recent of2 resultswithin the time period is included. Pap Negative for intraephithelial lesion or malignancy Negative for intraephithelial lesion or malignancy, Other HPV Undetected [place] HEALTH MAINTENANCE Final Result from Last 3 Months or Most Recently Relevant to Health Maintenance Insurance [facility] [place] [address] DENTAL - HSN PARTIAL (MEDICAID) Care Teams Outreach Librarian Relationship Specialty Start Date End Date Name, MD Rajesh [address] [place] [address] PCP - General Family Medicine 07/04/21 Aida Nguyen PharmD [address] [place] [address] Pharmacist Internal Medicine 05/24/23
--- OUTSIDE RECORDS SUMMARY | 2025-08-11 08:31 | XMS_ITS | Clinical Summary ---
Author Organization [facility] ity Address [address] [place] [address] Care Team Providers Care Psychiatry Resident Name Role Phone Unavailable Primary Care Provider [...]
--- OUTSIDE RECORDS SUMMARY | 2025-08-11 08:31 | XMS_ITS | Encounter Summary ---
Author Organization [employer] [facility] Address [address] [place] [address] 7[address] [place] [address] Care Team Providers Care Pupil Personnel Worker Name Role Phone Name, Rajesh WESTBROOK Primary Care Provider [phone] Aida Nguyen PharmD Unavailable [phone] Encounter Details Date Type Department Care Team (Late Contact Info) Description 06/22/2023 Orders Only [facility] [address] [place] [phone] Provider, MD Dinh Social History Tobacco [...] Description 08/18/2025 4:00 PM EST Office Visit [facility] [address] [place] [address] [phone] Name, MD Rajesh [address] [place] [phone] documented as of this encounter Goals Goal Patient Goal Type Associated Problems Recent Progress Patient-Stated? Author Record your blood pressure periodically, 2-3x per week Blood Pressure No Aida Nguyen, PharmFidelia Blood Pressure < 140/90 Blood Pressure 162/92( [...] documented as of this encounter Care Teams Pupil Personnel Worker Relationship Specialty Start Date End Date Name, MD Rajesh [address] [place] [address] PCP - General Family Medicine 07/04/21 Aida Nguyen PharmD [address] [place] [address] Pharmacist Internal Medicine 05/24/23 documented as of this encounter
[2025-08-11 11:52] LABS: Anion Gap 10 (12-20); Blood Urea Nitrogen 15 mg/dL (9-16); Calcium 9.9 mg/dL (8.4-10.2); Carbon Dioxide 26 mmol/L (22-29); Chloride 105 mmol/L (96-108); Estimated Glomerular Filt Rate > 60; Potassium 4.0 mmol/L (3.3-5.1); Sodium 137 mmol/L (135-145)
== END 2025-08-11 08:24 | disposition home or self-care (01) ==
LOC: HO.HHCL 08:23
PROVIDERS: PCP General Practice; Visit Provider Internal Medicine Geriatric Medicine
DX: I10 Essential (primary) hypertension (principal)
CPT/HCPCS: 36415; 80048

== ENCOUNTER 2025-09-03 13:32 | Outpatient (REF) | payer OTHER, SELFPAY ==
--- NOTE | ~2025-09-03 | MM_ITS ---
EXAMINATION: MM DIAGNOSTIC DIGITAL BREAST TOMOSYNTHESIS, LEFT Left Limited ultrasound. CLINICAL INFORMATION: Call back from screening for asymmetry in the superior left breast on MLO view. COMPARISON: Mammography: Prior imaging on PACS. TECHNIQUE: Digital breast tomosynthesis is performed in both the craniocaudal and mediolateral oblique views along with computer-aided detection (CAD). Synthesized 2D images are generated from the tomosynthesis. FINDINGS: There are scattered areas of fibroglandular density. Asymmetry superior left breast posterior depth on MLO view partially effaces on additional imaging projections. No suspicious calcifications or other abnormal findings. Targeted color Doppler ultrasound scanning from 11-2 o'clock in the upper outer breast demonstrates normal fibroglandular breast tissue. There is no sonographic abnormal finding. MM/MM tomosynthesis added views L IMPRESSION: Asymmetry in the superior left breast MLO view which partially effaces and without sonographic correlate. Recommend 6 month follow-up for further evaluation of stability. ASSESSMENT: BI-RADS Category 3: Probably benign RECOMMENDATION: 6 Month F/U Results were provided to the patient at time of visit by the technologist. This patient's information was entered into a reminder system with a target due date for their next mammogram. Electronically signed by: Carmella Correa DO 09/03/2025 02:36 PM NIEVES
== END 2025-09-03 13:33 | disposition home or self-care (01) ==
LOC: HO.MAMMO 13:32
PROVIDERS: PCP General Practice; Visit Provider General Practice
DX: N64.89 Other specified disorders of breast (principal)
CPT/HCPCS: 76642; 77061; 77065

== ENCOUNTER → 2025-09-03 14:00 | Outpatient (BNV) | payer OTHER, SELFPAY | PROVIDERS: PCP General Practice; Visit Provider Internal Medicine | DX: R92.8 Other abnormal and inconclusive findings on diagnostic imaging of breast (principal) | CPT/HCPCS: 77061; 77065 ==

== ENCOUNTER 2025-09-17 11:29 | Outpatient (AMB) | payer OTHER, SELFPAY ==
--- NOTE | 2025-09-17 11:35 | A.OFFVIS_ITS ---
Vital Signs 09/17/25 11:36 Height 5 ft 5 in Weight 201 lb BMI 33.4 BP 128/76 Intake Visit Reasons: mammo results/ ? Mirena insertion Dope House Operator Helper Required: Yes Dope House Operator Helper Language: Barker Peeler Services: Dope House Operator Helper Present (in person) Dope House Operator Helper Name: Mitzi NERI Information Interpreted: non-clinical & clinical Weigher And Crusher: Weigher And Crusher Present (Mitzi NERI) Accompanied by: Self / Same As Patient Allergies No Known Allergies Allergy (Verified 09/17/25 11:36) Post menopausal: Yes HPI Comments Details: The patient is presenting for follow-up hysteroscopy D&C no complaints minimal vaginal bleeding no feverishness chills or abdominal pain. The pathology showed the following: A. Endometrium, curettage: - Superficial fragments of inactive endometrium; no atypia or hyperplasia identified. - Small foci of benign atrophic squamous epithelium. B. Endometrium, polypectomy: - Fragments with features of endometrial polyp; background weakly proliferative endometrium; no atypia identified. - Prominent foci of benign smooth muscle; no atypia identified. Comment: The foci of smooth muscle in part B raise the possibility of leiomyoma(ta) Last mammogram was BI-RADS 3 Last H and H 14.7/43.5 TSH within normal GC/CT negative Pelvic ultrasound showed the following: IMPRESSION: 1. Mild endometrial thickening measuring 16 mm. Correlate with menstrual status. 2. Small amount of fluid in the cul-de-sac, likely physiologic. 3. Normal right ovary. 4. The left ovary cannot be visualized with certainty. 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 Gender identity: Female Female Reproductive History Menstrual Age of Menarche: 16 Review of Systems Const All systems reviewed & are unremarkable except as noted in HPI and below Reports as per HPI and Reports no additional complaints GI Reports no additional complaints Reports no additional complaints Physical Exam Vital Signs: Last Vital Signs BP 128/76 09/17/25 11:36 BMI result Body Mass Index 33.4 Assessment & Plan Assessment & Plan (1) Abnormal uterine bleeding (AUB): Comment: Endometrial polyp status post polypectomy Weakly proliferative endometrium Elevated FSH/LH Code(s): N93.9 - Abnormal uterine and vaginal bleeding, unspecified Category: Medical Plan: Discussed with the patient the results of the work up done and options of treatment including L cyclic Provera, Mirena IUD, endometrial ablation and hysterectomy. All pros, cons, risks and benefits if each option was discussed with the patient and the patient decided to proceed with hysterectomy. Discussed with the patient the different types of hysterectomies including, vaginal, laparoscopic assisted vaginal, robotic assisted laparoscopic,& abdominal with BSO. All pros, cons, r/b of each approach were discussed the patient including evidence that morbidity is less and recovery is shorter with minimally invasive approaches to hysterectomy. Discussed with the patient the lack of availability of the robot DaVinci robot and/or minimally invasive crocheter hand specialist at [facility]. Will refer to [facility] minimally invasive invoicing specialist surgery. Instructed the patient to call our office back in case a referral appointment is not scheduled, missed or canceled so that we will assist on rescheduling another appointment, the patient verbalized understanding agreed with the plan. Instructed the patient to call our office back in case a referral appointment is not scheduled, missed or canceled so that we will assist on rescheduling another appointment, the patient verbalized understanding agreed with the plan. Coding Level of Care Code Est Pt Level 3 (49475) Diagnoses Abnormal uterine bleeding (AUB) N93.9
[2025-09-17 11:36] VITALS: BP 128/76; BMI 33.4
--- OUTSIDE RECORDS SUMMARY | 2025-09-17 15:05 | XMS_ITS | Patient Health Record ---
Author Organization [facility] Address [address] [place] [phone] Care Team Providers Care Weigher Packing Name Role Phone Name Rajesh WESTBROOK Primary Care Provider Jose Diaz Unavailable [phone] Reason For Referral No Information Medications Medication SIG (Take, Route, Frequency, Duration) Notes Start Date End Date Status Omeprazole 40 MG Capsule Delayed Release TAKE 1 CAPSULE BY MOUTH EVERY MORNING; Duration: 90 Active Esomeprazole Magnesium Active MiraLax (colon prep) 17 GM/SCOOP Powder 1 238 Gm bottle mixed with Gatorade or Crystal Light Orally begin at 5:00 p.m. the day before the procedure; Duration: 1 day 09/08/2021 Active Dulcolax (colon prep) 5 MG Tablet Delayed Release take at 3:00 p.m and 7:00p.m. Orally two tablets twice a day for one day; Duration: 1 day 09/08/2021 Active Immunizations Vaccine Route Administration Date Status Comme nts Influenza Unknown 09/06/2021 Refused Social History Tobacco Use: Social History Observation Description Date Details (start date - stop date) Never Smoker NA - NA Social History Drugs/Alcohol: Social Info Question Answer Notes Alcohol Screen Did you have a drink containing alcohol in the past year? 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 Notes: Nonsmoker; no alcohol Problems Problem Type SNOMED Code ICD Code Onset Dates Problem Status W/U Status Risk Notes Problem Information temporarily unavailable Gastroesophageal reflux disease (K21.9) Active confirmed Problem Information temporarily unavailable Iron deficiency anemia (D50.9) Active confirmed Problem Information temporarily unavailable Family history of colon cancer (Z80.0) Active confirmed Problem Information temporarily unavailable Esophageal stricture (K22.2) Active confirmed Problem Information temporarily unavailable Microcytic anemia (D50.9) Active confirmed Problem Information temporarily unavailable Gastroesophageal reflux disease, unspecified whether esophagitis present [...] Insured Coverage Start Date Coverage End Date [facility] [address] [address] [place], [place] [id number] THOMAS LE Self - patient is the insured Medical (General) History Medical History History ICD Code Hypertension-being observed-not on meds as of the 09/06/21 OV Sleep apnea--no CPAP Anemia Denies WI,DM,CVA,Lung disease,renal dise ase Surgical History Surgery Date(Month/Year) BTL
--- OUTSIDE RECORDS SUMMARY | 2025-09-17 15:06 | XMS_ITS | Encounter Summary ---
Author Organization [employer] [facility] Address [address] [place] [address] 7[address] [place] [address] Care Team Providers Care Oracle Business Analyst Name Role Phone Name, Rajesh WESTBROOK Primary Care Provider [phone] Aida Nguyen PharmD Unavailable [phone] Encounter Details Date Type Department Care Team (Late Contact Info) Description 06/22/2023 Orders Only [facility] [address] [place] [phone] Provider, MD Dinh Social History Tobacco [...] Care Team (Late st Contact Info) Description 11/23/2025 3:30 PM EST Office Visit [facility] [address] [place] [address] [phone] Name, MD Rajesh [address] [place] [phone] documented as of this encounter Goals Goal Patient Goal Type Associated Problems Recent Progress Patient-Stated? Author Record your blood pressure periodically, 2-3x per week Blood Pressure No Aida Nguyen, Rubens Blood Pressure < 140/90 Blood Pressure 120/80( 025 4:11 PM EST) No Aida Nguyen PharmD documented as [...] documented as of this encounter Care Teams Oracle Business Analyst Relationship Specialty Start Date End Date Name, MD Rajesh [address] [place] [address] PCP - General Family Medicine 07/04/21 Aida Nguyen PharmD [address] [place] [address] Pharmacist Internal Medicine 05/24/23 documented as of this encounter
--- OUTSIDE RECORDS SUMMARY | 2025-09-17 15:06 | XMS_ITS | Clinical Summary ---
Author Organization [employer] Address [address] [place] [address] 7[address] [place] [address] Care Team Providers Care Accountant Systems Name Role Phone Name, Rajesh WESTBROOK Primary Care Provider [phone] Aida Nguyen PharmD Unavailable [phone] Allergies No known active allergies Medications cetirizine (ZyrTEC) 10 MG tablet Take 1 [...] by mouth Once per day. 4 Active Diclofenac Sodium 1 % gel Apply thin layer by topical route (quantity as directed on package insert) to affected area of pain 3 times daily as needed. 50 g 3 5 Active fluticasone (Flonase) 50 MCG/ACT nasal spray INSTILL 2 SPRAYS IN EACH NOSTRIL ONCE DAILY 16 g 2 5 Active lisinopril-hydroC HLOROthiazide 10-12.5 MG tabletIndications :Essential hypertension Take 1 tablet by mouth Once per day. 30 tablet 11 08/18/2025 5:11 PM EST 5 07/13/20 26 Active pantoprazole (ProtoNix) 40 MG EC tabletIndications :Gastroesophageal reflux disease, unspecified whether esophagitis present Take 1 tablet (40 mg) by mouth before breakfast. Do not crush, chew, or split. 30 tablet 11 08/18/2025 5:11 PM EST 08/18/20 26 Active Active Problems Problem Noted Date [...] Assessment & Plan (09/10/2023 12:41 PM EST): Cooker Syrup to restart omeprazole Cooker Syrup to reschedule appt with GI if symptoms continue Check H. Pylori test Essential hypertension 11/29/2022 Assessment & Plan (01/05/2025 4:23 PM EDT): Not controled Off hydrochlorothiazide since 03/2024 Review with PCP at 01/29/25 appointment Assessment & Plan (09/10/2023 12:43 PM EST): Uncontrolled hydrochlorothiazide recently started Cooker Syrup to take losartan 100 MG in the [...] Encounters Date Type Department Care Team Description 09/03/2025 Orders Only [address] [address] Brittany Pearson MD 08/18/2025 4:00 PM EST Office Visit [address] [address] Rajesh Rdz MD Essential hypertension (Primary Dx); Gastroesophageal reflux disease, unspecified whether esophagitis present; Thyroid nodule 08/18/2025 Travel 08/15/2025 Travel 07/28/2025 Travel 07/23/2025 3:30 PM EDT Telemedicine [address] [address] Ella Garvey RN Essential hypertension 07/23/2025 Travel 07/21/2025 Travel 07/13/2025 3:45 PM EDT Office Visit [address] [address] Rajesh Rdz MD Essential hypertension (Primary Dx); Vaccination refused by patient 07/13/2025 Travel 07/08/2025 Travel 07/06/[address] [address] Rajesh Rdz MD ER Follow-up 07/06/[address] [address] Rajesh Rdz MD ER Follow-up 07/03/2025 Orders Only GENERIC EXTERNAL DATA DEPARTMENT Provider, Generic External Data 07/02/2025 Orders Only GENERIC EXTERNAL DATA DEPARTMENT Provider, Generic External Data 06/23/2025 Telephone [facility] [address] [place] [address] Ella Garvey RN from Last 3 Months Immunizations Immunization Administration [...] pur e alcohol) Alcohol Answer Date Recorded How often do you have a drink containing alcohol ? 0 08/18/2025 How many drinks containing a lcohol do you have on a typical day when you are drinking? 0 08/18/2025 How often do you have six or more drinks on one occasion? 0 08/18/2025 Depression Answer Date Recorded Patient Health Questionnaire-9 Score 0 05/25/2025 Patient Health Questionnaire-9 Score 0 05/25/2025 Last PHQ-9: Questionnaire Data Not on file 0 05/25/2025 Housing Stability Answer Date Recorded What is your housing situation today? I have honeydavi baum 05/19/[address] you [...] Sign Reading Time Taken Comments Blood Pressure 120/80 08/18/2025 4:11 PM EST Pulse 64 08/18/2025 4:11 PM EST Temperature 37.1 C (98.7 F) 08/18/2025 4:11 PM EST Respiratory Rate 20 08/18/2025 4:11 PM EST Oxygen Saturation 98% 08/18/2025 4:11 PM EST Inhaled Oxygen Concentration - - Weight 96.4 kg (212 lb 9.6 oz) 08/18/2025 4:11 P M EST Height 165.1 cm (5' 5 ) 08/18/2025 4:11 PM EST Body Mass Index 35.38 08/18/2025 4:11 PM EST Plan of Treatment Upcoming Encounters Date Type Department Care Team (Late st Contact Info) Description 11/23/2025 3:30 PM EST Office Visit [facility] [address] [place] [phone] Name, MD Rajesh [address] [place] [phone] Health Maintenance Due Date Last Done Comments [...] 05/25/2026 05/25/2025, 05/25/20 Mammogram 06/03/2026 06/03/2025, 03/21/2023 Cervical Cancer Screening 08/09/2026 HPV/Cotest 08/09/2026 08/09/2021, 11/0 06/2021, 08/09/2021, Additional history exists Pap Smear 08/09/2026 08/09/2021, 11/0 06/2021, 08/09/2021 Tobacco Screening 08/18/2026 08/18/2025 Colonoscopy 09/20/2026 09/20/2021 Colorectal Cancer Screening 09/20/2026 [...] PharmD Blood Pressure < 140/90 Blood Pressure 120/80( 025 4:11 PM EST) No Puia, Aida, PharmD Procedures Procedure Name Priority Date/Time Associated Diagnosis Comments BI MAMMOGRAM DIAGNOSTIC TOMOSYNTHESIS ADDED VIEW LEFT Routine 09/03/2025 1:44 PM EST BASIC METABOLIC PANEL Routine 08/11/2025 8:22 AM EST Essential hypertension HEMATOXYLIN AND EOSIN STAIN Routine 07/03/2025 9:56 AM EDT HIGH SENSITIVITY TROPONIN I Routine 07/02/2025 2:06 PM EDT CTA CHEST W AND WO CONTRAST Routine 07/02/2025 1:00 PM EDT BI MAMMOGRAM SCREENING TOMOSYNTHESIS BILATERAL Routine 06/03/2025 1:45 PM EDT BITEWING - SINGLE RADIOGRAPHIC IMAGE Routine 02/18/2025 3:00 PM EDT LIPID PANEL, STANDARD Routine 03/11/2024 7:08 AM EDT HM COLONOSCOPY Routine 09/20/2021 3:35 PM EST HM PAP/HPV Routine 08/09/2021 HM PAP/HPV Routine 08/09/2021 from Last 3 Months or Most Recently Relevant to Health Maintenance Results * BI Mammogram Diagnostic Tomosynthesis added left (09/03/2025 1:44 PM EST) Anatomical Region Laterality Modality Breast Left Mammography 09/03/2025 1:44 PM EST Narrative 09/03/2025 2:39 PM EST [place] [facility] [address] [place], [place] [address] Mammography Report Signed Patient: Veronica Wong MR#: [id number] : 1970 Acct:[id number] Age/Sex: 55 / F ADM Date: 09/03/25 Loc: HO.MAMMO Attending Dr: Brittany Pearson MD Ordering Physician: Brittany Pearson Results: 3Probably Benign Date of Service: 09/03/25 Follow Up: 6 Month F/U Procedure(s): MM tomosynthesis added views L Accession Number(s): [id number] cc: Brittany Pearson Reason For Exam: LT BT AV US FOR ASYMM EXAMINATION: MM DIAGNOSTIC DIGITAL BREAST TOMOSYNTHESIS, LEFT Left Limited ultrasound. CLINICAL INFORMATION: Call back from screening for asymmetry in the superior left breast on MLO view. COMPARISON: Mammography: Prior imaging on PACS. TECHNIQUE: Digital breast tomosynthesis is performed in both the craniocaudal and mediolateral oblique views along with computer-aided detection (CAD). Synthesized 2D images are generated from the tomosynthesis. FINDINGS: There are scattered areas of fibroglandular density. Asymmetry superior left breast posterior depth on MLO view partially effaces on additional imaging projections. No suspicious calcifications or other abnormal findings. Targeted color Doppler ultrasound scanning from 11-2 o'clock in the upper outer breast demonstrates normal fibroglandular breast tissue. There is no sonographic abnormal finding. MM/MM tomosynthesis added views L IMPRESSION: Asymmetry in the superior left breast MLO view which partially effaces and without sonographic correlate. Recommend 6 month follow-up for further evaluation of stability. ASSESSMENT: BI-RADS Category 3: Probably benign RECOMMENDATION: 6 Month F/U Results were provided to the patient at time of visit by the technologist. This patient's information was entered into a reminder system with a target due date for their next mammogram. Electronically signed by: Carmella Correa DO 09/03/2025 02:36 PM [facility] Dictated By: Carmella Correa DO Signed By: <Electronically signed by Carmella Correa DO in OV> 09/03/25 1436 DD/ 1344 TD/TT: 09/03/25 1348 Registered Nurse Cardiac: Procedure Note Donotuseinterpreter, Image - 09/03/2025 [facility] [address] [place] [address] Mammography Report Signed Patient: Jona Wong#: [id number] : 1970Acct:[id number] Age/Sex: 55 / FADM Date: 09/03/25 Loc: HO.MAMMO Attending Dr: Brittany Pearson MD Ordering Physician: Kavon Pearsonults: 3Probably Benign Date of Service: 09/03/25Follow Up: 6 Month F/U Procedure(s): MM tomosynthesis added views L Accession Number(s): [id number] cc: Brittany Pearson Reason For Exam: LT BT AV US FOR ASYMM EXAMINATION: MM DIAGNOSTIC DIGITAL BREAST TOMOSYNTHESIS, LEFT Left Limited ultrasound. CLINICAL INFORMATION: Call back from screening for asymmetry in the superior left breast on MLO view. COMPARISON: Mammography: Prior imaging on PACS. TECHNIQUE: Digital breast tomosynthesis is performed in both the craniocaudal and mediolateral oblique views along with computer-aided detection (CAD). Synthesized 2D images are generated from the tomosynthesis. FINDINGS: There are scattered areas of fibroglandular density. Asymmetry superior left breast posterior depth on MLO view partially effaces on additional imaging projections. No suspicious calcifications or other abnormal findings. Targeted color Doppler ultrasound scanning from 11-2 o'clock in the upper outer breast demonstrates normal fibroglandular breast tissue. There is no sonographic abnormal finding. MM/MM tomosynthesis added views L IMPRESSION: Asymmetry in the superior left breast MLO view which partially effaces and without sonographic correlate. Recommend 6 month follow-up for further evaluation of stability. ASSESSMENT: BI-RADS Category 3: Probably benign RECOMMENDATION: 6 Month F/U Results were provided to the patient at time of visit by the technologist. This patient's information was entered into a reminder system with a target due date for their next mammogram. Electronically signed by: Carmella Correa DO 09/03/2025 02:36 PM [facility] Dictated By: Tyminski,Carmella DO Signed By: <Electronically signed by Carmella Correa, DO in OV> 09/03/25 1436 DD/ 1344 TD/TT: 09/03/25 1348 Registered Nurse Cardiac: Brittany Pearson MD IMG BI PROCEDURES Edited Resul t - Final * (ABNORMAL) Basic Metabolic Panel (08/11/2025 8:22 AM EST) Sodium 137 135 - 145 mmol/L [facility] Potassium 4.0 3.3 - 5.1 mmol/L [facility] Chloride 105 96 - 108 mmol/L [facility] Carbon Dioxide 26 22 - 29 mmol/L [facility] Anion Gap 10(L) 12 - 20 [facility] Urea Nitrogen (BUN) 15 9 - 16 mg/dL [facility] Creatinine, Serum 0.61 0.5 - 1.4 mg/dL [facility] Estimated Glomerular Filt Rate >60 [facility] Comment:Chronic Kidney Disea se: Estimated GFR < 60 mL/min/1.97g1Irdylz Kidney Disease: Estimated GFR < 15 mL/min/1.73m2 Glucose 103 60 - 115 mg/dL [facility] Calcium 9.9 8.4 - 10.2 mg/dL [facility] Blood Venous blood specimen / Unknown 08/11/2025 8:22 AM EST 08/11/2025 11:10 AM EST Rajesh Rdz MD LAB BLOOD ORDERABLES Final Resul t [facility] [address] [place] [phone] * Hematoxylin and Eosin Stain (07/03/2025 9:56 AM EDT) 07/03/2025 9:56 AM EDT 07/03/2025 10:31 AM EDT Narrative [facility] - 07/06/2025 2:57 PM EDT ----- ------- Name: Veronica Wong Age/Sex: 55/F : 1970 Unit#: [id number] Attend Dr: Wagner Malik MD Re07/03/25 Status: [facility] Location: [facility] Disch: ----- ------- SPEC : [id number] RECD: 07/03/25 STATUS: ARMIDADina JEAN-PIERRE NUM: [id number] TYE: 07/03/[address] [facility] [address]: Wagner Malik MD ENTERED: 07/03/256 SP TYPE: Surgical OTHR DR: Brittany Pearson [...] Description Microscopic sections reviewed. Material Received A. [facility] B. Endometrial polyp Gross Description Received in [...] microscopic examination, multiple pieces in cassette B. ([facility]) CONTINUED ON NEXT PAGE ----- ------- Name: Veronica Wong Age/Sex: 55/F : 1970 Unit#: [id number] Attend Dr: Wagner Malik MD Re07/03/25 Status: [facility] Location: [facility] Disch: ----- ------- SPEC : [id number] RECD: 07/03/25 STATUS: HENRI MOREJON NUM: [id number] TYE: 07/03/[address] [facility] [address]: Wagner Malik MD ENTERED: 07/03/25 SP TYPE: Surgical OTHR DR: Brittany Pearson ORDERED: HE Stain/4, Gross Micro L4/2 IHC S/NG Disclaimer NOTE: Unless otherwise stated, all tissue is formalin-fixed and paraffin-embedded. Some or all of the immunohistochemical tests reported herein may have been developed and their performance characteristics determined by [facility]. They have not been cleared or approved by the U.S. Food and Drug Administration (FDA). However, the FDA has determined that such clearance or approval is not necessary. This laboratory is certified under the Clinical Laboratory Improvement Amendments of 1988 (CLIA) as qualified to perform high complexity clinical laboratory testing. Copies To: Brittany Pearson [facility] [address] [place] [address] [facility] [address] [place] [address] ----- ------- Signed (signature on file) Chano Tinoco MD 07/06/25 1457 ----- ------- END OF REPORT us Generic External Data Provider LAB BLOOD ORDERAB LES Final Result [facility] [address] [place] [address] [phone] * High Sensitivity Troponin I (07/02/2025 2:06 PM EDT) TROPONIN I HIGH SENSITIVITY <2.7 <3.5 - 17.0 ng/L [facility] Comment:The Real high sens itivity Troponin-I results should beused in conjunction with other diagnostic information suchas ECG, clinical observations and information, and patientsymptoms to aid in the diagnosis of DC. 07/02/2025 2:06 PM EDT 07/02/2025 2:10 PM EDT us Generic External Data Provider LAB BLOOD ORDERAB LES Final Result Performing Organization Address City/State/RUST Co de Phone Number [facility] [address] [place] [phone] * CTA Chest w/ and w/o Contrast (07/02/2025 1:00 PM EDT) Anatomical Region Laterality Modality Body, Chest Computed Tomogra phy 07/02/2025 1:00 PM EDT Narrative 07/02/2025 1:41 PM EDT [address] [address] [address] Scan Report Signed Patient: Veronica Wong MR#: [id number] : 1970 Acct:[id number] Age/Sex: 55 / F ADM Date: 07/02/25 Loc: HO.ED Attending Dr: Ordering Physician: Sebastian Arzola MD Date of Service: 07/02/25 Procedure(s): CT angio chest aorta Accession Number(s): [id number] cc: Sebastian Arzola MD; Name,Rajesh WESTBROOK Report Number: [id number]: Total DLP = 467.00 mGy-cm Reason for [...] Jarett Bowser MD 07/02/2025 01:38 PM EDT RP Dictated By: Jarett Bowser MD Signed By: <Electronically signed by Jarett Bowser MD in OV> 07/02/25 1338 DD/ 1300 TD/TT: 07/02/25 1319 Registered Nurse Cardiac: Procedure Note Donotuseinterpreter, Image - 07/02/[address] [place] [address] [address] Scan Report Signed Patient: Veronica WongMR#: [id number] : 1970Acct:[id number] Age/Sex: 55 / FADM Date: 07/02/25 Loc: .ED Attending Dr: Ordering Physician: Sebastian Arzola MD Date of Service: 07/02/25 Procedure(s): CT angio chest aorta Accession Number(s): [id number] cc: Sebastian Arzola MD; Name,Rajesh WESTBROOK Report Number: [id number]: Total DLP = 467.00 mGy-cm Reason for [...] 07/02/25 1338 DD/ 1300 TD/TT: 07/02/25 1319 Registered Nurse Cardiac: [facility] External Provider IMG CT PROCEDURES Edited Result - Final * BI Mammogram Screening Tomosynthesis Bilateral (06/03/2025 1:45 PM EDT) Anatomical Region Laterality Modality Breast Bilateral Mammography 06/03/2025 1:45 PM EDT Narrative 06/05/2025 2:28 PM EDT [facility] [place] [address] Mammography Report Signed Patient: Veronica Wong MR#: [id number] : 1970 Acct:[id number] Age/Sex: 55 / F ADM Date: 06/03/25 Loc: HO.MAMMO Attending Dr: Wagner Malik MD Ordering Physician: Wagner Malik MD Results: 0Incompl ete: Needs Additional Imaging Evaluation Date of Service: 06/03/25 Follow Up: Additional Imagi ng Procedure(s): MM tomosynthesis screening BI Accession Number(s): [id number] cc: Brittany Pearson; Wagner Malik MD EXAMINATION: [...] 06/05/25 1425 DD/ 1345 TD/TT: 06/03/25 1410 Registered Nurse Cardiac: Procedure Note Donotuseinterpreter, Image - 06/05/2025 [place] [facility] [address] [place], [place] [address] Mammography Report Signed Patient: Jona Wong#: [id number] : 1970Acct:[id number] Age/Sex: 55 / FADM Date: 06/03/25 Loc: HO.MAMMO Attending Dr: Wagner Malik MD Ordering Physician: Wagner Malik MDResults: 0Incompl ete: Needs Additional Imaging Evaluation Date of Service: 06/03/25Follow Up: Additional Imagi ng Procedure(s): MM tomosynthesis screening BI Accession Number(s): [id number] cc: Brittany Pearson; Wagner Malik MD EXAMINATION: [...] 06/05/25 1425 DD/ 1345 TD/TT: 06/03/25 1410 Registered Nurse Cardiac: [facility] External Provider IMG BI PROCEDURES Final Result * Lipid Panel, Standard (03/11/2024 7:08 AM EDT) Triglycerides 74 <150 mg/dL [facility] Comment:Desirable Triglyceri de: less than 150 mg/dLBorderline High Triglyceride 150-199 mg/dLHigh Triglyceride: 200-499 mg/dLVery High Triglyceride: greater than or equal to 5OO mg/dL Cholesterol 169 <200 mg/dL [facility] Comment:Desirable Cholestero l: less than 200 mg/dLBorderline High Cholesterol: 200-239 mg/dLHigh Cholesterol: greater than 239 mg/dL LDL Cholesterol Calculated 95 <100 mg/dL [facility] Comment:Desirable LDL: less than 100 mg/dLNear Optimal/Above Optimal LDL: 110- 129 mg/dLBorderline High LDL: 130-159 mg/dLHigh LDL: 160-189 mg/dLVery High LDL: greater than or equal to 190 mg/dL HDL Cholesterol 60 >40 mg/dL [facility] Comment:Desirable HDL: great er than 40 mg/dL Note: This HDL assay may give artificially low results in patients with liver disease. 03/11/2024 7:08 AM EDT 03/11/2024 7:08 AM EDT us Rajesh Rdz MD LAB BLOOD ORDERABLES Final Resul t [facility] [address] [place] [phone] * Colonoscopy (09/20/2021 3:35 PM EST) Colonoscopy Normal Normal Narrative Laura Goodwin - 09/20/2021 3:35 PM EST Recommended 5 year follow up Historical Provider HEALTH MAINTENANCE Final Result * Pap Smear (08/09/2021) Only the most recent of2 resultswithin the time period is included. Pap Negative for intraephithelial lesion or malignancy Negative for intraephithelial lesion or malignancy, Other HPV Undetected [facility] HEALTH MAINTENANCE Final Result from Last 3 Months or Most Recently Relevant to Health Maintenance Insurance [employer] - [place] PARTIAL (MEDICAID) Care Teams Accountant Systems Relationship Specialty Start Date End Date Name, MD Rajesh [address] [place] [address] PCP - General Family Medicine 07/04/21 Aida Nguyen, JimenezD [address] [place] [address] Pharmacist Internal Medicine 05/24/23
--- OUTSIDE RECORDS SUMMARY | 2025-09-17 15:06 | XMS_ITS | Encounter Summary ---
Author Organization [employer] Address [address] [place] [address] [address] [place] [address] Care Team Providers Care Drop Crew Laborer Name Role Phone Name, Rajesh WESTBROOK Primary Care Provider [phone] Aida Nguyen PharmD Unavailable [phone] Encounter Details Date Type Department Care Team ([facility] Contact Info) Description 03/12/[address] [facility] [address] [place], [place] [phone] Name, MD Rajesh [address] [place] [address] Social History Tobacco Use Types Packs/Day Years [...] Upcoming Encounters Date Type Department Care Team ([facility] Contact Info) Description 11/23/2025 3:30 PM EST Office [address] [facility] [address] [facility] [place] [address] Name, MD Rajesh [facility] [place] [address] documented as of this encounter Procedures Procedure [...] documented as of this encounter Care Teams Drop Crew Laborer Relationship Specialty Start Date End Date Name, MD Rajesh [facility] [place] [address] PCP - General Family Medicine 07/04/21 Aida Nguyen PharmD [facility] [place] [address] Pharmacist Internal Medicine 05/24/23 documented as of this encounter
--- OUTSIDE RECORDS SUMMARY | 2025-09-17 15:06 | XMS_ITS | Encounter Summary ---
Author Organization [employer] Address [address] [facility] 7t [place] [address] Care Team Providers Care Commissioner Of Conciliation Name Role Phone Name, Rajesh WESTBROOK Primary Care Provider [phone] Aida Nguyen PharmD Unavailable [phone] Encounter Details Date Type Department Care Team (Late st Contact Info) Description 01/06/2025 Orders Only [facility] [address] [place], [place] [phone] Brittany Pearson MD [address] [place], [place] [phone] Social History Tobacco Use Types Packs/Day Years [...] Description 11/23/2025 3:30 PM EST Office Visit [facility] [address] [place] [phone] Name, MD Rajesh [address] [place] [address] documented as of this encounter Goals Goal Patient Goal Type Associated Problems Recent Progress Patient-Stated? Author Record your blood pressure periodically, 2-3x per week Blood Pressure No Puia, Aida, PharmD Blood Pressure < 140/90 Blood Pressure 120/80( 025 4:11 PM EST) No Puia, Aida, PharmD documented as [...] AM EDT) Lutenizing Hormone 23.0 mIU/mL [facility] Comment:Reference Range Foll icular Phase 1.9-12.5 Mid-Cycle Peak 8.7-76.3 Luteal Phase 0.5-16.9 Postmenopausal 10.0-54.7THIS TEST WAS PERFORMED AT:[employer] [place] [id number] JAVED MD 04/16/2025 10:1 2 AM EDT 04/16/2025 10:12 AM EDT Generic External Data Provider LAB BLOOD ORDERAB LES Final Result Performing Organization Address [facility]/ZIP Co de Phone Number [facility] [address] [place] [phone] * FSH (04/16/2025 10:12 AM EDT) Follicle Stimulating Hormone 39.3 mIU/mL [facility] Comment:Reference Range Foll icular Phase 2.5-10.2 Mid-cycle Peak 3.1-17.7 Luteal Phase 1.5- 9.1 Postmenopausal 23.0-116.3THIS TEST WAS PERFORMED AT:[employer] [address] [id number] JAVED MD 04/16/2025 10:1 2 AM EDT 04/16/2025 10:12 AM EDT us Generic External Data Provider LAB BLOOD ORDERAB LES Final Result Performing Organization Address City/[facility]/ZIP Co de Phone Number [facility] [address] [place] [address] [phone] * hCG, Total, Quantitative (04/16/2025 10:12 AM EDT) HCG Quantitative <2 mIU/mL [facility] Comment:Weeks post LMP Appro ximate hCG(Last Menstrual Period) Range (mIU/ml)3 - 4 weeks 9 - 1304 - 5 weeks 75 - 2,6005 - 6 weeks 850 - 20,8006 - 7 weeks 4000 - 100,2007 - 12 weeks 11,500 - 289,89618 - 16 weeks 18,300 - 137,10049 - 29 weeks (2nd trimester) 1,400 - 53,00933 - 41 weeks (3rd trimester) 940 - [...] ORDERAB LES Final Result Performing Organization Address City/[facility]/ZIP Co de Phone Number [facility] [address] [place] [phone] * TSH with Reflex to Free T4 (04/16/2025 10:12 AM EDT) TSH reflex Free T4 0.84 0.32 - 4.0 uIU/mL [facility] 04/16/2025 10:1 2 AM EDT 04/16/2025 10:12 AM EDT us Generic External Data Provider LAB BLOOD ORDERAB LES Final Result Performing Organization Address City/[facility]/ZIP Co de Phone Number [facility] [address] [place] [address] [phone] * Chlamydia/N. Gonorrhoeae RNA, TMA, Urogenitial (04/16/2025 9:05 AM EDT) CT PCR NOT DETECTED Not Detect. [facility] Comment:A not detected test result [...] psychologicalconsequences. NG PCR NOT DETECTED Not Detect. [facility] Comment:A not detected test result [...] LAB MICROBIOLOGY - GENERAL ORDERABLES Final Result [facility] [address] [place] [phone] [phone] documented in this encounter Visit Diagnoses Not on filedocumented in this encounter Additional Health Concerns Assessment Noted Time PHQ-9 Depression Total Score: 0 05/19/20 24 3:43 PM EDT documented as of this encounter Care Teams Commissioner Of Conciliation Relationship Specialty Start Date End Date Name, MD Rajesh [address] [place] [address] PCP - General Family Medicine 07/04/21 Aida Nguyen PharmD [address] [place] [address] Pharmacist Internal Medicine 05/24/23 documented as of this encounter
--- OUTSIDE RECORDS SUMMARY | 2025-09-17 15:06 | XMS_ITS | Encounter Summary ---
Author Organization [employer] Address [address] [place] [address] 7[address] [place] [address] Care Team Providers Care Invasive Physician Name Role Phone Name, Rajesh WESTBROOK Primary Care Provider [phone] Aida Nguyen PharmD Unavailable Reason for Visit * Reason Onset Date Comments stating 10/12/2022 Encounter Details Date Type Department Care Team ([facility] st Contact Info) Description 10/12/2022 Telephone [facility] [address] [place], [place] [phone] Name, MD Rajesh [address] [place] [address] stating Social History Tobacco Use Types Packs/Day [...] - 10/12/2022 9:28 AM EST Tc from [place] with [facility] stating they do not take pt health insurance and cant be seen at practice. documented in this encounter Plan of Treatment Upcoming Encounters Date Type Department Care Team (Late st Contact Info) Description 11/23/2025 3:30 PM EST Office Visit [facility] [address] [place] [address] Name, MD Rajesh [address] [place] [phone] documented as of this encounter Visit Diagnoses Not on filedocumented in this encounter Care Teams Invasive Physician Relationship Specialty Start Date End Date Name, MD Rajesh [address] [place] [phone] PCP - General Family Medicine 07/04/21 Aida Nguyen PharmD [address] [place] [phone] Pharmacist Internal Medicine 05/24/23 documented as of this encounter
--- OUTSIDE RECORDS SUMMARY | 2025-09-17 15:06 | XMS_ITS | Clinical Summary ---
Author Organization [facility] ity Address [address] [place] [address] Care Team Providers Care Manager Civil Name Role Phone Unavailable Primary Care Provider [...] Depression Screening 10/01/2024 COVID-19 Vaccine ( - 2024-2 6 season) 2025 Influenza Vaccine (#1) 2025 RSV [...]
--- OUTSIDE RECORDS SUMMARY | 2025-09-17 15:06 | XMS_ITS | Encounter Summary ---
Author Organization [employer] Address [address] [facility] 7 [place] [address] Care Team Providers Care Wick And Base Assembler Name Role Phone Name, Rajesh WESTBROOK Primary Care Provider [phone] Aida Nguyen PharmD Unavailable [phone] Reason for Visit * Reason Onset Date Comments Nurse Triage 08/30/2023 Encounter Details Date Type Department Care Team ([facility] st Contact Info) Description 08/30/2023 Telephone [facility] [address] [place], [place] [phone] Name, MD Rajesh [address] [place] [address] Nurse Triage Social History Tobacco Use Types [...] 4:41 PM EST T/C to pt. Through [employer] id - [id number] for below message, Pt. States she is [...] time. Pt advised of disposition, agrees to [facility] ED now for exam [...] Description 11/23/2025 3:30 PM EST Office Visit [facility] [address] [place] [phone] Name, MD Rajesh [address] [place] [address] documented as of this encounter Goals Goal [...] documented as of this encounter Care Teams Wick And Base Assembler Relationship Specialty Start Date End Date NameRajesh MD [address] [place] [phone] PCP - General Family Medicine 07/04/21 Puia, Aida, PharmD [address] [place] [phone] Pharmacist Internal Medicine 05/24/23 documented as of this encounter
== END 2025-09-17 11:42 | disposition home or self-care (01) ==
LOC: HO.HWS 11:29
PROVIDERS: PCP General Practice; Visit Provider Obstetrics & Gynecology
DX: N93.9 Abnormal uterine and vaginal bleeding, unspecified (principal)
CPT/HCPCS: 99213

== ENCOUNTER → 2025-09-17 11:29 | Outpatient (BNVA) | payer OTHER, SELFPAY | PROVIDERS: PCP General Practice; Visit Provider Obstetrics & Gynecology | DX: Z48.816 Encounter for surgical aftercare following surgery on the genitourinary system (principal); N93.9 Abnormal uterine and vaginal bleeding, unspecified; Z98.51 Tubal ligation status | CPT/HCPCS: 99212 ==